=== PATIENT | male | born 1950 | race Caucasian/White ===

== ENCOUNTER → 2020-08-05 14:12 | Outpatient (BNVA) | payer MEDICARE, MEDICAID, SELFPAY | PROVIDERS: PCP Internal Medicine; Referring Provider Internal Medicine; Visit Provider Internal Medicine Cardiovascular Disease | DX: I42.9 Cardiomyopathy, unspecified (principal); I10 Essential (primary) hypertension; I45.3 Trifascicular block; I47.1 Supraventricular tachycardia; Z45.018 Encounter for adjustment and management of other part of cardiac pacemaker | CPT/HCPCS: 99212 ==

== ENCOUNTER → 2020-09-03 09:11 | Outpatient (REF) | payer MEDICARE, MEDICAID, SELFPAY ==
--- NOTE | 2020-09-03 09:14 | CA_ITS ---
Transthoracic Echocardiogram Patient (Last, First, Middle): Ganesh Beebe, Gender: Male Date of : 1950 Age: 70 Procedure Date: 09/03/2020 Procedure Type: Transthoracic Echocardiogram Location: OP Height: 170.18 cm Weight: 90.72 kg BSA: 2.02 m2 Heart Rate: bpm BP: 154 / 80 mmHg [employer] Tender: Referring MD: Juan C Cardenas MD Symptoms: I42.9 - Cardiomyopathy, unspecified Study Quality: Good ECG Rhythm: Sinus Conclusions: - The left ventricular systolic function is low normal. The visually estimated ejection fraction is between 50-55%. - No obvious valvular pathology seen on this study. Findings Left Ventricle Normal left ventricular cavity size. There is normal left ventricular wall thickness. The left ventricular systolic function is low normal. The visually estimated ejection fraction is between 50-55%. There is no evidence of regional wall motion abnormalities. Evidence suggests grade I (mild) diastolic dysfunction. Right Ventricle There is a pacemaker wire seen in the right ventricle. Atria The left atrium is normal in size. The right atrium is normal in size. Aortic Valve There is a normal trileaflet aortic valve. There is no aortic valve stenosis. There is no aortic valve regurgitation. Mitral Valve The mitral valve appears normal. There is mild mitral annular calcification. There is trace mitral valve regurgitation. There is no mitral valve stenosis. Pulmonic Valve The pulmonic valve was not well visualized. Tricuspid Valve Normal tricuspid valve structure. There is trace tricuspid valve regurgitation. The pulmonary artery systolic pressure is normal. Great Vessels The aortic annulus, sinuses of valsalva, and asc aorta are normal in size. Venous The inferior vena cava is normal in size and collapses greater than 50% with inspiration. Pericardium/Pleural There is no evidence of pericardial effusion. Prior Study Comparison No significant change compared to prior study dated: 10/17/2018. Recommendations, Care & Conclusions No obvious valvular pathology seen on this study. Measurements 2D Linear Measurements RVIDd: 2.17 RVIDd Index: 1.07 IVSd: 0.80 0.6-0.9/0.6-1.0 cm LVIDd: 5.91 3.9-5.3/4.2-5.9 cm LVIDd Index: 2.93 2.4-3.2/2.2-3.1 cm/m2 LVIDs: 4.04 2.0-3.6 cm LVPWd: 1.14 0.7-1.1 cm Ao Root: 3.30 2.1-3.5 cm LA Diam: 3.30 2.7-3.8/3.0-4.0 cm LAIDs Index: 1.63 1.5-2.3 cm/m2 LV Mass: 288.60 67-162/88-224 g LV Mass Index: 142.87 43-95/49-115 g/m2 LVOT Diam: 2.40 3.0+(-)1.3 cm 2D Systolic Function EF 4C: 54.50 >55% EF 2C: 56.10 >55% EF BiP: 54.90 >55% Mitral Valve MV Pk E: 0.72 MV PK A: 1.12 MV Decel Time: 263.00 E/A: 0.60 E'Lateral: 5.55 E'Medial: 6.64 E/E' Med: 10.80 E/E' Lat: 12.90 Aortic Valve AoV Pk Basil: 1.39 AoV Mn Basil: 0.93 AoV VTI: 0.26 AoV Pk Grad: 8.00 Aov Mn Grad: 4.00 BETTE Cont.VTI: 3.24 LVOT LVOT Pk Basil: 0.91 LVOT Mn Basil: 0.56 LVOT VTI: 0.18 LVOT Pk Grad: 3.00 LVOT Mn Grad: 2.00 LVOT Diam: 2.40 LVOT Area: 4.52 Diastolic Function MV Pk E: 0.72 MV Pk A: 1.12 E/A: 0.60 E'Medial: 6.64 E/E' Med: 10.80 E' Laterial: 5.55 E/E' Lat: 12.90 Tricuspid Valve TR Pk Basil: 2.36 TR Pk Grad: 22.00 RA Press: 3.00 RVSP: 25.00 Great Vessels Aorta Ao Root-2D: 3.30 2.0-3.7 cm Ao Asc: 3.50 2.1-3.4 cm Ao Arch: 2.90 Updated in Other Vendor System with Status of Final Ramírez Ferreira MD electronically signed on 09/03/2020 12:29:17 PM with status of Final
== END ==
LOC: HO.CARD 09:11
PROVIDERS: PCP Internal Medicine; Visit Provider Internal Medicine Cardiovascular Disease
DX: I42.9 Cardiomyopathy, unspecified (principal); I10 Essential (primary) hypertension
CPT/HCPCS: 93306

== ENCOUNTER 2020-10-02 21:52 | Emergency (ER) | payer MEDICARE, MEDICAID, SELFPAY ==
[2020-10-02 23:17] VITALS: BP 181/98; PULSE 72; RESP 16; TEMP 37.1; O2SAT 97; BMI 31.3
--- NOTE | 2020-10-02 23:50 | ED_ITS ---
HPI - Animal Bite General Chief Complaint: Animal Bite Stated Complaint: Dog Bite Time Seen by Provider: 10/02/20 23:18 Source: patient Mode of arrival: ambulatory Limitations: no limitations History of Present Illness HPI narrative: Patient comes complaining of multiple dog bites to his right hand. Patient states it was his own dog, a gabino. According to the patient, he was cleaning after the dog, seems that the patient's dog felt, bit the patient in the hand. Dog is up-to-date with immunizations. Patient does not remember when he had his last tetanus shot MD complaint: animal bite Related Data Home Medications Medication Instructions Recorded Confirmed fluticasone propionate 50 1 spray INTRANASAL DAILY 09/10/20 09/10/20 mcg/actuation nasal spray,suspension Previous Rx's Medication Instructions Recorded lorazepam 0.5 mg tablet 0.5 mg PO BID PRN 30 Days #60 tab 08/02/20 amlodipine 5 mg tablet 5 mg PO DAILY 90 Days #90 tab 08/26/20 aspirin 81 mg tablet,delayed 81 mg PO DAILY 90 Days #90 tab 08/26/20 release carvedilol 25 mg tablet 25 mg PO BID #180 tab 08/26/20 eplerenone 50 mg tablet 50 mg PO DAILY 90 Days #90 tab 08/26/20 lisinopril 20 mg tablet 20 mg PO BID 90 Days #180 tab 08/26/20 metformin 500 mg tablet 500 mg PO BID 90 Days #180 tab 08/26/20 omega-3 fatty acids-fish oil 340 1 cap PO BID #180 cap 08/26/20 mg-1,000 mg capsule omeprazole 40 mg capsule,delayed 40 mg PO DAILY #90 cap 08/26/20 release potassium chloride 20 mEq 40 meq PO DAILY 90 Days #180 tab 08/26/20 tablet,extended release(part/cryst) sennosides 8.6 mg tablet 17.2 mg PO BEDTIME PRN #60 tab 08/26/20 tramadol 50 mg tablet 50 mg PO Q12H PRN 30 Days #60 tab 08/26/20 zolpidem 10 mg tablet 10 mg PO BEDTIME PRN 30 Days #30 08/26/20 tab meclizine 25 mg tablet 25 mg PO DAILY PRN 90 Days #90 tab 09/10/20 amoxicillin-pot clavulanate 1 tab PO BID #13 tab 10/02/20 [Augmentin] Allergies Allergy/AdvReac Type Severity Reaction Status Date / Time spironolactone Allergy Intermediate Gynecomasti Verified 09/10/20 09:25 [Spironolactone] a,Swelling eplerenone [EPLERENONE] Allergy Unknown UNKNOWN Verified 09/10/20 09:25 metoprolol [METOPROLOL] Allergy Unknown UNKNOWN Verified 09/10/20 09:25 seafood Allergy Unknown Unknown Verified 09/10/20 09:25 fentanyl AdvReac Unknown sleepiness Verified 09/10/20 09:25 Review of Systems Review of Systems: Constitutional : No Weight loss, No Fever, No Chills, No Night Sweats, No Fatigue, No Malaise ENT/Mouth : No Hearing loss, No Ear Pain, No Nasal Congestion, No Sinus Pain, No Hoarseness, No sore throat, No Rhinorrhea, No Swallowing Difficulty Eyes: No Eye Pain, No Swelling, No Redness, No Foreign Body, No Discharge, No Vision Changes Cardiovascular : No Chest Pain, No SOB, No Dyspnea on Exertion, No Orthopnea, No Edema, No Palpitations Respiratory : No Cough, No Sputum, No Wheezing, No Smoke Exposure, No Dyspnea Gastrointestinal : No Nausea, No Vomiting, No Diarrhea, No Constipation, No abdominal Pain, No Hematochezia, No Melena Genitourinary : no irregular bleeding, No Dysuria, No Urinary Frequency, No Hematuria, No Urinary Incontinence, No Urgency, No Flank Pain, No Urinary Flow Changes, No Hesitancy Musculoskeletal : No joint pain, No Myalgias, No Joint Swelling Skin : Multiple dog bites to the right hand Neuro : No Weakness, No Numbness, No Paresthesias, No Loss of Consciousness, No Dizziness, No Headache Psych : No Anxiety/Panic, No Depression, No SI/HI/AH/VH, No Social Issues, Heme/Lymph: No Bruising, No Bleeding,No Lymphadenopathy Endocrine : No Polyuria, No Polydipsia, No Temperature Intolerance [facility] Past Medical History Medical History Cardiac pacemaker in situ Cardiomyopathy Diabetes mellitus HTN (hypertension) SVT (supraventricular tachycardia) Trifascicular block Vertigo Surgical History History of inguinal hernia repair History of pacemaker S/P cardiac catheterization Status post excision of lipoma Family History Family History (Updated 08/29/20 @ 09:29 by MAGALIS Palencia) Mother Cancer Diabetes Hypertension Father Stroke Sister Cancer Maternal Uncle Myocardial infarction Paternal Aunt No problems noted. Paternal Uncle Hypertension CVD (cardiovascular disease) Social History Social History Alcohol intake: former Smoking Status: Never smoker Advance Directives: No Physical Exam Vital Signs: Vital Signs: Last Vital Signs Temp 98.7 F 10/02/20 23:17 Pulse 72 10/02/20 23:17 Resp 16 10/02/20 23:17 BP 181/98 H 10/02/20 23:17 Pulse Ox 97 10/02/20 23:17 Body Mass Index 31.3 Appearance: Alert. Oriented X3. No acute distress. Eyes: Pupils equal, round and reactive to light. ENT: Pharynx normal. Neck: Normal inspection. Neck supple. No lymph nodes noted. No crepitus CVS: Normal heart rate and rhythm. Pulses normal. Normal S1 and S2 Respiratory: No respiratory distress. Breath sounds normal. No Wheezing. No rales Abdomen: Soft and nontender. No rigidity. No distention. good BS x4 Skin: Skin warm and dry. Patient has multiple bite wounds to the dorsum of the right hand around the wrist and multiple puncture wounds to the palmar side under the thumb. Patient is able to flex and extend all fingers. Extremities: No lower extremity edema. No lower extremity edema. No Lacerations. No Rash Neuro: Oriented X 3. No motor deficit. No sensory deficit. Moving all extermities. No slurred speech. Course Course Course Narrative: Patient's HEENT was thoroughly rinsed. I discussed with the patient as stitches are not recommended. He was given 1 dose of Tdap and 1st dose of Augmentin. I discussed with the patient's signs and symptoms of infection and when to return to emergency room. Discharge Plan Discharge Clinical Impression: Dog bite Qualifiers: Encounter type: initial encounter Qualified Code(s): W54.0XXA - Bitten by dog, initial encounter Patient Disposition: Home, Self-Care Instructions: Animal Bite (ED) Additional Instructions: If you have any signs or symptoms of infection such as redness, pus drainage, increased pain, fever, any new concerns, please return to the emergency room. Please follow-up with your primary care physician tomorrow. If you have any worsening or new symptoms, please return to the emergency room or call 911 Prescriptions: New amoxicillin-pot clavulanate [Augmentin] 875-125 mg tablet 1 tab PO BID Qty: 13 RF: 0 No Action lorazepam 0.5 mg tablet 0.5 mg PO BID PRN (Reason: anxiety) 30 Days Qty: 60 RF: 0 amlodipine 5 mg tablet 5 mg PO DAILY 90 Days Qty: 90 RF: 3 aspirin 81 mg tablet,delayed release (DR/EC) 81 mg PO DAILY 90 Days Qty: 90 RF: 3 carvedilol 25 mg tablet 25 mg PO BID Qty: 180 RF: 2 eplerenone 50 mg tablet 50 mg PO DAILY 90 Days Qty: 90 RF: 3 lisinopril 20 mg tablet 20 mg PO BID 90 Days Qty: 180 RF: 3 zolpidem 10 mg tablet 10 mg PO BEDTIME PRN (Reason: insomnia) 30 Days Qty: 30 RF: 0 tramadol 50 mg tablet 50 mg PO Q12H PRN (Reason: pain) 30 Days Qty: 60 RF: 0 sennosides [senna] 8.6 mg tablet 17.2 mg PO BEDTIME PRN (Reason: constipation) Qty: 60 RF: 11 potassium chloride 20 mEq tablet,ER particles/crystals 40 meq PO DAILY 90 Days Qty: 180 RF: 1 omeprazole 40 mg capsule,delayed release(DR/EC) 40 mg PO DAILY Qty: 90 RF: 1 Fish Oil 340-1,000 mg capsule 1 cap PO BID Qty: 180 RF: 2 metformin 500 mg tablet 500 mg PO BID 90 Days Qty: 180 RF: 3 fluticasone propionate 50 mcg/actuation spray,suspension 1 spray intranasal DAILY RF: 0 meclizine 25 mg tablet 25 mg PO DAILY PRN (Reason: dizziness) 90 Days Qty: 90 RF: 1
[2020-10-03] MEDS: Amoxicillin/Potassium Clav 875 MG TABLET PO (00:31)
--- NOTE | 2020-10-03 01:07 | PC.NURSE ---
PT DOG BITE TO RIGHT HAND CLEANED AND WITH BETADINE AND NS AND BACTRIAN AND DSD APPLIED.
== END 2020-10-03 01:09 | disposition home or self-care (01) ==
PROVIDERS: Emergency Provider Emergency Medicine; PCP Internal Medicine
DX: S60.571A Other superficial bite of hand of right hand, initial encounter (principal); S60.511A Abrasion of right hand, initial encounter; M79.641 Pain in right hand; W54.0XXA Bitten by dog, initial encounter; Y93.9 Activity, unspecified; Y92.009 Unspecified place in unspecified non-institutional (private) residence as the place of occurrence of the external cause; Y99.9 Unspecified external cause status; Z23 Encounter for immunization
CPT/HCPCS: 90471; 90715; 99284

== ENCOUNTER → 2021-02-04 12:44 | Outpatient (BNVA) | payer MEDICARE, MEDICAID, SELFPAY | PROVIDERS: PCP Internal Medicine; Referring Provider Internal Medicine; Visit Provider Internal Medicine Cardiovascular Disease | DX: Z45.018 Encounter for adjustment and management of other part of cardiac pacemaker (principal); I42.9 Cardiomyopathy, unspecified; I10 Essential (primary) hypertension | CPT/HCPCS: 99212 ==

== ENCOUNTER 2021-02-26 08:40 | Outpatient (REF) | payer MEDICARE, MEDICAID, SELFPAY ==
[2021-02-26 09:06] LABS: MANUAL DIFF FLAG NO
[2021-02-26 09:18] LABS: Basophils Percent Auto 0.6 % (0-2); Eosinophils Absolute Auto 0.2 X10*3/uL (0.0-0.4); Eosinophils Percent Auto 3.7 % (0-4); Hemoglobin 13.2 g/dl (14.0-18.0); Imm Gran Abs Auto 0.04 X10*3/uL (0.00-0.03); Imm Gran Pct Auto 0.6 % (0.0-0.4); Lymphocytes Absolute Auto 1.1 X10*3/uL (1.2-4.9); Lymphocytes Percent Auto 17.5 % (20-40); Mean Corpuscular HGB Conc 33.8 g/dl (31.0-36.0); Mean Corpuscular Hemoglobin 31.1 pg (27.0-33.0); Mean Corpuscular Volume 91.8 fL (80-98); Mean Platelet Volume 9.3 fL (9.4-12.4); Monocytes Absolute Auto 0.6 X10*3/uL (0.1-1.2); Monocytes Percent Auto 9.4 % (2-11); Neutrophils Absolute Auto 4.3 X10*3/uL (2.0-8.3); Neutrophils Percent Auto 68.2 % (45-73); Platelet Count 213 X10*3/uL (160-400); Red Blood Count 4.25 X10*6/uL (4.60-5.80); Red Cell Distribution Width 12.6 % (11.0-16.0); White Blood Count 6.3 X10*3/uL (4.8-10.8)
[2021-02-26 10:44] LABS: Alanine Aminotransferase 14 U/L (0-40); Albumin Level 4.4 g/dL (3.5-5.0); Alkaline Phosphatase 82 U/L (39-117); Anion Gap 14 (12-20); Aspartate Amino Transferase 20 U/L (5-37); Bilirubin Total 0.9 mg/dL (0.0-1.0); Blood Urea Nitrogen 13 mg/dL (9-16); Calcium 9.3 mg/dL (8.4-10.2); Carbon Dioxide 22 mmol/L (22-29); Chloride 105 mmol/L (96-108); Cholesterol 190 mg/dL; Estimated Glomerular Filt Rate > 60; Glucose Fasting 118 mg/dL (60-99); HDL Cholesterol 37 mg/dL; LDL Cholesterol Calculated 129 mg/dl; Potassium 4.3 mmol/L (3.3-5.1); Sodium 137 mmol/L (135-145); Total Protein 7.4 g/dL (6.5-8.0); Triglycerides 122 mg/dL
[2021-02-26 11:27] LABS: Creatinine Urine 70.95 mg/dL; Microalbum/Creatinine Ratio Ur 73.2 ug/mg cr
[2021-03-02 13:26] LABS: Vitamin D 25-OH, D2 <4 ng/mL; Vitamin D 25-OH, D3 32 ng/mL; Vitamin D 25-OH, Total 32 ng/mL (30-100)
== END 2021-02-26 08:41 | disposition home or self-care (01) ==
LOC: HO.LAB 08:40
PROVIDERS: PCP Internal Medicine; Visit Provider Internal Medicine
DX: E11.9 Type 2 diabetes mellitus without complications (principal); E78.5 Hyperlipidemia, unspecified; R42 Dizziness and giddiness; E55.9 Vitamin D deficiency, unspecified
CPT/HCPCS: 36415; 80053; 80061; 82043; 82306; 85025

== ENCOUNTER → 2021-08-07 12:17 | Outpatient (BNVA) | payer MEDICARE, MEDICAID, SELFPAY | PROVIDERS: PCP Internal Medicine; Referring Provider Internal Medicine; Visit Provider Internal Medicine Cardiovascular Disease | DX: Z45.018 Encounter for adjustment and management of other part of cardiac pacemaker (principal); I47.1 Supraventricular tachycardia; I42.9 Cardiomyopathy, unspecified | CPT/HCPCS: 99212 ==

== ENCOUNTER 2021-10-14 12:16 | Outpatient (REF) | payer MEDICARE, MEDICAID, SELFPAY ==
--- NOTE | ~2021-10-14 | XR_ITS ---
EXAMINATION: XR HIP, RIGHT CLINICAL INFORMATION: Pain right hip COMPARISON: None TECHNIQUE: Two views of the right hip. FINDINGS: Bones and soft tissues are normal. No fracture. Alignment is anatomic. Hip joint space is maintained. XR/XR hip RT min 2V IMPRESSION: Unremarkable right hip exam.
== END 2021-10-14 12:17 | disposition home or self-care (01) ==
LOC: HO.XRAY 12:16
PROVIDERS: PCP Internal Medicine; Visit Provider Internal Medicine
DX: M25.551 Pain in right hip (principal)
CPT/HCPCS: 73502

== ENCOUNTER 2021-11-08 09:20 | Emergency (ER) | payer MEDICARE, MEDICAID, SELFPAY ==
--- NOTE | ~2021-11-08 | CT_ITS ---
EXAMINATION: CT PELVIS WITHOUT CONTRAST CLINICAL INFORMATION: Right-sided pain 1 month after falling. COMPARISON: CT abdomen/pelvis dated 07/27/2016. TECHNIQUE: Helical scanning was performed with submillimeter collimation through the pelvis. Sagittal and coronal multiplanar 2-D reconstructions were obtained. This CT examination was performed using dose optimization techniques as appropriate, variously including the following: *Automated exposure control *Adjustment of mA and/or kV according to patient size (this includes techniques or standardized protocols for targeted exams where dose is matched to indication/reason for exam; i.e. extremities or head) *Use of iterative reconstruction technique DLP: 646 mGy-cm FINDINGS: PELVIS: Sigmoid diverticulosis without evidence of acute diverticulitis. No bowel wall thickening or associated inflammatory change. Mild prostatomegaly with small calcifications. Small, fat-containing left inguinal hernia. Otherwise, the visualized intrapelvic structures are unremarkable. No abnormal soft tissue mass or fluid collection. OSSEOUS STRUCTURES: No acute fracture or dislocation. Moderate bilateral hip osteoarthritis with subchondral cystic change in the acetabula. No concerning lytic or blastic osseous lesion. Redemonstration of congenital deformity with hypoplasty redemonstrated at the right side of the L5 vertebral body, unchanged. Multilevel degenerative disc disease and facet arthropathy throughout the lumbar spine. CT/CT pelvis wo con IMPRESSION: No acute fracture or dislocation. Bilateral hip osteoarthritis as well as degenerative disc disease throughout the lumbar spine is redemonstrated. Congenital deformity of L5 appears unchanged. Diverticulosis without evidence of acute diverticulitis. Small, fat-containing left inguinal hernia, new when compared to the prior examination from 2015. No associated inflammatory change.
[2021-11-08 09:25] VITALS: BP 145/77; PULSE 81; RESP 17; TEMP 36.8; O2SAT 96; BMI 31.6
[2021-11-08] MEDS: Cyclobenzaprine HCl 5 MG TABLET PO (10:11)
--- NOTE | 2021-11-08 10:42 | ED.GENADULT ---
HPI - General Adult General Chief complaint: General Medical <ANANDA Franklin - Last Filed: 11/08/21 12:13> Stated complaint: r leg problem <ANANDA Franklin Last Filed: 11/08/21 12:13> Time Seen by Provider: 11/08/21 09:46 <ANANDA Franklin Last Filed: 11/08/21 12:13> Source: patient <ANANDA Franklin Last Filed: 11/08/21 12:13> Mode of arrival: ambulatory <ANANDA Franklin Last Filed: 11/08/21 12:13> History of Present Illness HPI narrative: 71-year-old male with a past medical history of diabetes, HTN, SVT, cardiomyopathy, vertigo, presenting to the ED complaining of continued right hip/pelvic/groin pain s/p mechanical fall over a month ago while shoveling. Reports was seen by PCP after incident had hip x-rays that were WNL however with continued pain. Denies recurrent or more recent fall. Reports pain radiates down RLE with associated numbness. Denies weakness. Reports mild back pain. Denies urinary incontinence/retention, fever, chills <ANANDA Franklin Last Filed: 11/08/21 12:13> Onset (ago): month(s) <ANANDA Franklin Last Filed: 11/08/21 12:13> Location: lower extremity <ANANDA Franklin Last Filed: 11/08/21 12:13> Related Data Home medications: Home Medications Medication Instructions Recorded Confirmed amoxicillin 500 mg-potassium 1 tab PO BID 10/14/21 10/14/21 clavulanate 125 mg tablet Previous Rx's Medication Instructions Recorded aspirin 81 mg tablet,delayed 81 mg PO DAILY 90 Days #90 tab 08/26/20 release meclizine 25 mg tablet 25 mg PO DAILY PRN 90 Days #90 tab 09/10/20 fluticasone propionate 50 1 spray INTRANASAL DAILY #16 ml 01/04/21 mcg/actuation nasal spray,suspension lisinopril 20 mg tablet 20 mg PO BID 90 Days #180 tab 01/08/21 nebulizers #1 ea 02/27/21 omega-3 fatty acids-fish oil 340 1 cap PO BID #180 cap 02/27/21 mg-1,000 mg capsule (Fish Oil) potassium chloride 20 mEq 40 meq PO DAILY 90 Days #180 tab 04/15/21 tablet,extended release(part/cryst) omeprazole 40 mg capsule,delayed 40 mg PO DAILY #90 cap 05/14/21 release potassium chloride 20 mEq 20 meq PO BID 90 Days #180 tab 06/04/21 tablet,extended release(part/cryst) (Klor-Con M) amlodipine 5 mg tablet 5 mg PO DAILY 90 Days #90 tab 08/08/21 albuterol sulfate 90 mcg/actuation 1 puff PO Q4H PRN 30 Days #54 ea 08/18/21 aerosol inhaler sennosides 8.6 mg tablet (senna) 17.2 mg PO BEDTIME PRN #60 tab 09/03/21 metformin 500 mg tablet 500 mg PO BID 90 Days #180 tab 10/04/21 lorazepam 0.5 mg tablet 0.5 mg PO BID PRN 7 Days #14 tab 10/20/21 tramadol 50 mg tablet 50 mg PO Q12H PRN 30 Days #60 tab 10/20/21 zolpidem 10 mg tablet 10 mg PO BEDTIME PRN 30 Days #30 10/20/21 tab eplerenone 50 mg tablet 50 mg PO DAILY 90 Days #90 tab 10/30/21 carvedilol 25 mg tablet 25 mg PO BID #180 tab 11/05/21 acetaminophen 500 mg tablet 500 mg PO Q6H PRN #20 tab 11/08/21 (Tylenol Extra Strength) cyclobenzaprine 5 mg tablet 5 mg PO Q8H PRN 5 Days #14 tab 11/08/21 <ANANDA Franklin - Last Filed: 11/08/21 12:13> Allergies/adverse reactions: Allergies Allergy/AdvReac Type Severity Reaction Status Date / Time metoprolol [METOPROLOL] Allergy Intermediate Rash Verified 10/14/21 08:17 seafood Allergy Intermediate Swelling Verified 10/14/21 08:17 spironolactone Allergy Intermediate Gynecomasti Verified 10/14/21 08:17 [Spironolactone] a,Swelling fentanyl AdvReac Intermediate sleepiness Verified 10/14/21 08:17 <ANANDA Franklin - Last Filed: 11/08/21 12:13> Review of Systems Review of Systems: Constitutional: No Fever, No Chills, No Fatigue, No Malaise ENT/Mouth: No Ear Pain, No Nasal Congestion, No sore throat, No Rhinorrhea, No Swallowing Difficulty Eyes: No Eye Pain, No Swelling, No Redness Cardiovascular: No Chest Pain, No SOB, No Palpitations Respiratory: No Cough, No Sputum, No Dyspnea Gastrointestinal: No Nausea, No Vomiting, No Diarrhea, No Constipation, No Abdominal pain Genitourinary: No Dysuria, No Urinary Frequency, No Hematuria, No Urinary Incontinence/retention, No Flank Pain, No Urinary Flow Changes Musculoskeletal: + joint pain, No Myalgias, No Joint Swelling Skin: No Skin Lesions, No rash Neuro: No Weakness, + Numbness, + Paresthesias, No Loss of Consciousness, No Dizziness, No Headache <ANANDA Franklin - Last Filed: 11/08/21 12:13> Yes all other systems are reviewed and are negative <ANANDA Franklin - Last Filed: 11/08/21 12:13> Neurologic: Denies Sensory deficit (Neuro) <ANANDA Franklin - Last Filed: 11/08/21 12:13> [facility] Past Medical History Attestation statement: The following information was validated with the patient. <ANANDA Franklin - Last Filed: 11/08/21 12:13> Medical History: Medical History Cardiac pacemaker in situ Cardiomyopathy Constipation by delayed colonic transit Diabetes mellitus Eye exam, routine HTN (hypertension) Insomnia Lumbar degenerative disc disease Right hip pain Screening for colon cancer Screening for prostate cancer SVT (supraventricular tachycardia) Trifascicular block Vertigo <ANANDA Franklin - Last Filed: 11/08/21 12:13> Surgical History: Surgical History History of colonoscopy History of inguinal hernia repair History of pacemaker S/P cardiac catheterization Status post excision of lipoma <ANANDA Franklin Last Filed: 11/08/21 12:13> Family History Family History: Family History Mother Cancer Diabetes Hypertension Father Stroke Sister Cancer Maternal Uncle Myocardial infarction Paternal Aunt No problems noted. Paternal Uncle Hypertension CVD (cardiovascular disease) Brother Mental health disorder <ANANDA Franklin - Last Filed: 11/08/21 12:13> Social History Social History: Social History Housing: House Alcohol intake: never Patient Tobacco Use Status: Never used Tobacco e-Cigarette/Vaping Use: Never Used Second Hand Smoke Exposure: No Advance Directives: No Advance Directives Information Provided: No service: No Current occupational status: disabled <ANANDA Franklin - Last Filed: 11/08/21 12:13> Physical Exam ED Vital Signs: Vital Signs - 24 hr 11/08/21 09:25 Temperature 98.2 F Pulse Rate 81 Respiratory Rate 17 Blood Pressure 145/77 H Pulse Oximetry 96 BMI result Body Mass Index 31.6 <ANANDA Franklin - Last Filed: 11/08/21 12:13> Const General: cooperative, healthy appearing and no acute distress <ANANDA Franklin - Last Filed: 11/08/21 12:13> Orientation/consciousness: patient oriented x3 <ANANDA Franklin - Last Filed: 11/08/21 12:13> Limitations: no limitations <ANANDA Franklin - Last Filed: 11/08/21 12:13> HENMT Head: Yes normal to inspection <ANANDA Franklin - Last Filed: 11/08/21 12:13> Ears: hearing grossly normal bilaterally <ANANDA Franklin - Last Filed: 11/08/21 12:13> General nose exam: Normal external nose present <ANANDA Franklin - Last Filed: 11/08/21 12:13> Face and sinus: Yes normal facial exam <ANANDA Franklin - Last Filed: 11/08/21 12:13> Eyes General: appearance normal, both eyes and all related structures <ANANDA Franklin - Last Filed: 11/08/21 12:13> EOM: EOMs intact bilaterally <ANANDA Franklin - Last Filed: 11/08/21 12:13> Neck Neck: Yes normal visual inspection and Yes no meningeal signs <Yamile Sommer PA - Last Filed: 11/08/21 12:13> Resp Effort & Inspection: normal respiratory effort and no respiratory distress <Yamile Sommer PA - Last Filed: 11/08/21 12:13> Cardio Rate: regular rate <Yamile Sommer PA - Last Filed: 11/08/21 12:13> Heart sounds: S1 normal heart sound present and S2 normal heart sound present <Yamile Sommer PA - Last Filed: 11/08/21 12:13> Peripheral pulses: dorsalis pedis present <Yamile Sommer PA - Last Filed: 11/08/21 12:13> GI Inspection: Yes normal to inspection <Yamile Sommer PA - Last Filed: 11/08/21 12:13> Palpation (GI): Soft to palpation, nontender, no guarding and not rigid <Yamile Sommer PA - Last Filed: 11/08/21 12:13> General: Yes no CVA tenderness <Yamile Sommer PA - Last Filed: 11/08/21 12:13> Back/Spine/Pelvis Other: No midline thoracic/lumbar spinous tenderness/step-off or deformity. No reproducible back pain, + mild tenderness to palpation to right groin and medial thigh. No appreciable deformity/erythema or ecchymosis. Pain reproduced with internal and external rotation of right hip <Yamile Sommer PA - Last Filed: 11/08/21 12:13> Back: no CVA tenderness <Yamile Sommer PA - Last Filed: 11/08/21 12:13> Thoracic/Lumbar Spine: thoracic and lumbar spine normal to inspection <Yamile Sommer PA - Last Filed: 11/08/21 12:13> Pelvis: no pain with anterior-posterior compression and no buttock tenderness <Yamile Sommer PA - Last Filed: 11/08/21 12:13> Skin Rashes: no rashes <Yamile Sommer PA - Last Filed: 11/08/21 12:13> Wounds: no wounds <Yamile Sommer PA - Last Filed: 11/08/21 12:13> Neuro General: patient oriented x3, gait normal, tone normal, moves all extremities, no meningeal signs and no focal motor deficits <ANANDA Franklin Last Filed: 11/08/21 12:13> Gait exam (Neuro): Normal gait present <ANANDA Franklin Last Filed: 11/08/21 12:13> Motor exam (neuro): 5/5 motor strength present throughout <ANANDA Franklin Last Filed: 11/08/21 12:13> Sensory Exam: No Sensory deficit (Neuro) <ANANDA Franklin Last Filed: 11/08/21 12:13> Extrem General: Yes normal to inspection <ANANDA Franklin Last Filed: 11/08/21 12:13> Course Course Course Narrative: 1147--CT pelvis wo con IMPRESSION: No acute fracture or dislocation. ? Bilateral hip osteoarthritis as well as degenerative disc disease throughout the lumbar spine is redemonstrated. Congenital deformity of L5 appears unchanged. ? Diverticulosis without evidence of acute diverticulitis. Small, fat-containing left inguinal hernia, new when compared to the prior examination from 2016. No associated inflammatory change.? >> On re-evaluation patient reports sx improvement/resolution after p.o. Flexeril. Discussed results including worrisome signs and symptoms and strict return precautions and need to close follow-up with PCP. He verbalized understanding and feel safe for discharge home at this time <ANANDA Franklin - Last Filed: 11/08/21 12:13> Medical Decision Making [facility] Narrative Medical decision making narrative: 71-year-old male with a past medical history of diabetes, HTN, SVT, cardiomyopathy, vertigo, presenting to the ED complaining of continued right hip/pelvic/groin pain s/p mechanical fall over a month ago while shoveling. On exam vital signs stable, NAD, physical exam as above. Concern for subacute pelvic fracture vs MSK pain/groin strain vs neuropathy. Low concern for cauda equina, cord compression, thoracic/lumbar fracture Plan: Pelvic CT <ANANDA Franklin Last Filed: 11/08/21 12:13> Medical Records Medical records reviewed: Yes I reviewed the patient's medical records. <ANANDA Franklin Last Filed: 11/08/21 12:13> Lab Data Lab results reviewed: Yes I reviewed the patient's lab results. <ANANDA Franklin - Last Filed: 11/08/21 12:13> Discharge Plan Discharge Clinical Impression: Groin strain <ANANDA Franklin - Last Filed: 11/08/21 12:13> Patient Disposition: Home, Self-Care <ANANDA Franklin Last Filed: 11/08/21 12:13> Instructions: Groin Strain (ED) <ANANDA Franklin - Last Filed: 11/08/21 12:13> Additional Instructions: your shows osteoarthritis, no fracture or dislocation. You also have a small fat containing left inguinal hernia. Flexeril as a muscle relaxer, take at night as it makes you drowsy, do not drive, drink alcohol, or operate machinery while taking it. In addition take Tylenol. Apply heat area. Please follow-up with her doctor. If symptoms persist or worsen, pain becomes unbearable, you are unable to ambulate or developed weakness please return to the ED <ANANDA Franklin - Last Filed: 11/08/21 12:13> Prescriptions: New acetaminophen [Tylenol Extra Strength] 500 mg tablet 500 mg PO Q6H PRN (Reason: pain or fever) Qty: 20 0RF cyclobenzaprine 5 mg tablet 5 mg PO Q8H PRN (Reason: pain (scale score 7-10)) 5 Days Qty: 14 0RF No Action aspirin 81 mg tablet,delayed release (DR/EC) 81 mg PO DAILY 90 Days Qty: 90 3RF fluticasone propionate 50 mcg/actuation spray,suspension 1 spray intranasal DAILY Qty: 16 6RF potassium chloride 20 mEq tablet,ER particles/crystals 40 meq PO DAILY 90 Days Qty: 180 1RF omeprazole 40 mg capsule,delayed release(DR/EC) 40 mg PO DAILY Qty: 90 1RF amlodipine 5 mg tablet 5 mg PO DAILY 90 Days Qty: 90 3RF albuterol sulfate 90 mcg/actuation HFA aerosol inhaler 1 puff PO Q4H PRN (Reason: bronchospasm) 30 Days Qty: 54 4RF sennosides [senna] 8.6 mg tablet 17.2 mg PO BEDTIME PRN (Reason: constipation) Qty: 60 11RF metformin 500 mg tablet 500 mg PO BID 90 Days Qty: 180 3RF tramadol 50 mg tablet 50 mg PO Q12H PRN (Reason: pain) 30 Days Qty: 60 0RF zolpidem 10 mg tablet 10 mg PO BEDTIME PRN (Reason: insomnia) 30 Days Qty: 30 0RF lorazepam 0.5 mg tablet 0.5 mg PO BID PRN (Reason: anxiety) 7 Days Qty: 14 0RF eplerenone 50 mg tablet 50 mg PO DAILY 90 Days Qty: 90 3RF carvedilol 25 mg tablet 25 mg PO BID Qty: 180 2RF meclizine 25 mg tablet 25 mg PO DAILY PRN (Reason: dizziness) 90 Days Qty: 90 1RF lisinopril 20 mg tablet 20 mg PO BID 90 Days Qty: 180 3RF Fish Oil 340-1,000 mg capsule 1 cap PO BID Qty: 180 2RF (DME) nebulizers Misc See Rx Instructions .ROUTE .MEDSUPPLY Qty: 1 0RF Rx Instructions: Nebulizer Machine with Tubing and Accessories potassium chloride [Klor-Con M20] 20 mEq tablet,ER particles/crystals 20 meq PO BID 90 Days Qty: 180 1RF amoxicillin-pot clavulanate 500-125 mg tablet 1 tab PO BID 0RF <ANANDA Franklin - Last Filed: 11/08/21 12:13> Referrals: Ana Morris MD [Primary Care Provider] - 1 week <ANANDA Franklin - Last Filed: 11/08/21 12:13> Interventions: ED Discharge Assessment Last Done: 11/08/21 12:11 <ANANDA Franklin - Last Filed: 11/08/21 12:13> Discharge Date/Time: 11/08/21 13:51 <ANANDA Franklin - Last Filed: 11/08/21 12:13>
== END 2021-11-08 13:51 | disposition home or self-care (01) ==
PROVIDERS: Emergency Provider Emergency Medicine; PCP Internal Medicine
DX: S39.011A Strain of muscle, fascia and tendon of abdomen, initial encounter (principal); X50.0XXA Overexertion from strenuous movement or load, initial encounter; E11.9 Type 2 diabetes mellitus without complications; I10 Essential (primary) hypertension; Y93.H1 Activity, digging, shoveling and raking; Y92.017 Garden or yard in single-family (private) house as the place of occurrence of the external cause; Y99.9 Unspecified external cause status
CPT/HCPCS: 72192; 99284

== ENCOUNTER → 2022-02-12 13:31 | Outpatient (REF) | payer MEDICARE, MEDICAID, SELFPAY ==
--- NOTE | 2022-02-12 13:34 | CA_ITS ---
Transthoracic Echocardiogram Patient (Last, First, Middle): Ganesh Perales, Gender: Male Date of : 1950 Age: 71 Procedure Date: 02/12/2022 Procedure Type: Transthoracic Echocardiogram Location: OP Height: 167.64 cm Weight: 90.72 kg BSA: 2.00 m2 Heart Rate: bpm BP: 136 / 78 mmHg [employer] Teacher: DENNY Referring MD: Juan C Cardenas MD Symptoms: I42.9 - Cardiomyopathy, unspecified Study Quality: Adequate ECG Rhythm: Sinus Conclusions: - The left ventricular systolic function is mildly decreased. The calculated ejection fraction is 45% by biplane method. - LV peak GLS -14.1%. - Mild biatrial enlargement. - No obvious valvular pathology seen on this study. Findings Left Ventricle Mildly increased left ventricular cavity size. There is normal left ventricular wall thickness. The left ventricular systolic function is mildly decreased. The calculated ejection fraction is 45% by biplane method. There is mild global hypokinesis. E/E prime ratio is between 8 and 15 consistent with indeterminate filling pressures. Evidence suggests grade I (mild) diastolic dysfunction. LV peak GLS -14.1%. Right Ventricle Normal right ventricular cavity size and systolic function. Atria Mild biatrial enlargement. Aortic Valve The aortic valve structure and function is likely normal. There is no aortic valve stenosis. There is no aortic valve regurgitation. Mitral Valve There is mild anterior mitral leaflet thickening. There is mild mitral annular calcification. There is trace mitral valve regurgitation. There is no mitral valve stenosis. Pulmonic Valve The pulmonic valve is likely normal. Tricuspid Valve Normal tricuspid valve structure. There is mild tricuspid valve regurgitation. The pulmonary artery systolic pressure is normal. Great Vessels The aortic annulus, sinuses of valsalva, asc aorta, and aortic arch are normal in size. Venous The inferior vena cava is normal in size and collapses greater than 50% with inspiration. Pericardium/Pleural There is no evidence of pericardial effusion. Prior Study Comparison Changes noted compared to prior study dated: 09/03/2020. Slight decrease in LVEF. Recommendations, Care & Conclusions No obvious valvular pathology seen on this study. Measurements 2D Linear Measurements IVSd: 0.94 0.6-0.9/0.6-1.0 cm LVIDd: 5.82 3.9-5.3/4.2-5.9 cm LVIDd Index: 2.91 2.4-3.2/2.2-3.1 cm/m2 LVIDs: 4.26 2.0-3.6 cm LVPWd: 1.10 0.7-1.1 cm LA Diam: 3.50 2.7-3.8/3.0-4.0 cm LAIDs Index: 1.75 1.5-2.3 cm/m2 LV Mass: 299.41 67-162/88-224 g LV Mass Index: 149.71 43-95/49-115 g/m2 LVOT Diam: 2.40 3.0+(-)1.3 cm 2D Systolic Function EF 4C: 41.20 >55% EF 2C: 48.10 >55% EF BiP: 44.60 >55% Mitral Valve MV Pk E: 0.84 MV PK A: 1.10 MV Decel Time: 220.00 E/A: 0.80 E'Lateral: 7.29 E'Medial: 5.55 E/E' Med: 15.10 E/E' Lat: 11.50 PHT: 65.00 MVA PHT: 3.38 Decel [place]: 3.80 Aortic Valve AoV Pk Basil: 1.51 AoV Mn Absil: 1.13 AoV VTI: 0.32 AoV Pk Grad: 9.00 Aov Mn Grad: 6.00 BETTE Cont.VTI: 2.76 LVOT LVOT Pk Basil: 0.94 LVOT Mn Basil: 0.69 LVOT VTI: 0.20 LVOT Pk Grad: 4.00 LVOT Mn Grad: 2.00 LVOT Diam: 2.40 LVOT Area: 4.52 Diastolic Function MV Pk E: 0.84 MV Pk A: 1.10 E/A: 0.80 E'Medial: 5.55 E/E' Med: 15.10 E' Laterial: 7.29 E/E' Lat: 11.50 Right Ventricle TAPSE (mm): 24.30 TVS' Basil: 11.40 Tricuspid Valve TR Pk Basil: 2.47 TR Pk Grad: 24.00 RA Press: 8.00 RVSP: 32.00 Great Vessels Aorta Sinus of Valsalva: 3.50 2.0-3.[address] Ridge: 2.68 1.7-3.4 cm Ao Asc: 3.50 2.1-3.4 cm Ao Arch: 2.80 Updated in Other Vendor System with Status of Final Ramírez Ferreira MD electronically signed on 02/15/2022 12:14:40 PM with status of Final
== END ==
LOC: HO.CARD 13:31
PROVIDERS: PCP Internal Medicine; Visit Provider Internal Medicine Cardiovascular Disease
DX: I42.9 Cardiomyopathy, unspecified (principal)
CPT/HCPCS: 93306; 93356

== ENCOUNTER → 2022-02-26 12:23 | Outpatient (BNVA) | payer MEDICARE, MEDICAID, SELFPAY | PROVIDERS: PCP Internal Medicine; Referring Provider Internal Medicine; Visit Provider Internal Medicine Cardiovascular Disease | DX: Z45.018 Encounter for adjustment and management of other part of cardiac pacemaker (principal); I42.9 Cardiomyopathy, unspecified; I47.1 Supraventricular tachycardia | CPT/HCPCS: 93005; 93280; 99212 ==

== ENCOUNTER 2022-04-14 08:03 | Day surgery (SDC) | payer MEDICARE, MEDICAID, SELFPAY ==
[2022-03-03 16:00] VITALS: BMI 29.6
--- NOTE | 2022-04-13 09:01 | P.CONAN_ITS ---
Documented by User: Minoo Sarmiento NP 04/13/22 09:03 HPI - Anesthesia Eval Consult details Narrative: 71yo M for Colonoscopy Stable at 02/2022 cardiology visit: Cardiac pacemaker in-situ for advanced infranodal block PMFSH Active Problems Active Problems: All Active Problems (Updated 03/02/22 @ 12:35 by ONOFRE Galaviz) Encounter for annual wellness exam in Medicare patient (Acute) Anxiety (Acute) Cellulitis of left lower leg (Acute) Right hip pain (Acute) Eye exam, routine (Acute) Asthma (Acute) Screening for colon cancer (Acute) Screening for prostate cancer (Acute) Lumbar degenerative disc disease (Acute) Insomnia (Acute) Constipation by delayed colonic transit (Acute) Vertigo (Acute) SVT (supraventricular tachycardia) (Acute) Trifascicular block (Acute) Cardiomyopathy (Acute) Cardiac pacemaker in situ (Acute) HTN (hypertension) (Acute) Diabetes mellitus (Acute) Past Medical History Medical History Cardiac pacemaker in situ Cardiac pacemaker in situ Cardiomyopathy Cardiomyopathy Constipation by delayed colonic transit Diabetes mellitus Eye exam, routine HTN (hypertension) Insomnia Lumbar degenerative disc disease Right hip pain Screening for colon cancer Screening for prostate cancer SVT (supraventricular tachycardia) SVT (supraventricular tachycardia) Trifascicular block Trifascicular block Vertigo Family History Family History Mother Cancer Diabetes Hypertension Father Stroke Sister Cancer Maternal Uncle Myocardial infarction Paternal Aunt No problems noted. Paternal Uncle Hypertension CVD (cardiovascular disease) Brother Mental health disorder Surgical History Surgical History History of colonoscopy History of inguinal hernia repair History of pacemaker S/P cardiac catheterization Status post excision of lipoma Social History Social History Housing: House Alcohol intake: never Patient Tobacco Use Status: Never used Tobacco e-Cigarette/Vaping Use: Never Used Second Hand Smoke Exposure: No Use of substances other than those prescribed or required for medical reasons: No Are you DNR?: No Advance Directives: No Advance Directives Information Provided: Yes Recently lost weight without trying: No Nutrition Risks: No Nutritional Risk service: No Current occupational status: disabled Cognitive needs: No Hearing needs: No Vision needs: Yes (glasses) Meds Allergies Allergy/AdvReac Type Severity Reaction Status Date / Time metoprolol [METOPROLOL] Allergy Intermediate Rash Verified 03/02/22 11:27 seafood Allergy Intermediate Swelling Verified 03/02/22 11:27 spironolactone Allergy Intermediate Gynecomasti Verified 03/02/22 11:27 [Spironolactone] a,Swelling fentanyl AdvReac Intermediate sleepiness Verified 03/02/22 11:27 Exam Exam Date and Time: April 13, 2022900 Height,Weight and Vital Signs: Height 5 ft 7 in Weight 85.729 kg Narrative Narrative: Cardiac Device Check 02/2022 Details: Dual-chamber [employer] pacemaker in place.? Programmed in DDDR at 60 beats per minute.? Atrial pacing 7.7% of time.? Ventricular pacing 24% time.? Few episodes of fast ventricular rate consistent with SVT noted EKG 02/2022 normal sinus rhythm with right bundle branch and left anterior fascicular block, bifascicular block, unchanged from before ECHO 02/2022 Conclusions: - The left ventricular systolic function is mildly decreased.? ? The calculated ejection fraction is 45% by biplane method. ? ? ? - LV peak GLS -14.1%.? - Mild biatrial enlargement. ? - No obvious valvular pathology seen on this study.? ? Assessment and Plan Assessment Anesthesia Assessment: Chart Reviewed Documented by User: Jennifer Hodge MD 04/14/22 09:30 [facility] Active Problems Active Problems: All Active Problems (Updated 03/02/22 @ 12:35 by Stas Vyas, [employer] DANCE INSTRUCTOR-C) Encounter for annual wellness exam in Medicare patient (Acute) Anxiety (Acute) Cellulitis of left lower leg (Acute) Right hip pain (Acute) Eye exam, routine (Acute) Asthma (Acute) Screening for colon cancer (Acute) Screening for prostate cancer (Acute) Lumbar degenerative disc disease (Acute) Insomnia (Acute) Constipation by delayed colonic transit (Acute) Vertigo (Acute) SVT (supraventricular tachycardia) (Acute) Trifascicular block (Acute) Cardiomyopathy (Acute) Cardiac pacemaker in situ (Acute). DDDR. Last checked 02/26/22. Denies CP, faintness, SOB HTN (hypertension) (Acute) Diabetes mellitus (Acute) Past Medical History Medical History Cardiac pacemaker in situ Cardiac pacemaker in situ Cardiomyopathy Cardiomyopathy Constipation by delayed colonic transit Diabetes mellitus Eye exam, routine HTN (hypertension) Insomnia Lumbar degenerative disc disease Right hip pain Screening for colon cancer Screening for prostate cancer SVT (supraventricular tachycardia) SVT (supraventricular tachycardia) Trifascicular block Trifascicular block Vertigo Family History Family History Mother Cancer Diabetes Hypertension Father Stroke Sister Cancer Maternal Uncle Myocardial infarction Paternal Aunt No problems noted. Paternal Uncle Hypertension CVD (cardiovascular disease) Brother Mental health disorder Family history of problems with anesthesia: No Surgical History Surgical History History of colonoscopy History of inguinal hernia repair History of pacemaker S/P cardiac catheterization Status post excision of lipoma History of Problems with Anesthesia: No Social History Social History Housing: House Alcohol intake: never Patient Tobacco Use Status: Never used Tobacco e-Cigarette/Vaping Use: Never Used Second Hand Smoke Exposure: No Use of substances other than those prescribed or required for medical reasons: No Are you DNR?: No Advance Directives: No Advance Directives Information Provided: Yes Recently lost weight without trying: No Nutrition Risks: No Nutritional Risk service: No Current occupational status: disabled Cognitive needs: No Hearing needs: No Vision needs: Yes (glasses) Meds Allergies Allergy/AdvReac Type Severity Reaction Status Date / Time metoprolol [METOPROLOL] Allergy Intermediate Rash Verified 03/02/22 11:27 seafood Allergy Intermediate Swelling Verified 03/02/22 11:27 spironolactone Allergy Intermediate Gynecomasti Verified 03/02/22 11:27 [Spironolactone] a,Swelling fentanyl AdvReac Intermediate sleepiness Verified 03/02/22 11:27 Exam Height,Weight and Vital Signs: Height 5 ft 7 in Weight 85.729 kg Vital Signs Temp Pulse Resp BP Pulse Ox O2 Del Method 04/14/22 09:23 97.4 F 78 16 159/81 H 98 Room Air Airway Mallampati Class: II TM Dist: >3cm Neck ROM: Full Loose/Missing/Broken Teeth: No (All own teeth. No broken or loose) Heart: RRR Lungs: CTAB Assessment and Plan Assessment Anesthesia Assessment: Anesthesia Plan Discussed Final Anesthetic Review Family History of Problems with Anesthesia: No History of Problems with Anesthesia: No NPO: Yes ASA Class: III Final Preanesthetic Review: No Changes in Pt Med Stat, Meds/Allgs Chart Reviewed, Consent Obtained/Reviewed and Anes Risks/Benef Reviewed Patient Risk: Intermediate Procedure Risk: Low Assessment/Block/Sedation in SS: Assess/Block/Sedation-SS Anesthetic Plan Anesthetic Plan: MAC: Disposition: Standard PACU
[2022-04-14 09:03] VITALS: BMI 31.3
[2022-04-14 09:23] VITALS: BP 159/81; PULSE 78; RESP 16; TEMP 36.3; O2SAT 98
--- NOTE | 2022-04-14 09:23 | MHC.SHP ---
Pre-Procedural Eval Section A Date of Service: 04/14/22 Section B Chief Complaint: screening Details of Present Illness: see H&P no changes Relevant Family History (Specify if Yes): No Relevant Social History: None Present Medications: see Short Stay Collaborative assessment Medical History: No relevant PMH History of Previous Operations: No relevant previous surgery Allergies: Allergies Allergy/AdvReac Type Severity Reaction Status Date / Time metoprolol [METOPROLOL] Allergy Intermediate Rash Verified 03/02/22 11:27 seafood Allergy Intermediate Swelling Verified 03/02/22 11:27 spironolactone Allergy Intermediate Gynecomasti Verified 03/02/22 11:27 [Spironolactone] a,Swelling fentanyl AdvReac Intermediate sleepiness Verified 03/02/22 11:27 Review of Systems Sugical H&P ROS: Negative: Constitution, Cardiovascular, Respiratory, Neurological, Psychiatric, Hem-Onc, Allergic/Immunologic, Gastrointestinal, Genitourinary, Musculoskeletal, Integumentary, Endocrine and Eyes/Ears/Nose/Throat Exam Surgical H&P Exam: Normal: HEENT, Normal: Heart, Normal: Lungs, Normal: Extremities, Normal: Abdomen, Normal: Skin and Normal: Neurological Plan Diagnosis/Plan: Unchanged I have reviewed the history and physical and performed a pertinent physical examination on my patient. No changes have occurred unless specified.
[2022-04-14 09:31] LABS: Glucose, Whole Blood 101 mg/dL (60-115)
[2022-04-14] MEDS: Sodium Phosphate,Mono-Dibasic 133 ML ENEMA PR ×2 (09:36→09:48)
--- NOTE | 2022-04-14 09:38 | PC.NURSE ---
left lateral fleet admin. julia well. license examiner used for teaching.
--- NOTE | 2022-04-14 09:49 | PC.NURSE ---
after first fleet enema patient had yellow unable to see through toilet output. second fleet ordered by md nash
--- NOTE | 2022-04-14 09:51 | PC.NURSE ---
second fleet given julia well
[2022-04-14] MEDS: Lactated Ringers 1,000 ML 50 ML IVCONT (10:16)
--- NOTE | 2022-04-14 10:17 | PC.NURSE ---
second fleet enema given and yellow [id number] unable to see through toilet but less cloudy than first ebnema.
--- NOTE | 2022-04-14 11:12 | P.BOP_ITS ---
Brief Operative Note Date of Service: 04/14/22 Pre-op diagnosis: screening Post-op diagnosis: same Procedure: colonoscopy Surgeon: Prudencio Carias Anesthesia: MAC Was an Filler Machine Operator used for this Procedure?: No Estimated blood loss (mL): 0 Pathology: none sent Condition: stable Disposition: PACU
[2022-04-14 11:13] VITALS: BP 143/86; PULSE 69; RESP 16; TEMP 36.6; O2SAT 97
[2022-04-14 11:30] VITALS: BP 130/82; PULSE 73; RESP 16; TEMP 36.6; O2SAT 95
--- NOTE | 2022-04-14 21:23 | OP_ITS ---
SURGEON: Prudencio Carias MD INDICATIONS: Colon cancer screening. PREOPERATIVE DIAGNOSIS: POSTOPERATIVE DIAGNOSIS: PROCEDURE PERFORMED: ESTIMATED BLOOD LOSS: COMPLICATIONS: ANESTHESIA: ASSISTANTS: SPECIMENS: PROCEDURE: Colonoscopy to the cecum. MEDICATIONS: Monitored anesthesia care. DESCRIPTION OF PROCEDURE: History and physical performed. The risks and benefits of the procedure were explained to the patient. Informed consent was obtained. The patient was placed in the left lateral decubitus position. A digital rectal exam was performed and showed a slightly stenotic rectum. The Olympus pediatric video colonoscope was introduced into the rectum and advanced to the cecum without difficulty. The cecum was identified by transillumination, palpation, and identification of ileocecal valve. Examination was performed. The scope was removed. He tolerated the procedure well, returned to recovery area in stable condition. FINDINGS: The terminal ileum was not examined. The examination was extremely limited by a large amount of retained liquid and solid stool as the patient had not followed a clear liquid diet the day before the procedure. This particularly limited examination of the transverse, descending, and sigmoid colon as well as the cecum. Diverticulosis of the sigmoid was noted. Retroflexed examination showed moderate-sized internal hemorrhoids. 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 No polyps were identified. IMPRESSION: 1. Colonoscopy negative for polyps. 2. Limited examination as above. RECOMMENDATIONS: Follow up office visit with consideration toward repeat lower gastrointestinal tract endoscopy with two-day prep in 6 to 12 months. MD MYNOR Coyne/[place] / [id number] MTDD
== END 2022-04-14 12:07 | disposition home or self-care (01) ==
PROVIDERS: PCP Internal Medicine; Visit Provider Internal Medicine Gastroenterology
PROC: 0DJD8ZZ Inspection of Lower Intestinal Tract, Via Natural or Artificial Opening Endoscopic (ICD-10-PCS; CPT 45378; principal; 2022-04-14 09:30)
DX: Z12.11 Encounter for screening for malignant neoplasm of colon (principal); Z91.19 Patient's noncompliance with other medical treatment and regimen; K57.30 Diverticulosis of large intestine without perforation or abscess without bleeding; K64.8 Other hemorrhoids; K63.89 Other specified diseases of intestine; I10 Essential (primary) hypertension; I47.1 Supraventricular tachycardia; I42.9 Cardiomyopathy, unspecified; I45.3 Trifascicular block; Z95.0 Presence of cardiac pacemaker; J45.909 Unspecified asthma, uncomplicated; E11.9 Type 2 diabetes mellitus without complications; Z79.84 Long term (current) use of oral hypoglycemic drugs; Z79.82 Long term (current) use of aspirin; Z79.899 Other long term (current) drug therapy; Z88.8 Allergy status to other drugs, medicaments and biological substances
CPT/HCPCS: G0121; 82947

== ENCOUNTER 2022-07-14 07:56 | Outpatient (REF) | payer MEDICARE, MEDICAID, SELFPAY ==
[2022-07-14 10:45] LABS: Alanine Aminotransferase 14 U/L (0-40); Albumin Level 4.4 g/dL (3.5-5.0); Alkaline Phosphatase 76 U/L (39-117); Anion Gap 14 (12-20); Aspartate Amino Transferase 19 U/L (5-37); Bilirubin Total 0.7 mg/dL (0.0-1.0); Blood Urea Nitrogen 12 mg/dL (9-16); Calcium 9.6 mg/dL (8.4-10.2); Carbon Dioxide 26 mmol/L (22-29); Chloride 99 mmol/L (96-108); Cholesterol 165 mg/dL; Estimated Glomerular Filt Rate > 60; Glucose Fasting 99 mg/dL (60-99); HDL Cholesterol 38 mg/dL; LDL Cholesterol Calculated 103 mg/dl; Potassium 3.9 mmol/L (3.3-5.1); Prostate Specific Antigen Scr 4.54 ng/mL (<0.05-4.0); Sodium 135 mmol/L (135-145); Total Protein 7.4 g/dL (6.5-8.0); Triglycerides 124 mg/dL
[2022-07-14 10:57] LABS: Microalbum/Creatinine Ratio Ur 1162.1 ug/mg cr
== END 2022-07-14 07:57 | disposition home or self-care (01) ==
LOC: HO.LAB 07:56
PROVIDERS: Nurse Practitioner Family; PCP Internal Medicine; Visit Provider Internal Medicine
DX: E11.9 Type 2 diabetes mellitus without complications (principal); E78.5 Hyperlipidemia, unspecified; Z12.5 Encounter for screening for malignant neoplasm of prostate
CPT/HCPCS: 36415; 80053; 80061; 82043; 84153

== ENCOUNTER → 2022-08-27 12:20 | Outpatient (BNVA) | payer MEDICARE, MEDICAID, SELFPAY | PROVIDERS: PCP Internal Medicine; Referring Provider Internal Medicine; Visit Provider Internal Medicine Cardiovascular Disease | DX: Z45.018 Encounter for adjustment and management of other part of cardiac pacemaker (principal); I42.9 Cardiomyopathy, unspecified; I47.1 Supraventricular tachycardia | CPT/HCPCS: 93280; 99212 ==

== ENCOUNTER → 2022-09-15 12:43 | Outpatient (BNVA) | payer MEDICARE, MEDICAID, SELFPAY | PROVIDERS: PCP Internal Medicine; Visit Provider Nurse Practitioner Family | DX: R97.20 Elevated prostate specific antigen [PSA] (principal); R35.1 Nocturia | CPT/HCPCS: 99202 ==

== ENCOUNTER 2022-09-22 07:44 | Day surgery (SDC) | payer MEDICARE, MEDICAID, SELFPAY ==
--- NOTE | 2022-09-21 12:18 | HO.ANESPROP2 ---
Documented by User: Minoo Sarmiento NP 09/21/22 12:20 HPI - Anesthesia Eval Consult details Narrative: 71yo M for Colonoscopy s/p Colonoscopy 04/2022 with MAC Stable at 08/2022 cardiology visit: Cardiac pacemaker in-situ for advanced infranodal block PMFSH Active Problems Active Problems: All Active Problems (Updated 09/15/22 @ 13:29 by ALEXIS Stanton) Nocturia (Acute) Microalbuminuria (Acute) PSA elevation (Acute) Encounter for annual wellness exam in Medicare patient (Acute) Anxiety (Acute) Cellulitis of left lower leg (Acute) Right hip pain (Acute) Eye exam, routine (Acute) Asthma (Acute) Screening for colon cancer (Acute) Screening for prostate cancer (Acute) Lumbar degenerative disc disease (Acute) Insomnia (Acute) Constipation by delayed colonic transit (Acute) Vertigo (Acute) SVT (supraventricular tachycardia) (Acute) Trifascicular block (Acute) Cardiomyopathy (Acute) Cardiac pacemaker in situ (Acute) HTN (hypertension) (Acute) Diabetes mellitus (Acute) Past Medical History Medical History Cardiac pacemaker in situ Cardiac pacemaker in situ Cardiomyopathy Cardiomyopathy Constipation by delayed colonic transit Diabetes mellitus Eye exam, routine HTN (hypertension) Insomnia Lumbar degenerative disc disease Right hip pain Screening for colon cancer Screening for prostate cancer SVT (supraventricular tachycardia) SVT (supraventricular tachycardia) Trifascicular block Trifascicular block Vertigo Family History Family History Mother Cancer Diabetes Hypertension Father Stroke Sister Cancer Maternal Uncle Myocardial infarction Paternal Aunt No problems noted. Paternal Uncle Hypertension CVD (cardiovascular disease) Brother Mental health disorder Family history of problems with anesthesia: No Surgical History Surgical History History of colonoscopy History of inguinal hernia repair History of pacemaker S/P cardiac catheterization Status post excision of lipoma History of Problems with Anesthesia: No Social History Social History Housing: House Alcohol intake: never Patient Tobacco Use Status: Never used Tobacco e-Cigarette/Vaping Use: Never Used Second Hand Smoke Exposure: No Are you DNR?: No Advance Directives: No Advance Directives Information Provided: Yes Recently lost weight without trying: No Nutrition Risks: No Nutritional Risk service: No Current occupational status: disabled Cognitive needs: No Hearing needs: No Vision needs: Yes (glasses) Meds Allergies Allergy/AdvReac Type Severity Reaction Status Date / Time metoprolol [METOPROLOL] Allergy Intermediate Rash Verified 09/15/22 13:15 seafood Allergy Intermediate Swelling Verified 09/15/22 13:15 spironolactone Allergy Intermediate Gynecomasti Verified 09/15/22 13:15 [Spironolactone] a,Swelling fentanyl AdvReac Intermediate sleepiness Verified 09/15/22 13:15 Exam Exam Date and Time: September 21, 2022 1218 Pertinent Lab Results Pertinent Lab Results: Laboratory Tests 07/14/22 08:12 Sodium 135 Potassium 3.9 Chloride 99 Carbon Dioxide 26 BUN 12 Creatinine 0.84 Narrative Narrative: Cardiac Device Check 08/2022 Details: Dual-chamber [employer] pacemaker in place.? Programmed in DDDR at 60 beats per minute.? Ventricular pacing 31% of time.? Atrial ventricular sensing is adequate.? Atrial ventricular pacing thresholds adequate.? Pacing lead impedance is stable.? Few episodes of high ventricular rate episode noted last in May was consistent with SVT EKG 02/2022 normal sinus rhythm with right bundle branch and left anterior fascicular block, bifascicular block, unchanged from before ECHO 02/2022 Conclusions: - The left ventricular systolic function is mildly decreased.? ? The calculated ejection fraction is 45% by biplane method. ? ? ? - LV peak GLS -14.1%.? - Mild biatrial enlargement. ? - No obvious valvular pathology seen on this study.? ? Assessment and Plan Assessment Anesthesia Assessment: Chart Reviewed Final Anesthetic Review Family History of Problems with Anesthesia: No History of Problems with Anesthesia: No Documented by User: Adriana Magaña MD 09/22/22 09:04 [facility] Past Medical History Medical History Cardiac pacemaker in situ Cardiac pacemaker in situ Cardiomyopathy Cardiomyopathy Constipation by delayed colonic transit Diabetes mellitus Eye exam, routine HTN (hypertension) Insomnia Lumbar degenerative disc disease Right hip pain Screening for colon cancer Screening for prostate cancer SVT (supraventricular tachycardia) SVT (supraventricular tachycardia) Trifascicular block Trifascicular block Vertigo Family History Family History Mother Cancer Diabetes Hypertension Father Stroke Sister Cancer Maternal Uncle Myocardial infarction Paternal Aunt No problems noted. Paternal Uncle Hypertension CVD (cardiovascular disease) Brother Mental health disorder Surgical History Surgical History History of colonoscopy History of inguinal hernia repair History of pacemaker S/P cardiac catheterization Status post excision of lipoma Social History Social History Housing: House Alcohol intake: never Patient Tobacco Use Status: Never used Tobacco e-Cigarette/Vaping Use: Never Used Second Hand Smoke Exposure: No Are you DNR?: No Advance Directives: No Advance Directives Information Provided: Yes Recently lost weight without trying: No Nutrition Risks: No Nutritional Risk service: No Current occupational status: disabled Cognitive needs: No Hearing needs: No Vision needs: Yes (glasses) Meds Allergies Allergy/AdvReac Type Severity Reaction Status Date / Time metoprolol [METOPROLOL] Allergy Intermediate Rash Verified 09/15/22 13:15 seafood Allergy Intermediate Swelling Verified 09/15/22 13:15 spironolactone Allergy Intermediate Gynecomasti Verified 09/15/22 13:15 [Spironolactone] a,Swelling fentanyl AdvReac Intermediate sleepiness Verified 09/15/22 13:15 Exam Airway Mallampati Class: II TM Dist: >3cm Neck ROM: Full Heart: rrr Lungs: cta Assessment and Plan Assessment Anesthesia Assessment: Anesthesia Plan Discussed Final Anesthetic Review NPO: Yes ASA Class: III Final Preanesthetic Review: No Changes in Pt Med Stat, Meds/Allgs Chart Reviewed, Consent Obtained/Reviewed and Anes Risks/Benef Reviewed Patient Risk: Intermediate Procedure Risk: Low Anesthetic Plan Anesthetic Plan: MAC: and Agree w/ Assess. and Plan Disposition: Standard PACU
[2022-09-22 06:15] VITALS: BMI 28.4
[2022-09-22 07:51] VITALS: BP 174/99; PULSE 86; RESP 20; TEMP 36.8; O2SAT 96
[2022-09-22 08:04] LABS: Glucose, Whole Blood 104 mg/dL (60-115)
[2022-09-22] MEDS: Lactated Ringers 1,000 ML 100 ML IVCONT (08:29)
--- NOTE | 2022-09-22 08:49 | MHC.SHP ---
Pre-Procedural Eval Section A Date of Service: 09/22/22 The patient is an INPATIENT: No Changes since office visit: No Cold of Flu in the past 2 weeks, No New Medical Problems, No Changes in Medication and No Patient answered all questions The History & Physical has been completed within 30 days and I have reviewed it.: Yes Section B Chief Complaint: screening Allergies: Allergies Allergy/AdvReac Type Severity Reaction Status Date / Time metoprolol [METOPROLOL] Allergy Intermediate Rash Verified 09/15/22 13:15 seafood Allergy Intermediate Swelling Verified 09/15/22 13:15 spironolactone Allergy Intermediate Gynecomasti Verified 09/15/22 13:15 [Spironolactone] a,Swelling fentanyl AdvReac Intermediate sleepiness Verified 09/15/22 13:15 Plan I have reviewed the history and physical and performed a pertinent physical examination on my patient. No changes have occurred unless specified. Time Spent With Patient Time: Total time managing care of this patient today ____ minutes.
--- NOTE | 2022-09-22 09:16 | PM.OP ---
Brief Operative Note Date of Service: 09/22/22 Pre-op diagnosis: screening Post-op diagnosis: same Procedure: colonoscopy Surgeon: Prudencio Carias Anesthesia: MAC Was an It Desktop Support Specialist used for this Procedure?: No Estimated blood loss (mL): 2 Pathology: other Condition: stable Disposition: PACU
[2022-09-22 09:22] VITALS: BP 156/93; PULSE 68; RESP 17; TEMP 36.4; O2SAT 100
[2022-09-22 09:27] VITALS: BP 144/87; PULSE 78; RESP 18; O2SAT 95
[2022-09-22 09:32] VITALS: BP 148/82; PULSE 74; RESP 18; O2SAT 95
[2022-09-22 09:37] VITALS: BP 147/79; PULSE 68; RESP 18; TEMP 36.7; O2SAT 97
--- NOTE | 2022-09-22 09:47 | OP_ITS ---
SURGEON: Prudencio Carias MD INDICATIONS: Colon cancer screening. Previous colonoscopy in 04/27 had a poor prep, repeat with 2 day prep required. PREOPERATIVE DIAGNOSIS: POSTOPERATIVE DIAGNOSIS: PROCEDURE PERFORMED: Colonoscopy to the terminal ileum. ESTIMATED BLOOD LOSS: COMPLICATIONS: ANESTHESIA: Monitored anesthesia care. ASSISTANTS: SPECIMENS: DESCRIPTION OF PROCEDURE: The procedure was performed on 09/22/2022. A history and physical was performed. The risks and benefits of the procedure were explained to the patient. Informed consent was obtained. The patient was placed in the left lateral decubitus position. A digital rectal exam was performed and was found to be normal. The Olympus pediatric video colonoscope was introduced into the rectum and advanced to the cecum without difficulty. The cecum was identified by transillumination, palpation, and identification of ileocecal valve. Examination was performed. The scope was removed. He tolerated the procedure well and was returned to recovery area in stable condition. FINDINGS: The terminal ileum was briefly examined and appeared normal. The visualized colonic mucosa was within normal limits without evidence of masses, ulcers, or other lesions. There was melanosis coli present throughout the colon. A single polyp measuring less than 5 mm was identified in the rectum and removed with biopsy forceps. No other polyps were identified. Retroflexed examination showed some small internal hemorrhoids. IMPRESSION: Colon polyp. RECOMMENDATION: Follow up the biopsy results. MD MYNOR Coyne/[place] / [id number] MTDD
== END 2022-09-22 10:00 | disposition home or self-care (01) ==
PROVIDERS: PCP Internal Medicine; Visit Provider Internal Medicine Gastroenterology
PROC: 0DJD8ZZ Inspection of Lower Intestinal Tract, Via Natural or Artificial Opening Endoscopic (ICD-10-PCS; CPT 45378; principal; 2022-09-22 08:50)
DX: Z12.11 Encounter for screening for malignant neoplasm of colon (principal); K63.89 Other specified diseases of intestine; K62.1 Rectal polyp; K64.8 Other hemorrhoids; K59.00 Constipation, unspecified; I42.9 Cardiomyopathy, unspecified; I45.3 Trifascicular block; I47.1 Supraventricular tachycardia; I10 Essential (primary) hypertension; Z95.0 Presence of cardiac pacemaker; J45.909 Unspecified asthma, uncomplicated; E11.9 Type 2 diabetes mellitus without complications; Z79.84 Long term (current) use of oral hypoglycemic drugs; Z79.51 Long term (current) use of inhaled steroids; Z79.82 Long term (current) use of aspirin; Z79.899 Other long term (current) drug therapy; Z88.8 Allergy status to other drugs, medicaments and biological substances
CPT/HCPCS: 45380; 82947; 88305

== ENCOUNTER 2022-10-01 08:10 | Outpatient (REF) | payer MEDICARE, MEDICAID, SELFPAY ==
[2022-10-01 08:22] LABS: MANUAL DIFF FLAG NO
[2022-10-01 08:57] LABS: Basophils Percent Auto 0.6 % (0-2); Eosinophils Absolute Auto 0.2 X10*3/uL (0.0-0.4); Eosinophils Percent Auto 3.8 % (0-4); Hematocrit 38.4 % (42.0-52.0); Hemoglobin 13.2 g/dl (14.0-18.0); Imm Gran Abs Auto 0.01 X10*3/uL (0.00-0.03); Imm Gran Pct Auto 0.2 % (0.0-0.4); Lymphocytes Percent Auto 16.3 % (20-40); Mean Corpuscular HGB Conc 34.4 g/dl (31.0-36.0); Mean Corpuscular Hemoglobin 30.9 pg (27.0-33.0); Mean Corpuscular Volume 89.9 fL (80.0-98.0); Mean Platelet Volume 9.4 fL (9.4-12.4); Monocytes Absolute Auto 0.6 X10*3/uL (0.1-1.2); Monocytes Percent Auto 9.1 % (2-11); Neutrophils Absolute Auto 4.4 x10*3/uL (2.0-8.3); Platelet Count 240 X10*3/uL (160-400); Red Blood Count 4.27 X10*6/uL (4.60-5.80); Red Cell Distribution Width 12.6 % (11.0-16.0); White Blood Count 6.3 X10*3/uL (4.8-10.8)
[2022-10-01 09:40] LABS: Alanine Aminotransferase 16 U/L (0-40); Albumin Level 4.3 g/dL (3.5-5.0); Alkaline Phosphatase 87 U/L (39-117); Anion Gap 13 (12-20); Aspartate Amino Transferase 18 U/L (5-37); Bilirubin Total 0.6 mg/dL (0.0-1.0); Blood Urea Nitrogen 11 mg/dL (9-16); Calcium 9.2 mg/dL (8.4-10.2); Carbon Dioxide 28 mmol/L (22-29); Chloride 102 mmol/L (96-108); Cholesterol 185 mg/dL; Estimated Glomerular Filt Rate > 60; Glucose Fasting 112 mg/dL (60-99); HDL Cholesterol 39 mg/dL; Iron 43 mcg/dL (45-160); LDL Cholesterol Calculated 119 mg/dl; Percent Iron Saturation 11 % (15-50); Sodium 139 mmol/L (135-145); Total Iron Binding Capacity 391 mcg/dL (228-428); Total Protein 7.3 g/dL (6.5-8.0); Triglycerides 139 mg/dL; Unsaturated Iron Binding 348 ug/dL
[2022-10-01 09:55] LABS: Vitamin D 25-OH Total 27.5 ng/mL (>30)
[2022-10-01 10:24] LABS: PSA,Total (Free>4and<10) 4.36 ng/mL (0.00-4.00)
[2022-10-01 11:13] LABS: Creatinine Urine 51.67 mg/dL; Microalbum/Creatinine Ratio Ur 330.9 ug/mg cr
[2022-10-02 09:53] LABS: Percent Free Prostate Spec Ag 26 % (calc) (>25); Prostate Specific Ag Total 3.9 ng/mL (< OR = 4.0)
== END 2022-10-01 08:11 | disposition home or self-care (01) ==
LOC: HO.LAB 08:10
PROVIDERS: Absent Provider Internal Medicine; PCP Internal Medicine; Visit Provider Nurse Practitioner Family
DX: Z12.5 Encounter for screening for malignant neoplasm of prostate (principal); R35.1 Nocturia; R97.20 Elevated prostate specific antigen [PSA]; E11.9 Type 2 diabetes mellitus without complications; I42.9 Cardiomyopathy, unspecified; E55.9 Vitamin D deficiency, unspecified; E78.5 Hyperlipidemia, unspecified; D64.9 Anemia, unspecified
CPT/HCPCS: 36415; 80053; 80061; 82043; 82306; 83540; 84153; 84154; 85025

== ENCOUNTER → 2022-11-13 10:07 | Outpatient (BNVA) | payer MEDICARE, MEDICAID, SELFPAY | PROVIDERS: PCP Internal Medicine; Visit Provider Nurse Practitioner Family | DX: N40.1 Benign prostatic hyperplasia with lower urinary tract symptoms (principal); R35.1 Nocturia; R97.20 Elevated prostate specific antigen [PSA] | CPT/HCPCS: 99212 ==

== ENCOUNTER 2022-12-03 10:51 | Outpatient (REF) | payer MEDICARE, MEDICAID, SELFPAY ==
--- NOTE | ~2022-12-03 | US_ITS ---
EXAMINATION: US PELVIS LIMITED (BLADDER) CLINICAL INFORMATION: Nocturia. COMPARISON: CT abdomen without contrast 07/20/2017. X-ray abdomen KUB 08/28/2013. TECHNIQUE: Real-time imaging of the bladder. FINDINGS: BLADDER: Partially distended. Bilateral ureteral jets are demonstrated. Prevoid bladder volume is 116 mL. Postvoid bladder volume is 20.0 mL. ADDITIONAL FINDINGS: Prostate gland measures 6.9 x 4.4 x 6.1 cm, 96.8 mL. US/US bladder IMPRESSION: Enlarged prostate with increased post void residual volume.
== END 2022-12-03 10:52 | disposition home or self-care (01) ==
LOC: HO.US 10:51
PROVIDERS: PCP Internal Medicine; Visit Provider Nurse Practitioner Family
DX: R35.1 Nocturia (principal)
CPT/HCPCS: 76857

== ENCOUNTER → 2022-12-10 11:03 | Outpatient (BNVA) | payer MEDICARE, MEDICAID, SELFPAY | PROVIDERS: PCP Internal Medicine; Visit Provider Nurse Practitioner Family | DX: N40.0 Benign prostatic hyperplasia without lower urinary tract symptoms (principal); N28.1 Cyst of kidney, acquired; R35.1 Nocturia; R97.20 Elevated prostate specific antigen [PSA] | CPT/HCPCS: 51798; 99212 ==

== ENCOUNTER → 2023-01-14 09:20 | Outpatient (REF) | payer MEDICARE, MEDICAID, SELFPAY ==
--- NOTE | 2023-01-14 09:23 | CA_ITS ---
Transthoracic Echocardiogram Patient (Last, First, Middle): Ganesh Perales, Gender: Male Date of : 1950 Age: 72 Procedure Date: 01/14/2023 Procedure Type: Transthoracic Echocardiogram Location: OP Height: 170.18 cm Weight: 90.72 kg BSA: 2.02 m2 Heart Rate: 66 bpm BP: 142 / 74 mmHg Manager Scientific: CAREY Referring MD: Juan C Cardenas MD Symptoms: I42.9 - Cardiomyopathy, unspecified Study Quality: Adequate ECG Rhythm: Sinus Conclusions: - The left ventricular systolic function is mildly decreased. The calculated ejection fraction is 46% by biplane method. - LV peak GLS -14.7%. - No obvious valvular pathology seen on this study. Findings Left Ventricle Normal left ventricular cavity size. The left ventricular systolic function is mildly decreased. The calculated ejection fraction is 46% by biplane method. There is mild global hypokinesis. E/E prime ratio is between 8 and 15 consistent with indeterminate filling pressures. Evidence suggests grade I (mild) diastolic dysfunction. There is mild septal asymmetric hypertrophy. LV peak GLS -14.7%. Right Ventricle Normal right ventricular cavity size and systolic function. There is a pacemaker wire seen in the right ventricle. Atria The left atrium is normal in size. A pacemaker wire is identified in the right atrium. Aortic Valve There is a normal trileaflet aortic valve. There is no aortic valve stenosis. There is no aortic valve regurgitation. Mitral Valve There is mild anterior mitral leaflet thickening. There is no mitral valve regurgitation. There is no mitral valve stenosis. Pulmonic Valve The pulmonic valve is likely normal. Tricuspid Valve There is mild tricuspid valve regurgitation. There is no evidence of pulmonary hypertension. Great Vessels The asc aorta is normal in size. Venous The inferior vena cava is normal in size and collapses less than 50% with inspiration. Pericardium/Pleural There is no evidence of pericardial effusion. Prior Study Comparison No significant change compared to prior study dated: 02/12/2022. Recommendations, Care & Conclusions No obvious valvular pathology seen on this study. Measurements 2D Linear Measurements IVSd: 1.20 0.6-0.9/0.6-1.0 cm LVIDd: 5.33 3.9-5.3/4.2-5.9 cm LVIDd Index: 2.64 2.4-3.2/2.2-3.1 cm/m2 LVIDs: 4.10 2.0-3.6 cm LVPWd: 0.93 0.7-1.1 cm LA Diam: 3.20 2.7-3.8/3.0-4.0 cm LAIDs Index: 1.58 1.5-2.3 cm/m2 LV Mass: 274.46 67-162/88-224 g LV Mass Index: 135.87 43-95/49-115 g/m2 LVOT Diam: 2.50 3.0+(-)1.3 cm 2D Systolic Function EF 4C: 46.80 >55% EF 2C: 45.60 >55% EF BiP: 45.90 >55% Mitral Valve MV Pk E: 0.84 MV PK A: 1.17 MV Decel Time: 214.00 E/A: 0.70 E'Lateral: 6.09 E'Medial: 5.66 E/E' Med: 14.80 E/E' Lat: 13.70 PHT: 63.00 MVA PHT: 3.49 Decel [place]: 3.91 Aortic Valve AoV Pk Basil: 1.34 AoV Mn Basil: 0.93 AoV VTI: 0.30 AoV Pk Grad: 7.00 Aov Mn Grad: 4.00 BETTE Cont.VTI: 3.03 LVOT LVOT Pk Basil: 0.82 LVOT Mn Basil: 0.59 LVOT VTI: 0.18 LVOT Pk Grad: 3.00 LVOT Mn Grad: 2.00 LVOT Diam: 2.50 LVOT Area: 4.91 Diastolic Function MV Pk E: 0.84 MV Pk A: 1.17 E/A: 0.70 E'Medial: 5.66 E/E' Med: 14.80 E' Laterial: 6.09 E/E' Lat: 13.70 Right Ventricle TAPSE (mm): 24.30 TVS' Basil: 12.20 Tricuspid Valve TR Pk Basil: 2.21 TR Pk Grad: 20.00 RA Press: 8.00 RVSP: 28.00 Great Vessels Aorta Sinus of Valsalva: 3.50 2.0-3.5 cm Ao Asc: 3.70 2.1-3.4 cm Pulmonary Veins Pulm Vein S/D 1.50 Pulmonary Valve PV Pk Basil: 1.01 Peak PV Grad: 4.00 Updated in Other Vendor System with Status of Final Ramírez Ferreira MD electronically signed on 01/16/2023 11:56:03 AM with status of Final
== END ==
LOC: HO.CARD 09:20
PROVIDERS: PCP Internal Medicine; Visit Provider Internal Medicine Cardiovascular Disease
DX: I42.9 Cardiomyopathy, unspecified (principal)
CPT/HCPCS: 93306; 93356

== ENCOUNTER 2023-02-15 09:04 | Emergency (ER) | payer MEDICARE, MEDICAID, SELFPAY ==
--- NOTE | ~2023-02-15 | XR_ITS ---
EXAMINATION: XR CHEST CLINICAL INFORMATION: Chest pain COMPARISON: Chest 10/17/2017 TECHNIQUE: 2 views of the chest were obtained. FINDINGS: Dual lead pacemaker demonstrated. Heart size is normal. No pleural effusion. Mild peribronchial thickening, as before. No focal consolidation or interstitial pulmonary edema. No pneumothorax. No XR/XR chest 2V IMPRESSION: Peribronchial thickening. The lungs are clear. No acute findings.
--- NOTE | 2023-02-15 09:08 | ECG_ITS ---
Test Reason : chest pain Blood Pressure : / mmHG Vent. Rate : 120 BPM Atrial Rate : 000 BPM P-R Int : 000 ms QRS Dur : 142 ms QT Int : 360 ms P-R-T Axes : 000 -86 067 degrees QTc Int : 508 ms Atrial fibrillation with rapid ventricular response Right bundle branch block Left anterior fascicular block Bifascicular block Abnormal ECG When compared to the previous EKG of Atrial fibrillation with rapid ventricular response has replaced Atrial-paced rhythm Referred By: Generic ED Physician Electronically Signed By:JEREMIE ABBOTT MD
[2023-02-15 09:12] VITALS: BP 153/92; PULSE 118; RESP 19; TEMP 36.6; O2SAT 99; BMI 31.3
--- NOTE | 2023-02-15 09:15 | ED.GENADULT ---
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 Patient states that since yesterday he has had chest tightness and a headache. Patient states that he is taking his medications as prescribed and took his morning meds today. Patient denies any dizziness, lightheadedness, abdominal pain, nausea, vomiting, fever, chills, blurry vision, double vision, loss of vision, difficulty breathing, shortness of breath, back pain, night sweats, pain with urination, increased urinary frequency, increased urinary urgency, blood in his urine or stool, syncope or a near syncopal episode, recent trauma or falls, bowel incontinence, bladder incontinence, bowel retention, bladder retention, or any other complaints at this time. Onset (ago): day(s) (2) Location: head and chest Severity: mild Severity scale (1-10): 3 Quality: aching Pain Consistency: constant Relieving factors: none Exacerbating factors: none Associated symptoms: chest pain and headaches Treatments prior to arrival: none Related Data Previous Rx's Medication Instructions Recorded fluticasone propionate 50 1 spray intranasal DAILY #16 mL 01/04/21 mcg/actuation nasal spray,suspension nebulizers #1 ea 02/27/21 omega-3 fatty acids-fish oil 340 1 cap PO BID #180 caps 02/27/21 mg-1,000 mg capsule (Fish Oil) acetaminophen 500 mg tablet 500 mg PO Q6H PRN pain or fever 11/08/21 (Tylenol Extra Strength) #20 tabs lisinopril 20 mg tablet 20 mg PO BID 90 days #180 tabs 03/11/22 sennosides 8.6 mg tablet (senna) 17.2 mg PO BEDTIME PRN 07/21/22 constipation #60 tabs carvedilol 25 mg tablet 25 mg PO BID #180 tabs 07/22/22 metformin 500 mg tablet 500 mg PO BID 90 days #180 tabs 09/15/22 eplerenone 50 mg tablet 50 mg PO DAILY 90 days #90 tabs 09/23/22 aspirin 81 mg tablet,delayed 81 mg PO DAILY 90 days #90 tabs 11/08/22 release albuterol sulfate 90 mcg/actuation 1 inh PO Q4H PRN for muscle spasm 11/09/22 aerosol inhaler #54 ea meclizine 25 mg tablet 25 mg PO DAILY PRN dizziness 90 11/20/22 days #90 tabs omeprazole 40 mg capsule,delayed 40 mg PO DAILY #90 caps 11/20/22 release amlodipine 10 mg tablet 10 mg PO DAILY 90 days #90 tabs 11/26/22 hydrocortisone 1 % topical cream 1 appl topical BID PRN skin 11/26/22 (Anti-Itch (hydrocortisone)) irritation 30 days #28.4 grams finasteride 5 mg tablet 5 mg PO DAILY 90 days #90 tabs 12/10/22 terazosin 5 mg capsule 5 mg PO BEDTIME 90 days #90 caps 12/10/22 potassium chloride 20 mEq 40 meq PO DAILY 90 days #180 tabs 12/28/22 tablet,extended release(part/cryst) lorazepam 0.5 mg tablet 0.5 mg PO BID PRN anxiety 30 days 02/08/23 #60 tabs tramadol 50 mg tablet 50 mg PO BID PRN pain 30 days #60 02/08/23 tabs zolpidem 10 mg tablet 10 mg PO BEDTIME PRN insomnia 30 02/08/23 days #30 tabs dronedarone 400 mg tablet (Multaq) 400 mg PO BID #30 tabs 02/15/23 rivaroxaban 20 mg tablet (Xarelto) 20 mg PO DAILY #30 tabs 02/15/23 Allergies Allergy/AdvReac Type Severity Reaction Status Date / Time metoprolol [METOPROLOL] Allergy Intermediate Rash Verified 02/15/23 09:11 seafood Allergy Intermediate Swelling Verified 02/15/23 09:11 spironolactone Allergy Intermediate Gynecomasti Verified 02/15/23 09:11 [Spironolactone] a,Swelling fentanyl AdvReac Intermediate sleepiness Verified 02/15/23 09:11 Review of Systems Constitutional: Constitutional: Reports no additional constitutional complaints, Denies chills, Denies fever(s), Reports headache(s) and Denies night sweats Eyes: Eyes: Reports no additional eye complaints, Denies blurry vision, Denies change in vision, Denies diplopia, Denies eye discharge, Denies loss of vision and Denies eye pain ENT: Denies dizziness and Reports headache(s) Cardiovascular: Cardiovascular: Reports no additional cardiovascular complaints, Reports chest pain, Denies lightheadedness, Denies Loss of Consciousness and Denies dyspnea Respiratory: Respiratory: Reports no additional respiratory complaints and Denies dyspnea Gastrointestinal: Gastrointestinal: Reports no additional gastrointestinal complaints, Denies abdominal pain, Denies melena, Denies hematochezia, Denies change in bowel habits and Denies change in stool character Genitourinary: Genitourinary: Reports no additional male genitourinary complaints, Denies hematuria, Denies oliguria, Denies difficulty urinating, Denies dysuria, Denies urinary frequency, Denies urinary hesitancy, Denies urinary incontinence and Denies urinary urgency Musculoskeletal: Musculoskeletal: Reports no additional musculoskeletal complaints, Denies numbness and Denies tingling Neurologic: Denies dizziness, Reports headache(s), Denies loss of vision, Denies numbness and Denies tingling Psychiatric: Psychiatric: Reports no additional psychiatric complaints Endocrine: Endocrine: Reports no additional endocrine complaints Hematologic/Lymphatic: Hematologic/Lymphatic: Reports no additional hematologic/lymphatic complaints Allergic/Immunologic: Allergic/Immunologic: Reports no additional allergic/immunologic complaints ON LICENSE OF [facility] Past Medical History Attestation statement: The following information was validated with the patient. Source: old records reviewed and nursing notes reviewed Medical History Cardiac pacemaker in situ Cardiac pacemaker in situ Cardiomyopathy Cardiomyopathy Constipation by delayed colonic transit Diabetes mellitus Eye exam, routine HTN (hypertension) Insomnia Lumbar degenerative disc disease Right hip pain Screening for colon cancer Screening for prostate cancer SVT (supraventricular tachycardia) SVT (supraventricular tachycardia) Trifascicular block Trifascicular block Vertigo Surgical History History of colonoscopy History of inguinal hernia repair History of pacemaker S/P cardiac catheterization Status post excision of lipoma Family History Family History Mother Cancer Diabetes Hypertension Father Stroke Sister Cancer Maternal Uncle Myocardial infarction Paternal Aunt No problems noted. Paternal Uncle Hypertension CVD (cardiovascular disease) Brother Mental health disorder Social History Social History Housing: House Alcohol intake: former Patient Tobacco Use Status: Never used Tobacco Smoked in Last 30 Days: No e-Cigarette/Vaping Use: Never Used Second Hand Smoke Exposure: No Use of substances other than those prescribed or required for medical reasons: No Advance Directives: No Advance Directives Information Provided: Yes service: No Current occupational status: disabled Cognitive needs: No Hearing needs: No Vision needs: Yes (glasses) Physical Exam ED Vital Signs: Vital Signs - 24 hr 02/15/23 09:12 02/15/23 09:44 02/15/23 09:44 Temperature 98 F Pulse Rate 118 H 94 Respiratory Rate 19 Blood Pressure 153/92 H Pulse Oximetry 99 88 L 92 Oxygen Delivery Method Room Air Room Air Nasal Cannula Oxygen Flow Rate 2 02/15/23 10:00 02/15/23 11:16 Temperature 98.1 F Pulse Rate 94 83 Respiratory Rate 22 H 18 Blood Pressure 131/77 Pulse Oximetry 92 Oxygen Delivery Method Nasal Cannula Oxygen Flow Rate 2 BMI result Body Mass Index 31.3 Const General: cooperative, no acute distress, alert and awake Nutritional Appearance: well nourished Orientation/consciousness: patient oriented x3 Limitations: no limitations HENMT Head: Yes normal to inspection and Yes atraumatic Ears: hearing grossly normal bilaterally and external ears normal General nose exam: Normal external nose present, no nasal discharge noted and no epistaxis Face and sinus: Yes normal facial exam, No abrasion and No laceration Mouth: Normal oral and palatal mucosa present, no drooling and no muffled voice Eyes General: appearance normal, both eyes and all related structures Periorbital: periorbital findings normal Eyelids: Yes eyelids normal Conjunctivae: conjunctivae normal Pupils: Equal, round and reactive pupils present EOM: EOMs intact bilaterally Neck Neck: Yes normal visual inspection, Yes full ROM and Yes no lymphadenopathy Chest Chest palpation & inspection: normal inspection of the chest Resp Effort & Inspection: normal respiratory effort and able to speak in complete sentences Auscultation: clear to auscultation bilaterally Cardio Rate: tachycardic Rhythm: abnormal rhythm irregularly irregular GI Inspection: Yes normal to inspection Neuro General: patient oriented x3 and moves all extremities Cranial nerves: Yes Equal, round and reactive pupils present Cognition (Neuro): normal cognition Motor exam (neuro): 5/5 motor strength present throughout Sensory Exam: Normal double simultaneous stimulation for sensation Coordination: [id number] test normal Extrem General: Yes normal to inspection, Yes full ROM and Yes capillary refill normal Psych Appearance: grossly normal Mental Status: mental status grossly normal Affect: normal affect Attitude: cooperative Thought process: Normal thought process present Thought content: Normal thought content present Insight: Good insight present (Psych) Medications Administered Discontinued Medications Generic Name Dose Route Start Last Admin Trade Name Mari PRN Reason Stop Dose Admin Diltiazem HCl 10 mg 02/15/23 09:26 02/15/23 09:37 Diltiazem Hcl 50 Mg/10 Ml Vial IVPUSH 02/15/23 09:27 10 mg STAT STA Administration Levalbuterol HCl 1.25 mg 02/15/23 10:55 02/15/23 11:15 Levalbuterol Hcl 1.25 Mg/3 Ml Vial.Neb INHALE 02/15/23 10:56 1.25 mg ONCE ONE Administration Medical Decision Making Medical Decision Making [facility] Narrative: Patient is a 72 year old assigned male at with a history of BPH, SVT, Cardiomopathy, cardiac pacemaker, DM, HTN, anxiety, asthma, and cardiomyopathy presenting to the emergency department today with chest tightness and a headache. Patient's physical exam showed atrial fibrillation with RVR. Patient's blood work was unremarkable. Patient's initial EKG showed a-fib with RVR. Patient was given 10mg of IV cardizem. Patient's repeat EKG showed normal sinus rhythm at a rate of 93. Patient's SPO2 was at 88% on room air. Patient was given Xopenex which brought his SPO2 up to 94% on RA. Patient's chest x-ray showed bronchial thickening but no other concerns. I consulted with cardiology who recommended the patient follow up outpatient and be started on Multaq 400mg BID and Xarelto 20mg. I explained my physical exam findings as well as all test results to the patient. I answered all questions asked by the patient. 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 I stressed the importance of the patient returning to the emergency department immediately if his symptoms were to worsen or if he were to develop any dizziness, shortness of breath, difficulty breathing, chest pain, blurry vision, loss of vision, nausea, vomiting, abdominal pain, fever, chills, back pain, or any other complaints. Patient verbalized agreement and understanding with this treatment plan and discharge. Differential Diagnosis Differential Diagnoses: The differential diagnosis associated with the presentation includes atrial fib with RVR, asthma exacerbation Admission/Observation Consideration of admission/observation: Escalation of care including admission/observation considered Patient would have been admitted to the hospital had his SPO2 not increased after the xopenex or had the patient persisted in a-fib with RVR. Consult Healthcare Provider Management of the patient was discussed with: Quality Assurance Assistant (spoke with cardiology as noted in the MDM portion of this chart. ) Lab Data [facility] Lab Attestation statement: I reviewed the patient's lab results. My interpretation of these studies and their corresponding values is that they are grossly normal. 02/15/23 09:32 02/15/23 09:32 Labs: Lab Results 02/15/23 02/15/23 02/15/23 Range/Units 09:32 09:32 09:32 WBC 10.6 (4.8-10.8) X10*3/uL RBC 4.12 L (4.60-5.80) X10*6/uL Hgb 12.5 L (14.0-18.0) g/dl Hct 37.2 L (42.0-52.0) % MCV 90.3 (80.0-98.0) fL MCH 30.3 (27.0-33.0) pg MCHC 33.6 (31.0-36.0) g/dl RDW 12.8 (11.0-16.0) % Plt Count 210 (160-400) X10*3/uL MPV 9.3 L (9.4-12.4) fL Immature Gran % (Auto) 0.4 (0.0-0.4) % Neut % (Auto) 83.5 H (45-73) % Lymph % (Auto) 5.0 L (20-40) % [place] % (Auto) 8.0 (2-11) % Eos % (Auto) 2.4 (0-4) % Baso % (Auto) 0.7 (0-2) % Lymph # (Auto) 0.5 L (1.2-4.9) X10*3/uL [place] # (Auto) 0.9 (0.1-1.2) X10*3/uL Eos # (Auto) 0.3 (0.0-0.4) X10*3/uL Baso # (Auto) 0.1 (0.0-0.2) X10*3/uL Abs Immat Gran (auto) 0.04 H (0.00-0.03) X10*3/uL Absolute Neuts (auto) 8.8 H (2.0-8.3) x10*3/uL Absolute Nucleated RBC 0.000 (0.0-0.012) X10*3/uL Nucleated RBC % (auto) 0.0 (0.0-0.2) /100WBC PT 12.4 (10.0-13.1) SEC INR 1.1 (0.9-1.1) APTT 30.0 (26.0-36.4) SEC D-Dimer High Sensitivty < 150 NG/ML Sodium 139 (135-145) mmol/L Potassium 3.3 (3.3-5.1) mmol/L Chloride 104 (96-108) mmol/L Carbon Dioxide 23 (22-29) mmol/L Anion Gap 15 (12-20) BUN 13 (9-16) mg/dL Creatinine 1.01 (0.5-1.4) mg/dL Estim Creat Clear Calc 68.9 Estimated GFR > 60 Random Glucose 161 H (60-115) mg/dL Calcium 8.9 (8.4-10.2) mg/dL Magnesium 1.6 (1.6-2.6) mg/dL Total Bilirubin 1.5 H (0.0-1.0) mg/dL AST 16 (5-37) U/L ALT 11 (0-40) U/L Alkaline Phosphatase 78 (39-117) U/L Troponin I High Sens (<3.5-35.0) ng/L B-Natriuretic Peptide (<100) pg/mL Total Protein 7.3 (6.5-8.0) g/dL Albumin 4.3 (3.5-5.0) g/dL COVID-19 (CHRISTEN) (Negative) COVID-19 Clin Com 02/15/23 02/15/23 02/15/23 Range/Units 09:32 09:32 09:34 WBC (4.8-10.8) X10*3/uL RBC (4.60-5.80) X10*6/uL Hgb (14.0-18.0) g/dl Hct (42.0-52.0) % MCV (80.0-98.0) fL MCH (27.0-33.0) pg MCHC (31.0-36.0) g/dl RDW (11.0-16.0) % Plt Count (160-400) X10*3/uL MPV (9.4-12.4) fL Immature Gran % (Auto) (0.0-0.4) % Neut % (Auto) (45-73) % Lymph % (Auto) (20-40) % [place] % (Auto) (2-11) % Eos % (Auto) (0-4) % Baso % (Auto) (0-2) % Lymph # (Auto) (1.2-4.9) X10*3/uL [place] # (Auto) (0.1-1.2) X10*3/uL Eos # (Auto) (0.0-0.4) X10*3/uL Baso # (Auto) (0.0-0.2) X10*3/uL Abs Immat Gran (auto) (0.00-0.03) X10*3/uL Absolute Neuts (auto) (2.0-8.3) x10*3/uL Absolute Nucleated RBC (0.0-0.012) X10*3/uL Nucleated RBC % (auto) (0.0-0.2) /100WBC PT (10.0-13.1) SEC INR (0.9-1.1) APTT (26.0-36.4) SEC D-Dimer High Sensitivty NG/ML Sodium (135-145) mmol/L Potassium (3.3-5.1) mmol/L Chloride (96-108) mmol/L Carbon Dioxide (22-29) mmol/L Anion Gap (12-20) BUN (9-16) mg/dL Creatinine (0.5-1.4) mg/dL Estim Creat Clear Calc Estimated GFR Random Glucose (60-115) mg/dL Calcium (8.4-10.2) mg/dL Magnesium (1.6-2.6) mg/dL Total Bilirubin (0.0-1.0) mg/dL AST (5-37) U/L ALT (0-40) U/L Alkaline Phosphatase (39-117) U/L Troponin I High Sens < 2.7 (<3.5-35.0) ng/L B-Natriuretic Peptide 48 (<100) pg/mL Total Protein (6.5-8.0) g/dL Albumin (3.5-5.0) g/dL COVID-19 (CHRISTEN) Negative (Negative) COVID-19 Clin Com See Note Independent Interpretation I performed an independent interpretation of an: EKG and Plain X-Ray Interpretation: Vent. Rate: 120 BPM ? ? Atrial Rate: 000 BPM P-R Int: 000 ms? QRS Dur: 142 ms QT Int: 360 ms ? ? ? P-R-T Axes: 000 -86 067 degrees QTc Int: 508 ms ? Atrial fibrillation with rapid ventricular response Right bundle branch block Left anterior fascicular block Bifascicular block Abnormal ECG When compared to the previous EKG of Atrial fibrillation with rapid ventricular response has replaced Atrial-paced rhythm ? Electronically Signed By:JUAN C ABBOTT MD Dictated By: Juan C Abbott MD Signed By: Electronically signed by Juan C Abbott MD 02/15/23 1138 Vent. Rate: 093 BPM ? ? Atrial Rate: 093 BPM P-R Int: 244 ms? QRS Dur: 152 ms QT Int: 394 ms ? ? ? P-R-T Axes: 009 -81 029 degrees QTc Int: 489 ms ? Sinus rhythm with 1st degree A-V block Right bundle branch block Left anterior fascicular block Bifascicular block Abnormal ECG When compared with ECG of 15-FEB-2023 09:06, Sinus rhythm has replaced Atrial fibrillation Nonspecific T wave abnormality now evident in Inferior leads ? Electronically Signed By:JUAN C ABBOTT MD Dictated By: Jaun C Abbott MD Signed By: Electronically signed by Juan C Abbott MD 02/15/23 1138 EXAMINATION: XR CHEST CLINICAL INFORMATION: Chest pain COMPARISON: Chest 10/17/2017 TECHNIQUE: 2 views of the chest were obtained. FINDINGS: Dual lead pacemaker demonstrated. Heart size is normal. No pleural effusion. Mild peribronchial thickening, as before. No focal consolidation or interstitial pulmonary edema. No pneumothorax. No XR/XR chest 2V IMPRESSION: Peribronchial thickening. The lungs are clear. No acute findings. Dictated By: Dariana Porter MD Signed By: Electronically signed by Dariana Porter MD 02/15/23 1017 Chronic Conditions Patient?s care impacted by: Diabetes, Hypertension and Other (cardiomyopathy) Critical Care Time Critical Care Time Critical Care Time: Yes Total Critical Care Time: 30 Attestation: I spent 30 minutes of Critical Care Time with this patient. This does not include time spent on separately reported billable procedures. 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 Return to the emergency department immediately if your symptoms worsen or if you develop any dizziness, shortness of breath, difficulty breathing, chest pain, blurry vision, loss of vision, nausea, vomiting, abdominal pain, fever, chills, back pain, or any other complaints. Kranthi un seguimiento con gastelum proveedor de atenci?n primaria y gastelum cardi?logo. Regrese al departamento de emergencias de inmediato si june s?ntomas empeoran o si presenta mareos, falta de aire, dificultad para respirar, dolor de pecho, visi?n borrosa, p?rdida de la visi?n, n?useas, v?mitos, dolor abdominal, fiebre, escalofr?os, dolor de espalda o cualquier otras quejas. Prescriptions: New Multaq 400 mg tablet 400 mg PO BID Qty: 30 0RF Rx Instructions: must administer with a meal/food Xarelto 20 mg tablet 20 mg PO DAILY Qty: 30 0RF Rx Instructions: must administer with evening meal No Action fluticasone propionate 50 mcg/actuation spray,suspension 1 spray intranasal DAILY Qty: 16 6RF lisinopril 20 mg tablet 20 mg PO BID 90 Days Qty: 180 3RF sennosides [senna] 8.6 mg tablet 17.2 mg PO BEDTIME PRN (Reason: constipation) Qty: 60 11RF carvedilol 25 mg tablet 25 mg PO BID Qty: 180 2RF metformin 500 mg tablet 500 mg PO BID 90 Days Qty: 180 3RF eplerenone 50 mg tablet 50 mg PO DAILY 90 Days Qty: 90 3RF aspirin 81 mg tablet,delayed release (DR/EC) 81 mg PO DAILY 90 Days Qty: 90 3RF albuterol sulfate 90 mcg/actuation HFA aerosol inhaler 1 inh PO Q4H PRN (Reason: for muscle spasm) Qty: 54 4RF meclizine 25 mg tablet 25 mg PO DAILY PRN (Reason: dizziness) 90 Days Qty: 90 1RF omeprazole 40 mg capsule,delayed release(DR/EC) 40 mg PO DAILY Qty: 90 1RF potassium chloride 20 mEq tablet,ER particles/crystals 40 meq PO DAILY 90 Days Qty: 180 1RF tramadol 50 mg tablet 50 mg PO BID PRN (Reason: pain) 30 Days Qty: 60 0RF zolpidem 10 mg tablet 10 mg PO BEDTIME PRN (Reason: insomnia) 30 Days Qty: 30 0RF lorazepam 0.5 mg tablet 0.5 mg PO BID PRN (Reason: anxiety) 30 Days Qty: 60 0RF acetaminophen [Tylenol Extra Strength] 500 mg tablet 500 mg PO Q6H PRN (Reason: pain or fever) Qty: 20 0RF Fish Oil 340-1,000 mg capsule 1 cap PO BID Qty: 180 2RF [facility]DME[facility] See Rx Instructions .ROUTE .MEDSUPPLY Qty: 1 0RF Rx Instructions: Nebulizer Machine with Tubing and Accessories hydrocortisone [Anti-Itch (HC)] 1 % cream 1 appl topical BID PRN (Reason: skin irritation) 30 Days Qty: 28.4 0RF amlodipine 10 mg tablet 10 mg PO DAILY 90 Days Qty: 90 1RF finasteride 5 mg tablet 5 mg PO DAILY 90 Days Qty: 90 1RF terazosin 5 mg capsule 5 mg PO BEDTIME 90 Days Qty: 90 1RF Referrals: [facility] [Provider Group] Ana Morris MD [Primary Care Provider] - Print Language: Togolese
--- NOTE | 2023-02-15 09:18 | MHC.EDTECH ---
EKG completed and signed by
[2023-02-15] MEDS: dilTIAZem HCL 50 MG/10 ML VIAL 10 MG IVPUSH (09:37)
[2023-02-15 09:41] LABS: MANUAL DIFF FLAG NO
[2023-02-15 09:42] LABS: Basophils Absolute Auto 0.1 X10*3/uL (0.0-0.2); Basophils Percent Auto 0.7 % (0-2); Eosinophils Absolute Auto 0.3 X10*3/uL (0.0-0.4); Eosinophils Percent Auto 2.4 % (0-4); Hematocrit 37.2 % (42.0-52.0); Hemoglobin 12.5 g/dl (14.0-18.0); Imm Gran Abs Auto 0.04 X10*3/uL (0.00-0.03); Imm Gran Pct Auto 0.4 % (0.0-0.4); Lymphocytes Absolute Auto 0.5 X10*3/uL (1.2-4.9); Mean Corpuscular HGB Conc 33.6 g/dl (31.0-36.0); Mean Corpuscular Hemoglobin 30.3 pg (27.0-33.0); Mean Corpuscular Volume 90.3 fL (80.0-98.0); Mean Platelet Volume 9.3 fL (9.4-12.4); Monocytes Absolute Auto 0.9 X10*3/uL (0.1-1.2); Neutrophils Absolute Auto 8.8 x10*3/uL (2.0-8.3); Neutrophils Percent Auto 83.5 % (45-73); Platelet Count 210 X10*3/uL (160-400); Red Blood Count 4.12 X10*6/uL (4.60-5.80); Red Cell Distribution Width 12.8 % (11.0-16.0); White Blood Count 10.6 X10*3/uL (4.8-10.8)
[2023-02-15 09:44] VITALS: PULSE 94; O2SAT 88; O2SAT 92
--- NOTE | 2023-02-15 09:45 | PC.NURSE ---
patient a&ox3, pt currently denying chest pain- feels palpitations and feels sob at times-currently speaking in full sentences, ekg performed, monitoring analyst applied-afib on monitor/ pt also has a pacemaker- iv inserted, labs drawn, nasal swab performed, patient was noted to be 88% on room air- 2L NC applied patient increased to 92%, 10 cardizem given, pts hr went from 100s down to 94, radiology to do cxr, call carrillo within reach, will continue to monitor.
[2023-02-15 09:50] LABS: INTERNATIONAL NORM RATIO 1.1 (0.9-1.1); Prothrombin Time 12.4 SEC (10.0-13.1)
[2023-02-15 09:55] LABS: COVID-19 Test Negative (Negative); IDNOW Serial# 9DB6401D
[2023-02-15 09:58] LABS: Alanine Aminotransferase 11 U/L (0-40); Albumin Level 4.3 g/dL (3.5-5.0); Alkaline Phosphatase 78 U/L (39-117); Anion Gap 15 (12-20); Aspartate Amino Transferase 16 U/L (5-37); Bilirubin Total 1.5 mg/dL (0.0-1.0); Blood Urea Nitrogen 13 mg/dL (9-16); Calcium 8.9 mg/dL (8.4-10.2); Carbon Dioxide 23 mmol/L (22-29); Chloride 104 mmol/L (96-108); Creatinine Clr Calc Pharmacy 68.9; Estimated Glomerular Filt Rate > 60; Glucose Random 161 mg/dL (60-115); Magnesium 1.6 mg/dL (1.6-2.6); Potassium 3.3 mmol/L (3.3-5.1); Sodium 139 mmol/L (135-145); Total Protein 7.3 g/dL (6.5-8.0)
[2023-02-15 10:00] VITALS: BP 131/77; PULSE 94; RESP 22; TEMP 36.7; O2SAT 92
[2023-02-15 10:03] LABS: B Type Natriuretic Peptide 48 pg/mL (<100)
[2023-02-15 10:03] LABS: Troponin-I High Sensitivity < 2.7 ng/L (<3.5-35.0)
[2023-02-15 10:09] LABS: D Dimer High Sensitivity < 150 NG/ML
--- NOTE | 2023-02-15 10:18 | ECG_ITS ---
Test Reason : cp Blood Pressure : / mmHG Vent. Rate : 093 BPM Atrial Rate : 093 BPM P-R Int : 244 ms QRS Dur : 152 ms QT Int : 394 ms P-R-T Axes : 009 -81 029 degrees QTc Int : 489 ms Sinus rhythm with 1st degree A-V block Right bundle branch block Left anterior fascicular block Bifascicular block Abnormal ECG When compared with ECG of 15-FEB-2023 09:06, Sinus rhythm has replaced Atrial fibrillation Nonspecific T wave abnormality now evident in Inferior leads Referred By: Nikki Cardoza Electronically Signed By:JEREMIE ABBOTT MD
--- NOTE | 2023-02-15 10:21 | PC.NURSE ---
patient a&ox3, vss, pt hr looks to be nsr- palpation noted to be regular, notified provider will obtain an ekg
[2023-02-15] MEDS: levalbuterol HCL 1.25 MG/3 ML VIAL.NEB INHALE (11:15)
[2023-02-15 11:16] VITALS: PULSE 83; RESP 18; O2SAT 93
[2023-02-15 12:13] VITALS: BP 135/79; PULSE 74; RESP 20; TEMP 36.7; O2SAT 90
== END 2023-02-15 12:14 | disposition home or self-care (01) ==
PROVIDERS: Physician Assistant Medical; Emergency Provider Emergency Medicine; PCP Internal Medicine
DX: I48.91 Unspecified atrial fibrillation (principal); R07.9 Chest pain, unspecified; I11.9 Hypertensive heart disease without heart failure; I43 Cardiomyopathy in diseases classified elsewhere; Z95.0 Presence of cardiac pacemaker; E11.9 Type 2 diabetes mellitus without complications; Z20.822 Contact with and (suspected) exposure to COVID-19
CPT/HCPCS: 36415; 71046; 80053; 83735; 83880; 84484; 85025; 85379; 85610; 85730; 87635; 93005; 94640; 96374; 99284; 99285

== ENCOUNTER → 2023-02-25 10:38 | Outpatient (BNVA) | payer MEDICARE, MEDICAID, SELFPAY | PROVIDERS: PCP Internal Medicine; Referring Provider Internal Medicine; Visit Provider Internal Medicine Cardiovascular Disease | DX: I48.0 Paroxysmal atrial fibrillation (principal); I42.9 Cardiomyopathy, unspecified; Z79.01 Long term (current) use of anticoagulants; Z79.899 Other long term (current) drug therapy; Z45.018 Encounter for adjustment and management of other part of cardiac pacemaker | CPT/HCPCS: 93005; 93280; 99212 ==

== ENCOUNTER 2023-03-01 09:09 | Outpatient (REF) | payer MEDICARE, MEDICAID, SELFPAY ==
[2023-03-01 10:14] LABS: Estimated Average Glucose 108 mg/dL; Hemoglobin A1c % 5.4 %
[2023-03-01 10:24] LABS: Microalbum/Creatinine Ratio Ur 331.1 ug/mg cr
[2023-03-01 11:55] LABS: Alanine Aminotransferase 10 U/L (0-40); Albumin Level 4.1 g/dL (3.5-5.0); Alkaline Phosphatase 74 U/L (39-117); Anion Gap 14 (12-20); Aspartate Amino Transferase 16 U/L (5-37); Bilirubin Total 1.1 mg/dL (0.0-1.0); Blood Urea Nitrogen 12 mg/dL (9-16); Calcium 9.4 mg/dL (8.4-10.2); Carbon Dioxide 25 mmol/L (22-29); Chloride 104 mmol/L (96-108); Cholesterol 132 mg/dL; Estimated Glomerular Filt Rate > 60; Glucose Random 97 mg/dL (60-115); HDL Cholesterol 33 mg/dL; LDL Cholesterol Calculated 86 mg/dl; Potassium 3.6 mmol/L (3.3-5.1); Sodium 139 mmol/L (135-145); Total Protein 7.5 g/dL (6.5-8.0); Triglycerides 69 mg/dL
[2023-03-01 12:17] LABS: Vitamin D 25-OH Total 36.6 ng/mL (>30)
[2023-03-05 17:19] LABS: NT-proBNP <36 pg/mL (<125)
== END 2023-03-01 09:10 | disposition home or self-care (01) ==
LOC: HO.LAB 09:09
PROVIDERS: PCP Internal Medicine; Visit Provider Internal Medicine
DX: E78.5 Hyperlipidemia, unspecified (principal); E55.9 Vitamin D deficiency, unspecified; E11.40 Type 2 diabetes mellitus with diabetic neuropathy, unspecified; I42.9 Cardiomyopathy, unspecified
CPT/HCPCS: 36415; 80053; 80061; 82043; 82306; 83036; 83880

== ENCOUNTER → 2023-03-15 07:37 | Outpatient (REF) | payer MEDICARE, MEDICAID, SELFPAY ==
--- NOTE | ~2023-03-15 | NM_ITS ---
Lexiscan Myocardial perfusion study Indication: Chest discomfort, assess for coronary disease ischemia Technique: The patient was brought in for a Lexiscan perfusion study on 03/15/2023 and was injected 0.4 mg of Lexiscan intravenously. Within a minute of this injection 30 mCi of sestamibi was given intravenously. Images were obtained using the SPECT gamma camera interlaced with the gating device. Images were obtained in supine position. Resting perfusion study was performed on 03/17/2023. Patient was administered 30 mCi of sestamibi intravenously at rest. Images were then obtained in supine position. Images were processed with the software and compared side to side in short axis, horizontal long axis and vertical long axis views. Total DLP 87mGy-cm. Findings: Raw acquisition reviewed. The stress perfusion study showed diminished tracer uptake along the basal to mid inferior wall. With CT attenuation correction, there is improvement suggestive of diaphragmatic attenuation artifact. There is subdiaphragmatic tracer uptake noted in uncorrected as well as CT attenuation corrected acquisitions. The gated study shows mildly diminished LV systolic function with calculated LVEF of 50%. LV cavity is normal in size. The gated study shows normal wall thickening and contraction of segments. Resting study shows diminished tracer uptake along the basal part of inferior wall. There is improvement with CT attenuation correction. There is also subdiaphragmatic tracer uptake. Gating at rest reveals normal wall motion with ejection fraction at 52%. The findings are consistent with fixed basal to mid inferior defect. No clear reversible defects. NM/NM cardiolite stress test Impression: 1. Myocardial perfusion imaging study shows fixed basal to mid inferior defect, suspected to be artifactual. No clear reversible defects. 2. Gated LVEF is 50% during stress and 52% during rest. 3. Transient ischemic dilatation not present. EKG component of the test reported separately.
--- NOTE | 2023-03-15 07:40 | CA_ITS ---
Acquisition Time: 2023-03-15 07:58:30 Total Exercise Time: 00:01:54 Test Indications: CP Medications: SEE H Protocol: VALENTIN Max HR: 115 BPM 78% of Pred: 146 BPM Max BP: 164/090 mmHG Max Work Load: 4.4 METS Exercise stress test exercise 1 min 54 sec of Valentin protocol and changed to pharmacological stress test with lexiscan for rhythm change from a right bundle branch block to a temporary left bundle branch block and SOB Test changed to pharmacological stress test with Lexiscan injection while sitting and kicking his legs, without anginal symptoms, with isolated PVC in recovery, with normotensive response to injection, with non-diagnositic EKGs. Aminophylline 75mg IVP given to reverse Lexiscan injection. Nuclear images pending. reviewed with Dr. Ferreira. Referred By: Juan C Cardenas Overread By: Cathleen Granados
== END ==
LOC: HO.CARD 07:37
PROVIDERS: Visit Provider Internal Medicine Cardiovascular Disease
DX: R07.9 Chest pain, unspecified (principal); I48.0 Paroxysmal atrial fibrillation
CPT/HCPCS: 78452; 93017; A9500; J0280; J2785

== ENCOUNTER → 2023-03-15 08:08 | Outpatient (BNV) | payer MEDICARE, MEDICAID, SELFPAY | PROVIDERS: Visit Provider Internal Medicine | DX: R07.9 Chest pain, unspecified (principal) | CPT/HCPCS: 78452 ==

== ENCOUNTER 2023-04-06 10:24 | Outpatient (AMB) | payer MEDICARE, MEDICAID, SELFPAY ==
--- NOTE | 2023-04-06 10:30 | A.OFFPC_ITS ---
Vital Signs 04/06/23 10:31 04/06/23 11:11 Height 5 ft 10 in Weight 192 lb BMI 27.5 BP 172/100 H 170/90 H Blood Pressure Location Lt brachial Lt brachial Position Sitting Sitting Intake Visit Reasons: dm Intake Note: Patient here for a follow up DM Shipping Supervisor Required: No Accompanied by: Self / Same As Patient Allergies metoprolol [METOPROLOL] Allergy (Intermediate, Verified 04/06/23 10:54) Rash seafood Allergy (Intermediate, Verified 04/06/23 10:54) Swelling spironolactone [Spironolactone] Allergy (Intermediate, Verified 04/06/23 10:54) Gynecomastia,Swelling fentanyl Adverse Reaction (Intermediate, Verified 04/06/23 10:54) sleepiness Medication List - Last Reconciled 04/06/23 by Ana Vargas MD acetaminophen (Tylenol Extra Strength) 500 mg PO Q6H PRN albuterol sulfate 90 mcg/actuation 1 inh PO Q4H PRN amlodipine 10 mg PO DAILY 90 days carvedilol 25 mg PO BID dronedarone (Multaq) 400 mg PO BID eplerenone 50 mg PO DAILY 90 days finasteride 5 mg PO DAILY 90 days fluticasone propionate 50 mcg/actuation 1 spray intranasal DAILY hydrocortisone 1% (Anti-Itch (hydrocortisone)) 1 appl topical BID PRN 30 days lisinopril 20 mg PO BID 90 days lorazepam 0.5 mg PO BID PRN 30 days meclizine 25 mg PO DAILY PRN 90 days metformin 500 mg PO BID 90 days nebulizers Nebulizer Machine with Tubing and Accessories omega-3 fatty acids-fish oil 340-1,000 mg (Fish Oil) 1 cap PO BID omeprazole 40 mg PO DAILY potassium chloride ER 40 mEq (2 x 20 mEq) PO DAILY 90 days rivaroxaban (Xarelto) 20 mg PO DAILY sennosides (senna) 17.2 mg (2 x 8.6 mg) PO BEDTIME PRN terazosin 5 mg PO BEDTIME 90 days tramadol 50 mg PO BID PRN 30 days zolpidem 10 mg PO BEDTIME PRN 30 days Tobacco use date assessed: 11/26/22 Fall risk assessment: No Falls in past year Last assessed Fall Risk: 04/06/23 Dental Screening Dental Screen Date: 04/06/23 Did you have a dental visit in the last 12 months?: Yes Did you have a dental problem in the last 6 months where you did not have access to dental care?: No Was dental information given to patient?: Patient has dentist HPI HPI Comments History of Present Illness Details This is a 72-year-old male with diabetes mellitus type 2, hypertension, Hyperlipidemia and paroxysmal atrial fibrillation that comes today for follow- up on his conditions. A1c within goal. Blood pressure elevated and will be recheck by nurse navigator in 3 weeks. LDL not on goal and I will start him on low-dose statin. On chronic anticoagulation for atrial fibrillation and this is follow by cardiology. Anemia has worsened and had a colonoscopy September 2022 showing hyperplastic polyp. I will refer him to Hematology-Oncology for this matter. [facility] Medical History Cardiac pacemaker in situ Cardiac pacemaker in situ Cardiomyopathy Cardiomyopathy Constipation by delayed colonic transit Diabetes mellitus Eye exam, routine HTN (hypertension) Insomnia Lumbar degenerative disc disease Paroxysmal atrial fibrillation Right hip pain Screening for colon cancer Screening for prostate cancer SVT (supraventricular tachycardia) SVT (supraventricular tachycardia) Trifascicular block Trifascicular block Vertigo Surgical History History of colonoscopy History of inguinal hernia repair History of pacemaker S/P cardiac catheterization Status post excision of lipoma Family History Mother Cancer Diabetes Hypertension Father Stroke Sister Cancer Maternal Uncle Myocardial infarction Paternal Aunt No problems noted. Paternal Uncle Hypertension CVD (cardiovascular disease) Brother Mental health disorder Social History Housing: House Alcohol intake: former Patient Tobacco Use Status: Never used Tobacco e-Cigarette/Vaping Use: Never Used Second Hand Smoke Exposure: No service: No Current occupational status: disabled Cognitive needs: No Hearing needs: No Vision needs: Yes (glasses) Questionnaire Thrive Questionnaire Date Thrive assessed: 03/03/23 BASSEM-7 AMB Questionnaire BASSEM-7 Date BASSEM - 7 assessed: 11/26/22 Source: Developed by Drs. Hebert Wright, Alejandra Otero, Randell Cuellar and colleagues, with an educational una from [employer]. Review of Systems Const All systems reviewed & are unremarkable except as noted in HPI and below Eyes Reports no additional complaints, Denies change in vision and Denies other visual disturbances Card Denies chest pain at rest, Denies chest pain with activity, Denies edema, Denies irregular heart rhythm, Denies claudication, Denies dyspnea, Denies dyspnea on exertion, Denies orthopnea, Denies paroxysmal nocturnal dyspnea and Denies slow heart rate Resp Denies cough, Denies dyspnea and Denies dyspnea on exertion GI Denies abdominal pain, Denies change in bowel habits, Denies excessive flatus, Denies nausea and Denies vomiting Denies urinary hesitancy, Denies urinary incontinence and Denies urinary urgency Musc Denies abnormal gait, Denies atrophy, Denies deformity and Denies limited range of motion Skin/Breast Denies bleeding lesions, Denies changing lesions and Denies rash Neuro Denies abnormal gait and Denies lack of coordination Physical exam (Primary Care) Vital Signs: Last Vital Signs BP 172/100 H 04/06/23 10:31 BMI result Body Mass Index 27.5 Tobacco/Smoking Status: Tobacco use Status Tobacco use date assessed 11/26/22 04/06/23 10:37 Patient Tobacco Use Status Never used Tobacco 04/06/23 10:37 e-Cigarette/Vaping Use Never Used 04/06/23 10:37 Thrive Assessment: Date of Thrive Assessment Date Thrive assessed 03/03/23 04/06/23 10:37 Eyes General: appearance normal, both eyes and all related structures Eyelids: Yes eyelids normal Conjunctivae: conjunctivae normal Neck Neck: Yes normal visual inspection and Yes supple Resp Effort & Inspection: normal respiratory effort Auscultation: clear to auscultation bilaterally Cardio Jugular venous distension: no JVD Rate: regular rate Rhythm: regular rhythm Heart sounds: S1 normal heart sound present and S2 normal heart sound present Extrem General: Yes full ROM Assessment and Plan Assessment & Plan (1) Paroxysmal atrial fibrillation: Code(s): I48.0 - Paroxysmal atrial fibrillation Plan: Continue Doacs. Follow-up with Cardiology. (2) Diabetes mellitus: Code(s): E11.9 - Type 2 diabetes mellitus without complications Qualifiers: Diabetes mellitus type: type 2 Diabetes mellitus terminal operations supervisor insulin use: without care home use Diabetes mellitus complication status: without complication Qualified Code(s): E11.9 - Type 2 diabetes mellitus without c omplications Plan: Continue metformin. A1c goal is equal or less than 7%. (3) HTN (hypertension): Code(s): I10 - Essential (primary) hypertension Qualifiers: Hypertension type: primary hypertension Qualified Code(s): I10 - Essential (primary) hypertension Plan: Continue amlodipine, eplerenone and lisinopril. Blood pressure goal is equal or less than 130/80. Recheck blood pressure with nurse navigator in 3 weeks. (4) Anemia: Code(s): D64.9 - Anemia, unspecified Plan: No signs of active bleeding. Referred to Hematology-Oncology. (5) Hyperlipidemia LDL goal <70: Code(s): E78.5 - Hyperlipidemia, unspecified Plan: Start statins. LDL goal is less than 70. Orders: Orders Lipid Panel 4 Months E78.5 - Hyperlipidemia, unspecified Microalbumin, Random (w Creat) 4 Months E11.9 - Type 2 diabetes mellitus without complications Vitamin D 25-OH Total 4 Months E55.9 - Vitamin D deficiency, unspecified Complete Blood Count Auto Diff 4 Months D64.9 - Anemia, unspecified IRON PROFILE 4 Months D64.9 - Anemia, unspecified Vitamin B12 and Folate 4 Months E53.8 - Deficiency of other specified B group vitamins Comprehensive [place]. Panel Fast 4 Months I47.1 - Supraventricular tachycardia Referrals Hematology & Oncology Referral D64.9 - Anemia, unspecified Medications: New cromolyn 4% 1 drp ophthalmic (eye) QID 5 days 10 mL 0RF rosuvastatin 5 mg PO DAILY 90 days 90 tabs 1RF E78.5 - Hyperlipidemia, unspecified Coding Level of Care Code Est Pt Level 4 (37633) Diagnoses Paroxysmal atrial fibrillation I48.0 Diabetes mellitus E11.9 Diabetes mellitus type: type 2 Diabetes mellitus care home insulin use: without terminal operations supervisor use Diabetes mellitus complication status: without complication HTN (hypertension) I10 Hypertension type: primary hypertension Anemia D64.9 Hyperlipidemia LDL goal <70 E78.5 Time Spent (min) 23
[2023-04-06 10:31] VITALS: BP 172/100; BMI 27.5
[2023-04-06 11:11] VITALS: BP 170/90
== END 2023-04-06 11:13 | disposition home or self-care (01) ==
PROVIDERS: Visit Provider Internal Medicine
DX: I48.0 Paroxysmal atrial fibrillation (principal); E11.9 Type 2 diabetes mellitus without complications; I10 Essential (primary) hypertension; D64.9 Anemia, unspecified; E78.5 Hyperlipidemia, unspecified
CPT/HCPCS: 99214

== ENCOUNTER → 2023-04-15 09:42 | Outpatient (BNV) | payer MEDICARE, MEDICAID, SELFPAY | PROVIDERS: PCP Internal Medicine; Visit Provider Internal Medicine Medical Oncology | DX: D64.9 Anemia, unspecified (principal) | CPT/HCPCS: 99204 ==

== ENCOUNTER 2023-05-04 08:32 | Outpatient (REF) | payer MEDICARE, MEDICAID, SELFPAY | END 2023-05-04 08:33 | disposition home or self-care (01) | LOC: HO.LAB 08:32 | PROVIDERS: PCP Internal Medicine; Visit Provider Internal Medicine | DX: Z13.89 Encounter for screening for other disorder (principal) ==

== ENCOUNTER 2023-05-17 09:00 | Outpatient (AMB) | payer MEDICARE, MEDICAID, SELFPAY ==
--- NOTE | 2023-05-17 09:33 | AM.OFFVISNUR ---
Intake Intake Visit Reasons: 3 month EKG Accompanied by: Self / Same As Patient Allergies metoprolol [METOPROLOL] Allergy (Intermediate, Verified 05/17/23 09:33) Rash seafood Allergy (Intermediate, Verified 05/17/23 09:33) Swelling spironolactone [Spironolactone] Allergy (Intermediate, Verified 05/17/23 09:33) Gynecomastia,Swelling fentanyl Adverse Reaction (Intermediate, Verified 05/17/23 09:33) sleepiness Nursing Note 3 month EKG patient on Multaq [address] Cardenas reviewed EKG no changes for now patient to follow up in August w/ Dr. Cardenas. Office Procedures EKG [id number], Complete Coding CPT Codes EKG - CPT: 65839-[id number], Complete ([id number])
== END 2023-05-17 09:57 | disposition home or self-care (01) ==
PROVIDERS: PCP Internal Medicine; Referring Provider Internal Medicine; Visit Provider Internal Medicine Cardiovascular Disease
DX: I45.2 Bifascicular block (principal); R94.31 Abnormal electrocardiogram [ECG] [EKG]
CPT/HCPCS: 93010

== ENCOUNTER → 2023-05-17 09:00 | Outpatient (BNVA) | payer MEDICARE, MEDICAID, SELFPAY | PROVIDERS: PCP Internal Medicine; Referring Provider Internal Medicine; Visit Provider Internal Medicine Cardiovascular Disease | DX: M79.18 Myalgia, other site (principal) | CPT/HCPCS: 93005 ==

== ENCOUNTER 2023-06-02 08:44 | Outpatient (REF) | payer MEDICARE, MEDICAID, SELFPAY ==
--- NOTE | ~2023-06-02 | US_ITS ---
EXAMINATION: US RETROPERITONEAL LIMITED (RENAL ONLY) CLINICAL INFORMATION: Cyst of kidney, acquired. COMPARISON: CT abdomen 07/20/2017. TECHNIQUE: Real-time imaging of the kidneys. FINDINGS: RIGHT KIDNEY: 10.6 x 5.2 x 6.1 cm (SAG x AP x TRV). The kidney is normal in size, contour, and echogenicity. Renal cortical thickness is normal. No renal calculi or hydronephrosis. Benign-appearing renal cyst measuring 1.1 cm. No follow up imaging is recommended. LEFT KIDNEY: 11.0 x 5.6 x 5.7 cm (SAG x AP x TRV). The kidney is normal in size, contour, and echogenicity. Renal cortical thickness is normal. No renal calculi or hydronephrosis. Benign-appearing renal cysts measuring up to 1.4 cm. No follow-up imaging is recommended. US/US renal BI IMPRESSION: Benign-appearing bilateral renal cysts measuring up to 1.4 cm. No follow up imaging is recommended.
== END 2023-06-02 08:45 | disposition home or self-care (01) ==
LOC: HO.US 08:44
PROVIDERS: PCP Internal Medicine; Visit Provider Nurse Practitioner Family
DX: N28.1 Cyst of kidney, acquired (principal)
CPT/HCPCS: 76775

== ENCOUNTER 2023-06-22 09:05 | Outpatient (REF) | payer MEDICARE, MEDICAID, SELFPAY ==
[2023-06-22 10:52] LABS: PSA,Total (Free>4and<10) 4.84 ng/mL (0.00-4.00)
[2023-06-24 08:29] LABS: Free Prostate Spec Ag 0.7 ng/mL; Percent Free Prostate Spec Ag 16 % (calc) (>25); Prostate Specific Ag Total 4.4 ng/mL (< OR = 4.0)
== END 2023-06-22 09:06 | disposition home or self-care (01) ==
LOC: HO.LAB 09:05
PROVIDERS: PCP Internal Medicine; Visit Provider Nurse Practitioner Family
DX: N40.0 Benign prostatic hyperplasia without lower urinary tract symptoms (principal); Z12.5 Encounter for screening for malignant neoplasm of prostate
CPT/HCPCS: 36415; 84153; 84154

== ENCOUNTER 2023-07-02 10:29 | Outpatient (AMB) | payer MEDICARE, MEDICAID, SELFPAY ==
--- NOTE | 2023-07-02 10:48 | A.OFFVIS_ITS ---
Intake Intake Visit Reasons: 6m/labs/US(set) Intake Note: Patient is present for 6 month follow up/labs/US (imaging done 06/02/23) Urology Medications: terazosin and Finasteride Blood Thinner: none PVR: 11ml Environmental Health Technician Required: Yes Environmental Health Technician Name: Dorene ([id number]) [place] Allergies metoprolol [METOPROLOL] Allergy (Intermediate, Verified 07/02/23 11:56) Rash seafood Allergy (Intermediate, Verified 07/02/23 11:56) Swelling spironolactone [Spironolactone] Allergy (Intermediate, Verified 07/02/23 11:56) Gynecomastia,Swelling fentanyl Adverse Reaction (Intermediate, Verified 07/02/23 11:56) sleepiness Medication List - Last Reconciled 07/02/23 by СЕРГЕЙ Stanton-BC acetaminophen (Tylenol Extra Strength) 500 mg PO Q6H PRN albuterol sulfate 90 mcg/actuation 1 inh PO Q4H PRN amlodipine 10 mg PO DAILY 90 days carvedilol 25 mg PO BID cromolyn 4% 1 drp ophthalmic (eye) QID 5 days dronedarone (Multaq) 400 mg PO BID eplerenone 50 mg PO DAILY 90 days finasteride 5 mg PO DAILY 90 days fluticasone propionate 50 mcg/actuation 1 spray intranasal DAILY hydrocortisone 1% (Anti-Itch (hydrocortisone)) 1 appl topical BID PRN 30 days lisinopril 20 mg PO BID 90 days lorazepam 0.5 mg PO BID PRN 30 days meclizine 25 mg PO DAILY PRN 90 days metformin 500 mg PO BID 90 days nebulizers Nebulizer Machine with Tubing and Accessories omega-3 fatty acids-fish oil 340-1,000 mg (Fish Oil) 1 cap PO BID omeprazole 40 mg PO DAILY potassium chloride ER 40 mEq (2 x 20 mEq) PO DAILY 90 days rivaroxaban (Xarelto) 20 mg PO DAILY rosuvastatin 5 mg PO DAILY 90 days sennosides (senna) 17.2 mg (2 x 8.6 mg) PO BEDTIME PRN terazosin 5 mg PO BEDTIME 90 days tramadol 50 mg PO BID PRN 30 days zolpidem 10 mg PO BEDTIME PRN 30 days HPI HPI Comments History of Present Illness Details Ganesh is a pleasant soon to be 73 year old pleasant Mongolian speaking patient of Dr. Jha. He has a past medical history of paroxysmal AFib, SVT, cardiac pacemaker, cardiomyopathy, lumbar degenerative disc disease, insomnia, constipation, vertigo, diabetes, and hypertension. He presents to the office today for follow-up of his elevated PSA and lower urinary tract symptoms. In discussion with the patient today he reports to be doing and feeling well. Recent renal imaging results reviewed with the patient today. Right kidney with no calculi or hydronephrosis. Benign-appearing renal cyst measuring 1.1 cm. No follow up imaging is recommended per radiology report. Left kidney with no calculi, and or hydronephrosis. Benign-appearing renal cysts measuring up to 1.4 cm. No follow-up imaging is recommended per radiology report. Recent PSA results reviewed with the patient today as noted below. Patient reports typically being compliant with 5 mg of terazosin daily and 5 mg of finasteride daily however ran out of refills and has not been on medication. He reports feeling happy with his current voiding parameters when taking 5 mg of terazosin daily. Discussed mild elevation PSA however patient reports not being on finasteride. Refills provided and will reassess PSA in 4 months. Discussed at length potential causes for elevated PSA as well as further workup with surveillance monitoring verses prostate biopsy. When asked patient denies any issues with flank pain, incontinence, hematuria, dysuria, foul-smelling urine, changes to urinary stream, fever, and or chills. In office urinalysis within normal limits. PVR 11ml. PSA 07/28--4.5 09/28--4.0 06/28--4.4 percent free psa--16 % PFSH Medical History Paroxysmal atrial fibrillation SVT (supraventricular tachycardia) Trifascicular block Cardiac pacemaker in situ Cardiomyopathy Right hip pain Eye exam, routine Screening for colon cancer Screening for prostate cancer Lumbar degenerative disc disease Insomnia Constipation by delayed colonic transit Vertigo SVT (supraventricular tachycardia) Trifascicular block Diabetes mellitus HTN (hypertension) Cardiomyopathy Cardiac pacemaker in situ Surgical History History of colonoscopy S/P cardiac catheterization History of pacemaker Status post excision of lipoma History of inguinal hernia repair Family History Mother Cancer Diabetes Hypertension Father Stroke Sister Cancer Maternal Uncle Myocardial infarction Paternal Aunt No problems noted. Paternal Uncle Hypertension CVD (cardiovascular disease) Brother Mental health disorder Social History Housing: House Alcohol intake: former Patient Tobacco Use Status: Never used Tobacco e-Cigarette/Vaping Use: Never Used Second Hand Smoke Exposure: No service: No Current occupational status: disabled Cognitive needs: No Hearing needs: No Vision needs: Yes (glasses) Review of Systems Const Reports as per HPI Eyes Reports no additional complaints ENT Reports no additional complaints Card Reports as per HPI Resp Reports no additional complaints GI Reports as per HPI Reports as per HPI Musc Reports as per HPI Neuro Reports no additional complaints Psych Reports no additional complaints Endo Reports as per HPI Allen/Lymph Reports no additional complaints Aller/Immun Reports no additional complaints Physical Exam Const General: cooperative, healthy appearing, comfortable, no acute distress, well developed, alert and awake Orientation/consciousness: patient oriented x3 Limitations: no limitations HEENT Head: Yes normal to inspection, Yes normocephalic and Yes atraumatic Eyes General: appearance normal, both eyes and all related structures Neck Neck: Yes normal visual inspection and Yes trachea midline Chest Chest palpation & inspection: normal inspection of the chest Cardio Rate: regular rate General: Yes no CVA tenderness Back/Spine/Pelvis Back: no CVA tenderness Cervical Spine: normal cervical lordosis Skin General skin exam: no rashes or lesions noted Neuro General: patient oriented x3 Extrem General: Yes normal to inspection Psych Appearance: grossly normal and well kempt Mental Status: mental status grossly normal Speech and movement: Normal speech and movement present and Clear speech present Affect: normal affect Attitude: cooperative Thought process: Normal thought process present Thought content: Normal thought content present Insight: Fair insight present (Psych) Judgement: Fair judgement present (Psych) Office Procedures Post Void Residual Post Residual Void Post Void Residual (PVR): 11 [id number] Void Residual by ultrasound Results AMB Urinalysis, Automated UA Leukoctes 0 Jett/uL Last Edit by Mayra Hawley MA on 07/02/23 11:05 UA Nitrite Negative Last Edit by Mayra Hawley MA on 07/02/23 11:05 UA Urobilinogen 0.2 mg/dL Last Edit by Mayra Hawley MA on 07/02/23 11:05 UA Protein 30 mg/dL Last Edit by Mayra Hawley MA on 07/02/23 11:05 UA pH 6.5 Last Edit by Mayra Hawley MA on 07/02/23 11:05 UA Blood 0 [place]/uL Last Edit by Mayra Hawley MA on 07/02/23 11:05 UA Specific [place] 1.015 Last Edit by Mayra Hawley MA on 07/02/23 11:05 UA Ketone Negative Last Edit by Mayra Hawley MA on 07/02/23 11:05 UA Bilirubin 0 mg/dL Last Edit by Mayra Hawley MA on 07/02/23 11:05 UA Glucose 0 mg/dL Last Edit by Mayra Hawley MA on 07/02/23 11:05 Results Reviewed Results Reviewed: Laboratory Last Values Urine pH (Auto) 6.5 07/02/23 10:57 Specific [place] (Auto) 1.015 07/02/23 10:57 Urine Protein (Auto) 30 mg/dL 07/02/23 10:57 Glucose (UA)(Auto) 0 mg/dL 07/02/23 10:57 Urine Ketones (Auto) Negative 07/02/23 10:57 Urine Blood (Auto) 0 [place]/uL 07/02/23 10:57 Urine Nitrite (Auto) Negative 07/02/23 10:57 Urine Bilirubin (Auto) 0 mg/dL 07/02/23 10:57 Urine Urobilinogen (Auto) 0.2 mg/dL 07/02/23 10:57 Leukocyte Esterase (Auto) 0 Jett/uL 07/02/23 10:57 Date of Service: 06/02/23 Procedure(s): US renal BI FINDINGS: RIGHT KIDNEY: 10.6 x 5.2 x 6.1 cm (SAG x AP x TRV). The kidney is normal in size, contour, and echogenicity. Renal cortical thickness is normal. No renal calculi or hydronephrosis. Benign-appearing renal cyst measuring 1.1 cm. No follow up imaging is recommended. LEFT KIDNEY: 11.0 x 5.6 x 5.7 cm (SAG x AP x TRV). The kidney is normal in size, contour, and echogenicity. Renal cortical thickness is normal. No renal calculi or hydronephrosis. Benign-appearing renal cysts measuring up to 1.4 cm. No follow-up imaging is recommended. IMPRESSION: Benign-appearing bilateral renal cysts measuring up to 1.4 cm. No follow up imaging is recommended. Assessment & Plan Assessment & Plan (1) Renal cyst: Code(s): N28.1 - Cyst of kidney, acquired (2) Enlarged prostate: Code(s): N40.0 - Benign prostatic hyperplasia without lower urinary tract symptoms (3) BPH (benign prostatic hyperplasia): Code(s): N40.0 - Benign prostatic hyperplasia without lower urinary tract symptoms (4) Nocturia: Code(s): R35.1 - Nocturia Plan In office urinalysis results reviewed with the patient today; as noted above. PVR 11 mL. Discussed most recent renal ultrasound results with the patient today; as noted above. Refills provided on finasteride and terazosin Patient reports to be happy with current voiding parameters on terazosin 5 mg daily will continue. Discussed at length potential causes for elevated PSA Will continue with surveillance monitoring this was discussed at length. PSA in 4 months. Follow-up in 4 months with lab to be completed prior; or sooner with any issues, concerns, and or questions. Orders: Orders AMB Urinalysis Automated Today Z13.9 - Encounter for screening, unspecified AMB Post Void Residual by ultrasound Today R35.1 - Nocturia Medications: Refilled terazosin 5 mg PO BEDTIME 90 days 90 caps 4RF N40.1 - Benign prostatic hyperplasia with lower urinary tract symptoms, R35.0 - Frequency of micturition finasteride 5 mg PO DAILY 90 days 90 tabs 3RF N32.0 - Bladder-neck obstruction Patient Instructions: The patient had an opportunity to ask questions regarding the treatment plan. All questions were answered. Physical exam, labs, and imaging were discussed and reviewed in detail. As well as risks, benefits, and discussion of treatment choices. No major barriers to understanding were identified. The patient expressed understanding and agreement with the above treatment plan. The patient was made aware they should contact our office by phone for worsening of their current condition, the appearance of new symptoms, or with any questions or concerns. Compliance is encouraged with any medications and follow up testing that is ordered. It is a privilege to be allowed the opportunity to participate in? your urological care.? Again, if you have any questions or concerns If you have any questions or concerns please do not hesitate to contact me. The office is [phone]. This note is constructed using voice recognition software. While every effort has been made to ensure accuracy mash filter press operator errors may have been included. Yours sincerely, ALEXIS Stanton Coding Level of Care Code Est Pt Level 3 (60331) Diagnoses Renal cyst N28.1 Enlarged prostate N40.0 BPH (benign prostatic hyperplasia) N40.0 Nocturia R35.1 CPT Codes Post Residual Void - PVR CPT Code: 66530-Ioza Void Residual by ultrasound ([id number])
== END 2023-07-02 11:24 | disposition home or self-care (01) ==
PROVIDERS: Visit Provider Nurse Practitioner Family
DX: N28.1 Cyst of kidney, acquired (principal); N40.0 Benign prostatic hyperplasia without lower urinary tract symptoms; R35.1 Nocturia; Z13.9 Encounter for screening, unspecified
CPT/HCPCS: 99213

== ENCOUNTER → 2023-07-02 10:29 | Outpatient (BNVA) | payer MEDICARE, MEDICAID, SELFPAY | PROVIDERS: Visit Provider Nurse Practitioner Family | DX: N40.0 Benign prostatic hyperplasia without lower urinary tract symptoms (principal); N28.1 Cyst of kidney, acquired; R35.1 Nocturia | CPT/HCPCS: 51798; 81003; 99212 ==

== ENCOUNTER 2023-07-09 07:18 | Outpatient (AMB) | payer MEDICARE, SELFPAY ==
[2023-07-09 07:37] VITALS: BP 132/82; PULSE 68; O2SAT 97; BMI 31.0
--- NOTE | 2023-07-09 07:37 | MHC.PC.OV ---
Vital Signs 07/09/23 07:37 Height 5 ft 7 in Weight 198 lb BMI 31.0 BP 132/82 Blood Pressure Location Lt brachial Position Sitting Pulse 68 Pulse Source Pulse Oximeter Pulse Oximetry (%) 97 Oxygen Delivery Method Room Air Intake Visit Reasons: PE Configuration Release Manager Name: [id number] Ortega Information Interpreted: non-clinical & clinical Allergies metoprolol [METOPROLOL] Allergy (Intermediate, Verified 07/09/23 07:50) Rash seafood Allergy (Intermediate, Verified 07/09/23 07:50) Swelling spironolactone [Spironolactone] Allergy (Intermediate, Verified 07/09/23 07:50) Gynecomastia,Swelling fentanyl Adverse Reaction (Intermediate, Verified 07/09/23 07:50) sleepiness Medication List - Last Reconciled 07/09/23 by СЕРГЕЙ Mendoza acetaminophen (Tylenol Extra Strength) 500 mg PO Q6H PRN albuterol sulfate 90 mcg/actuation 1 inh PO Q4H PRN amlodipine 10 mg PO DAILY 90 days carvedilol 25 mg PO BID cromolyn 4% 1 drp ophthalmic (eye) QID 5 days dronedarone (Multaq) 400 mg PO BID eplerenone 50 mg PO DAILY 90 days finasteride 5 mg PO DAILY 90 days fluticasone propionate 50 mcg/actuation 1 spray intranasal DAILY hydrocortisone 1% (Anti-Itch (hydrocortisone)) 1 appl topical BID PRN 30 days lisinopril 20 mg PO BID 90 days lorazepam 0.5 mg PO BID PRN 30 days meclizine 25 mg PO DAILY PRN 90 days metformin 500 mg PO BID 90 days nebulizers Nebulizer Machine with Tubing and Accessories omega-3 fatty acids-fish oil 340-1,000 mg (Fish Oil) 1 cap PO BID omeprazole 40 mg PO DAILY potassium chloride ER 40 mEq (2 x 20 mEq) PO DAILY 90 days rivaroxaban (Xarelto) 20 mg PO DAILY rosuvastatin 5 mg PO DAILY 90 days sennosides (senna) 17.2 mg (2 x 8.6 mg) PO BEDTIME PRN terazosin 5 mg PO BEDTIME 90 days tramadol 50 mg PO BID PRN 30 days zolpidem 10 mg PO BEDTIME PRN 30 days Tobacco use date assessed: 11/26/22 Fall risk assessment: No Falls in past year Last assessed Fall Risk: 07/09/23 Dental Screening Dental Screen Date: 07/09/23 Did you have a dental visit in the last 12 months?: Yes Did you have a dental problem in the last 6 months where you did not have access to dental care?: No Was dental information given to patient?: Patient has dentist HPI HPI Comments History of Present Illness Details 73-year-old male past medical history significant for diabetes mellitus, hypertension, cardiomyopathy, paroxysmal AFib on anticoagulation, pacemaker, anemia, BPH and hyperlipidemia. Patient Dr. Jha presents today for physical exam. Patient denies any acute concerns. Denies chest pain, palpitations, shortness of breath and syncope. Patient continues to follow with Cardiology as well as Hematology. Colonoscopy: September 2022; showed hyperplastic polyp. Patient reports seeing dermatology and has upcoming appointment to have skin lesion of face removed. Eye exam: Patient reports last eye exam about a year ago patient recommended annual diabetic eye exam. Reminded to get blood work that is ordered in August. [facility] Medical History Paroxysmal atrial fibrillation SVT (supraventricular tachycardia) Trifascicular block Cardiac pacemaker in situ Cardiomyopathy Right hip pain Eye exam, routine Screening for colon cancer Screening for prostate cancer Lumbar degenerative disc disease Insomnia Constipation by delayed colonic transit Vertigo SVT (supraventricular tachycardia) Trifascicular block Diabetes mellitus HTN (hypertension) Cardiomyopathy Cardiac pacemaker in situ Surgical History History of colonoscopy S/P cardiac catheterization History of pacemaker Status post excision of lipoma History of inguinal hernia repair Family History Mother Cancer Diabetes Hypertension Father Stroke Sister Cancer Maternal Uncle Myocardial infarction Paternal Aunt No problems noted. Paternal Uncle Hypertension CVD (cardiovascular disease) Brother Mental health disorder Social History Housing: House Alcohol intake: former Patient Tobacco Use Status: Never used Tobacco e-Cigarette/Vaping Use: Never Used Second Hand Smoke Exposure: No service: No Current occupational status: disabled Cognitive needs: No Hearing needs: No Vision needs: Yes (glasses) Questionnaire PHQ-9 Over the last 2 weeks, how often have you been bothered by any of the following problems? 1. Little interest or pleasure in doing things: several days 2. Feeling down, depressed, or hopeless: not at all 3. Trouble falling or staying asleep, or sleeping too much: not at all 4. Feeling tired or having little energy: not at all 5. Poor appetite or overeating: not at all 6. Feeling bad about yourself - or that you are a failure or have let yourself or your family down: not at all 7. Trouble concentrating on things, such as reading the newspaper or watching television: not at all 8. Moving or speaking so slowly that other people could have noticed. Or the opposite - being so fidgety or restless that you have been moving around a lot more than usual: not at all 9. Thoughts that you would be better off or of hurting yourself in some way: not at all Total score: 1 Depression Screening Interpretation: Negative Depression Screening Done: Yes 07554 - PHQ-9 Billing: Yes Source: Developed by Drs. Hebert Wright, Randell Miguel and colleagues, with an educational una from [employer]. Thrive Questionnaire Date Thrive assessed: 03/03/23 AUDIT C Alcohol Use Questionnaire (AUDIT-C) 1. How often do you have a drink containing alcohol?: Never Total Score: 0 Score Reviewed/Action Taken: No BASSEM-7 AMB Questionnaire BASSEM-7 Date BASSEM - 7 assessed: 11/26/22 Source: Developed by Drs. Hebert Wright, Randell Miguel and colleagues, with an educational una from [employer]. Review of Systems Const Denies chills, Denies fatigue, Denies fever(s) and Denies poor appetite Eyes Denies no additional complaints ENT Reports Normal hearing present Card Denies chest pain, Denies syncope, Denies rapid heart rate and Denies dyspnea Resp Denies cough and Denies dyspnea GI Denies change in stool character, Denies constipation, Denies diarrhea, Denies nausea and Denies vomiting Denies dysuria, Denies urinary frequency and Denies urinary urgency Neuro Reports Normal hearing present, Denies confusion and Denies syncope Psych Denies confusion Endo Denies fatigue Physical exam (Primary Care) Vital Signs: Last Vital Signs Pulse 68 07/09/23 07:37 BP 132/82 07/09/23 07:37 Pulse Ox 97 07/09/23 07:37 Oxygen Delivery Method Room Air 07/09/23 07:37 BMI result Body Mass Index 31.0 Tobacco/Smoking Status: Tobacco use Status Tobacco use date assessed 11/26/22 07/09/23 07:39 Patient Tobacco Use Status Never used Tobacco 07/09/23 07:39 e-Cigarette/Vaping Use Never Used 07/09/23 07:39 PHQ-9: PHQ-9 Score PHQ-9: Total score 1 07/09/23 07:50 Depression Screening Interpretation: Negative Thrive Assessment: Date of Thrive Assessment Date Thrive assessed 03/03/23 07/09/23 07:39 Const General: No confusion Orientation/consciousness: No confusion HENMT Head: Yes normocephalic and Yes atraumatic Ears: external ears normal and TM's normal bilaterally General nose exam: Normal external nose present and Normal nasal mucous membranes and turbinates present Face and sinus: Yes normal facial exam and Yes sinuses nontender Mouth: moist mucous membranes Throat: Yes tonsils normal Eyes Conjunctivae: conjunctivae normal Sclerae: sclerae normal Pupils: Equal, round and reactive pupils present and Pupils normal by confrontation EOM: EOMs intact bilaterally Direct Ophthalmoscopy: normal light reflex Neck Neck: Yes no lymphadenopathy and Yes supple Thyroid: Thyroid normal Chest Chest palpation & inspection: normal inspection of the chest Resp Effort & Inspection: normal respiratory effort Auscultation: clear to auscultation bilaterally, no crackles, no rhonchi and no wheezes Cardio Rate: regular rate Rhythm: regular rhythm Peripheral pulses: radial pulses present and dorsalis pedis present GI Inspection: Yes normal to inspection Palpation (GI): Soft to palpation, nontender and No hepatosplenomegaly present Auscultation: normoactive bowel sounds Skin General skin exam: no rashes or lesions noted Neuro General: No confusion Cranial nerves: Yes Equal, round and reactive pupils present and Yes Normal hearing present Cognition (Neuro): normal cognition Gait exam (Neuro): Normal gait present Motor exam (neuro): 5/5 motor strength present throughout Deep tendon reflexes (DTR's): Right brachioradialis reflex intensity grade: 2+, Left brachioradialis reflex intensity grade: 2+, Right patellar reflex intensity grade: 2+ and Left patellar reflex intensity grade: 2+ Extrem General: No edema Results AMB Hemoglobin A1c AMB Hemoglobin A1c 5.6 % Last Edit by MAGALIS Newton on 07/09/23 08:40 Assessment and Plan Assessment & Plan (1) Paroxysmal atrial fibrillation: Code(s): I48.0 - Paroxysmal atrial fibrillation Plan: Continue on Xarelto 20 mg daily for anticoagulation and continue on Multaq Continue to follow with Cardiology. (2) Hyperlipidemia LDL goal <70: Code(s): E78.5 - Hyperlipidemia, unspecified Plan: Continue on rosuvastatin 5 mg daily. Follow low-cholesterol diet. Patient reminded to get previously ordered fasting blood work that is due in August. Previous LDL 86, LDL goal less than 70. (3) Normochromic normocytic anemia: Code(s): D64.9 - Anemia, unspecified Plan: Continue to follow with Hematology. (4) BPH (benign prostatic hyperplasia): Code(s): N40.0 - Benign prostatic hyperplasia without lower urinary tract symptoms Plan: Continue to follow urology. Continue on finasteride (5) Cardiomyopathy: Comment: echo October 2018 showing LVEF of 45-50% Code(s): I42.9 - Cardiomyopathy, unspecified (6) HTN (hypertension): Code(s): I10 - Essential (primary) hypertension Qualifiers: Hypertension type: primary hypertension Qualified Code(s): I10 - Essential (primary) hypertension Plan: Continue on amlodipine, carvedilol and lisinopril Follow low-salt diet exercise. Blood pressure goal less than 140/90. (7) Diabetes mellitus: Code(s): E11.9 - Type 2 diabetes mellitus without complications Qualifiers: Diabetes mellitus complication status: without complication Diabetes mellitus manager long term care insulin use: without nursing home use Diabetes mellitus type: type 2 Qualified Code(s): E11.9 - Type 2 diabetes mellitus without complications Plan: Hemoglobin A1c: 5.6 Follow low-carbohydrate diet. Continue on metformin 500 mg b.i.d. (8) Physical exam, annual: Code(s): Z00.00 - Encounter for general adult medical examination without abnormal findings Plan: Follow-up in 1 year. Plan Follow-up in 3 months. Orders: Orders AMB Hemoglobin A1c Today Z13.9 - Encounter for screening, unspecified Coding Level of Care Code Est Pt Prev Care >65y(35814) Diagnoses Paroxysmal atrial fibrillation I48.0 Hyperlipidemia LDL goal <70 E78.5 Normochromic normocytic anemia D64.9 BPH (benign prostatic hyperplasia) N40.0 Cardiomyopathy I42.9 Primary hypertension I10 Hypertension type: primary hypertension Type 2 diabetes mellitus without complication, without long-term current use of insulin E11.9 Diabetes mellitus complication status: without complication Diabetes mellitus manager long term care insulin use: without nursing home use Diabetes mellitus type: type 2 Physical exam, annual Z00.00
== END 2023-07-09 08:05 | disposition home or self-care (01) ==
PROVIDERS: PCP Internal Medicine; Visit Provider Nurse Practitioner Family
DX: Z00.00 Encounter for general adult medical examination without abnormal findings (principal); E11.9 Type 2 diabetes mellitus without complications; I42.9 Cardiomyopathy, unspecified; I48.0 Paroxysmal atrial fibrillation; N40.0 Benign prostatic hyperplasia without lower urinary tract symptoms; E78.5 Hyperlipidemia, unspecified; D64.9 Anemia, unspecified; I10 Essential (primary) hypertension
CPT/HCPCS: 83036; 99397

== ENCOUNTER 2023-09-29 09:29 | Outpatient (REF) | payer MEDICARE, MEDICAID, SELFPAY ==
[2023-09-29 12:21] LABS: Anion Gap 14 (12-20); Blood Urea Nitrogen 11 mg/dL (9-16); Calcium 9.4 mg/dL (8.4-10.2); Carbon Dioxide 28 mmol/L (22-29); Chloride 100 mmol/L (96-108); Estimated Glomerular Filt Rate > 60; Glucose Random 97 mg/dL (60-115); Potassium 3.8 mmol/L (3.3-5.1); Sodium 138 mmol/L (135-145)
== END 2023-09-29 09:30 | disposition home or self-care (01) ==
LOC: HO.LAB 09:29
PROVIDERS: PCP Internal Medicine; Visit Provider Internal Medicine Cardiovascular Disease
DX: I48.0 Paroxysmal atrial fibrillation (principal); I42.9 Cardiomyopathy, unspecified; Z95.0 Presence of cardiac pacemaker; Z79.899 Other long term (current) drug therapy
CPT/HCPCS: 36415; 80048; 93005; 93280; 99212

== ENCOUNTER 2023-09-29 09:29 | Outpatient (AMB) | payer MEDICARE, MEDICAID, SELFPAY ==
[2023-09-29 09:37] VITALS: BP 148/84; PULSE 72; BMI 31.4
--- NOTE | 2023-09-29 09:37 | A.OFFVIS_ITS ---
Intake Vital Signs 09/29/23 09:37 Height 5 ft 7 in Weight 200 lb 9.93 oz BMI 31.4 BP 148/84 H Blood Pressure Location Lt brachial Pulse 72 Intake Visit Reasons: 6 months followup Intake Note: 6 month follow-up with [facility] feeling good has rash Strategic Debriefing Specialist Required: Yes Strategic Debriefing Specialist Name: Sulma from [facility] [place] Allergies metoprolol [METOPROLOL] Allergy (Intermediate, Verified 07/09/23 07:50) Rash seafood Allergy (Intermediate, Verified 07/09/23 07:50) Swelling spironolactone [Spironolactone] Allergy (Intermediate, Verified 07/09/23 07:50) Gynecomastia,Swelling fentanyl Adverse Reaction (Intermediate, Verified 07/09/23 07:50) sleepiness Medication List - Last Reconciled 09/29/23 by Juan C Cardenas MD acetaminophen (Tylenol Extra Strength) 500 mg PO Q6H PRN albuterol sulfate 90 mcg/actuation 1 inh PO Q4H PRN amlodipine 10 mg PO DAILY 90 days aspirin 81 mg PO DAILY carvedilol 25 mg PO BID cromolyn 4% 1 drp ophthalmic (eye) QID 5 days dronedarone (Multaq) 400 mg PO BID eplerenone 50 mg PO DAILY 90 days ferrous sulfate 325 mg PO finasteride 5 mg PO DAILY 90 days fluticasone propionate 50 mcg/actuation 1 spray intranasal DAILY hydrocortisone 1% (Anti-Itch (hydrocortisone)) 1 appl topical BID PRN 30 days lisinopril 20 mg PO BID 90 days lorazepam 0.5 mg PO BID PRN 30 days meclizine 25 mg PO DAILY PRN 90 days metformin 500 mg PO BID 90 days nebulizers Nebulizer Machine with Tubing and Accessories omeprazole 40 mg PO DAILY potassium chloride ER 40 mEq (2 x 20 mEq) PO DAILY 90 days rivaroxaban (Xarelto) 20 mg PO DAILY rosuvastatin 5 mg PO DAILY 90 days sennosides (senna) 17.2 mg (2 x 8.6 mg) PO BEDTIME PRN terazosin 5 mg PO BEDTIME 90 days tramadol 50 mg PO BID PRN 30 days zolpidem 10 mg PO BEDTIME PRN 30 days HPI HPI Comments History of Present Illness Details Ganesh comes for follow-up. Overall from cardiac perspective he has been doing well. He has had no prolonged palpitation irregular heartbeat. Denies any exertional chest pain or shortness of breath. No orthopnea, PND, leg edema. No lightheadedness, syncope. He is noticed some rash around his pacemaker. He is notice that in the past which had dissipated and now has come back again. It is itchy rash. No fever or chills. Patient was started on aspirin therapy recently for unclear reasons. Patient denies any bleeding issues. [facility] Medical History Paroxysmal atrial fibrillation SVT (supraventricular tachycardia) Trifascicular block Cardiac pacemaker in situ Cardiomyopathy Right hip pain Eye exam, routine Screening for colon cancer Screening for prostate cancer Lumbar degenerative disc disease Insomnia Constipation by delayed colonic transit Vertigo SVT (supraventricular tachycardia) Trifascicular block Diabetes mellitus HTN (hypertension) Cardiomyopathy Cardiac pacemaker in situ Surgical History History of colonoscopy S/P cardiac catheterization History of pacemaker Status post excision of lipoma History of inguinal hernia repair Family History Mother Cancer Diabetes Hypertension Father Stroke Sister Cancer Maternal Uncle Myocardial infarction Paternal Aunt No problems noted. Paternal Uncle Hypertension CVD (cardiovascular disease) Brother Mental health disorder Social History Housing: House Alcohol intake: former Patient Tobacco Use Status: Never used Tobacco e-Cigarette/Vaping Use: Never Used Second Hand Smoke Exposure: No service: No Current occupational status: disabled Cognitive needs: No Hearing needs: No Vision needs: Yes (glasses) Review of Systems Const Denies chills, Denies fatigue, Denies fever(s), Denies frequent falls, Denies weakness, Denies weight gain and Denies weight loss ENT Denies dizziness Card Denies chest pain, Denies leg edema, Denies lightheadedness, Denies palpitations, Denies dyspnea, Denies dyspnea on exertion, Denies orthopnea and Denies other (loss of consciousness) Resp Denies cough, Denies dyspnea and Denies dyspnea on exertion GI Denies hematochezia and Denies change in stool character Musc Denies abnormal gait, Denies muscle weakness, Denies numbness, Denies radiating pain into limb and Denies tingling Neuro Denies abnormal gait, Denies dizziness, Denies frequent falls, Denies numbness, Denies tingling and Denies weakness Endo Denies fatigue and Denies palpitations Physical Exam Vital Signs: Last Vital Signs Pulse 72 09/29/23 09:37 BP 148/84 H 09/29/23 09:37 BMI result Body Mass Index 31.4 Const General: cooperative, comfortable, no acute distress, alert and awake Nutritional Appearance: overweight Orientation/consciousness: patient oriented x3 Limitations: no limitations Neck Neck: Yes trachea midline, Yes supple and Yes no JVD Resp Effort & Inspection: normal respiratory effort Auscultation: clear to auscultation bilaterally Cardio Jugular venous distension: no JVD Palpation: normal PMI Rate: regular rate Rhythm: regular rhythm Heart sounds: S1 normal heart sound present and S2 normal heart sound present GI Auscultation: normal bowel sounds Skin General skin exam: no rashes or lesions noted Neuro General: patient oriented x3 and no focal motor deficits Extrem General: Yes no clubbing, cyanosis or edema Psych Appearance: grossly normal Office Procedures Cardiac Device Check Cardiac Device Check Details: Dual-chamber [employer] pacemaker in place. Programmed in DDDR at 60 beats per minute. Atrial pacing 7.8% of time. Ventricular pacing 19% of time. Two episodes of nonsustained ventricular tachycardia noted. Few episodes of SVT noted. Atrial pacing thresholds are adequate and in our capture mode. Ventricular pacing thresholds adequate. Atrial ventricular sensing is adequate. Pacing lead impedance is stable. Battery life is excellent at 9-11 years [address]60-YP Cardiac Device Check, pacemaker dual lead Procedure code (CPT) selection complete EKG Details: EKG shows normal sinus rhythm with first-degree AV block with right bundle- branch block and left anterior fascicular block, unchanged from before [id number], Complete Assessment & Plan Assessment & Plan (1) Paroxysmal atrial fibrillation: Code(s): I48.0 - Paroxysmal atrial fibrillation Plan: Paroxysmal atrial fibrillation in this elderly gentleman without any clinical recurrence on Multaq therapy. Has done well with rhythm control approach will continue pursue rhythm control approach. Continue Multaq therapy. Avoidance of stimulants was discussed. Will monitor with pacer telemetry. Will require EKGs every 3 months. Continue full oral anticoagulation, currently on Xarelto 20 mg daily. Semi annual renal function test should be pursued. Does not need an additional aspirin therapy which will only increase his bleeding risk. Have advised him to stop his aspirin therapy. Continue risk factor modification with aggressive blood pressure control. (2) Cardiac pacemaker in situ: Comment: [employer] dual-chamber pacemaker implanted for syncope and trifascicular block with EP study consistent with infra Hisian block Code(s): Z95.0 - Presence of cardiac pacemaker Plan: Cardiac pacemaker in-situ for syncope with trifascicular block with infra-Hisian block. Patient is not pacer dependent ventricle but still has intermittent high percentage of ventricular pacing. Doing well from this perspective. Will follow remotely in 3 months and follow up in the clinic in 6 months time. (3) Cardiomyopathy: Comment: echo October 2018 showing LVEF of 45-50% Code(s): I42.9 - Cardiomyopathy, unspecified Plan: Mild cardiomyopathy without overt signs of congestive heart failure. LV systolic function has remained stable. Will follow-up echocardiogram in 6 months time. Continue neurohormonal modulation with lisinopril. Signs and symptoms of heart failure were discussed. Continue aggressive blood pressure control. Avoidance of salt loading was discussed. Follow up in the clinic in 3 months for EKG in 6 months with me with EKG. Thank you for allowing me to partake in his care Orders: Orders Basic Metabolic Panel Today I48.0 - Paroxysmal atrial fibrillation Coding Level of Care Code Est Pt Level 4 (94840) Diagnoses Paroxysmal atrial fibrillation I48.0 Cardiac pacemaker in situ Z95.0 Cardiomyopathy I42.9 CPT Codes Cardiac Device Check - Cardiac Device 2: [id number]-[id number] Cardiac Device Check, pacemaker dual lead ([id number]) EKG - CPT: 59139-[id number], Complete ([id number])
== END 2023-09-29 10:24 | disposition home or self-care (01) ==
PROVIDERS: PCP Internal Medicine; Visit Provider Internal Medicine Cardiovascular Disease
DX: I48.0 Paroxysmal atrial fibrillation (principal); Z95.0 Presence of cardiac pacemaker; I42.9 Cardiomyopathy, unspecified
CPT/HCPCS: 93280; 99214

== ENCOUNTER 2023-10-12 16:49 | Outpatient (AMB) | payer MEDICARE, MEDICAID, SELFPAY ==
--- NOTE | 2023-10-12 16:56 | MHC.PC.OV ---
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 Required: No Accompanied by: Self / Same As Patient Allergies metoprolol [METOPROLOL] Allergy (Intermediate, Verified 10/12/23 17:34) Rash seafood Allergy (Intermediate, Verified 10/12/23 17:34) Swelling spironolactone [Spironolactone] Allergy (Intermediate, Verified 10/12/23 17:34) Gynecomastia,Swelling fentanyl Adverse Reaction (Intermediate, Verified 10/12/23 17:34) sleepiness Medication List - Last Reconciled 10/12/23 by Ana Vargas MD acetaminophen (Tylenol Extra Strength) 500 mg PO Q6H PRN albuterol sulfate 90 mcg/actuation 1 inh PO Q4H PRN amlodipine 10 mg PO DAILY 90 days carvedilol 25 mg PO BID cromolyn 4% 1 drp ophthalmic (eye) QID 5 days dronedarone (Multaq) 400 mg PO BID eplerenone 50 mg PO DAILY 90 days ferrous sulfate 325 mg PO finasteride 5 mg PO DAILY 90 days fluticasone propionate 50 mcg/actuation 1 spray intranasal DAILY hydrocortisone 1% (Anti-Itch (hydrocortisone)) 1 appl topical BID PRN 30 days lisinopril 20 mg PO BID 90 days lorazepam 0.5 mg PO BID PRN 30 days meclizine 25 mg PO DAILY PRN 90 days metformin 500 mg PO BID 90 days nebulizers Nebulizer Machine with Tubing and Accessories omeprazole 40 mg PO DAILY potassium chloride ER 40 mEq (2 x 20 mEq) PO DAILY 90 days rivaroxaban (Xarelto) 20 mg PO DAILY rosuvastatin 5 mg PO DAILY 90 days sennosides (senna) 17.2 mg (2 x 8.6 mg) PO BEDTIME PRN terazosin 5 mg PO BEDTIME 90 days tramadol 50 mg PO BID PRN 30 days zolpidem 10 mg PO BEDTIME PRN 30 days Tobacco use date assessed: 10/12/23 Fall risk assessment: No Falls in past year Last assessed Fall Risk: 10/12/23 Dental Screening Dental Screen Date: 10/12/23 Did you have a dental visit in the last 12 months?: Yes Did you have a dental problem in the last 6 months where you did not have access to dental care?: No Was dental information given to patient?: Patient has dentist HPI HPI Comments History of Present Illness Details This is a 73-year-old male with hypertension, diabetes mellitus type 2, hyperlipidemia, atrial fibrillation and cardiomyopathy that comes today for follow-up on his conditions. Blood pressure elevated and I will add hydralazine 10 mg 3 times a day. Blood pressure will be recheck in 3 weeks by nurse navigator. A1c within goal. Lipid panel will be order and his LDL goal should be less than 70. Has atrial fibrillation follow by cardiology that has been stable. On carvedilol for his cardiomyopathy and last echocardiogram was 2022 showing ejection fraction of 46%. Has not gain 5 lb in a week. Doing well. No chest pain or shortness of breath. Compliant with medications. [facility] Medical History (Updated 10/12/23 @ 17:39 by Ana Vargas MD) Paroxysmal atrial fibrillation SVT (supraventricular tachycardia) Trifascicular block Cardiac pacemaker in situ Cardiomyopathy Right hip pain Eye exam, routine Screening for colon cancer Screening for prostate cancer Lumbar degenerative disc disease Insomnia Constipation by delayed colonic transit Vertigo SVT (supraventricular tachycardia) Trifascicular block Diabetes mellitus HTN (hypertension) Cardiomyopathy Cardiac pacemaker in situ Surgical History History of colonoscopy S/P cardiac catheterization History of pacemaker Status post excision of lipoma History of inguinal hernia repair Family History Mother Cancer Diabetes Hypertension Father Stroke Sister Cancer Maternal Uncle Myocardial infarction Paternal Aunt No problems noted. Paternal Uncle Hypertension CVD (cardiovascular disease) Brother Mental health disorder Social History Housing: House Alcohol intake: former Patient Tobacco Use Status: Never used Tobacco e-Cigarette/Vaping Use: Never Used Second Hand Smoke Exposure: No service: No Current occupational status: disabled Cognitive needs: No Hearing needs: No Vision needs: Yes (glasses) Questionnaire Thrive Questionnaire Date Thrive assessed: 03/03/23 BASSEM-7 AMB Questionnaire BASSEM-7 Date BASSEM - 7 assessed: 11/26/22 Source: Developed by Drs. Hebert Wright, Alejandra Otero, Randell Cuellar and colleagues, with an educational una from [employer]. Review of Systems Const All systems reviewed & are unremarkable except as noted in HPI and below Eyes Reports no additional complaints, Denies change in vision and Denies other visual disturbances Card Denies chest pain at rest, Denies chest pain with activity, Denies edema, Denies irregular heart rhythm, Denies claudication, Denies dyspnea, Denies dyspnea on exertion, Denies orthopnea, Denies paroxysmal nocturnal dyspnea and Denies slow heart rate Resp Denies cough, Denies dyspnea and Denies dyspnea on exertion GI Denies abdominal pain, Denies change in bowel habits, Denies excessive flatus, Denies nausea and Denies vomiting Denies urinary hesitancy, Denies urinary incontinence and Denies urinary urgency Musc Denies abnormal gait, Denies atrophy, Denies deformity and Denies limited range of motion Skin/Breast Denies bleeding lesions, Denies changing lesions and Denies rash Neuro Denies abnormal gait, Denies behavioral changes and Denies lack of coordination Psych Denies behavioral changes Physical exam (Primary Care) Vital Signs: Last Vital Signs BP 158/90 H 10/12/23 16:59 BMI result Body Mass Index 30.9 Tobacco/Smoking Status: Tobacco use Status Tobacco use date assessed 10/12/23 10/12/23 17:09 Patient Tobacco Use Status Never used Tobacco 10/12/23 16:56 e-Cigarette/Vaping Use Never Used 10/12/23 16:56 Thrive Assessment: Date of Thrive Assessment Date Thrive assessed 03/03/23 10/12/23 16:56 Eyes General: appearance normal, both eyes and all related structures Eyelids: Yes eyelids normal Conjunctivae: conjunctivae normal Neck Neck: Yes normal visual inspection and Yes supple Resp Effort & Inspection: normal respiratory effort Auscultation: clear to auscultation bilaterally Cardio Jugular venous distension: no JVD Rate: regular rate Rhythm: regular rhythm Heart sounds: S1 normal heart sound present and S2 normal heart sound present Extrem General: Yes full ROM Results AMB Hemoglobin A1c AMB Hemoglobin A1c 5.5 % Last Edit by MAGALIS Urena on 10/12/23 17:11 Results Reviewed Results Reviewed: Laboratory Last Values Hgb A1c (Clinic) 5.5 % (4.0-6.0) 10/12/23 16:55 Assessment and Plan Assessment & Plan (1) Paroxysmal atrial fibrillation: Code(s): I48.0 - Paroxysmal atrial fibrillation (2) Essential hypertension: Code(s): I10 - Essential (primary) hypertension Plan: Continue amlodipine, lisinopril and eplerenone. Start hydralazine 10 mg 3 times a day. Recheck blood pressure with nurse navigator in 3 weeks. Blood pressure goal is equal or less than 130/80. (3) Hyperlipidemia LDL goal <70: Code(s): E78.5 - Hyperlipidemia, unspecified Plan: Continue statins. Repeat lipid panel. LDL goal is less than 70. (4) Diabetes mellitus: Code(s): E11.9 - Type 2 diabetes mellitus without complications Qualifiers: Diabetes mellitus type: type 2 Diabetes mellitus termination clerk insulin use: without assisted use Diabetes mellitus complication status: without complication Qualified Code(s): E11.9 - Type 2 diabetes mellitus without complications Plan: Continue metformin. A1c goal is equal or less than 7%. (5) Cardiomyopathy: Comment: echo October 2018 showing LVEF of 45-50% Code(s): I42.9 - Cardiomyopathy, unspecified Plan: Continue carvedilol. The goal is to not gain 5 lb in a week. Orders: Orders AMB Hemoglobin A1c Today E11.9 - Type 2 diabetes mellitus without complications Microalbumin, Random (w Creat) Today E11.9 - Type 2 diabetes mellitus without complications IRON PROFILE Today D64.9 - Anemia, unspecified Vitamin D 25-OH Total Today E55.9 - Vitamin D deficiency, unspecified Comprehensive [employer]. Panel Fast Today I48.0 - Paroxysmal atrial fibrillation Lipid Panel Today E78.5 - Hyperlipidemia, unspecified Complete Blood Count Auto Diff Today D64.9 - Anemia, unspecified Vitamin B12 and Folate Today E53.8 - Deficiency of other specified B group vitamins Medications: New hydralazine 10 mg PO TID 30 days 90 tabs 0RF I10 - Essential (primary) hypertension Refilled zolpidem 10 mg PO BEDTIME 30 days PRN 30 tabs 0RF insomnia I48.0 - Paroxysmal atrial fibrillation lorazepam 0.5 mg PO BID 30 days PRN 60 tabs 0RF anxiety tramadol 50 mg PO BID 30 days PRN 60 tabs 0RF pain I48.0 - Paroxysmal atrial fibrillation Coding Level of Care Code Est Pt Level 4 (89718) Diagnoses Paroxysmal atrial fibrillation I48.0 Essential hypertension I10 Hyperlipidemia LDL goal <70 E78.5 Type 2 diabetes mellitus without complication, without long-term current use of insulin E11.9 Diabetes mellitus type: type 2 Diabetes mellitus termination clerk insulin use: without assisted use Diabetes mellitus complication status: without complication Cardiomyopathy I42.9 Time Spent (min) 25
[2023-10-12 16:59] VITALS: BP 158/90; BMI 30.9
[2023-10-12 18:19] VITALS: BP 160/90
== END 2023-10-12 17:41 | disposition home or self-care (01) ==
PROVIDERS: PCP Internal Medicine; Visit Provider Internal Medicine
DX: I48.0 Paroxysmal atrial fibrillation (principal); E11.69 Type 2 diabetes mellitus with other specified complication; I42.9 Cardiomyopathy, unspecified; I10 Essential (primary) hypertension; E78.5 Hyperlipidemia, unspecified
CPT/HCPCS: 83036; 99214

== ENCOUNTER 2023-11-03 08:48 | Outpatient (REF) | payer MEDICARE, MEDICAID, SELFPAY ==
[2023-11-03 10:07] LABS: PSA,Total (Free>4and<10) 2.68 ng/mL (0.00-4.00)
== END 2023-11-03 08:49 | disposition home or self-care (01) ==
LOC: HO.LAB 08:48
PROVIDERS: Absent Provider Internal Medicine Medical Oncology; PCP Internal Medicine; Referring Provider Internal Medicine; Visit Provider Nurse Practitioner Family
DX: N40.0 Benign prostatic hyperplasia without lower urinary tract symptoms (principal); R97.20 Elevated prostate specific antigen [PSA]; Z12.5 Encounter for screening for malignant neoplasm of prostate
CPT/HCPCS: 36415; 84153

== ENCOUNTER 2023-12-16 13:49 | Outpatient (REF) | payer MEDICARE, MEDICAID, SELFPAY ==
[2023-12-16 14:15] LABS: MANUAL DIFF FLAG NO
[2023-12-16 14:52] LABS: Basophils Absolute Auto 0.1 X10*3/uL (0.0-0.2); Eosinophils Absolute Auto 0.2 X10*3/uL (0.0-0.4); Eosinophils Percent Auto 4.1 % (0-4); Hemoglobin 13.3 g/dl (14.0-18.0); Imm Gran Abs Auto 0.01 X10*3/uL (0.00-0.03); Imm Gran Pct Auto 0.2 % (0.0-0.4); Lymphocytes Absolute Auto 1.3 X10*3/uL (1.2-4.9); Lymphocytes Percent Auto 21.7 % (20-40); Mean Corpuscular Hemoglobin 32.4 pg (27.0-33.0); Mean Corpuscular Volume 92.5 fL (80.0-98.0); Mean Platelet Volume 9.3 fL (9.4-12.4); Monocytes Absolute Auto 0.6 X10*3/uL (0.1-1.2); Monocytes Percent Auto 10.2 % (2-11); Neutrophils Absolute Auto 3.7 x10*3/uL (2.0-8.3); Neutrophils Percent Auto 62.8 % (45-73); Platelet Count 218 X10*3/uL (160-400); Red Blood Count 4.11 X10*6/uL (4.60-5.80); White Blood Count 5.9 X10*3/uL (4.8-10.8)
[2023-12-16 14:55] LABS: Appearance Urine Clear; Color Urine Yellow; Glucose Urine UA Negative (Negative); Leukocyte Esterase Urine Negative (Negative); Nitrite Urine Negative (Negative); PH 7.5 (5.0-9.0); Specific Gravity - Urine 1.015 (1.005-1.025); UMIC TRIGGER UA YES; Urine Blood Negative (Negative); Urine Ketones Negative (Negative); Urine Protein 30 (1+) mg/dL (Neg-Trace)
[2023-12-16 15:12] LABS: Estimated Average Glucose 120 mg/dL; Hemoglobin A1c % 5.8 % (<6.0)
[2023-12-16 15:40] LABS: Creatinine Urine 66.72 mg/dL; Microalbum/Creatinine Ratio Ur 230.8 ug/mg cr (<30)
[2023-12-16 15:41] LABS: Parathyroid Hormone Intact 61.8 pg/mL (8.7-77.1)
[2023-12-16 15:44] LABS: Anion Gap 12 (12-20); Blood Urea Nitrogen 12 mg/dL (9-16); Calcium 10.4 mg/dL (8.4-10.2); Carbon Dioxide 25 mmol/L (22-29); Chloride 105 mmol/L (96-108); Estimated Glomerular Filt Rate > 60; Iron 63 mcg/dL (45-160); Percent Iron Saturation 18 % (15-50); Potassium 4.1 mmol/L (3.3-5.1); Sodium 138 mmol/L (135-145); Total Iron Binding Capacity 346 mcg/dL (228-428); Unsaturated Iron Binding 283 ug/dL; Uric Acid 5.2 mg/dL (3.4-7.0)
[2023-12-16 16:00] LABS: Bacteria Urine None Seen (None Seen); Hyaline Casts Urine 0-2 /LPF (0-2); RBC Urine 0-2 /HPF (0-2); Squamous Epithelial Cell Urine 0-2 /HPF (0-2); Vitamin D 25-OH Total 27.3 ng/mL (>30); WBC Urine 0-5 /HPF (0-5)
[2023-12-22 05:39] LABS: Protein C Activity 104 % normal (70-180)
[2023-12-28 05:28] LABS: Renin 0.66 ng/mL/h (0.25-5.82)
== END 2023-12-16 13:50 | disposition home or self-care (01) ==
LOC: HO.LAB 13:49
PROVIDERS: Visit Provider Internal Medicine
DX: E11.22 Type 2 diabetes mellitus with diabetic chronic kidney disease (principal); N18.9 Chronic kidney disease, unspecified; D50.9 Iron deficiency anemia, unspecified
CPT/HCPCS: 36415; 80051; 81001; 82043; 82088; 82306; 82310; 82565; 82570; 83036; 83540; 83970; 84244; 84520; 84550; 85025; 85302; 85303

== ENCOUNTER 2023-12-27 09:32 | Outpatient (AMB) | payer MEDICARE, MEDICAID, SELFPAY ==
--- NOTE | 2023-12-27 09:50 | MHC.OFFVIS ---
Intake Visit Reasons: 4m/PSA Intake Note: Patient presents today for follow up on Enlarged Prostate and Nocturia PSA: 2.68 Urology Medications: Finasteride Blood Thinner: Xarelto PVR:0ml's Knife Setter Grinder Machine Required: Yes Knife Setter Grinder Machine Name: VAMSI LEWISLIYAH Accompanied by: Self / Same As Patient Allergies metoprolol [METOPROLOL] Allergy (Intermediate, Verified 12/27/23 10:16) Rash seafood Allergy (Intermediate, Verified 12/27/23 10:16) Swelling spironolactone [Spironolactone] Allergy (Intermediate, Verified 12/27/23 10:16) Gynecomastia,Swelling fentanyl Adverse Reaction (Intermediate, Verified 12/27/23 10:16) sleepiness Medication List - Last Reconciled 12/27/23 by ALEXIS Stanton acetaminophen (Tylenol Extra Strength) 500 mg PO Q6H PRN albuterol sulfate 90 mcg/actuation 1 inh PO Q4H PRN amlodipine 10 mg PO DAILY 90 days carvedilol 25 mg PO BID cromolyn 4% 1 drp ophthalmic (eye) QID 5 days dronedarone (Multaq) 400 mg PO BID eplerenone 50 mg PO DAILY 90 days ferrous sulfate 325 mg PO finasteride 5 mg PO DAILY 90 days fluticasone propionate 50 mcg/actuation 1 spray intranasal DAILY hydralazine 10 mg PO TID 30 days hydrocortisone 1% (Anti-Itch (hydrocortisone)) 1 appl topical BID PRN 30 days lisinopril 20 mg PO BID 90 days lorazepam 0.5 mg PO BID PRN 30 days meclizine 25 mg PO DAILY PRN 90 days metformin 500 mg PO BID 90 days nebulizers Nebulizer Machine with Tubing and Accessories omeprazole 40 mg PO DAILY potassium chloride ER 40 mEq (2 x 20 mEq) PO DAILY 90 days rivaroxaban (Xarelto) 20 mg PO DAILY rosuvastatin 5 mg PO DAILY 90 days sennosides (senna) 17.2 mg (2 x 8.6 mg) PO BEDTIME PRN terazosin 5 mg PO BEDTIME 90 days tramadol 50 mg PO BID PRN 30 days zolpidem 10 mg PO BEDTIME PRN 30 days HPI Comments Details: Ganesh is a pleasant soon to be 73 year old pleasant Lao speaking patient of Dr. Jha. He has a past medical history of paroxysmal AFib, SVT, cardiac pacemaker, cardiomyopathy, lumbar degenerative disc disease, insomnia, constipation, vertigo, diabetes, and hypertension. He presents to the office today for follow-up of his elevated PSA and lower urinary tract symptoms. In discussion with the patient today he reports to be doing and feeling well. Recent PSA results reviewed with the patient today as noted and trended below: PSA: 07/28 4.5, 09/28--4.0, 06/28 4.4 percent free psa 16 %, 10/30 2.7 When asked he reports compliance with 5 mg of finasteride and terazosin daily as prescribed. He currently denies any bothersome urinary issues or concerns. Previous workup has included a retroperitoneal ultrasound noting right kidney with no calculi or hydronephrosis. Benign-appearing renal cyst measuring 1.1 cm. No follow up imaging is recommended per radiology report. Left kidney with no calculi, and or hydronephrosis. Benign-appearing renal cysts measuring up to 1.4 cm. No follow-up imaging is recommended per radiology report. He reports feeling happy with his current voiding parameters when taking 5 mg of terazosin daily. When asked patient denies urinary urgency, urinary frequency, incontinence, nocturia, hematuria, dysuria, foul smelling urine, changes to urinary stream, flank pain, fever, and or chills. any issues with flank pain, incontinence, hematuria, dysuria, foul-smelling urine, changes to urinary stream, fever, and or chills. In office urinalysis within normal limits. PVR 0ml's [facility] Medical History Paroxysmal atrial fibrillation SVT (supraventricular tachycardia) Trifascicular block Cardiac pacemaker in situ Cardiomyopathy Right hip pain Eye exam, routine Screening for colon cancer Screening for prostate cancer Lumbar degenerative disc disease Insomnia Constipation by delayed colonic transit Vertigo SVT (supraventricular tachycardia) Trifascicular block Diabetes mellitus HTN (hypertension) Cardiomyopathy Cardiac pacemaker in situ Surgical History History of colonoscopy S/P cardiac catheterization History of pacemaker Status post excision of lipoma History of inguinal hernia repair Family History Mother Cancer Diabetes Hypertension Father Stroke Sister Cancer Maternal Uncle Myocardial infarction Paternal Aunt No problems noted. Paternal Uncle Hypertension CVD (cardiovascular disease) Brother Mental health disorder Social History Housing: House Alcohol intake: former Patient Tobacco Use Status: Never used Tobacco e-Cigarette/Vaping Use: Never Used Second Hand Smoke Exposure: No service: No Current occupational status: disabled Cognitive needs: No Hearing needs: No Vision needs: Yes (glasses) Review of Systems Const Reports as per HPI Eyes Reports no additional complaints ENT Reports no additional complaints Card Reports as per HPI Resp Reports no additional complaints GI Reports as per HPI Reports as per HPI Musc Reports as per HPI Neuro Reports no additional complaints Psych Reports no additional complaints Endo Reports as per HPI Allen/Lymph Reports no additional complaints Aller/Immun Reports no additional complaints Physical Exam Const General: cooperative, healthy appearing, comfortable, no acute distress, well developed, alert and awake Orientation/consciousness: patient oriented x3 Limitations: no limitations and language barrier HEENT Head: Yes normal to inspection, Yes normocephalic and Yes atraumatic Eyes General: appearance normal, both eyes and all related structures Neck Neck: Yes normal visual inspection and Yes trachea midline Chest Chest palpation & inspection: normal inspection of the chest Cardio Rate: regular rate General: Yes no CVA tenderness Back/Spine/Pelvis Back: no CVA tenderness Cervical Spine: normal cervical lordosis Skin General skin exam: no rashes or lesions noted Neuro General: patient oriented x3 Extrem General: Yes normal to inspection Psych Appearance: grossly normal and well kempt Mental Status: mental status grossly normal Speech and movement: Normal speech and movement present and Clear speech present Affect: normal affect Attitude: cooperative Thought process: Normal thought process present Thought content: Normal thought content present Insight: Fair insight present (Psych) Judgement: Fair judgement present (Psych) Office Procedures Post Void Residual Post Residual Void Post Void Residual (PVR): 0 [id number] Void Residual by ultrasound Results AMB Urinalysis, Automated UA Leukoctes 0 Jett/uL Last Edit by Heidi Best on 12/27/23 10:04 UA Nitrite Negative Last Edit by Heidi Best on 12/27/23 10:04 UA Urobilinogen 0.2 mg/dL Last Edit by Heidi Best on 12/27/23 10:04 UA Protein 15 mg/dL Last Edit by Heidi Best on 12/27/23 10:04 UA pH 6.0 Last Edit by Heidi Best on 12/27/23 10:04 UA Blood 0 [place]on/uL Last Edit by Heidi Best on 12/27/23 10:04 UA Specific [place] 1.010 Last Edit by Heidi Best on 12/27/23 10:04 UA Ketone Negative Last Edit by Heidi Best on 12/27/23 10:04 UA Bilirubin 0 mg/dL Last Edit by Heidi Best on 12/27/23 10:04 UA Glucose 0 mg/dL Last Edit by Heidi Best on 12/27/23 10:04 Results Reviewed Results Reviewed: Laboratory Last Values Urine pH (Auto) 6.0 12/27/23 09:55 Specific [place] (Auto) 1.010 12/27/23 09:55 Urine Protein (Auto) 15 mg/dL 12/27/23 09:55 Glucose (UA)(Auto) 0 mg/dL 12/27/23 09:55 Urine Ketones (Auto) Negative 12/27/23 09:55 Urine Blood (Auto) 0 [place]/uL 12/27/23 09:55 Urine Nitrite (Auto) Negative 12/27/23 09:55 Urine Bilirubin (Auto) 0 mg/dL 12/27/23 09:55 Urine Urobilinogen (Auto) 0.2 mg/dL 12/27/23 09:55 Leukocyte Esterase (Auto) 0 Jett/uL 12/27/23 09:55 Assessment & Plan Assessment & Plan (1) Enlarged prostate: Code(s): N40.0 - Benign prostatic hyperplasia without lower urinary tract symptoms Category: Medical Plan In office urinalysis results reviewed with the patient today; as noted above. PVR 0 mL. Recent PSA results reviewed with the patient today; as noted and trended above. Patient currently denies any bothersome urinary issues or concerns. Patient reports be happy with current voiding parameters. Continue finasteride and terazosin 5 mg as prescribed; refills provided. Will obtain PSA in 6 months. Follow-up in 6 months with lab to be completed prior; or sooner with any issues, concerns, and or questions. Orders: Orders AMB Urinalysis Automated Today Z13.9 - Encounter for screening, unspecified AMB Post Void Residual by ultrasound Today N40.0 - Benign prostatic hyperplasia without lower urinary tract symptoms Prostate Specific Antigen 6 Months N40.0 - Benign prostatic hyperplasia without lower urinary tract symptoms Medications: Refilled terazosin 5 mg PO BEDTIME 90 days 90 caps 4RF N40.1 - Benign prostatic hyperplasia with lower urinary tract symptoms, R35.0 - Frequency of micturition finasteride 5 mg PO DAILY 90 days 90 tabs 3RF N32.0 - Bladder-neck obstruction Patient Instructions: The patient had an opportunity to ask questions regarding the treatment plan. All questions were answered. Physical exam, labs, and imaging were discussed and reviewed in detail. As well as risks, benefits, and discussion of treatment choices. No major barriers to understanding were identified. The patient expressed understanding and agreement with the above treatment plan. The patient was made aware they should contact our office by phone for worsening of their current condition, the appearance of new symptoms, or with any questions or concerns. Compliance is encouraged with any medications and follow up testing that is ordered. It is a privilege to be allowed the opportunity to participate in? your urological care.? Again, if you have any questions or concerns If you have any questions or concerns please do not hesitate to contact me. The office is [phone]. This note is constructed using voice recognition software. While every effort has been made to ensure accuracy automobile accessories salesperson errors may have been included. Yours sincerely, ALEXIS Stanton
== END 2023-12-27 10:14 | disposition home or self-care (01) ==
PROVIDERS: PCP Internal Medicine; Visit Provider Nurse Practitioner Family
DX: N40.0 Benign prostatic hyperplasia without lower urinary tract symptoms (principal); Z13.9 Encounter for screening, unspecified
CPT/HCPCS: 99213

== ENCOUNTER → 2023-12-27 09:32 | Outpatient (BNVA) | payer MEDICARE, MEDICAID, SELFPAY | PROVIDERS: PCP Internal Medicine; Visit Provider Nurse Practitioner Family | DX: N40.1 Benign prostatic hyperplasia with lower urinary tract symptoms (principal); R35.1 Nocturia; N32.0 Bladder-neck obstruction | CPT/HCPCS: 51798; 81003; 99212 ==

== ENCOUNTER 2023-12-30 08:29 | Outpatient (AMB) | payer MEDICARE, MEDICAID, SELFPAY ==
--- NOTE | 2023-12-30 08:34 | AM.OFFVISNUR ---
Intake Intake Visit Reasons: 3 mth ekg Allergies metoprolol [METOPROLOL] Allergy (Intermediate, Verified 12/27/23 10:16) Rash seafood Allergy (Intermediate, Verified 12/27/23 10:16) Swelling spironolactone [Spironolactone] Allergy (Intermediate, Verified 12/27/23 10:16) Gynecomastia,Swelling fentanyl Adverse Reaction (Intermediate, Verified 12/27/23 10:16) sleepiness Nursing Note PT has Nurse with EKG PT is taking Dronedarone (Multaq) 400 mg PO BID EKG was left on Dr Cardenas desflor for review Office Procedures EKG [id number], Complete Coding CPT Codes EKG - CPT: 60965-[id number], Complete ([id number])
== END 2023-12-30 09:00 | disposition home or self-care (01) ==
PROVIDERS: PCP Internal Medicine; Visit Provider Internal Medicine Cardiovascular Disease
DX: I44.0 Atrioventricular block, first degree (principal)
CPT/HCPCS: 93010

== ENCOUNTER → 2023-12-30 08:29 | Outpatient (BNVA) | payer MEDICARE, MEDICAID, SELFPAY | PROVIDERS: PCP Internal Medicine; Visit Provider Internal Medicine Cardiovascular Disease | DX: I44.0 Atrioventricular block, first degree (principal); I45.10 Unspecified right bundle-branch block; R94.31 Abnormal electrocardiogram [ECG] [EKG]; I45.2 Bifascicular block | CPT/HCPCS: 93005 ==

== ENCOUNTER 2024-03-10 08:32 | Outpatient (REF) | payer MEDICARE, MEDICAID, SELFPAY ==
[2024-03-10 08:52] LABS: MANUAL DIFF FLAG NO
[2024-03-10 09:30] LABS: Basophils Absolute Auto 0.1 X10*3/uL (0.0-0.2); Basophils Percent Auto 1.2 % (0-2); Eosinophils Absolute Auto 0.3 X10*3/uL (0.0-0.4); Eosinophils Percent Auto 4.8 % (0-4); Hematocrit 36.1 % (42.0-52.0); Hemoglobin 12.4 g/dl (14.0-18.0); Imm Gran Abs Auto 0.02 X10*3/uL (0.00-0.03); Imm Gran Pct Auto 0.3 % (0.0-0.4); Lymphocytes Absolute Auto 0.9 X10*3/uL (1.2-4.9); Lymphocytes Percent Auto 16.2 % (20-40); Mean Corpuscular HGB Conc 34.3 g/dl (31.0-36.0); Mean Corpuscular Hemoglobin 33.3 pg (27.0-33.0); Mean Platelet Volume 9.3 fL (9.4-12.4); Monocytes Absolute Auto 0.5 X10*3/uL (0.1-1.2); Monocytes Percent Auto 9.3 % (2-11); Neutrophils Percent Auto 68.2 % (45-73); Platelet Count 202 X10*3/uL (160-400); Red Blood Count 3.72 X10*6/uL (4.60-5.80); Red Cell Distribution Width 12.3 % (11.0-16.0); White Blood Count 5.8 X10*3/uL (4.8-10.8)
[2024-03-10 09:38] LABS: Creatinine Urine 101.54 mg/dL; Microalbum/Creatinine Ratio Ur 37.4 ug/mg cr (<30)
[2024-03-10 09:44] LABS: Alanine Aminotransferase 15 U/L (0-40); Albumin Level 4.2 g/dL (3.5-5.0); Alkaline Phosphatase 64 U/L (39-117); Anion Gap 12 (12-20); Aspartate Amino Transferase 22 U/L (5-37); Bilirubin Total 0.7 mg/dL (0.0-1.0); Blood Urea Nitrogen 18 mg/dL (9-16); Calcium 9.2 mg/dL (8.4-10.2); Carbon Dioxide 27 mmol/L (22-29); Chloride 106 mmol/L (96-108); Cholesterol 160 mg/dL (<200); Estimated Glomerular Filt Rate > 60; Glucose Fasting 104 mg/dL (60-99); HDL Cholesterol 37 mg/dL (>40); Iron 80 mcg/dL (45-160); LDL Cholesterol Calculated 108 mg/dL (<100); Percent Iron Saturation 26 % (15-50); Potassium 4.1 mmol/L (3.3-5.1); Sodium 141 mmol/L (135-145); Total Iron Binding Capacity 310 mcg/dL (228-428); Total Protein 7.3 g/dL (6.5-8.0); Triglycerides 79 mg/dL (<150); Unsaturated Iron Binding 230 ug/dL
[2024-03-10 10:00] LABS: Vitamin D 25-OH Total 32.7 ng/mL (>30)
[2024-03-10 10:57] LABS: Folate 13.1 ng/mL (> or = 4.0); Vitamin B12 373 pg/mL (200-900)
== END 2024-03-10 08:33 | disposition home or self-care (01) ==
LOC: HO.LAB 08:32
PROVIDERS: PCP Internal Medicine; Visit Provider Internal Medicine
DX: D64.9 Anemia, unspecified (principal); E78.5 Hyperlipidemia, unspecified; E53.8 Deficiency of other specified B group vitamins; E55.9 Vitamin D deficiency, unspecified; E11.9 Type 2 diabetes mellitus without complications; I48.0 Paroxysmal atrial fibrillation; I47.10 Supraventricular tachycardia, unspecified
CPT/HCPCS: 36415; 80053; 80061; 82043; 82306; 82570; 82607; 82746; 83540; 85025

== ENCOUNTER 2024-03-13 09:28 | Outpatient (AMB) | payer MEDICARE, MEDICAID, SELFPAY ==
[2024-03-13 09:33] VITALS: BP 124/62; PULSE 67; O2SAT 98; BMI 30.1
--- NOTE | 2024-03-13 09:33 | A.OFFVIS_ITS ---
Intake Vital Signs 03/13/24 09:33 Height 5 ft 7 in Weight 192 lb BMI 30.1 BP 124/62 Blood Pressure Location Lt brachial Position Sitting Pulse 67 Pulse Source Pulse Oximeter Pulse Oximetry (%) 98 Oxygen Delivery Method Room Air Intake Visit Reasons: LOY G0439 Intake Note: Patient is here for an Annual Wellness Visit. Summer Law Associate Required: No Accompanied by: Self / Same As Patient Allergies metoprolol [METOPROLOL] Allergy (Intermediate, Verified 03/13/24 10:19) Rash seafood Allergy (Intermediate, Verified 03/13/24 10:19) Swelling spironolactone [Spironolactone] Allergy (Intermediate, Verified 03/13/24 10:19) Gynecomastia,Swelling fentanyl Adverse Reaction (Intermediate, Verified 03/13/24 10:19) sleepiness Medication List - Last Reconciled 03/13/24 by Ana Vargas MD acetaminophen (Tylenol Extra Strength) 500 mg PO Q6H PRN albuterol sulfate 90 mcg/actuation 1 inh PO Q4H PRN amlodipine 10 mg PO DAILY 90 days carvedilol 25 mg PO BID cromolyn 4% 1 drp ophthalmic (eye) QID 5 days dronedarone (Multaq) 400 mg PO BID eplerenone 50 mg PO DAILY 90 days ferrous sulfate 325 mg PO finasteride 5 mg PO DAILY 90 days fluticasone propionate 50 mcg/actuation 1 spray intranasal DAILY hydralazine 10 mg PO TID 30 days hydrocortisone 1% (Anti-Itch (hydrocortisone)) 1 appl topical BID PRN 30 days lisinopril 20 mg PO BID 90 days lorazepam 0.5 mg PO BID PRN 30 days meclizine 25 mg PO DAILY PRN 90 days metformin 500 mg PO BID 90 days nebulizers Nebulizer Machine with Tubing and Accessories omeprazole 40 mg PO DAILY potassium chloride ER 40 mEq (2 x 20 mEq) PO DAILY 90 days rivaroxaban (Xarelto) 20 mg PO DAILY rosuvastatin 5 mg PO DAILY 90 days sennosides (senna) 17.2 mg (2 x 8.6 mg) PO BEDTIME PRN terazosin 5 mg PO BEDTIME 90 days tramadol 50 mg PO BID PRN 30 days zolpidem 10 mg PO BEDTIME PRN 30 days HPI HPI Comments History of Present Illness Details This is 73-year-old male with diabetes mellitus type 2, cardiomyopathy and atrial fibrillation that comes for his Medicare wellness exam. Ppp handed to patient. Colonoscopy done 2022 showing hyperplastic polyp. No chest pain or shortness on breath. Compliant with medications. A1c within goal. [facility]LY [facility] Medical History Paroxysmal atrial fibrillation SVT (supraventricular tachycardia) Trifascicular block Cardiac pacemaker in situ Cardiomyopathy Right hip pain Eye exam, routine Screening for colon cancer Screening for prostate cancer Lumbar degenerative disc disease Insomnia Constipation by delayed colonic transit Vertigo SVT (supraventricular tachycardia) Trifascicular block Diabetes mellitus HTN (hypertension) Cardiomyopathy Cardiac pacemaker in situ Surgical History History of colonoscopy S/P cardiac catheterization History of pacemaker Status post excision of lipoma History of inguinal hernia repair Family History Mother Cancer Diabetes Hypertension Father Stroke Sister Cancer Maternal Uncle Myocardial infarction Paternal Aunt No problems noted. Paternal Uncle Hypertension CVD (cardiovascular disease) Brother Mental health disorder Social History Housing: House Alcohol intake: former Patient Tobacco Use Status: Never used Tobacco e-Cigarette/Vaping Use: Never Used Second Hand Smoke Exposure: No service: No Current occupational status: disabled Cognitive needs: No Hearing needs: No Vision needs: Yes (glasses) Questionnaire Medicare Wellness Checkup [age] What gender do you identify with?: male During the past 4 weeks, how much have you been bothered by emotional problems such as feeling anxious, depressed, irritable, sad or downhearted, and blue?: not at all During the past 4 weeks, has your physical & emotional health limited your social activities with family, friends, neighbors, or groups?: not at all During the past 4 weeks, how much bodily pain have you generally had?: moderate pain (leg pain ) During the past 4 weeks, was someone available to help you if you needed & wanted help?: yes, as much as I wanted (son ) During the past 4 weeks, what was the hardest physical activity you could do for at least 2 minutes?: light Can you get to places out of walking distance without help? (For eg., can you travel alone on buses, taxis or drive your car?): Yes Can you go shopping for groceries or clothes without someone's help?: No Can you prepare your own meals?: No Can you do your housework without help?: No Because of any health problems, do you need the help of another person with your personal care needs such as eating, bathing, dressing or getting around the house?: No Can you handle your own money without help?: Yes During the past 4 weeks, how would you rate your health in general?: good During the past 4 weeks how have things been going for you?: pretty well Are you having difficulties driving your car?: no Do you always fasten your seat belt when you are in a car?: yes, usually During past 4 weeks, have you been bothered by the following: never: Falling or dizzy when standing up, Sexual problems?, Trouble eating well?, Teeth or denture problems?, Problems using the telephone? and Tiredness or fatigue? Have you fallen 2 or more times in the past year?: No Are you afraid of falling?: No Are you a smoker?: no During the past 4 weeks, how many drinks of wine, beer, or other alcoholic beverages did you have?: no alcohol at all Do you exercise for about 20 minutes 3 or more times a week?: yes, some of the time Have you been given information to help with the following?: yes: Hazards in your house that might hurt you? and yes: Keeping track of your medications? How often do you have trouble taking medicines the way you have been told to take them?: I always take medicine as prescribed How confident are you that you can control & manage most of your health problems?: very confident What is your race?: or origin or descent Mini Mental State Exam (MMSE) Orientation What is the (year) (season) (date) (day) (month)?: year, season, date, day and month Where are we (state) (county) (town or city) (hospital) (floor)?: state, county, town or city and hospital/clinic Registration Name of 3 unrelated objects clearly and slowly, then ask patient to repeat all 3 of them. (1st repeat determines score. Make sure they can repeat all three): object 1, object 2 and object 3 Attention & Calculation (CHOOSE ONE) Spell WORLD backwards (DLROW): 0 letters Recall Ask patient to repeat the 3 items from question #3.: object 1, object 2 and object 3 Language Show patient a wristwatch & ask what it is. Repeat for pencil.: watch and pencil Ask the patient to repeat the phrase 'No ifs, ands, or buts' after you.: correct Ask the patient to 'take a piece of paper with their right hand' 'fold paper in half' 'place paper on floor': take paper in right hand, fold paper in half and place paper on floor Ask patient to copy figure of intersecting pentagons exactly. Score if all 10 angles & 2 intersects are included.: all 10 angles present & 2 are intersected Score Score: 22 Activity of Daily Living Bathing - sponge bath, tub bath or shower: receives help in bathing only one body part (such as back or leg) Dressing - getting clothes from closets & drawers, including inner/outer garments & fasteners.: gets clothes & gets completely dressed without help Toileting - going to the 'toilet room' for urine/bowel elimination & cleaning self/arranging clothes: goes to toilet room, cleans self, arranges clothes without help Transfer: moves in & out of bed and chair without help (may use support object) Continence: controls urination/bowel movements completely by self Feeding: feeds self without help Total Score: 0 Information obtained from: patient Using telephone: independent Traveling: needs assistance Shopping: dependent Preparing meals: dependent Housework: dependent Taking medicine: independent Managing money: independent PHQ-9 Over the last 2 weeks, how often have you been bothered by any of the following problems? 1. Little interest or pleasure in doing things: not at all 2. Feeling down, depressed, or hopeless: not at all 3. Trouble falling or staying asleep, or sleeping too much: not at all 4. Feeling tired or having little energy: not at all 5. Poor appetite or overeating: not at all 6. Feeling bad about yourself - or that you are a failure or have let yourself or your family down: not at all 7. Trouble concentrating on things, such as reading the newspaper or watching television: not at all 8. Moving or speaking so slowly that other people could have noticed. Or the opposite - being so fidgety or restless that you have been moving around a lot more than usual: not at all 9. Thoughts that you would be better off or of hurting yourself in some way: not at all Total score: 0 Depression Screening Interpretation: Negative Depression Screening Done: Yes 91022 - PHQ-9 Billing: Yes Source: Developed by Drs. Hebert Wright, Alejandra Otero, Randell Cuellar and colleagues, with an educational una from [employer]. Review of Systems Const All systems reviewed & are unremarkable except as noted in HPI and below Card Denies chest pain at rest, Denies chest pain with activity, Denies edema, Denies irregular heart rhythm, Denies claudication, Denies dyspnea, Denies dyspnea on exertion, Denies orthopnea, Denies paroxysmal nocturnal dyspnea and Denies slow heart rate Resp Denies cough, Denies dyspnea and Denies dyspnea on exertion Neuro Denies lack of coordination Physical Exam Vital Signs: Last Vital Signs Pulse 67 03/13/24 09:33 BP 124/62 03/13/24 09:33 Pulse Ox 98 03/13/24 09:33 Oxygen Delivery Method Room Air 03/13/24 09:33 BMI result Body Mass Index 30.1 Resp Effort & Inspection: normal respiratory effort Auscultation: clear to auscultation bilaterally Cardio Jugular venous distension: no JVD Rate: regular rate Rhythm: regular rhythm Heart sounds: S1 normal heart sound present and S2 normal heart sound present Neuro General: no focal motor deficits Gait exam (Neuro): Normal gait present Romberg Test: Negative Extrem General: Yes full ROM Psych Appearance: grossly normal Results AMB Hemoglobin A1c AMB Hemoglobin A1c 5.5 % Last Edit by MAGALIS Newton on 03/13/24 10:17 Results Reviewed Results Reviewed: Laboratory Last Values Hgb A1c (Clinic) 5.5 % (4.0-6.0) 03/13/24 09:35 Assessment & Plan Assessment & Plan (1) Encounter for annual wellness exam in Medicare patient: Code(s): Z00.00 - Encounter for general adult medical examination without abnormal findings Plan: Repeat in a year. (2) Paroxysmal atrial fibrillation: Code(s): I48.0 - Paroxysmal atrial fibrillation Plan: Continue Xarelto. The goal is heart rate control. (3) Cardiomyopathy: Comment: echo October 2018 showing LVEF of 45-50% Code(s): I42.9 - Cardiomyopathy, unspecified Plan: Continue carvedilol. Follow-up with Cardiology. (4) Diabetes mellitus: Code(s): E11.9 - Type 2 diabetes mellitus without complications Qualifiers: Diabetes mellitus type: type 2 Diabetes mellitus terminal manager insulin use: without jail use Diabetes mellitus complication status: without complication Qualified Code(s): E11.9 - Type 2 diabetes mellitus without complications Plan: Continue metformin. A1c goal is equal or less than 7%. Orders: Orders AMB Hemoglobin A1c Today E11.9 - Type 2 diabetes mellitus without complications IRON PROFILE 4 Months D64.9 - Anemia, unspecified Comprehensive [place]. Panel Fast 4 Months I42.9 - Cardiomyopathy, unspecified Lipid Panel 4 Months E78.5 - Hyperlipidemia, unspecified Microalbumin, Random (w Creat) 4 Months E11.9 - Type 2 diabetes mellitus without complications Complete Blood Count Auto Diff 4 Months D64.9 - Anemia, unspecified Vitamin B12 and Folate 4 Months E53.8 - Deficiency of other specified B group vitamins Vitamin D 25-OH Total 4 Months E55.9 - Vitamin D deficiency, unspecified NT-proBNP 4 Months I42.9 - Cardiomyopathy, unspecified Medications: Refilled tramadol 50 mg PO BID 30 days PRN 60 tabs 0RF pain I48.0 - Paroxysmal atrial fibrillation zolpidem 10 mg PO BEDTIME 30 days PRN 30 tabs 0RF insomnia I48.0 - Paroxysmal atrial fibrillation Quality Reporting (2019) Depression/Bipolar (159/160/161/177) PHQ-9: Total score: 0 Coding Level of Care Code Medicare Subsequent (G0439) Diagnoses Encounter for annual wellness exam in Medicare patient Z00.00 Paroxysmal atrial fibrillation I48.0 Cardiomyopathy I42.9 Type 2 diabetes mellitus without complication, without long-term current use of insulin E11.9 Diabetes mellitus type: type 2 Diabetes mellitus jail insulin use: without jail use Diabetes mellitus complication status: without complication CPT Codes Advance Care Planning - Time spent: 1-15 minutes, on File ([id number]) Time Spent (min) 32 Advance Care Planning Advance Care Planning discussion: Exists, not on file Date of discussion: 03/13/24 Who was present: patient and me Forms completed: Health Care Proxy Time spent: 1-15 minutes, on File Actual minutes spent: 2
== END 2024-03-13 10:53 | disposition home or self-care (01) ==
PROVIDERS: PCP Internal Medicine; Visit Provider Internal Medicine
DX: Z00.00 Encounter for general adult medical examination without abnormal findings (principal); I48.0 Paroxysmal atrial fibrillation; I42.9 Cardiomyopathy, unspecified; E11.9 Type 2 diabetes mellitus without complications
CPT/HCPCS: 1123F; 83036; G0439

== ENCOUNTER 2024-03-13 17:06 | Outpatient (REF) | payer MEDICARE, MEDICAID, SELFPAY ==
[2024-03-13 17:37] LABS: Amphetamine Screen Urine Not Detected (Not Detect); Barbiturates, Urine Not Detected (Not Detect); Benzodiazepines Screen Urine Not Detected (Not Detect); Buprenorphine Scr Not Detected (Not Detect); Cannabinoid Screen Urine Not Detected (Not Detect); Cocaine Screen Urine Not Detected (Not Detect); Fentanyl, urine Not Detected (Not Detect); Methadone Screen, Urine Not Detected (Not Detect); Opiate Screen Urine Not Detected (Not Detect); Oxycodone Screen Urine Not Detected (Not Detect); Phencyclidine Screen Urine Not Detected (Not Detect)
== END 2024-03-13 17:07 | disposition home or self-care (01) ==
LOC: HO.LNP 17:06
PROVIDERS: Visit Provider Internal Medicine
DX: M51.36 Other intervertebral disc degeneration, lumbar region (principal)
CPT/HCPCS: 80307

== ENCOUNTER → 2024-03-15 12:14 | Outpatient (REF) | payer MEDICARE, MEDICAID, SELFPAY ==
--- NOTE | 2024-03-15 12:18 | CA_ITS ---
Transthoracic Echocardiogram Patient (Last, First, Middle): Ganesh Perales, Gender: Male Date of : 1950 Age: 73 Procedure Date: 03/15/2024 Procedure Type: Transthoracic Echocardiogram Location: OP Height: 170.18 cm Weight: 87.09 kg BSA: 1.99 m2 Heart Rate: 68 bpm BP: 126 / 64 mmHg Claims Manager: CAREY Referring MD: Juan C Cardenas MD Veterans Service Officer: Juan C Cardenas MD Symptoms: I42.9 - Cardiomyopathy, unspecified Study Quality: Adequate ECG Rhythm: Sinus Conclusions: - 1. Mildly reduced LV ejection fraction of 45-50% 2. Normal cardiac valvular Doppler 3. No gross pericardial effusion Findings Left Ventricle Normal left ventricular cavity size. There is normal left ventricular wall thickness. The left ventricular systolic function is mildly decreased. There is paradoxical septal motion consistent with a right ventricular pacemaker. Spectral Doppler is indicative of an impaired relaxation filling pattern. E/E prime ratio is between 8 and 15 consistent with indeterminate filling pressures. Right Ventricle Normal right ventricular cavity size and systolic function. There is a pacemaker wire seen in the right ventricle. Atria The left atrium is normal in size. There is no evidence of interatrial shunt. The right atrium is normal in size. A pacemaker wire is identified in the right atrium. Aortic Valve The aortic valve structure and function is likely normal. There is no aortic valve stenosis. There is no aortic valve regurgitation. Mitral Valve There is mild anterior and posterior mitral leaflet thickening. There is trace mitral valve regurgitation. There is no mitral valve stenosis. Pulmonic Valve The pulmonic valve is likely normal. There is trace pulmonic valve regurgitation. Tricuspid Valve Likely normal tricuspid valve structure and function. Tricuspid regurgitation envelope is inadequate for calculation of right ventricular systolic pressure. Normal right atrial pressure. Great Vessels All visible segments of the aorta are normal in size. The pulmonary artery was not well visualized. There is no dilatation of the ascending aorta measuring 3.30 cm. Venous The inferior vena cava is normal in size and collapses greater than 50% with inspiration. Pericardium/Pleural There is no evidence of pericardial effusion. Prior Study Comparison No significant change compared to prior study dated: 01/14/2023. Measurements 2D Linear Measurements IVSd: 1.09 0.6-0.9/0.6-1.0 cm LVIDd: 5.24 3.9-5.3/4.2-5.9 cm LVIDd Index: 2.63 2.4-3.2/2.2-3.1 cm/m2 LVIDs: 3.56 2.0-3.6 cm LVPWd: 0.96 0.7-1.1 cm LA Diam: 3.90 2.7-3.8/3.0-4.0 cm LAIDs Index: 1.96 1.5-2.3 cm/m2 LV Mass: 252.62 67-162/88-224 g LV Mass Index: 126.95 43-95/49-115 g/m2 LVOT Diam: 2.30 3.0+(-)1.3 cm 2D Systolic Function EF 4C: 50.30 >55% EF 2C: 47.60 >55% EF BiP: 49.40 >55% Mitral Valve MV Pk E: 0.84 MV PK A: 1.19 MV Decel Time: 152.00 E/A: 0.70 E'Lateral: 8.92 E'Medial: 5.00 E/E' Med: 16.90 E/E' Lat: 9.50 PHT: 45.00 MVA PHT: 4.89 Decel Mcpherson: 5.55 Aortic Valve AoV Pk Basil: 1.38 AoV Pk Grad: 8.00 BETTE: 2.67 LVOT LVOT Pk Basil: 0.94 LVOT Mn Basil: 0.68 LVOT VTI: 0.20 LVOT Pk Grad: 4.00 LVOT Mn Grad: 2.00 LVOT Diam: 2.30 LVOT Area: 4.15 Diastolic Function MV Pk E: 0.84 MV Pk A: 1.19 E/A: 0.70 E'Medial: 5.00 E/E' Med: 16.90 E' Laterial: 8.92 E/E' Lat: 9.50 Right Ventricle TAPSE (mm): 21.90 TVS' Basil: 15.00 Tricuspid Valve RA Press: 3.00 Great Vessels Aorta Sinus of Valsalva: 3.50 2.0-3.5 cm Ao Asc: 3.30 2.1-3.4 cm Pulmonary Veins Pulm Vein S/D 1.10 Pulmonary Valve PV Pk Basil: 1.09 Peak PV Grad: 5.00 Updated in Other Vendor System with Status of Final Juan C Cardenas MD electronically signed on 03/15/2024 3:53:23 PM with status of Final
== END ==
LOC: HO.CARD 12:14
PROVIDERS: PCP Internal Medicine; Visit Provider Internal Medicine Cardiovascular Disease
DX: I42.9 Cardiomyopathy, unspecified (principal)
CPT/HCPCS: 93306

== ENCOUNTER → 2024-03-15 12:18 | Outpatient (BNV) | payer MEDICARE, MEDICAID, SELFPAY | PROVIDERS: PCP Internal Medicine; Visit Provider Internal Medicine Cardiovascular Disease | DX: I42.9 Cardiomyopathy, unspecified (principal); Z95.0 Presence of cardiac pacemaker | CPT/HCPCS: 93306 ==

== ENCOUNTER 2024-03-16 14:01 | Outpatient (REF) | payer MEDICARE, MEDICAID, SELFPAY ==
[2024-03-22 16:49] LABS: Renin 0.81 ng/mL/h (0.25-5.82)
== END 2024-03-16 14:02 | disposition home or self-care (01) ==
LOC: HO.LAB 14:01
PROVIDERS: PCP Internal Medicine; Visit Provider Internal Medicine
DX: I10 Essential (primary) hypertension (principal)
CPT/HCPCS: 36415; 82088; 84244

== ENCOUNTER 2024-03-27 08:34 | Outpatient (AMB) | payer MEDICARE, MEDICAID, SELFPAY ==
--- NOTE | 2024-03-27 08:46 | MHC.OFFVIS ---
Vital Signs 03/27/24 08:47 Height 5 ft 7 in Weight 191 lb 12.835 oz BMI 30.0 BP 114/62 Blood Pressure Location Lt brachial Position Sitting Pulse 65 Intake Visit Reasons: 6 mth fu w/ device check Intake Note: 6 month follow-up with [facility] check Network Operations Technician Required: Yes Network Operations Technician Services: Network Operations Technician Present Network Operations Technician Name: Manuel munoz Allergies metoprolol [METOPROLOL] Allergy (Intermediate, Verified 03/13/24 10:19) Rash seafood Allergy (Intermediate, Verified 03/13/24 10:19) Swelling spironolactone [Spironolactone] Allergy (Intermediate, Verified 03/13/24 10:19) Gynecomastia,Swelling fentanyl Adverse Reaction (Intermediate, Verified 03/13/24 10:19) sleepiness Medication List - Last Reconciled 03/27/24 by Juan C Cardenas MD acetaminophen (Tylenol Extra Strength) 500 mg PO Q6H PRN albuterol sulfate 90 mcg/actuation 1 inh PO Q4H PRN amlodipine 10 mg PO DAILY 90 days carvedilol 25 mg PO BID cromolyn 4% 1 drp ophthalmic (eye) QID 5 days dronedarone (Multaq) 400 mg PO BID eplerenone 50 mg PO DAILY 90 days ferrous sulfate 325 mg PO finasteride 5 mg PO DAILY 90 days fluticasone propionate 50 mcg/actuation 1 spray intranasal DAILY hydralazine 10 mg PO TID 30 days hydrocortisone 1% (Anti-Itch (hydrocortisone)) 1 appl topical BID PRN 30 days lisinopril 20 mg PO BID 90 days lorazepam 0.5 mg PO BID PRN 30 days meclizine 25 mg PO DAILY PRN 90 days metformin 500 mg PO BID 90 days nebulizers Nebulizer Machine with Tubing and Accessories omeprazole 40 mg PO DAILY potassium chloride ER 40 mEq (2 x 20 mEq) PO DAILY 90 days rivaroxaban (Xarelto) 20 mg PO DAILY rosuvastatin 5 mg PO DAILY 90 days sennosides (senna) 17.2 mg (2 x 8.6 mg) PO BEDTIME PRN terazosin 5 mg PO BEDTIME 90 days tramadol 50 mg PO BID PRN 30 days zolpidem 10 mg PO BEDTIME PRN 30 days HPI Comments Details: Ganesh comes for follow-up. Been doing well from cardiac perspective. History was obtained with help of site technician. Despite the site technician patient was able to understand motion of the Italian. Denies any exertional chest pain. No shortness of breath, orthopnea, PND. No prolonged palpitation irregular heartbeat. No lightheadedness, syncope. No major bleeding issues or neurologic events. Takes all his medications regularly. Recent echocardiogram shows mildly reduced LV ejection fraction of 45-50%. [facility] Medical History Paroxysmal atrial fibrillation SVT (supraventricular tachycardia) Trifascicular block Cardiac pacemaker in situ Cardiomyopathy Right hip pain Eye exam, routine Screening for colon cancer Screening for prostate cancer Lumbar degenerative disc disease Insomnia Constipation by delayed colonic transit Vertigo SVT (supraventricular tachycardia) Trifascicular block Diabetes mellitus HTN (hypertension) Cardiomyopathy Cardiac pacemaker in situ Surgical History History of colonoscopy S/P cardiac catheterization History of pacemaker Status post excision of lipoma History of inguinal hernia repair Family History Mother Cancer Diabetes Hypertension Father Stroke Sister Cancer Maternal Uncle Myocardial infarction Paternal Aunt No problems noted. Paternal Uncle Hypertension CVD (cardiovascular disease) Brother Mental health disorder Social History Housing: House Alcohol intake: former Patient Tobacco Use Status: Never used Tobacco e-Cigarette/Vaping Use: Never Used Second Hand Smoke Exposure: No service: No Current occupational status: disabled Cognitive needs: No Hearing needs: No Vision needs: Yes (glasses) Review of Systems Const Denies chills, Denies fatigue, Denies fever(s), Denies frequent falls, Denies weakness, Denies weight gain and Denies weight loss ENT Denies dizziness Card Denies chest pain, Denies leg edema, Denies lightheadedness, Denies palpitations, Denies dyspnea, Denies dyspnea on exertion, Denies orthopnea and Denies other (loss of consciousness) Resp Denies cough, Denies dyspnea and Denies dyspnea on exertion GI Denies hematochezia and Denies change in stool character Musc Denies abnormal gait, Denies muscle weakness, Denies numbness, Denies radiating pain into limb and Denies tingling Neuro Denies abnormal gait, Denies dizziness, Denies frequent falls, Denies numbness, Denies tingling and Denies weakness Endo Denies fatigue and Denies palpitations Physical Exam Vital Signs: Last Vital Signs Pulse 65 03/27/24 08:47 BP 114/62 03/27/24 08:47 BMI result Body Mass Index 30.0 Const General: cooperative, comfortable, no acute distress, alert and awake Nutritional Appearance: overweight Orientation/consciousness: patient oriented x3 Limitations: no limitations Neck Neck: Yes trachea midline, Yes supple and Yes no JVD Resp Effort & Inspection: normal respiratory effort Auscultation: clear to auscultation bilaterally Cardio Jugular venous distension: no JVD Palpation: normal PMI Rate: regular rate Rhythm: regular rhythm Heart sounds: S1 normal heart sound present and S2 normal heart sound present GI Auscultation: normal bowel sounds Skin General skin exam: no rashes or lesions noted Neuro General: patient oriented x3 and no focal motor deficits Extrem General: Yes no clubbing, cyanosis or edema Psych Appearance: grossly normal Office Procedures Cardiac Device Check Cardiac Device Check Details: Dual-chamber [place] [employer] pacemaker in place. Programmed in DDDR at 60 beats per minute. Atrial pacing 80% time and ventricular pacing 16% time. Few episodes of SVT noted. No episodes of atrial fibrillation noted. Atrial pacing thresholds adequate. Ventricular pacing thresholds excellent. Atrial ventricular sensing is adequate. Pacing lead impedance is stable. Battery life is at about 3 years [id number] Cardiac Device Check, pacemaker dual lead Procedure code (CPT) selection complete EKG Details: EKG shows normal sinus rhythm with first-degree AV block with right bundle and left anterior fascicular block at 65 beats per minute [id number], Complete Assessment & Plan Assessment & Plan (1) Cardiac pacemaker in situ: Comment: [employer] Neeraj dual-chamber pacemaker implanted for syncope and trifascicular block with EP study consistent with infra Hisian block Code(s): Z95.0 - Presence of cardiac pacemaker Category: Medical Plan: Cardiac pacemaker in-situ for intermittent complete heart block and syncope. Patient is doing well with pacing therapy pacing about 60% time in the ventricle. Continue to monitor remotely every 3 months and follow up in the clinic in 6 months time. (2) Cardiomyopathy: Comment: echo October 2018 showing LVEF of 45-50% Code(s): I42.9 - Cardiomyopathy, unspecified Category: Medical Plan: Mild cardiomyopathy without any overt heart failure symptoms. Continue neurohormonal modulation. Signs and symptoms of heart failure were discussed. Aggressive blood pressure control was discussed. Continue carvedilol, lisinopril, eplerenone therapy. Blood pressure is currently well optimized. Target goal blood pressure less than 130/84. Low-salt diet was discussed. Advised to maintain activity level as tolerated. (3) Paroxysmal atrial fibrillation: Code(s): I48.0 - Paroxysmal atrial fibrillation Category: Medical Plan: Paroxysmal atrial fibrillation which has remained suppressed on amiodarone therapy. Has done well with rhythm control approach will continue pursue rhythm control approach. Continue to monitor pacer telemetry every 3 months for atrial fibrillation. Continue full oral anticoagulation, currently on Xarelto 20 mg daily. Semi annual renal function test and annual CBC should be pursued. Will follow up in the clinic in 6 months time, sooner p.r.n.. Thank you for allowing me to partake in his care Coding Level of Care Code Est Pt Level 4 (46769) Diagnoses Cardiac pacemaker in situ Z95.0 Cardiomyopathy I42.9 Paroxysmal atrial fibrillation I48.0 CPT Codes Cardiac Device Check - Cardiac Device 2: [id number] Cardiac Device Check, pacemaker dual lead ([id number]) EKG - CPT: 82965-[id number], Complete ([id number])
[2024-03-27 08:47] VITALS: BP 114/62; PULSE 65
== END 2024-03-27 09:27 | disposition home or self-care (01) ==
PROVIDERS: PCP Internal Medicine; Visit Provider Internal Medicine Cardiovascular Disease
DX: I42.9 Cardiomyopathy, unspecified (principal); I48.0 Paroxysmal atrial fibrillation; Z95.0 Presence of cardiac pacemaker; I45.2 Bifascicular block
CPT/HCPCS: 93010; 93280; 99214

== ENCOUNTER → 2024-03-27 08:34 | Outpatient (BNVA) | payer MEDICARE, MEDICAID, SELFPAY | PROVIDERS: PCP Internal Medicine; Visit Provider Internal Medicine Cardiovascular Disease | DX: Z45.018 Encounter for adjustment and management of other part of cardiac pacemaker (principal); I42.9 Cardiomyopathy, unspecified; I48.0 Paroxysmal atrial fibrillation; I45.2 Bifascicular block; I44.0 Atrioventricular block, first degree | CPT/HCPCS: 93005; 93280; 99212 ==

== ENCOUNTER 2024-06-22 08:21 | Outpatient (REF) | payer MEDICARE, MEDICAID, SELFPAY ==
[2024-06-22 09:57] LABS: Prostate Specific Antigen 3.21 ng/mL (<0.05-4.0)
== END 2024-06-22 08:22 | disposition home or self-care (01) ==
LOC: HO.LAB 08:21
PROVIDERS: PCP Internal Medicine; Visit Provider Nurse Practitioner Family
DX: N40.0 Benign prostatic hyperplasia without lower urinary tract symptoms (principal); Z12.5 Encounter for screening for malignant neoplasm of prostate
CPT/HCPCS: 36415; 84153

== ENCOUNTER 2024-06-28 09:00 | Outpatient (AMB) | payer MEDICARE, MEDICAID, SELFPAY ==
--- NOTE | 2024-06-28 09:13 | A.OFFVIS_ITS ---
Intake Visit Reasons: 6m/PSA/PVR(set) Intake Note: Patient presents today for follow up on Enlarged Prostate and Nocturia PSA: 3.21 Urology Medications: Finasteride Blood Thinner: Xarelto PVR:0ml's Engineer Conductor Required: Yes Engineer Conductor Services: Engineer Conductor Present Engineer Conductor Name: [id number] Accompanied by: Self / Same As Patient Allergies metoprolol [METOPROLOL] Allergy (Intermediate, Verified 06/28/24 09:52) Rash seafood Allergy (Intermediate, Verified 06/28/24 09:52) Swelling spironolactone [Spironolactone] Allergy (Intermediate, Verified 06/28/24 09:52) Gynecomastia,Swelling fentanyl Adverse Reaction (Intermediate, Verified 06/28/24 09:52) sleepiness Medication List - Last Reconciled 06/28/24 by СЕРГЕЙ Stanton-MYNOR acetaminophen (Tylenol Extra Strength) 500 mg PO Q6H PRN albuterol sulfate 90 mcg/actuation 1 inh PO Q4H PRN amlodipine 10 mg PO DAILY 90 days carvedilol 25 mg PO BID cromolyn 4% 1 drp ophthalmic (eye) QID 5 days dronedarone (Multaq) 400 mg PO BID eplerenone 50 mg PO DAILY 90 days ferrous sulfate 325 mg PO finasteride 5 mg PO DAILY 90 days fluticasone propionate 50 mcg/actuation 1 spray intranasal DAILY hydralazine 10 mg PO TID 30 days hydrocortisone 1% (Anti-Itch (hydrocortisone)) 1 appl topical BID PRN 30 days lisinopril 20 mg PO BID 90 days lorazepam 0.5 mg PO BID PRN 30 days meclizine 25 mg PO DAILY PRN 90 days metformin 500 mg PO BID 90 days nebulizers Nebulizer Machine with Tubing and Accessories omeprazole 40 mg PO DAILY potassium chloride ER 40 mEq (2 x 20 mEq) PO DAILY 90 days rivaroxaban (Xarelto) 20 mg PO DAILY rosuvastatin 5 mg PO DAILY 90 days sennosides (senna) 17.2 mg (2 x 8.6 mg) PO BEDTIME PRN terazosin 5 mg PO BEDTIME 90 days tramadol 50 mg PO BID PRN 30 days zolpidem 10 mg PO BEDTIME PRN 30 days HPI Comments Details: Ganesh is a pleasant soon to be 73 year old pleasant Mongolian speaking patient of Dr. Jha. He has a past medical history of paroxysmal AFib, SVT, cardiac pacemaker, cardiomyopathy, lumbar degenerative disc disease, insomnia, constipation, vertigo, diabetes, and hypertension. He presents to the office today for follow-up of his elevated PSA and lower urinary tract symptoms. In discussion with the patient today he reports to be doing and feeling well. He denies having had any bothersome urinary issues or concerns since his last office visit here 6 months ago. Recent PSA results reviewed with the patient today as noted and trended below: PSA: 07/28 4.5, 09/28--4.0, 06/28 4.4 percent free psa 16 %, 10/30 2.7, 06/29 3.2 When asked he reports compliance with 5 mg of finasteride and terazosin daily as prescribed. We discussed slight increase in PSA. Previous workup has included a retroperitoneal ultrasound noting right kidney with no calculi or hydronephrosis. Benign-appearing renal cyst measuring 1.1 cm. No follow up imaging is recommended per radiology report. Left kidney with no calculi, and or hydronephrosis. Benign-appearing renal cysts measuring up to 1.4 cm. No follow- up imaging is recommended per radiology report. He reports feeling happy with his current voiding parameters. When asked patient denies urinary urgency, urinary frequency, incontinence, nocturia, hematuria, dysuria, foul smelling urine, changes to urinary stream, flank pain, fever, and or chills. any issues with flank pain, incontinence, hematuria, dysuria, foul-smelling urine, changes to urinary stream, fever, and or chills. In office urinalysis within normal limits. PVR 0ml's. [facility] Medical History Paroxysmal atrial fibrillation SVT (supraventricular tachycardia) Trifascicular block Cardiac pacemaker in situ Cardiomyopathy Right hip pain Eye exam, routine Screening for colon cancer Screening for prostate cancer Lumbar degenerative disc disease Insomnia Constipation by delayed colonic transit Vertigo SVT (supraventricular tachycardia) Trifascicular block Diabetes mellitus HTN (hypertension) Cardiomyopathy Cardiac pacemaker in situ Surgical History History of colonoscopy S/P cardiac catheterization History of pacemaker Status post excision of lipoma History of inguinal hernia repair Family History Mother Cancer Diabetes Hypertension Father Stroke Sister Cancer Maternal Uncle Myocardial infarction Paternal Aunt No problems noted. Paternal Uncle Hypertension CVD (cardiovascular disease) Brother Mental health disorder Social History Housing: House Alcohol intake: former Patient Tobacco Use Status: Never used Tobacco e-Cigarette/Vaping Use: Never Used Second Hand Smoke Exposure: No service: No Current occupational status: disabled Cognitive needs: No Hearing needs: No Vision needs: Yes (glasses) Review of Systems Const Reports as per HPI Eyes Reports no additional complaints ENT Reports no additional complaints Card Reports as per HPI Resp Reports no additional complaints GI Reports as per HPI Reports as per HPI Musc Reports as per HPI Neuro Reports no additional complaints Psych Reports no additional complaints Endo Reports as per HPI Allen/Lymph Reports no additional complaints Aller/Immun Reports no additional complaints Physical Exam Const General: cooperative, healthy appearing, comfortable, no acute distress, well developed, alert and awake Orientation/consciousness: patient oriented x3 Limitations: no limitations and language barrier HEENT Head: Yes normal to inspection, Yes normocephalic and Yes atraumatic Eyes General: appearance normal, both eyes and all related structures Neck Neck: Yes normal visual inspection and Yes trachea midline Chest Chest palpation & inspection: normal inspection of the chest Cardio Rate: regular rate General: Yes no CVA tenderness Back/Spine/Pelvis Back: no CVA tenderness Cervical Spine: normal cervical lordosis Skin General skin exam: no rashes or lesions noted Neuro General: patient oriented x3 Extrem General: Yes normal to inspection Psych Appearance: grossly normal and well kempt Mental Status: mental status grossly normal Speech and movement: Normal speech and movement present and Clear speech present Affect: normal affect Attitude: cooperative Thought process: Normal thought process present Thought content: Normal thought content present Insight: Fair insight present (Psych) Judgement: Fair judgement present (Psych) Office Procedures Post Void Residual Post Residual Void Post Void Residual (PVR): 0 [id number] Void Residual by ultrasound Results AMB Urinalysis, Automated UA Leukoctes 0 Jett/uL Last Edit by Heidi Best on 06/28/24 09:35 UA Nitrite Last Edit by Heidi Best on 06/28/24 09:35 UA Urobilinogen 0.2 mg/dL Last Edit by Heidi Best on 06/28/24 09:35 UA Protein 30 mg/dL Last Edit by Mamina Shkolaashlyn [employer] on 06/28/24 09:35 UA pH 6.0 Last Edit by [employer] on 06/28/24 09:35 UA Blood 0 [place]/uL Last Edit by [employer] on 06/28/24 09:35 UA Specific [place] 1.015 Last Edit by [employer] on 06/28/24 09:35 UA Ketone Last Edit by [employer] on 06/28/24 09:35 UA Bilirubin 0 mg/dL Last Edit by [employer] on 06/28/24 09:35 UA Glucose 0 mg/dL Last Edit by [employer] on 06/28/24 09:35 Results Reviewed Results Reviewed: Laboratory Last Values Urine pH (Auto) 6.0 06/28/24 09:34 Specific [place] (Auto) 1.015 06/28/24 09:34 Urine Protein (Auto) 30 mg/dL 06/28/24 09:34 Glucose (UA)(Auto) 0 mg/dL 06/28/24 09:34 Urine Blood (Auto) 0 [place]/uL 06/28/24 09:34 Urine Bilirubin (Auto) 0 mg/dL 06/28/24 09:34 Urine Urobilinogen (Auto) 0.2 mg/dL 06/28/24 09:34 Leukocyte Esterase (Auto) 0 Jett/uL 06/28/24 09:34 Assessment & Plan Assessment & Plan (1) Enlarged prostate: Code(s): N40.0 - Benign prostatic hyperplasia without lower urinary tract symptoms Category: Medical (2) BPH (benign prostatic hyperplasia): Code(s): N40.0 - Benign prostatic hyperplasia without lower urinary tract symptoms Category: Medical (3) Renal cyst: Code(s): N28.1 - Cyst of kidney, acquired Category: Medical (4) Nocturia: Code(s): R35.1 - Nocturia Category: Medical (5) PSA elevation: Code(s): R97.20 - Elevated prostate specific antigen [PSA] Category: Medical Plan In office urinalysis results reviewed with the patient today; as noted above. PVR 0 mL We discussed slight increase in PSA Discussed obtaining redraw of PSA in 4 months with no sex the night before, no caffeine morning of, no heavy lifting 1-2 days prior. Currently denies any bothersome urinary issues or concerns. Reports be happy with current voiding parameters. Continue finasteride and terazosin as discussed and prescribed. Follow-up in 4 months with PSA and PVR; or sooner with any issues, concerns, and or questions Orders: Orders Prostate Specific Antigen 4 Months N28.1 - Cyst of kidney, acquired, N40.0 - Benign prostatic hyperplasia without lower urinary tract symptoms, R35.1 - Nocturia, R97.20 - Elevated prostate specific antigen [PSA] AMB Urinalysis Automated Today Z13.9 - Encounter for screening, unspecified AMB Post Void Residual by ultrasound Today N40.0 - Benign prostatic hyperplasia without lower urinary tract symptoms Medications: Refilled terazosin 5 mg PO BEDTIME 90 caps 4RF 90 days N40.1 - Benign prostatic hyperplasia with lower urinary tract symptoms, R35.0 - Frequency of micturition finasteride 5 mg PO DAILY 90 tabs 3RF 90 days N32.0 - Bladder-neck obstruction Patient Instructions: The patient had an opportunity to ask questions regarding the treatment plan. All questions were answered. Physical exam, labs, and imaging were discussed and reviewed in detail. As well as risks, benefits, and discussion of treatment choices. No major barriers to understanding were identified. The patient expressed understanding and agreement with the above treatment plan. The patient was made aware they should contact our office by phone for worsening of their current condition, the appearance of new symptoms, or with any questions or concerns. Compliance is encouraged with any medications and follow up testing that is ordered. It is a privilege to be allowed the opportunity to participate in? your urological care.? Again, if you have any questions or concerns If you have any questions or concerns please do not hesitate to contact me. The office is [phone]. This note is constructed using voice recognition software. While every effort has been made to ensure accuracy ui application developer errors may have been included. Yours sincerely, СЕРГЕЙ Stanton-BC Coding Level of Care Code Est Pt Level 3 (07621) Complex EM visit Add On G2211 Diagnoses Enlarged prostate N40.0 BPH (benign prostatic hyperplasia) N40.0 Renal cyst N28.1 Nocturia R35.1 PSA elevation R97.20 CPT Codes Post Residual Void - PVR CPT Code: 29875-Ybcm Void Residual by ultrasound ([id number])
== END 2024-06-28 09:42 | disposition home or self-care (01) ==
PROVIDERS: PCP Internal Medicine; Visit Provider Nurse Practitioner Family
DX: N40.0 Benign prostatic hyperplasia without lower urinary tract symptoms (principal); N28.1 Cyst of kidney, acquired; R35.1 Nocturia; R97.20 Elevated prostate specific antigen [PSA]; Z13.9 Encounter for screening, unspecified
CPT/HCPCS: 99213; G2211

== ENCOUNTER → 2024-06-28 09:00 | Outpatient (BNVA) | payer MEDICARE, MEDICAID, SELFPAY | PROVIDERS: PCP Internal Medicine; Visit Provider Nurse Practitioner Family | DX: N40.0 Benign prostatic hyperplasia without lower urinary tract symptoms (principal); N28.1 Cyst of kidney, acquired; R35.1 Nocturia; R97.20 Elevated prostate specific antigen [PSA] | CPT/HCPCS: 51798; 81003; 99212 ==

== ENCOUNTER 2024-07-04 08:55 | Outpatient (REF) | payer MEDICARE, MEDICAID, SELFPAY ==
[2024-07-04 09:31] LABS: MANUAL DIFF FLAG NO
[2024-07-04 09:35] LABS: Basophils Absolute Auto 0.1 X10*3/uL (0.0-0.2); Basophils Percent Auto 0.9 % (0-2); Eosinophils Absolute Auto 0.3 X10*3/uL (0.0-0.4); Hematocrit 38.2 % (42.0-52.0); Hemoglobin 13.7 g/dl (14.0-18.0); Imm Gran Abs Auto 0.02 X10*3/uL (0.00-0.03); Imm Gran Pct Auto 0.3 % (0.0-0.4); Lymphocytes Percent Auto 15.1 % (20-40); Mean Corpuscular HGB Conc 35.9 g/dl (31.0-36.0); Mean Corpuscular Hemoglobin 34.6 pg (27.0-33.0); Mean Corpuscular Volume 96.5 fL (80.0-98.0); Mean Platelet Volume 9.1 fL (9.4-12.4); Monocytes Absolute Auto 0.5 X10*3/uL (0.1-1.2); Monocytes Percent Auto 8.2 % (2-11); Neutrophils Absolute Auto 4.7 x10*3/uL (2.0-8.3); Neutrophils Percent Auto 71.5 % (45-73); Platelet Count 214 X10*3/uL (160-400); Red Blood Count 3.96 X10*6/uL (4.60-5.80); Red Cell Distribution Width 11.9 % (11.0-16.0); White Blood Count 6.6 X10*3/uL (4.8-10.8)
[2024-07-04 10:51] LABS: Alanine Aminotransferase 16 U/L (0-40); Albumin Level 4.3 g/dL (3.5-5.0); Alkaline Phosphatase 65 U/L (39-117); Anion Gap 14 (12-20); Aspartate Amino Transferase 26 U/L (5-37); Bilirubin Total 0.8 mg/dL (0.0-1.0); Blood Urea Nitrogen 12 mg/dL (9-16); Calcium 9.3 mg/dL (8.4-10.2); Carbon Dioxide 23 mmol/L (22-29); Chloride 107 mmol/L (96-108); Cholesterol 171 mg/dL (<200); Estimated Glomerular Filt Rate > 60; Glucose Fasting 100 mg/dL (60-99); HDL Cholesterol 39 mg/dL (>40); Iron 78 mcg/dL (45-160); LDL Cholesterol Calculated 111 mg/dL (<100); Percent Iron Saturation 22 % (15-50); Potassium 3.8 mmol/L (3.3-5.1); Sodium 140 mmol/L (135-145); Total Iron Binding Capacity 349 mcg/dL (228-428); Total Protein 7.4 g/dL (6.5-8.0); Triglycerides 106 mg/dL (<150); Unsaturated Iron Binding 271 ug/dL
[2024-07-04 11:15] LABS: Vitamin D 25-OH Total 30.2 ng/mL (>30)
[2024-07-04 11:32] LABS: Folate 13.9 ng/mL (> or = 4.0); Vitamin B12 314 pg/mL (200-900)
[2024-07-04 11:45] LABS: Creatinine Urine 58.35 mg/dL; Microalbum/Creatinine Ratio Ur 544.9 ug/mg cr (<30)
[2024-07-09 20:38] LABS: NT-proBNP 175 pg/mL (<450)
== END 2024-07-04 08:56 | disposition home or self-care (01) ==
LOC: HO.LAB 08:55
PROVIDERS: PCP Internal Medicine; Visit Provider Internal Medicine
DX: D64.9 Anemia, unspecified (principal); E11.9 Type 2 diabetes mellitus without complications; E55.9 Vitamin D deficiency, unspecified; I42.9 Cardiomyopathy, unspecified; E78.5 Hyperlipidemia, unspecified; E53.8 Deficiency of other specified B group vitamins
CPT/HCPCS: 36415; 80053; 80061; 82043; 82306; 82570; 82607; 82746; 83540; 83880; 85025

== ENCOUNTER 2024-07-17 13:13 | Outpatient (REF) | payer MEDICARE, MEDICAID, SELFPAY ==
[2024-07-17 13:28] LABS: MANUAL DIFF FLAG NO
[2024-07-17 13:38] LABS: Basophils Absolute Auto 0.1 X10*3/uL (0.0-0.2); Eosinophils Absolute Auto 0.2 X10*3/uL (0.0-0.4); Eosinophils Percent Auto 3.6 % (0-4); Hematocrit 35.7 % (42.0-52.0); Hemoglobin 12.7 g/dl (14.0-18.0); Imm Gran Abs Auto 0.03 X10*3/uL (0.00-0.03); Imm Gran Pct Auto 0.5 % (0.0-0.4); Lymphocytes Absolute Auto 1.1 X10*3/uL (1.2-4.9); Lymphocytes Percent Auto 17.9 % (20-40); Mean Corpuscular HGB Conc 35.6 g/dl (31.0-36.0); Mean Corpuscular Hemoglobin 34.4 pg (27.0-33.0); Mean Corpuscular Volume 96.7 fL (80.0-98.0); Mean Platelet Volume 8.8 fL (9.4-12.4); Monocytes Absolute Auto 0.5 X10*3/uL (0.1-1.2); Monocytes Percent Auto 8.5 % (2-11); Neutrophils Absolute Auto 4.2 x10*3/uL (2.0-8.3); Neutrophils Percent Auto 68.5 % (45-73); Platelet Count 196 X10*3/uL (160-400); Red Blood Count 3.69 X10*6/uL (4.60-5.80); White Blood Count 6.1 X10*3/uL (4.8-10.8)
[2024-07-17 13:45] LABS: Appearance Urine Clear; Color Urine Yellow; Glucose Urine UA Negative (Negative); Leukocyte Esterase Urine Negative (Negative); Nitrite Urine Negative (Negative); UMIC TRIGGER UA YES; Urine Blood Negative (Negative); Urine Ketones Negative (Negative); Urine Protein 30 (1+) mg/dL (Neg-Trace)
[2024-07-17 13:51] LABS: Bacteria Urine None Seen (None Seen); Hyaline Casts Urine 0-2 /LPF (0-2); RBC Urine 0-2 /HPF (0-2); Squamous Epithelial Cell Urine 0-2 /HPF (0-2); WBC Urine 0-5 /HPF (0-5)
[2024-07-17 13:53] LABS: Estimated Average Glucose 108 mg/dL; Hemoglobin A1C 120.4587 umol/L; Hemoglobin A1c % 5.4 % (<6.0); Total Hemoglobin (HGBA1C) 3402.9011 umol/L
[2024-07-17 14:15] LABS: Anion Gap 14 (12-20); Blood Urea Nitrogen 12 mg/dL (9-16); Calcium 9.3 mg/dL (8.4-10.2); Carbon Dioxide 23 mmol/L (22-29); Chloride 104 mmol/L (96-108); Estimated Glomerular Filt Rate > 60; Iron 70 mcg/dL (45-160); Magnesium 1.7 mg/dL (1.6-2.6); Percent Iron Saturation 21 % (15-50); Phosphorus 2.9 mg/dL (2.7-4.5); Potassium 4.4 mmol/L (3.3-5.1); Sodium 137 mmol/L (135-145); Total Iron Binding Capacity 329 mcg/dL (228-428); Unsaturated Iron Binding 259 ug/dL
[2024-07-17 14:20] LABS: Parathyroid Hormone Intact 76.9 pg/mL (8.7-77.1)
[2024-07-17 14:32] LABS: Ferritin 20 ng/mL (20-250); Vitamin D 25-OH Total 26.4 ng/mL (>30)
[2024-07-17 14:37] LABS: Creatinine Urine 125.68 mg/dL; Microalbum/Creatinine Ratio Ur 132.8 ug/mg cr (<30); Protein/Creatinine Ratio, Ur 0.25 (<0.2); Total Protein Urine Random 32 mg/dL (<12)
== END 2024-07-17 13:14 | disposition home or self-care (01) ==
LOC: HO.LAB 13:13
PROVIDERS: PCP Internal Medicine; Visit Provider Internal Medicine
DX: E11.22 Type 2 diabetes mellitus with diabetic chronic kidney disease (principal); I10 Essential (primary) hypertension; R80.9 Proteinuria, unspecified
CPT/HCPCS: 36415; 80051; 81001; 82043; 82306; 82310; 82565; 82570; 82728; 83036; 83540; 83735; 83970; 84100; 84156; 84520; 84550; 85025

== ENCOUNTER 2024-07-24 13:45 | Outpatient (AMB) | payer MEDICARE, MEDICAID, SELFPAY ==
--- NOTE | 2024-07-24 14:00 | MHC.PC.OV ---
Vital Signs 07/24/24 14:02 Height 5 ft 7 in Weight 191 lb BMI 29.9 BP 128/80 Blood Pressure Location Lt brachial Position Sitting Pulse 70 Pulse Source Pulse Oximeter Pulse Oximetry (%) 96 Oxygen Delivery Method Room Air Intake Visit Reasons: 4 month follow up Intake Note: Patient here for a 4 month follow up Silk Trimmer Required: No Accompanied by: Self / Same As Patient Allergies metoprolol [METOPROLOL] Allergy (Intermediate, Verified 07/24/24 14:32) Rash seafood Allergy (Intermediate, Verified 07/24/24 14:32) Swelling spironolactone [Spironolactone] Allergy (Intermediate, Verified 07/24/24 14:32) Gynecomastia,Swelling fentanyl Adverse Reaction (Intermediate, Verified 07/24/24 14:32) sleepiness Medication List - Last Reconciled 07/24/24 by Ana Vargas MD acetaminophen (Tylenol Extra Strength) 500 mg PO Q6H PRN albuterol sulfate 90 mcg/actuation 1 inh PO Q4H PRN amlodipine 10 mg PO DAILY 90 days carvedilol 25 mg PO BID cromolyn 4% 1 drp ophthalmic (eye) QID 5 days dronedarone (Multaq) 400 mg PO BID eplerenone 50 mg PO DAILY 90 days ferrous sulfate 325 mg PO finasteride 5 mg PO DAILY 90 days fluticasone propionate 50 mcg/actuation 1 spray intranasal DAILY hydralazine 10 mg PO TID 30 days hydrocortisone 1% (Anti-Itch (hydrocortisone)) 1 appl topical BID PRN 30 days lisinopril 20 mg PO BID 90 days lorazepam 0.5 mg PO BID PRN 30 days meclizine 25 mg PO DAILY PRN 90 days metformin 500 mg PO BID 90 days nebulizers Nebulizer Machine with Tubing and Accessories omeprazole 40 mg PO DAILY potassium chloride ER 40 mEq (2 x 20 mEq) PO DAILY 90 days rivaroxaban (Xarelto) 20 mg PO DAILY rosuvastatin 5 mg PO DAILY 90 days sennosides (senna) 17.2 mg (2 x 8.6 mg) PO BEDTIME PRN terazosin 5 mg PO BEDTIME 90 days tramadol 50 mg PO BID PRN 30 days zolpidem 10 mg PO BEDTIME PRN 30 days Tobacco use date assessed: 10/12/23 Fall risk assessment: No Falls in past year Last assessed Fall Risk: 07/24/24 Dental Screening Dental Screen Date: 10/12/23 HPI HPI Comments History of Present Illness Details The patient is a 74 year old male presenting with hyperlipidemia and diabetes mellitus type 2. He has an LDL cholesterol level of 111 mg/dL, which is above the recommended target of 70 mg/dL. Previously, the patient has been on Rosuvastatin 5 mg for cholesterol management. The A1c level is well controlled at 5.4%. Renal function is within normal limits. The patient follows a regimen of various medications for his conditions. He has a known history of allergies to Metoprolol, Spironolactone, and seafood, with Fentanyl causing sedation. The patient's hemoglobin was last recorded at 12.7 g/dL, and laboratory evaluations are scheduled for repetition in four months. The patient had routine colonoscopy last year. Sedation and risks like addiction, memory loss from medications such as Tramadol, Zolpidem, and benzodiazepines were acknowledged by the patient. Has paroxysmal atrial fibrillation on chronic anticoagulation and the goal is heart rate control. Anxiety stable with benzodiazepines. Insomnia stable with zolpidem. [facility] Medical History Paroxysmal atrial fibrillation SVT (supraventricular tachycardia) Trifascicular block Cardiac pacemaker in situ Cardiomyopathy Right hip pain Eye exam, routine Screening for colon cancer Screening for prostate cancer Lumbar degenerative disc disease Insomnia Constipation by delayed colonic transit Vertigo SVT (supraventricular tachycardia) Trifascicular block Diabetes mellitus HTN (hypertension) Cardiomyopathy Cardiac pacemaker in situ Surgical History History of colonoscopy S/P cardiac catheterization History of pacemaker Status post excision of lipoma History of inguinal hernia repair Family History Mother Cancer Diabetes Hypertension Father Stroke Sister Cancer Maternal Uncle Myocardial infarction Paternal Aunt No problems noted. Paternal Uncle Hypertension CVD (cardiovascular disease) Brother Mental health disorder Social History Housing: House Alcohol intake: former Patient Tobacco Use Status: Never used Tobacco e-Cigarette/Vaping Use: Never Used Second Hand Smoke Exposure: No service: No Current occupational status: disabled Cognitive needs: No Hearing needs: No Vision needs: Yes (glasses) Questionnaire PHQ-9 Over the last 2 weeks, how often have you been bothered by any of the following problems? 1. Little interest or pleasure in doing things: not at all 2. Feeling down, depressed, or hopeless: not at all 3. Trouble falling or staying asleep, or sleeping too much: not at all 4. Feeling tired or having little energy: not at all 5. Poor appetite or overeating: not at all 6. Feeling bad about yourself - or that you are a failure or have let yourself or your family down: not at all 7. Trouble concentrating on things, such as reading the newspaper or watching television: not at all 8. Moving or speaking so slowly that other people could have noticed. Or the opposite - being so fidgety or restless that you have been moving around a lot more than usual: not at all 9. Thoughts that you would be better off or of hurting yourself in some way: not at all Total score: 0 Depression Screening Interpretation: Negative Depression Screening Done: Yes 64092 - PHQ-9 Billing: Yes Source: Developed by Drs. Hebert Wright, Alejandra Otero, Randell Cuellar and colleagues, with an educational una from [employer]. Thrive Questionnaire Date Thrive assessed: 07/24/24 I am a: Patient What is your living situation today?: I have a steady place to live Within the past 12 months, did the food you bought not last and you didn't have the money to get more?: Never true Within the past 12 months, did you worry whether your food would run out before you got money to buy more?: Never true Do you have trouble paying for medicines?: No Do you have trouble getting transportation to medical appointments?: No Do you have trouble paying your heating and electricity bill?: No Do you have trouble taking care of your child, family member or friend?: No Do you have trouble with day-to-day activities such as bathing, preparing meals, shopping, managing finances, etc.?: No Are you currently unemployed and looking for a job?: No Are you interested in more education?: No Please select the resources that you would like help with: None Currently or been in a relationship where the following occur: No concerns reported THRIVE Score: 0 AUDIT C Alcohol Use Questionnaire (AUDIT-C) 1. How often do you have a drink containing alcohol?: Never Total Score: 0 Score Reviewed/Action Taken: No BASSEM-7 AMB Questionnaire BASSEM-7 Date BASSEM - 7 assessed: 07/24/24 Feeling nervous, anxious, or on edge: 0 = Not at all Not being able to stop or control worryin = Not at all Worrying too much about different things: 0 = Not at all Trouble relaxin = Not at all Being so restless that it is hard to sit still: 0 = Not at all Becoming easily annoyed or irritable: 0 = Not at all Feeling afraid as if something awful might happen: 0 = Not at all Total BASSEM-7 score (0-4 normal; 5-9 mild; 10-14 moderate; 15-21 severe): 0 Source: Developed by Drs. Hebert Wright, Alejandra Otero, Randell Cuellar and colleagues, with an educational una from [employer]. BASSEM-7 Assessment Billing BASSEM-7 Assessment Tool: BASSEM-7 Assessment 35148 Review of Systems Const All systems reviewed & are unremarkable except as noted in HPI and below Card Denies chest pain at rest, Denies chest pain with activity, Denies edema, Denies irregular heart rhythm, Denies claudication, Denies dyspnea, Denies dyspnea on exertion, Denies orthopnea, Denies paroxysmal nocturnal dyspnea and Denies slow heart rate Resp Denies cough, Denies dyspnea and Denies dyspnea on exertion Neuro Denies lack of coordination Physical exam (Primary Care) Vital Signs: Last Vital Signs Pulse 70 07/24/24 14:02 BP 128/80 07/24/24 14:02 Pulse Ox 96 07/24/24 14:02 Oxygen Delivery Method Room Air 07/24/24 14:02 BMI result Body Mass Index 29.9 Tobacco/Smoking Status: Tobacco use Status Tobacco use date assessed 10/12/23 07/24/24 14:06 Patient Tobacco Use Status Never used Tobacco 07/24/24 14:06 e-Cigarette/Vaping Use Never Used 07/24/24 14:06 PHQ-9: PHQ-9 Score PHQ-9: Total score 0 07/24/24 16:25 Depression Screening Interpretation: Negative Thrive Assessment: Date of Thrive Assessment Date Thrive assessed 07/24/24 07/24/24 14:06 Currently or been in a relationship where the following occur: No concerns reported Resp Effort & Inspection: normal respiratory effort Auscultation: clear to auscultation bilaterally Cardio Jugular venous distension: no JVD Rate: regular rate Rhythm: regular rhythm Heart sounds: S1 normal heart sound present and S2 normal heart sound present Neuro General: no focal motor deficits Extrem General: Yes full ROM Office Procedures Flu Questionnaire Does the patient have a severe egg allergy?: No Immunizations Fluarix Triv 5202-7510 (PF) 45 mcg (15 mcg x 3)/0.5 mL IM syringe Performing Provider: Ana Vargas MD [facility] Documented (not given) by: MAGALIS Urena on 07/24/24 14:07 Reason Not Given: Received Previously Coding Level of Care Code Est Pt Level 4 (59979) Complex EM visit Add On G2211 Diagnoses Paroxysmal atrial fibrillation I48.0 Hyperlipidemia LDL goal <70 E78.5 Type 2 diabetes mellitus without complication, without long-term current use of insulin E11.9 Diabetes mellitus type: type 2 Diabetes mellitus superintendent container terminal insulin use: without mcc use Diabetes mellitus complication status: without complication Primary insomnia F51.01 Insomnia type: primary Anxiety F41.9 Additional Codes BASSEM-7 Assessment Billing - BASSEM-7 Assessment Tool: BASSEM-7 Assessment 48686 ([id number]) PHQ-9 - 24029 - PHQ-9 Billing: Yes ([id number]) Time Spent (min) 23 Assessment & Plan Assessment & Plan (1) Paroxysmal atrial fibrillation: Code(s): I48.0 - Paroxysmal atrial fibrillation Category: Medical (2) Hyperlipidemia LDL goal <70: Code(s): E78.5 - Hyperlipidemia, unspecified Category: Medical (3) Diabetes mellitus: Code(s): E11.9 - Type 2 diabetes mellitus without complications Category: Medical Qualifiers: Diabetes mellitus type: type 2 Diabetes mellitus superintendent container terminal insulin use: without superintendent container terminal use Diabetes mellitus complication status: without complication Qualified Code(s): E11.9 - Type 2 diabetes mellitus without complications (4) Insomnia: Code(s): G47.00 - Insomnia, unspecified Category: Medical Qualifiers: Insomnia type: primary Qualified Code(s): F51.01 - Primary insomnia (5) Anxiety: Code(s): F41.9 - Anxiety disorder, unspecified Category: Medical Plan - Hyperlipidemia: Increase Rosuvastatin dosage from 5 mg to 10 mg to better manage LDL levels. - Diabetes Mellitus Type 2: Continue current management due to well-controlled A1c. - Arthritis: Continue current pain management plan. - Allergies: Continue avoidance and monitoring for allergic reactions. - Routine laboratory evaluations are scheduled for four months from now. Patient was informed and verbally consented to the use of an ambient scribe for clinic note documentation during this visit. I discussed with the patient the importance of increasing the Rosuvastatin dose to 10 mg to better manage his LDL level, aiming for a target of 70 mg/dL. The patient was informed about the well-controlled status of his diabetes with the current A1c level. We reviewed medication safety, highlighting the risks of addiction, sedation, and memory issues associated with Tramadol, Solpidem, and benzodiazepines. The patient agreed to monitor these risks carefully. We planned repeated laboratory assessments in four months to ensure stability and continuity of care. Orders: Orders Complete Blood Count Auto Diff 4 Months D64.9 - Anemia, unspecified Lipid Panel 4 Months E78.5 - Hyperlipidemia, unspecified Vitamin D 25-OH Total 4 Months E55.9 - Vitamin D deficiency, unspecified Vitamin B12 and Folate 4 Months E53.8 - Deficiency of other specified B group vitamins Influenza [id number] Immunization Today Z23 - Encounter for immunization IRON PROFILE 4 Months D64.9 - Anemia, unspecified Microalbumin, Random (w Creat) 4 Months R80.9 - Proteinuria, unspecified Comprehensive [place]. Panel Fast 4 Months I48.0 - Paroxysmal atrial fibrillation Medications: New rosuvastatin 10 mg PO DAILY 90 tabs 1RF 90 days Discontinued rosuvastatin Discontinued Reason: Patient Completed Course 5 mg PO DAILY 90 days 90 tabs 1RF E78.5 - Hyperlipidemia, unspecified Patient Instructions: - Start taking Rosuvastatin 10 mg as prescribed. - Monitor for any unusual reactions from medications and avoid known allergens. - Continue with other prescribed medications. - Return in four months for follow-up laboratory tests. - Report any new or worsening symptoms promptly.
[2024-07-24 14:02] VITALS: BP 128/80; PULSE 70; O2SAT 96; BMI 29.9
== END 2024-07-24 14:43 | disposition home or self-care (01) ==
PROVIDERS: PCP Internal Medicine; Visit Provider Internal Medicine
DX: I48.0 Paroxysmal atrial fibrillation (principal); E78.5 Hyperlipidemia, unspecified; E11.9 Type 2 diabetes mellitus without complications; F51.01 Primary insomnia; F41.9 Anxiety disorder, unspecified; Z23 Encounter for immunization

== ENCOUNTER → 2024-07-24 13:45 | Outpatient (BNVA) | payer MEDICARE, MEDICAID, SELFPAY | PROVIDERS: PCP Internal Medicine; Visit Provider Internal Medicine | DX: I48.0 Paroxysmal atrial fibrillation (principal); E78.5 Hyperlipidemia, unspecified; E11.9 Type 2 diabetes mellitus without complications; F51.01 Primary insomnia; F41.9 Anxiety disorder, unspecified | CPT/HCPCS: 90471; 96127; 99212 ==

== ENCOUNTER → 2024-08-18 10:42 | Outpatient (BNVA) | payer MEDICARE, MEDICAID, SELFPAY | PROVIDERS: PCP Internal Medicine ==

== ENCOUNTER → 2024-08-25 11:36 | Outpatient (BNVA) | payer MEDICARE, MEDICAID, SELFPAY | PROVIDERS: PCP Internal Medicine ==

== ENCOUNTER → 2024-09-01 15:23 | Outpatient (BNVA) | payer MEDICARE, MEDICAID, SELFPAY | PROVIDERS: PCP Internal Medicine ==

== ENCOUNTER → 2024-09-08 11:09 | Outpatient (BNVA) | payer MEDICARE, MEDICAID, SELFPAY | PROVIDERS: PCP Internal Medicine ==

== ENCOUNTER 2024-10-03 08:43 | Outpatient (REF) | payer MEDICARE, MEDICAID, SELFPAY ==
--- OUTSIDE RECORDS SUMMARY | 2024-10-03 10:23 | XMS_ITS | Clinical Summary ---
Author Organization [employer] Address [address] [facility] 7t [place] [address] Care Team Providers Care Service Trainer Name Role Phone Unavailable Primary Care Provider [...] Description 08/11/2024 9:00 AM EST Office Visit [facility] ADULT DENT[facility] [address] [place] [address] Aury Castillo 07/21/2024 2:00 PM EST Office Visit [facility] [address] [place] [address] Aury Castlilo 07/13/2024 10:00 AM EST Office Visit [facility]ULT [facility] [address] [place] [address] Steffany Rendon Dental calculus (Primary Dx) from [...] Most Recently Relevant to Health Maintenance [facility]
--- OUTSIDE RECORDS SUMMARY | 2024-10-03 10:23 | XMS_ITS | Clinical Summary ---
Author Organization [facility] Address [address] [facility] [address] [place] [address] Phone Care Team Providers Care Vice President Of News Name Role Phone Ana Morris MD Primary Care Provider [phone] Allergies Active Allergy Reactions Criticality Noted Date [...] 07/25/2024 Refill [facility] [address] [address] Brittnee Villafuerte [place] 07/25/2024 Telephone [facility] [address] [address] Brittnee Villafuerte [place] Med Refill 07/21/2024 Refill [facility] [address] [phone] Ginny Adams from Last 3 Months Family [...] Visit [facility] [address] [facility] [place] [address] Tato Rocha MD [address] [facility] [address] [place] [address] Health Maintenance Due Date Last [...] topic Insurance MEDICARE [place]ID [place]ARE [place]ICAID [place] Care Teams Vice President Of News Relationship Specialty Start Date End Date Ana Morris MD [address] [place] [address] PCP - General 09/16/20
[2024-10-03 11:55] LABS: Anion Gap 7 (12-20); Blood Urea Nitrogen 8 mg/dL (9-16); Calcium 8.9 mg/dL (8.4-10.2); Carbon Dioxide 26 mmol/L (22-29); Chloride 107 mmol/L (96-108); Estimated Glomerular Filt Rate > 60; Glucose Random 69 mg/dL (60-115); Potassium 4.3 mmol/L (3.3-5.1); Sodium 136 mmol/L (135-145)
== END 2024-10-03 08:44 | disposition home or self-care (01) ==
LOC: HO.LAB 08:43
PROVIDERS: PCP Internal Medicine; Visit Provider Internal Medicine Cardiovascular Disease
DX: I48.0 Paroxysmal atrial fibrillation (principal); I42.9 Cardiomyopathy, unspecified; Z95.0 Presence of cardiac pacemaker
CPT/HCPCS: 36415; 80048; 93005; 93280; 99212

== ENCOUNTER 2024-10-03 08:43 | Outpatient (AMB) | payer MEDICARE, MEDICAID, SELFPAY ==
--- OUTSIDE RECORDS SUMMARY | 2024-10-03 09:03 | XMS_ITS | Patient Health Record ---
Author Organization [facility] Address [address] [place] [address] Care Team Providers Care Inward Toll Operator Name Role Phone Ana Morris Primary Care Provider Unavailab Prudencio Amaro Jr Unavailable [phone] ALLERGIES Allergen (clinical drug ingredient) Drug/Non Drug Allergy documented on EMR Reaction Allergy Type Onset Date Status metoprolol Metoprolol Unknown Drug Allergy Activ e fentanyl Fentanyl Unknown Drug Allergy Active spironolactone Spironolactone Unknown Drug Allergy Active Seafood seafood (uncoded) Unknown Allergy Ac tive REASON FOR REFERRAL No Information MEDICATIONS Medication SIG (Take, Route, Frequency, Duration) Notes Start Date End Date Status Zolpidem Tartrate 10 MG 1 tablet at bedt gloria Orally Once a day Active Fluticasone Furoate 50 MCG/ACT 1 puff Inhalation Once a day Active LORazepam 0.5 MG 1 tablet at bedtime as needed Orally Once a day Active Doxycycline Hyclate 100 MG 1 capsule Ora lly Once a day for 10 day(s) Active Aspirin 81 81 MG 1 tablet Orally Once a day for 30 day(s) Active MiraLax (colon prep) 17 GM/SCOOP mixed with Gatorade or Crystal Light Orally begin at 5:00 p.m. the day before the procedure for 1 day 02/04/2022 Active Carvedilol 25 MG 1 tablet with food Orally Twice a day for 30 day(s) Active Omeprazole 40 MG 1 capsule 30 minutes before morning meal Orally Once a day for 30 day(s) Active traMADol HCl 50 MG 1 tablet as needed Orally Once a day Active Potassium Chloride 20 MEQ 1 packet with food Orally Once a day for 30 day(s) Active Acetaminophen 500 MG 1 capsule as needed Orally every 6 hrs Active amLODIPine Besy-Benazepril HCl 2.5-10 MG as directed Orally Active Meclizine HCl 25 MG 1 tablet as needed Orally Once a day for 30 day(s) Active MiraLax (colon prep) 17 GM/SCOOP mixed with Gatorade or Crystal Light Orally begin at 5:00 p.m. the day before the procedure for 1 day 08/26/2022 Active Eplerenone 50 MG 1 tablet Orally Once a day for 30 day(s) Active Cyclobenzaprine HCl 5 MG 1 tablet at bed time as needed Orally Once a day for 30 day(s) Active metFORMIN HCl ER 500 MG 1 tablet with ev ening meal Orally Once a day for 30 day(s) Active Fish Oil 1000 MG 1 capsule Orally Onc e a day for 30 day(s) Active Sennosides 8.6 MG 2 tablets at bedtime as needed Orally Once a day for 30 day(s) Active Lisinopril 20 MG 1 tablet Orally Once a day for 30 day(s) Active Albuterol Sulfate HFA 108 (9 0 Base) MCG/ACT 1 puff as needed Inhalation every 4 hrs Active IMMUNIZATIONS Vaccine Route Administration Date Status Comme nts Influenza Unknown 07/22/2021 Administered Influenza Unknown 08/06/2022 Administered SOCIAL HISTORY Tobacco Use: Social History Observation Description Date Details (start date - stop date) Never Smoker NA - NA Sex Assigned At : Social History Observation Description Sex Assigned At Unknown Tobacco Use/Smoking Question Answer Notes Patient is a nonsmoker Alcohol Screen Question Answer Notes Did you have a drink containing alcohol in the p ast year? No Points 0 Interpretation Negative PROBLEMS Problem Type ICD Code Onset Dates Problem Status W/U Status Risk SNOMED Code Notes Problem Colon cancer screening (Z12.11) Active confirmed 011612326 Problem Long-term use of aspirin therapy (Z79.82) Active confirmed 619915868 Problem joint terminal attack controller (current) use of oral hypoglycemic drugs (Z79.84) Active confirmed [id number] PLAN OF TREATMENT Future Test Test Name Order Date COLONOSCOPY 02/04/2022 COLONOSCOPY 08/26/2022 Insurance Providers Payer Name Payer Address Payer Phone Subscriber Number Group Number Insured Name Patient Relationship to Insured Coverage Start Date Coverage End Date MEDICARE OF [place] [address] [place] [address] [id number] BRANDIE ROMAN Self - patient is the insured MEDICAID OF [place] [address] [place] [id number] BRANDIE ROMAN Self - patient is the insured MEDICAL (GENERAL) HISTORY Medical History History ICD Code cellulitis left lower leg insomnia diabetes SVT vertigo trifascicular block cardiac pacemaker in situ right hip pain hypertension cardiomyopathy constipation asthma Surgical History Surgery Date(Month/Year) pacemaker 2016
--- OUTSIDE RECORDS SUMMARY | 2024-10-03 09:03 | XMS_ITS | Clinical Summary ---
Author Organization [facility] Address [address] [facility] [address] [place] [address] Phone Care Team Providers Care Phlebotomist Prn Name Role Phone Ana Morris MD Primary Care Provider [phone] Allergies Active Allergy Reactions Criticality Noted Date Comments Fentanyl Other (see comments) 08/26/2022 Metoprolol Other (see comments) 08/26/2022 Other Other (see comments) 08/26/2022 Spironolactone Other (see comments) 08/26/2022 Medications aspirin (ST CASIMIRO) 81 MG EC tablet TOME SONAL TABLETA TODOS LOS D 2 Active carvedilol (COREG) 25 MG tablet TOME SONAL TABLETA DOS VECES AL D A 2 Active cyclobenzaprine (FLEXERIL) 5 MG tablet TAKE 1 TABLET BY MOUTH EVERY 8 HOURS 5 DAYS NEEDED FOR PAIN (SCALE SCORE 7-10) 2 Active doxycycline (VIBRAMYCIN) 100 MG capsule TOME SONAL C PSULA DOS VECES AL D A 2 Active LORazepam (ATIVAN) 0.5 MG tablet TOME SONAL TABLETA DOS VECES AL D A CUANDO SEA NECESARIO PARA LA ANSIEDAD 2 Active meclizine (ANTIVERT) 25 MG tablet 2 Active omeprazole (PriLOSEC) [address] capsule TOME SONAL C PSULA TODOS LOS D 2 Active potassium chloride (KLOR-CON M20) 20 MEQ CR tablet TOME DOS TABLETAS POR V A ORAL TODOS LOS D FOR 90 DAYS 2 Active traMADol (ULTRAM) 50 MG tablet TOME SONAL TABLETA CADA 12 HORAS CUANDO SEA NECESARIO PARA EL DOLOR 2 Active zolpidem (AMBIEN) 10 MG tablet TOME SONAL TABLETA TODOS LOS D AL ACOSTARSE CUANDO SEA NECESARIO FOR INSOMNIA 2 Active amLODIPine (NORVASC) 10 MG tablet Take 1 tablet (10 mg total) by mouth 1 (one) time each day 90 tablet 3 3 Active Empagliflozin 25 MG tablet Take 25 mg by mouth 1 (one) time each day 30 tablet 11 4 12/28/19 25 Active doxazosin (Cardura) 4 MG tablet Take 1 tablet (4 mg total) by mouth every night 30 tablet 11 4 12/29/19 25 Active lisinopril 20 MG tablet Take 2 tablets (40 mg total) by mouth 1 (one) time each day 60 tablet 2 4 07/25/20 25 Active Active Problems Problem Noted Date Diagnosed Date Gynecomastia 08/26/2023 Hyperaldosteronism 08/26/2023 Hypokalemia 06/04/2014 08/26/2023 Stage 3 chronic kidney disease 05/31/2014 1 10/27/2022 Essential hypertension 05/31/2014 3 Encounters Date Type Department Care Team Description 07/25/2024 Refill [facility] [address] [address] Brittnee Villafuerte [place] 07/25/2024 Telephone [facility] [address] [phone] Brittnee Villafuerte MA Med Refill 07/21/2024 Refill [facility] [address] [phone] Ginny Adams from Last 3 Months Family History Medical History Relation Comments Stroke Father Cancer Mother Diabetes Mother Hypertension Mother Kidney disease Mother Kidney disease Sibling 1 Cancer Sibling 2 sister Relation Status Comments Father Unknown Mother Unknown Sibling 1 Sibling 2 Social History Tobacco Use Types Packs/Day Years Used Date Smoking Tobacco: Never Alcohol Use Standard Drinks/Week Comments No 0 (1 standard drink = 0.6 oz pur e alcohol) Sex and Gender Information Value Date Recorded Sex Assigned at Not on file Legal Sex Male 5:12 PM EST Gender Identity Not on file Sexual Orientation Not on file Last Filed Vital Signs Vital Sign Reading Time Taken Comments Blood Pressure 126/70 03/16/2024 1:00 PM EDT Pulse 66 03/16/2024 1:00 PM EDT Temperature - - Respiratory Rate - - Oxygen Saturation 94% 03/16/2024 1:00 PM EDT Inhaled Oxygen Concentration - - Weight 87.2 kg (192 lb 3.2 oz) 03/16/2024 1:00 P M EDT Height 170.2 cm (5' 7 ) 03/16/2024 1:00 PM EDT Body Mass Index 30.1 03/16/2024 1:00 PM EDT Plan of Treatment Upcoming Encounters Date Type Department Care Team (Late st Contact Info) Description 11/16/2024 2:30 PM EDT Office Visit [facility] [address] [facility] [place] [address] Tato Rocha MD [address] [facility] [address] [place] [address] Health Maintenance Due Date Last Done Comments Pneumococcal Vaccine: 65+ Ye ars (1 of 2 - PCV) 1956 Diabetes: Hemoglobin A1C 02/08/2023 Diabetes: Ophthalmology Exam 02/08/2023 Diabetes: Pedal Pulse Checked 02/08/2023 Diabetes: Sensory Foot Exam 02/08/2023 Diabetes: Visual Foot Exam 02/08/2023 Influenza Vaccine (#1) 2024 Hepatitis B Vaccine Aged Out No longe r eligible based on patient's age to complete this topic Insurance MEDICARE [place]ICAID [place]ARE [place]ICAID [place] Care Teams Phlebotomist Prn Relationship Specialty Start Date End Date Ana Morris MD [address] [place] [address] PCP - General 09/16/20
--- OUTSIDE RECORDS SUMMARY | 2024-10-03 09:03 | XMS_ITS | Clinical Summary ---
Author Organization [employer] Address [address] [facility] [address] [place] [address] Care Team Providers Care Rn Transplant Name Role Phone Unavailable Primary Care Provider Unavailabl e Allergies No known active allergies Medications Acetaminophen Extra Strength 500 MG tablet Take 500 mg by mouth every 6 (six) hours if needed. 2 Active albuterol 108 (90 Base) MCG/ACT inhaler TOME SONAL INHALACI N POR V A ORAL CADA CUATRO HORAS CUANDO SEA NECESARIO BRONCHOSPASM 2 Active amLODIPine (Norvasc) 5 MG tablet TOME SONAL TABLETA POR V A ORAL TODOS LOS D 2 Active Aspirin Low Dose 81 MG EC tablet TOME SONAL TABLETA TODOS LOS D 2 Active carvedilol (Coreg) 25 MG tablet TOME SONAL TABLETA DOS VECES AL D A 2 Active cyclobenzaprine (Flexeril) 5 MG tablet TAKE 1 TABLET BY MOUTH EVERY 8 HOURS 5 DAYS NEEDED FOR PAIN (SCALE SCORE 7-10) 2 Active doxycycline (Vibramycin) 100 MG capsule TOME SONAL C PSULA DOS VECES AL D A 2 Active eplerenone (Inspra) 50 MG tablet TAKE 1 TABLET BY MOUTH DAILY 90 DAYS 2 Active lisinopril 20 MG tablet TOME SONAL TABLETA ORALLY 2 TIMES A DAY FOR 90 DAYS 2 Active LORazepam (Ativan) 0.5 MG tablet TOME SONAL TABLETA DOS VECES AL D A CUANDO SEA NECESARIO PARA LA ANSIEDAD 2 Active meclizine (Antivert) 25 MG tablet 2 Active metFORMIN (Glucophage) 500 MG tablet TOME SONAL TABLETA POR V A ORAL DOS VECES AL D A FOR 90 DAYS 2 Active omeprazole (PriLOSEC) [address] capsule TOME SONAL C PSULA TODOS LOS D 2 Active KLOR-CON 20 MEQ ER tablet TOME DOS TABLETAS POR V A ORAL TODOS LOS D FOR 90 DAYS 2 Active traMADol (Ultram) 50 MG tablet TOME SONAL TABLETA CADA 12 HORAS CUANDO SEA NECESARIO PARA EL DOLOR 2 Active zolpidem (Ambien) 10 MG tablet TOME SONAL TABLETA TODOS LOS D AL ACOSTARSE CUANDO SEA NECESARIO FOR INSOMNIA 2 Active terazosin (Hytrin) 5 MG capsule TOME SONAL C PSULA TODOS LOS D AL ACOSTARSE 4 Active amoxicillin (Amoxil) 500 MG capsule Take 4 caps 1 hour prior dental procedure. 4 capsule 4 Active Active Problems No known active problems Encounters Date Type Department Care Team Description 08/11/2024 9:00 AM EST Office Visit [facility]ULT D[facility]AL [address] [place] [address] Aury Castillo 07/21/2024 2:00 PM EST Office Visit [facility] ADULT [facility] [address] [place] [address] Aury Castillo 07/13/2024 10:00 AM EST Office Visit [facility]ULT [facility] [address] [place] [address] Steffany Rendon Dental calculus (Primary Dx) from Last 3 Months Social History Tobacco Use Types Packs/Day Years Used Date Smoking Tobacco: Never Passive Smoke Exposure: Never Smokeless Tobacco: Never Tobacco Cessation:Counseling Given: Not Answered Alcohol Use Standard Drinks/Week Comments Defer 0 (1 standard drink = 0.6 oz pur e alcohol) Sex and Gender Information Value Date Recorded Sex Assigned at Male 2022 10:15 AM EDT Legal Sex Male 10:15 AM EDT Gender Identity Male 2022 10:15 AM EDT Sexual Orientation Straight 2022 10 :15 AM EDT Last Filed Vital Signs Vital Sign Reading Time Taken Comments Blood Pressure 160/90 08/11/2024 9:33 AM EST Pulse 60 07/13/2024 10:02 AM EST Temperature - - Respiratory Rate - - Oxygen Saturation - - Inhaled Oxygen Concentration - - Weight - - Height - - Body Mass Index - - Plan of Treatment Health Maintenance Due Date Last Done Comments Depression Screening 1948 Lipid Panel 1948 SDOH Screening 1948 Alcohol/Substance Use Screening 1960 Hepatitis C Screening 1966 Pneumococcal Vaccine: 65+ Years (2 of 2 - PCV) 07/19/2019 07/19/2018, 04/19/2012 RSV Patients and Patients Aged 60 years or older (1 - 1-dose 75+ series) 2023 Dental X-Ray: Bitewings 12/29/2024 12/29/19, 12/01/2023, 08/25/2022 Dental Oral Exam 01/11/2025 07/13/2024, , 08/25/2022 Dental Prophylaxis 01/11/2025 07/13/2024, 0 12/01/2023, 08/25/2022 Tobacco Screening 08/11/2025 08/11/2024 Dental X-Ray: Full Mouth 08/26/2025 08/25/2022 DTaP/Tdap/Td Vaccines (2 - Td or Tdap) 10/03/2030 10/03/2020 Zoster Vaccines Completed 04/12/2024, 12/28/2023 COVID-19 Vaccine Completed 05/29/2024, 02/2023, 08/14/2021, Additional history exists Influenza Vaccine Completed 05/29/2024, , 08/06/2022, Additional history exists HIB Vaccines Aged Out No longer eligi ble based on patient's age to complete this topic HPV Vaccines Aged Out No longer eligi ble based on patient's age to complete this topic Hepatitis A Vaccines Aged Out No long er eligible based on patient's age to complete this topic Hepatitis B Vaccines Aged Out No long er eligible based on patient's age to complete this topic IPV Vaccines Aged Out No longer eligi ble based on patient's age to complete this topic Meningococcal Vaccine Aged Out No amelie paresh eligible based on patient's age to complete this topic RSV under 20 months Aged Out No longe r eligible based on patient's age to complete this topic Rotavirus Vaccines Aged Out No longer eligible based on patient's age to complete this topic Procedures Procedure Name Priority Date/Time Associated Diagnosis Comments ADJUNCTIVE GENERAL SERVICES - PROFESSIONAL VISITS - CASE PRESENTATION, SUBSEQUENT TO DETAILED AND EXTENSIVE TREATMENT PLANNING Routine 08/11/2024 9:00 AM EST NO CHARGE VISIT Routine 08/11/2024 9:00 AM EST ADJUNCTIVE GENERAL SERVICES - PROFESSIONAL VISITS - CASE PRESENTATION, SUBSEQUENT TO DETAILED AND EXTENSIVE TREATMENT PLANNING Routine 07/21/2024 2:00 PM EST DIAGNOSTIC - CLINICAL ORAL EVALUATIONS - RE-EVALUATION - LIMITED, PROBLEM FOCUSED (ESTABLISHED PATIENT; NOT POST-OPERATIVE VISIT) Routine 07/21/2024 2:00 PM EST COMPREHENSIVE PERIODONTAL EVALUATION - NEW OR ESTABLISHED PATIENT Routine 07/13/2024 10:00 AM EST PERIODIC ORAL EVALUATION - ESTABLISHED PATIENT Routine 07/13/2024 10:00 AM EST ORAL HYGIENE INSTRUCTIONS Routine 2023 10:00 AM EST ADJUNCTIVE GENERAL SERVICES - PROFESSIONAL VISITS - CASE PRESENTATION, SUBSEQUENT TO DETAILED AND EXTENSIVE TREATMENT PLANNING Routine 07/13/2024 10:00 AM EST PROPHYLAXIS - ADULT Routine 07/13/2024 1 0:00 AM EST BITEWING - SINGLE RADIOGRAPHIC IMAGE Routine 12/29/2023 8:00 AM EDT DIAGNOSTIC - DIAGNOSTIC IMAGING - INTRAORAL - COMPREHENSIVE SERIES OF RADIOGRAPHIC IMAGES Routine 08/25/2022 9:00 AM EST Encounter for dental examination from Last 3 Months or Most Recently Relevant to Health Maintenance [facility] ST[facility]
--- NOTE | 2024-10-03 09:08 | MHC.OFFVIS ---
Vital Signs 10/03/24 09:09 Height 5 ft 7 in Weight 189 lb 9.561 oz BMI 29.7 BP 160/88 H Blood Pressure Location Lt brachial Position Sitting Pulse 70 Intake Visit Reasons: 6 mth w/ ekg and [facility] neeraj ck Intake Note: 6 month follow-up with [facility] Neeraj check feeling good Professor Of Latin American Studies Required: No Professor Of Latin American Studies Name: kirsten Treviño Allergies metoprolol [METOPROLOL] Allergy (Intermediate, Verified 07/24/24 14:32) Rash seafood Allergy (Intermediate, Verified 07/24/24 14:32) Swelling spironolactone [Spironolactone] Allergy (Intermediate, Verified 07/24/24 14:32) Gynecomastia,Swelling fentanyl Adverse Reaction (Intermediate, Verified 07/24/24 14:32) sleepiness Medication List - Last Reconciled 10/03/24 by Juan C Cardenas MD acetaminophen (Tylenol Extra Strength) 500 mg PO Q6H PRN albuterol sulfate 90 mcg/actuation 1 inh PO Q4H PRN amlodipine 10 mg PO DAILY 90 days carvedilol 25 mg PO BID cromolyn 4% 1 drp ophthalmic (eye) QID 5 days dronedarone (Multaq) 400 mg PO BID eplerenone 50 mg PO DAILY 90 days ferrous sulfate 325 mg PO finasteride 5 mg PO DAILY 90 days fluticasone propionate 50 mcg/actuation 1 spray intranasal DAILY hydralazine 25 mg PO TID 30 days hydrocortisone 1% (Anti-Itch (hydrocortisone)) 1 appl topical BID PRN 30 days lisinopril 20 mg PO BID 90 days lorazepam 0.5 mg PO BID PRN 30 days meclizine 25 mg PO DAILY PRN 90 days metformin 500 mg PO BID 90 days nebulizers Nebulizer Machine with Tubing and Accessories omeprazole 40 mg PO DAILY potassium chloride ER 40 mEq (2 x 20 mEq) PO DAILY 90 days rivaroxaban (Xarelto) 20 mg PO DAILY rosuvastatin 10 mg PO DAILY 90 days sennosides (senna) 17.2 mg (2 x 8.6 mg) PO BEDTIME PRN terazosin 5 mg PO BEDTIME 90 days tramadol 50 mg PO BID PRN 30 days zolpidem 10 mg PO BEDTIME PRN 30 days HPI Comments Details: Ganesh comes for follow-up. History was obtained with help of disassembler product over the phone. Patient says he has been doing very well. He has no cardiac symptoms. He remains active with his day-to-day activities. Denies any prolonged palpitation irregular heartbeat. Denies any worsening shortness of breath, orthopnea, PND. No lightheadedness, syncope. No bleeding issues or neurologic events. As far as pacer evaluation as well [facility] Medical History Paroxysmal atrial fibrillation SVT (supraventricular tachycardia) Trifascicular block Cardiac pacemaker in situ Cardiomyopathy Right hip pain Eye exam, routine Screening for colon cancer Screening for prostate cancer Lumbar degenerative disc disease Insomnia Constipation by delayed colonic transit Vertigo SVT (supraventricular tachycardia) Trifascicular block Diabetes mellitus HTN (hypertension) Cardiomyopathy Cardiac pacemaker in situ Surgical History History of colonoscopy S/P cardiac catheterization History of pacemaker Status post excision of lipoma History of inguinal hernia repair Family History Mother Cancer Diabetes Hypertension Father Stroke Sister Cancer Maternal Uncle Myocardial infarction Paternal Aunt No problems noted. Paternal Uncle Hypertension CVD (cardiovascular disease) Brother Mental health disorder Social History Housing: House Alcohol intake: former Patient Tobacco Use Status: Never used Tobacco e-Cigarette/Vaping Use: Never Used Second Hand Smoke Exposure: No service: No Current occupational status: disabled Cognitive needs: No Hearing needs: No Vision needs: Yes (glasses) Review of Systems Const Denies chills, Denies fatigue, Denies fever(s), Denies frequent falls, Denies weakness, Denies weight gain and Denies weight loss ENT Denies dizziness Card Denies chest pain, Denies leg edema, Denies lightheadedness, Denies palpitations, Denies dyspnea, Denies dyspnea on exertion, Denies orthopnea and Denies other (loss of consciousness) Resp Denies cough, Denies dyspnea and Denies dyspnea on exertion GI Denies hematochezia and Denies change in stool character Musc Denies abnormal gait, Denies muscle weakness, Denies numbness, Denies radiating pain into limb and Denies tingling Neuro Denies abnormal gait, Denies dizziness, Denies frequent falls, Denies numbness, Denies tingling and Denies weakness Endo Denies fatigue and Denies palpitations Physical Exam Vital Signs: Last Vital Signs Pulse 70 10/03/24 09:09 BP 160/88 H 10/03/24 09:09 BMI result Body Mass Index 29.7 Const General: cooperative, comfortable, no acute distress, alert and awake Nutritional Appearance: overweight Orientation/consciousness: patient oriented x3 Limitations: no limitations Neck Neck: Yes trachea midline, Yes supple and Yes no JVD Resp Effort & Inspection: normal respiratory effort Auscultation: clear to auscultation bilaterally Cardio Jugular venous distension: no JVD Palpation: normal PMI Rate: regular rate Rhythm: regular rhythm Heart sounds: S1 normal heart sound present and S2 normal heart sound present GI Auscultation: normal bowel sounds Skin General skin exam: no rashes or lesions noted Neuro General: patient oriented x3 and no focal motor deficits Extrem General: Yes no clubbing, cyanosis or edema Psych Appearance: grossly normal Office Procedures Cardiac Device Check Cardiac Device Check Details: Dual-chamber [facility] pacemaker in place. Programmed in DDDR at 60 beats per minute. Intermittent ventricular pacing 14% time. Few episodes of atrial fibrillation noted with total burden of less than 1%. Atrial ventricular capture thresholds excellent. Atrial ventricular sensing is excellent. Pacing lead impedance is stable. Battery life is 2 and half to 3 years 88478-[id number] Cardiac Device Check, pacemaker dual lead Procedure code (CPT) selection complete EKG Details: EKG shows normal sinus rhythm with right bundle and left anterior fascicular block will with first-degree AV block 27827-[id number], Complete Assessment & Plan Assessment & Plan (1) Paroxysmal atrial fibrillation: Code(s): I48.0 - Paroxysmal atrial fibrillation Category: Medical Plan: Paroxysmal atrial fibrillation without any overt symptoms at this point time. Episodes are self-limiting. At this point time continue with current carvedilol therapy. Avoidance of stimulants was discussed. Continue full oral anticoagulation, currently on Xarelto 20 mg daily. Quarterly renal function test should be pursued. Continue aggressive blood pressure control. Continue Multaq therapy. Has done very well with rhythm control approach and will pursue the same (2) Cardiomyopathy: Comment: echo October 2018 showing LVEF of 45-50% Code(s): I42.9 - Cardiomyopathy, unspecified Category: Medical Plan: Mild cardiomyopathy of unclear etiology most likely nonischemic. Clinically without signs or symptoms of heart failure. Continue current neurohormonal modulation with carvedilol, eplerenone as well as lisinopril therapy. Continue aggressive blood pressure control currently on multiple medications and doing well with it. Low-salt diet was discussed. Daily weight monitoring avoidance salt loading was discussed. Advised to call me with any new symptoms. (3) Cardiac pacemaker in situ: Comment: [facility] Neeraj dual-chamber pacemaker implanted for syncope and trifascicular block with EP study consistent with infra Hisian block Code(s): Z95.0 - Presence of cardiac pacemaker Category: Medical Plan: Cardiac pacemaker in-situ for advanced AV block with intermittent ventricular pacing noted. Pacemaker is working well. Reprogrammed for adequate functioning. Will follow up in the clinic in 6 months time, sooner p.r.n. thank you for allowing me to partake in his care Orders: Orders Basic Metabolic Panel Today I48.0 - Paroxysmal atrial fibrillation CA echo transthoracic complete 6 Months I42.9 - Cardiomyopathy, unspecified Coding Level of Care Code Est Pt Level 4 (01621) Complex EM visit Add On G2211 Diagnoses Paroxysmal atrial fibrillation I48.0 Cardiomyopathy I42.9 Cardiac pacemaker in situ Z95.0 CPT Codes Cardiac Device Check - Cardiac Device 2: [id number]-[id number] Cardiac Device Check, pacemaker dual lead ([id number]) EKG - CPT: 58955-[id number], Complete ([id number])
[2024-10-03 09:09] VITALS: BP 160/88; PULSE 70; BMI 29.7
== END 2024-10-03 09:34 | disposition home or self-care (01) ==
PROVIDERS: PCP Internal Medicine; Visit Provider Internal Medicine Cardiovascular Disease
DX: I48.0 Paroxysmal atrial fibrillation (principal); I42.9 Cardiomyopathy, unspecified; Z95.0 Presence of cardiac pacemaker
CPT/HCPCS: 93010; 93280; 99214; G2211

== ENCOUNTER → 2024-11-03 11:13 | Outpatient (BNVA) | payer MEDICARE, MEDICAID, SELFPAY | PROVIDERS: PCP Internal Medicine ==

== ENCOUNTER 2024-11-16 15:06 | Outpatient (REF) | payer MEDICARE, MEDICAID, SELFPAY ==
[2024-11-16 15:25] LABS: MANUAL DIFF FLAG NO
[2024-11-16 15:48] LABS: Basophils Percent Auto 0.8 % (0-2); Eosinophils Absolute Auto 0.2 X10*3/uL (0.0-0.4); Eosinophils Percent Auto 3.2 % (0-4); Hematocrit 34.7 % (42.0-52.0); Hemoglobin 11.8 g/dl (14.0-18.0); Imm Gran Abs Auto 0.01 X10*3/uL (0.00-0.03); Imm Gran Pct Auto 0.2 % (0.0-0.4); Lymphocytes Absolute Auto 0.8 X10*3/uL (1.2-4.9); Mean Corpuscular Hemoglobin 32.9 pg (27.0-33.0); Mean Corpuscular Volume 96.7 fL (80.0-98.0); Monocytes Absolute Auto 0.6 X10*3/uL (0.1-1.2); Monocytes Percent Auto 11.2 % (2-11); Neutrophils Absolute Auto 3.7 x10*3/uL (2.0-8.3); Neutrophils Percent Auto 69.6 % (45-73); Platelet Count 197 X10*3/uL (160-400); Red Blood Count 3.59 X10*6/uL (4.60-5.80); Red Cell Distribution Width 12.1 % (11.0-16.0); White Blood Count 5.3 X10*3/uL (4.8-10.8)
[2024-11-16 15:57] LABS: Appearance Urine Clear; Color Urine Yellow; Glucose Urine UA Negative (Negative); Leukocyte Esterase Urine Negative (Negative); Nitrite Urine Negative (Negative); Urine Blood Negative (Negative); Urine Ketones Negative (Negative); Urine Protein Negative (Neg-Trace)
[2024-11-16 16:00] LABS: Bacteria Urine None Seen (None Seen); Hyaline Casts Urine 0-2 /LPF (0-2); RBC Urine 0-2 /HPF (0-2); Squamous Epithelial Cell Urine 0-2 /HPF (0-2); WBC Urine 0-5 /HPF (0-5)
[2024-11-16 16:15] LABS: Anion Gap 11 (12-20); Blood Urea Nitrogen 10 mg/dL (9-16); Calcium 9.6 mg/dL (8.4-10.2); Carbon Dioxide 24 mmol/L (22-29); Chloride 102 mmol/L (96-108); Estimated Glomerular Filt Rate > 60; Glucose Random 89 mg/dL (60-115); Potassium 4.1 mmol/L (3.3-5.1); Sodium 133 mmol/L (135-145)
[2024-11-16 16:55] LABS: Creatinine Urine 30.64 mg/dL; Microalbum/Creatinine Ratio Ur 104.4 ug/mg cr (<30); Protein/Creatinine Ratio, Ur 0.26 (<0.2); Total Protein Urine Random 8 mg/dL (<12)
--- OUTSIDE RECORDS SUMMARY | 2024-11-16 18:51 | XMS_ITS | Clinical Summary ---
Author Organization [facility] Address [address] [facility] [address] [place] [address] Phone Care Team Providers Care Lost And Found Clerk Name Role Phone Ana Mroris MD Primary Care Provider [phone] Allergies Active Allergy Reactions Criticality Noted Date Comments Fentanyl Other (see comments) 08/26/2022 Metoprolol Other (see comments) 08/26/2022 Other Other (see comments) 08/26/2022 Spironolactone Other (see comments) 08/26/2022 Medications aspirin (ST CASIMIRO) 81 MG EC tablet 2 Active carvedilol (COREG) 25 MG tablet [...] Encounters Date Type Department Care Team Description 11/16/2024 2:30 PM EDT Office Visit [facility] [address] [place], [place] [address] Tato Rocha MD Hypertension (Primary Dx) from Last 3 Months Family History Medical [...] Sign Reading Time Taken Comments Blood Pressure 140/82 11/16/2024 2:14 PM EDT Pulse 61 11/16/2024 2:14 PM EDT Temperature - - Respiratory Rate - - Oxygen Saturation 97% 11/16/2024 2:14 PM EDT Inhaled Oxygen Concentration - - Weight 87.2 kg (192 lb 3.2 oz) 11/16/2024 2:14 P M EDT Height 170.2 cm (5' 7 ) 03/16/2024 1:00 PM EDT Body Mass Index 30.1 03/16/2024 1:00 PM EDT Plan of Treatment Upcoming Encounters Date Type Department Care Team (Late st Contact Info) Description 02/22/2025 1:15 PM EDT Office Visit [facility] [address] [place] [address] Tato Rocha MD [address] [facility] [address] [place] [phone] Health Maintenance Due Date Last Done Comments [...] topic Insurance [place]ID [place] Care Teams Lost And Found Clerk Relationship Specialty Start Date End Date Ana Morris MD [address] [place], [place] PCP - General 09/16/20
--- OUTSIDE RECORDS SUMMARY | 2024-11-16 18:51 | XMS_ITS | Encounter Summary ---
Author Organization [facility] Address [address] [place] [address] Phone Care Team Providers Care Extension Clerk Name Role Phone Ana Morris MD Primary Care Provider [phone] Reason for Visit * Reason Comments Hypertension Encounter Details Date Type Department Care Team ([facility] Contact Info) Description 11/16/2024 2:30 PM EDT Office Visit [facility] [address] [phone] Tato Rocha MD [address] [address] Hypertension (Primary Dx) Social History Tobacco Use Types Packs/Day Years Used Date Smoking Tobacco: Never Alcohol Use Standard Drinks/Week Comments No 0 (1 standard drink = 0.6 oz pur e alcohol) Sex and Gender Information Value Date Recorded Sex Assigned at Not on file Legal Sex Male 5:12 PM EST Gender Identity Not on file Sexual Orientation Not on file documented as of this encounter Last Filed Vital Signs Vital Sign Reading Time Taken Comments Blood Pressure 140/82 11/16/2024 2:14 PM EDT Pulse 61 11/16/2024 2:14 PM EDT Temperature - - Respiratory Rate - - Oxygen Saturation 97% 11/16/2024 2:14 PM EDT Inhaled Oxygen Concentration - - Weight 87.2 kg (192 lb 3.2 oz) 11/16/2024 2:14 P M EDT Height - - Body Mass Index 30.1 03/16/2024 1:00 PM EDT documented in this encounter Plan of Treatment Upcoming Encounters Date Type Department Care Team (Late Contact Info) Description 02/22/2025 1:15 PM EDT Office Visit [facility] [address] [place] [address] Tato Rocha MD [address] [facility] [address] [place] [address] Scheduled Orders Name Type Priority Associated Diagnoses Orde r Schedule Aldosterone Lab Routine Hypertension Expected: 11/16/2024, Expires: 12/17/2025 Renin Activity Lab Routine Hypertension Expected: 11/16/2024 (Approximate), Expires: 12/17/2025 Metanephrines,Frac., Pl. Free Lab Routine Hypertension Expected: 11/16/2024, Expires: 12/17/2025 CBC and Differential Lab Routine Hypertension Expected: 11/16/2024, Expires: 12/17/2025 Basic Metabolic Panel Lab Routine Hypertension Expected: 11/16/2024, Expires: 12/17/2025 Urinalysis with microscopic Lab Routine Hypertension Expected: 11/16/2024, Expires: 12/17/2025 Protein, Total, Random Urine w/Creatinine (Protein/Creat Ratio) Lab Routine Hypertension Expected: 11/16/2024, Expires: 12/17/2025 Urine Albumin / Creatinine Ratio Lab Routine Hypertension Expected: 11/16/2024, Expires: 12/17/2025 documented as of this encounter Visit Diagnoses Diagnosis Hypertension- Primary documented in this encounter Care Teams Extension Clerk Relationship Specialty Start Date End Date Ana Morris MD [address] [place] PCP - General 09/16/20 documented as of this encounter
--- OUTSIDE RECORDS SUMMARY | 2024-11-16 18:51 | XMS_ITS | Patient Health Record ---
Author Organization [facility] Address [address] [place] [address] Care Team Providers Care Business Process Consultant Name Role Phone Ana Morris Primary Care Provider Unavailab Prudencio Amaro Jr Unavailable Allergies Allergen (clinical drug ingredient) Drug/Non Drug Allergy documented on EMR Reaction Allergy Type Onset Date Status metoprolol Metoprolol Unknown Drug Allergy Activ e fentanyl Fentanyl Unknown Drug Allergy Active spironolactone Spironolactone Unknown Drug Allergy Active Seafood seafood (uncoded) Unknown Allergy Ac tive Reason For Referral No Information Medications Medication SIG (Take, Route, Frequency, Duration) Notes [...] as needed Inhalation every 4 hrs Active Immunizations Vaccine Route Administration Date Status Comme nts Influenza Unknown 07/22/2021 Administered Influenza Unknown 08/06/2022 Administered Social History Tobacco Use: Social History Observation Description Date Details (start date - stop date) Never Smoker NA - NA Tobacco Use/Smoking Question Answer Notes Patient is a nonsmoker Alcohol Screen Question Answer Notes Did you have a drink containing alcohol in the p ast year? 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 drugs (Z79.84) Active confirmed Plan Of Treatment Future Test Test Name Order Date COLONOSCOPY 02/04/2022 COLONOSCOPY 08/26/2022 Insurance Providers Payer Name Payer Address Payer Phone Subscriber Number Group Number Insured Name Patient Relationship to Insured Coverage Start Date Coverage End Date MEDICARE OF [place] [address] [place] [id number] BRANDIE ROMAN Self - patient is the insured MEDICAID OF [facility] [employer] [facility] [address] [place] [address] [phone] [id number] BRANDIE ROMAN Self - patient is the insured Medical (General) History Medical History History ICD Code cellulitis left lower leg insomnia diabetes SVT vertigo trifascicular block cardiac pacemaker in situ right hip pain hypertension cardiomyopathy constipation asthma Surgical History Surgery Date(Month/Year) pacemaker 2015
[2024-11-21 12:19] LABS: Metanephrine, Free 42 pg/mL (<=57); Normetanephrines, Free 178 pg/mL (<=148); Total Metanephrine, Free 220 pg/mL (<=205)
[2024-11-25 11:04] LABS: Renin 0.41 ng/mL/h (0.25-5.82)
== END 2024-11-16 15:07 | disposition home or self-care (01) ==
LOC: HO.LAB 15:06
PROVIDERS: PCP Internal Medicine; Visit Provider Internal Medicine
DX: I10 Essential (primary) hypertension (principal)
CPT/HCPCS: 36415; 80048; 81001; 82043; 82088; 82570; 83835; 84156; 84244; 85025

== ENCOUNTER 2024-11-21 15:11 | Outpatient (AMB) | payer MEDICARE, MEDICAID, SELFPAY ==
--- NOTE | 2024-11-21 15:25 | MHC.PC.OV ---
Vital Signs 11/21/24 15:28 Height 5 ft 7 in Weight 189 lb 9.561 oz BMI 29.7 BP 140/78 H Blood Pressure Location Lt brachial Position Sitting Intake Visit Reasons: dm Intake Note: Patient here for a follow up DM Senior Environmental Technician Required: Yes Senior Environmental Technician Language: Sales Enablement Analyst Name: Ana Vargas MD Information Interpreted: non-clinical & clinical Accompanied by: Self / Same As Patient Allergies metoprolol [METOPROLOL] Allergy (Intermediate, Verified 11/21/24 15:41) Rash seafood Allergy (Intermediate, Verified 11/21/24 15:41) Swelling spironolactone [Spironolactone] Allergy (Intermediate, Verified 11/21/24 15:41) Gynecomastia,Swelling fentanyl Adverse Reaction (Intermediate, Verified 11/21/24 15:41) sleepiness Medication List - Last Reconciled 11/21/24 by Ana Vargas MD acetaminophen (Tylenol Extra Strength) 500 mg PO Q6H PRN albuterol sulfate 90 mcg/actuation 1 inh PO Q4H PRN amlodipine 10 mg PO DAILY 90 days carvedilol 25 mg PO BID cromolyn 4% 1 drp ophthalmic (eye) QID 5 days dronedarone (Multaq) 400 mg PO BID eplerenone 50 mg PO DAILY 90 days ferrous sulfate 325 mg PO finasteride 5 mg PO DAILY 90 days fluticasone propionate 50 mcg/actuation 1 spray intranasal DAILY hydralazine 50 mg PO TID 30 days hydrocortisone 1% (Anti-Itch (hydrocortisone)) 1 appl topical BID PRN 30 days lisinopril 20 mg PO BID 90 days lorazepam 0.5 mg PO BID PRN 30 days meclizine 25 mg PO DAILY PRN 90 days metformin 500 mg PO BID 90 days nebulizers Nebulizer Machine with Tubing and Accessories omeprazole 40 mg PO DAILY potassium chloride ER 40 mEq (2 x 20 mEq) PO DAILY 90 days rivaroxaban (Xarelto) 20 mg PO DAILY rosuvastatin 10 mg PO DAILY 90 days sennosides (senna) 17.2 mg (2 x 8.6 mg) PO BEDTIME PRN terazosin 5 mg PO BEDTIME 90 days tramadol 50 mg PO BID PRN 30 days zolpidem 10 mg PO BEDTIME PRN 30 days Tobacco use date assessed: 11/21/24 Fall risk assessment: No Falls in past year Last assessed Fall Risk: 11/21/24 Dental Screening Dental Screen Date: 11/21/24 Did you have a dental visit in the last 12 months?: Yes Did you have a dental problem in the last 6 months where you did not have access to dental care?: No Was dental information given to patient?: Patient has dentist HPI HPI Comments History of Present Illness Details The patient is a 74-year-old male presenting with a need for continued follow-up on his chronic medical conditions, notably essential hypertension, type 2 diabetes, hyperlipidemia, and cardiomyopathy. He reports a history of an allergic reaction to metoprolol, resulting in a skin rash. For his hypertension, he is prescribed amlodipine and carvedilol. His type 2 diabetes is currently well-controlled with a hemoglobin A1c of 5.8%. The patient is also managing chronic kidney disease, complicated by iron deficiency anemia for which he takes daily iron supplementation. His hemoglobin has recently decreased from 12.7 to 11.8, likely secondary to renal pathology. Despite stable renal function, he exhibits proteinuria, consistent with a diagnosis of diabetic kidney disease, but this has shown improvement. [facility] Medical History Paroxysmal atrial fibrillation SVT (supraventricular tachycardia) Trifascicular block Cardiac pacemaker in situ Cardiomyopathy Right hip pain Eye exam, routine Screening for colon cancer Screening for prostate cancer Lumbar degenerative disc disease Insomnia Constipation by delayed colonic transit Vertigo SVT (supraventricular tachycardia) Trifascicular block Diabetes mellitus HTN (hypertension) Cardiomyopathy Cardiac pacemaker in situ Surgical History History of colonoscopy S/P cardiac catheterization History of pacemaker Status post excision of lipoma History of inguinal hernia repair Family History Mother Cancer Diabetes Hypertension Father Stroke Sister Cancer Maternal Uncle Myocardial infarction Paternal Aunt No problems noted. Paternal Uncle Hypertension CVD (cardiovascular disease) Brother Mental health disorder Social History Housing: House Alcohol intake: former Patient Tobacco Use Status: Never used Tobacco e-Cigarette/Vaping Use: Never Used Second Hand Smoke Exposure: No service: No Current occupational status: disabled Cognitive needs: No Hearing needs: No Vision needs: Yes (glasses) Questionnaire PHQ-9 Over the last 2 weeks, how often have you been bothered by any of the following problems? 1. Little interest or pleasure in doing things: not at all 2. Feeling down, depressed, or hopeless: not at all 3. Trouble falling or staying asleep, or sleeping too much: not at all 4. Feeling tired or having little energy: not at all 5. Poor appetite or overeating: not at all 6. Feeling bad about yourself - or that you are a failure or have let yourself or your family down: not at all 7. Trouble concentrating on things, such as reading the newspaper or watching television: not at all 8. Moving or speaking so slowly that other people could have noticed. Or the opposite - being so fidgety or restless that you have been moving around a lot more than usual: not at all 9. Thoughts that you would be better off or of hurting yourself in some way: not at all Total score: 0 Depression Screening Interpretation: Negative Depression Screening Done: Yes 03231 - PHQ-9 Billing: Yes Source: Developed by Drs. Hebert Wright, Alejandra Otero, Randell Cuellar and colleagues, with an educational una from [employer]. Thrive Questionnaire Date Thrive assessed: 11/21/24 I am a: Patient What is your living situation today?: I have a steady place to live Within the past 12 months, did the food you bought not last and you didn't have the money to get more?: Never true Within the past 12 months, did you worry whether your food would run out before you got money to buy more?: Never true Do you have trouble paying for medicines?: No Do you have trouble getting transportation to medical appointments?: No Do you have trouble paying your heating and electricity bill?: No Do you have trouble taking care of your child, family member or friend?: No Do you have trouble with day-to-day activities such as bathing, preparing meals, shopping, managing finances, etc.?: No Are you currently unemployed and looking for a job?: No Are you interested in more education?: No Please select the resources that you would like help with: None Currently or been in a relationship where the following occur: No concerns reported THRIVE Score: 0 AUDIT C Alcohol Use Questionnaire (AUDIT-C) 1. How often do you have a drink containing alcohol?: Never Total Score: 0 Score Reviewed/Action Taken: No BASSEM-7 AMB Questionnaire BASSEM-7 Date BASSEM - 7 assessed: 11/21/24 Feeling nervous, anxious, or on edge: 0 = Not at all Not being able to stop or control worryin = Not at all Worrying too much about different things: 0 = Not at all Trouble relaxin = Not at all Being so restless that it is hard to sit still: 0 = Not at all Becoming easily annoyed or irritable: 0 = Not at all Feeling afraid as if something awful might happen: 0 = Not at all Total BASSEM-7 score (0-4 normal; 5-9 mild; 10-14 moderate; 15-21 severe): 0 Source: Developed by Drs. Hebert Wright, Alejandra Otero, Randell Cuellar and colleagues, with an educational una from [employer]. BASSEM-7 Assessment Billing BASSEM-7 Assessment Tool: BASSEM-7 Assessment Review of Systems Const All systems reviewed & are unremarkable except as noted in HPI and below Card Denies chest pain at rest, Denies chest pain with activity, Denies edema, Denies irregular heart rhythm, Denies claudication, Denies dyspnea, Denies dyspnea on exertion, Denies orthopnea, Denies paroxysmal nocturnal dyspnea and Denies slow heart rate Resp Denies cough, Denies dyspnea and Denies dyspnea on exertion GI Denies abdominal pain, Denies change in bowel habits, Denies excessive flatus, Denies nausea and Denies vomiting Denies urinary hesitancy, Denies urinary incontinence and Denies urinary urgency Physical exam (Primary Care) Vital Signs: Last Vital Signs BP 140/78 H 11/21/24 15:28 BMI result Body Mass Index 29.7 Tobacco/Smoking Status: Tobacco use Status Tobacco use date assessed 11/21/24 11/21/24 15:32 Patient Tobacco Use Status Never used Tobacco 11/21/24 15:27 e-Cigarette/Vaping Use Never Used 11/21/24 15:27 PHQ-9: PHQ-9 Score PHQ-9: Total score 0 11/21/24 15:45 Depression Screening Interpretation: Negative Thrive Assessment: Date of Thrive Assessment Date Thrive assessed 11/21/24 11/21/24 15:32 Currently or been in a relationship where the following occur: No concerns reported Resp Effort & Inspection: normal respiratory effort Auscultation: clear to auscultation bilaterally Cardio Jugular venous distension: no JVD Rate: regular rate Rhythm: regular rhythm Heart sounds: S1 normal heart sound present and S2 normal heart sound present Extrem General: Yes full ROM Results AMB Hemoglobin A1c AMB Hemoglobin A1c 5.8 % Last Edit by MAGALIS Urena on 11/21/24 15:42 Results Reviewed Results Reviewed: Laboratory Last Values Hgb A1c (Clinic) 5.8 % (4.0-6.0) 11/21/24 15:14 Coding Level of Care Code Est Pt Level 4 (35856) Complex EM visit Add On G2211 Diagnoses Essential hypertension I10 Hyperlipidemia LDL goal <70 E78.5 Paroxysmal atrial fibrillation I48.0 SVT (supraventricular tachycardia) I47.1 Cardiomyopathy I42.9 Type 2 diabetes mellitus without complication, without long-term current use of insulin E11.9 Diabetes mellitus type: type 2 Diabetes mellitus snf insulin use: without terminal gauger use Diabetes mellitus complication status: without complication Additional Codes BASSEM-7 Assessment Billing - BASSEM-7 Assessment Tool: BASSEM-7 Assessment 13382 ([id number]) PHQ-9 - 88743 - PHQ-9 Billing: Yes ([id number]) Time Spent (min) 23 Assessment & Plan Assessment & Plan (1) Essential hypertension: Code(s): I10 - Essential (primary) hypertension Category: Medical (2) Hyperlipidemia LDL goal <70: Code(s): E78.5 - Hyperlipidemia, unspecified Category: Medical (3) Paroxysmal atrial fibrillation: Code(s): I48.0 - Paroxysmal atrial fibrillation Category: Medical (4) SVT (supraventricular tachycardia): Code(s): I47.1 - Supraventricular tachycardia Category: Medical (5) Cardiomyopathy: Comment: echo October 2018 showing LVEF of 45-50% Code(s): I42.9 - Cardiomyopathy, unspecified Category: Medical (6) Diabetes mellitus: Code(s): E11.9 - Type 2 diabetes mellitus without complications Category: Medical Qualifiers: Diabetes mellitus type: type 2 Diabetes mellitus snf insulin use: without terminal gauger use Diabetes mellitus complication status: without complication Qualified Code(s): E11.9 - Type 2 diabetes mellitus without complications Plan Management involves continuing the patient's current regimen for essential hypertension, using amlodipine and carvedilol, avoiding metoprolol due to an allergic reaction. Type 2 diabetes is adequately controlled with metformin, and lipid levels will be monitored and managed with rosuvastatin. Cardiac management focuses on controlling atrial fibrillation and cardiomyopathy with current medications. Renal function, while stable, will be monitored for potential changes, especially given the presence of proteinuria associated with diabetic kidney disease. The patient is guided on managing anxiety with lorazepam and receives a refill for zolpidem. Patient was informed and verbally consented to the use of an ambient scribe for clinic note documentation during this visit. I discussed the continuation of the patient's current antihypertensive regimen, highlighting the allergy to metoprolol and the substitution with carvedilol. The effectiveness of his diabetes management was reviewed, with A1c levels remaining optimal. Osteoporosis risk with statin therapy was covered, alongside potential side effects. Maintaining physical activity and dietary modifications was emphasized for cardiovascular health. Regarding renal monitoring, I underlined the importance of follow-up, including scheduled laboratory tests and potential adrenal vein sampling for hyperaldosteronism if necessary. We agreed to continue chronic anemia management with iron supplementation. I obtained his consent for ongoing management, given the negligible risk of current medications when compliant. Orders: Orders AMB Hemoglobin A1c Today E11.9 - Type 2 diabetes mellitus without complications Lipid Panel 4 Months E78.5 - Hyperlipidemia, unspecified Microalbumin, Random (w Creat) 4 Months R80.9 - Proteinuria, unspecified Vitamin D 25-OH Total 4 Months E55.9 - Vitamin D deficiency, unspecified Complete Blood Count Auto Diff 4 Months D64.9 - Anemia, unspecified Comprehensive [place]. Panel Fast 4 Months I48.0 - Paroxysmal atrial fibrillation Vitamin B12 and Folate 4 Months E53.8 - Deficiency of other specified B group vitamins IRON PROFILE 4 Months D64.9 - Anemia, unspecified Medications: Refilled tramadol 50 mg PO BID PRN 60 tabs 0RF pain 30 days I48.0 - Paroxysmal atrial fibrillation zolpidem 10 mg PO BEDTIME PRN 30 tabs 0RF insomnia 30 days I48.0 - Paroxysmal atrial fibrillation lorazepam 0.5 mg PO BID PRN 60 tabs 0RF anxiety 30 days Patient Instructions: - Continue current prescribed antihypertensive and diabetes medications. - Report any adverse reactions or changes in health status. - Attend scheduled laboratory assessments for renal function and lipid panels. - Maintain regular follow-up appointments for sustained evaluation of chronic conditions. - Preserve a balanced diet and engage in moderate physical activity where possible. - Seek further advice promptly if experiencing notable side effects or health changes.
[2024-11-21 15:28] VITALS: BP 140/78; BMI 29.7
--- OUTSIDE RECORDS SUMMARY | 2024-11-21 18:06 | XMS_ITS | Patient Health Record ---
Author Organization [facility] Address [address] [place] [address] Care Team Providers Care Crop And Soil Technician Name Role Phone Ana Morris Primary Care [...] Problem Status W/U Status Risk Notes Problem [id number] Colon cancer screening (Z12.11) Active confirmed Problem [id number] Long-term use of aspirin therapy (Z79.82) Active confirmed Problem [id number] long term care administrator (current) use of oral hypoglycemic drugs (Z79.84) Active confirmed Plan Of Treatment Future Test Test Name Order Date COLONOSCOPY 02/04/2022 COLONOSCOPY 08/26/2022 Insurance Providers Payer Name Payer Address Payer Phone Subscriber Number Group Number Insured Name Patient Relationship to Insured Coverage Start Date Coverage End Date MEDICARE OF [place] [address] [place] [id number] BRANDIE ROMAN Self - patient is the insured [facility] [address] [place] [phone] [id number] BRANDIE ROMAN Self - patient is the insured Medical (General) History Medical History History ICD Code cellulitis left lower leg insomnia diabetes SVT vertigo trifascicular block cardiac pacemaker in situ right hip pain hypertension cardiomyopathy constipation asthma Surgical History Surgery Date(Month/Year) pacemaker 2015
--- OUTSIDE RECORDS SUMMARY | 2024-11-21 18:06 | XMS_ITS | Encounter Summary ---
Author Organization [facility] Address [address] [place] [address] Care Team Providers Care Consulting Psychologist Name Role Phone Unavailable Primary Care Provider Unavailabl e Reason for Visit * Reason Comments Extraction Encounter Details Date Type Department Care Team ([facility] Contact Info) Description 10/31/2024 9:00 AM EST Office Visit [facility] [address] [place] [address] Aury Castillo [address] [place] [address] Social History Tobacco Use Types Packs/Day Years Used Date Smoking Tobacco: Never Passive Smoke Exposure: Never Smokeless Tobacco: Never Alcohol Use Standard Drinks/Week Comments Defer 0 (1 standard drink = 0.6 oz pur e alcohol) Sex and Gender Information Value Date Recorded Sex Assigned at Male 2022 10:15 AM EDT Legal Sex Male 10:15 AM EDT Gender Identity Male 2022 10:15 AM EDT Sexual Orientation Straight 2022 10 :15 AM EDT documented as of this encounter Last Filed Vital Signs Vital Sign Reading Time Taken Comments Blood Pressure 140/80 10/31/2024 9:44 AM EST 2nd reading after 15 minutes Pulse - - Temperature - - Respiratory Rate - - Oxygen Saturation - - Inhaled Oxygen Concentration - - Weight - - Height - - Body Mass Index - - documented in this encounter Progress Notes * Aury Castillo - 10/31/2024 9:00 AM EST Patient ID: Ganesh Perales is a 74 y.o. male. Time Out: Timeout Date: 10/31/24 (21), Timeout Time: 08 Location: [facility] Tooth: #21 Procedure: Extraction Verified the above with patient, financial legal assistant, and provider. Confirmed via patient's chart, intraorally and by radiographs. Media Marketing Manager: Yes. Language: Kazakh. Media Marketing Manager's Name: Jessica (pt partially understands Tuvaluan) Chief Complaint Patient presents with Extraction Medical Hx: Vitals: Blood pressure (!) 140/80. Past Medical History: Diagnosis Date Asthma Diabetes mellitus ([facility]) Hypertension Pacemaker Preventive medication therapy needed Medications: Outpatient Encounter Medications as of 10/31/2024 Medication Sig Dispense Refill Acetaminophen Extra Strength 500 MG tablet Take 500 mg by mouth every 6 (six) hours if needed. albuterol 108 (90 Base) MCG/ACT inhaler TOME SONAL INHALACI N POR V A ORAL CADA CUATRO HORAS CUANDO SEA NECESARIO BRONCHOSPASM amLODIPine (Norvasc) 5 MG tablet TOME SONAL TABLETA POR V A ORAL TODOS LOS D amoxicillin (Amoxil) 500 MG capsule Take 4 caps 1 hour prior dental procedure. 4 capsule 0 amoxicillin (Amoxil) 500 MG capsule Take 1 capsule (500 mg) by mouth every 8 (eight) hours for 7 days. 21 capsule 0 Aspirin Low Dose 81 MG EC tablet TOME SONAL TABLETA TODOS LOS D carvedilol (Coreg) 25 MG tablet TOME SONAL TABLETA DOS VECES AL D A chlorhexidine (Peridex) 0.12 % solution Use 15 mL in the mouth or throat after breakfast and after evening meal for 16 days. 473 mL 0 cyclobenzaprine (Flexeril) 5 MG tablet TAKE 1 TABLET BY MOUTH EVERY 8 HOURS 5 DAYS NEEDED FOR PAIN (SCALE SCORE 7-10) doxycycline (Vibramycin) 100 MG capsule TOME SONAL C PSULA DOS VECES AL D A eplerenone (Inspra) 50 MG tablet TAKE 1 TABLET BY MOUTH DAILY 90 DAYS ibuprofen 400 MG tablet Take 1.5 tablets (600 mg) by mouth every 6 (six) hours if needed for mild pain for up to 7 days. 28 tablet 0 KLOR-CON 20 MEQ ER tablet TOME DOS TABLETAS POR V A ORAL TODOS LOS D FOR 90 DAYS lisinopril 20 MG tablet TOME SONAL TABLETA ORALLY 2 TIMES A DAY FOR 90 DAYS LORazepam (Ativan) 0.5 MG tablet TOME SONAL TABLETA DOS VECES AL D A CUANDO SEA NECESARIO PARA LA ANSIEDAD meclizine (Antivert) 25 MG tablet metFORMIN (Glucophage) 500 MG tablet TOME SONAL TABLETA POR V A ORAL DOS VECES AL D A FOR 90 DAYS omeprazole (PriLOSEC) [address] capsule TOME SONAL C PSULA TODOS LOS D terazosin (Hytrin) 5 MG capsule TOME SONAL C PSULA TODOS LOS D AL ACOSTARSE traMADol (Ultram) 50 MG tablet TOME SONAL TABLETA CADA 12 HORAS CUANDO SEA NECESARIO PARA EL DOLOR zolpidem (Ambien) 10 MG tablet TOME SONAL TABLETA TODOS LOS D AL ACOSTARSE CUANDO SEA NECESARIO FOR INSOMNIA No facility-administered encounter medications on file as of 10/31/2024. Consent Obtained: The risks, benefits, indications, potential complications, and alternatives were explained to the patient and informed consent was obtained with good understanding. Treatment Provided: Dental procedures in this visit D7140 - EXTRACTION, ERUPTED TOOTH OR EXPOSED ROOT (ELEVATION/FORCEPS REMOVAL) 21 (Completed) Service provider: Aury Castillo Billing provider: Aury Castillo D9450 - CASE PRESENTATION, DETAILED AND EXTENSIVE TREATMENT PLANNING (Completed) Service provider: Aury Castillo Billing provider: Aury Castillo Diagnosis: Non-restorable tooth #21 -Pt's B.P. was high and 2 readings were taken with a gap of 15 minutes. First reading- 158/90 mmHg Second reading- 140/80 mmHg Topical: 20% Benzocaine Anesthesia: 4% Septocaine (Articaine) w/ 1:200,000 epinephrine Number of Cartridges: 2- one and a half carpule Injection Type: Buccal infiltration and Palatal infiltration Confirmed profound anesthesia. Pharyngeal curtain and bite block placed. Removed tooth with elevators and forceps. Apices intact. Surgical Extraction: N/A Socket curetted & irrigated with sterile water. Compressed alveolar bone. Sutures: None Needed All adjacent teeth intact. Hemostasis achieved. Complications: n/a Written and verbal post-op instructions given. Patient discharged in stable condition; ambulatory, alert, and oriented. RX: amoxicillin 500 mg every 8 hours for 7 days Ibuprofen 600 mg every 6 hours prn for pain for 7 days Peridex NOTE- pt was comfortable during the appointment and dismissed in stable condition. NV: restorative Washer Repairman: Jessica Nino Dentist: Dr. Aury Castillo, DMD documented in this encounter Plan of Treatment Upcoming Encounters Date Type Department Care Team (Late st Contact Info) Description 12/01/2024 9:00 AM EDT Office Visit [facility] [address] [place] [address] Aury Castillo [address] [place] [address] documented as of this encounter Procedures Procedure Name Priority Date/Time Associated Diagnosis Comments 21 EXTRACTION, ERUPTED TOOTH OR EXPOSED ROOT (ELEVATION/FORCEPS REMOVAL) Routine 10/31/2024 9:00 AM EST CASE PRESENTATION, DETAILED AND EXTENSIVE TREATMENT PLANNING Routine 10/31/2024 9:00 AM EST documented in this encounter Visit Diagnoses Not on filedocumented in this encounter
--- OUTSIDE RECORDS SUMMARY | 2024-11-21 18:06 | XMS_ITS | Encounter Summary ---
Author Organization [facility] Address [address] [place] [phone] Phone Care Team Providers Care Doweler Name Role Phone Ana Morris MD Primary Care Provider [phone] Reason for Visit * Reason Comments Hypertension Encounter Details Date Type Department Care Team ([facility] st Contact Info) Description 11/16/2024 2:30 PM EDT [facility] [address] [phone] Tato Rocha MD [address] [address] Hypertension (Primary Dx) Social History [...] 1:00 PM EDT documented in this encounter Progress Notes * Tato Rocha MD - 11/16/2024 2:30 PM EDT Images from the original note were not included. Patient Name: Ganesh Naik, Male Date of : 1950, 74 y.o. Date: 11/16/2024 History of Present Illness Ganesh Naik is a 74 y.o. male with DM and HTN with proteinuria with normal renal function. He reports that his blood pressures are now well controlled. sugars are well controlled. Today - Reports high blood pressure, monitoring at home every two weeks - Blood pressure readings at home around 153/100, sometimes lower at 141/100 - Taking four blood pressure medications: amlodipine, carvedilol, lisinopril, and doxazosin - Previous blood tests ordered for secondary htn, but not completed The following portions of the patient's chart were reviewed in this encounter and updated as appropriate: Allergies Meds Problems Med Hx Surg Hx Fam Hx EMR: Past Medical History: Diagnosis Date Anxiety disorder Asthma Essential hypertension Hyperlipidemia Presence of cardiac pacemaker Type 2 diabetes mellitus (HCC) Review of Systems Constitutional: Negative for chills and fever. Respiratory: Negative for cough and shortness of breath. Cardiovascular: Negative for chest pain, palpitations and leg swelling. Gastrointestinal: Negative for abdominal pain, nausea and vomiting. Genitourinary: Negative for dysuria, frequency, hematuria and urgency. Medication List Current Outpatient Medications Medication Sig Dispense Refill amLODIPine (NORVASC) 10 MG tablet Take 1 tablet (10 mg total) by mouth 1 (one) time each day 90 tablet 3 aspirin (ST CASIMIRO) 81 MG EC tablet carvedilol (COREG) 25 MG tablet TOME SONAL TABLETA DOS VECES AL D A cyclobenzaprine (FLEXERIL) 5 MG tablet TAKE 1 TABLET BY MOUTH EVERY 8 HOURS 5 DAYS NEEDED FOR PAIN (SCALE SCORE 7-10) doxazosin (Cardura) 4 MG tablet Take 1 tablet (4 mg total) by mouth every night 30 tablet 11 doxycycline (VIBRAMYCIN) 100 MG capsule TOME SONAL C PSULA DOS VECES AL D A Empagliflozin 25 MG tablet Take 25 mg by mouth 1 (one) time each day 30 tablet 11 lisinopril 20 MG tablet Take 2 tablets (40 mg total) by mouth 1 (one) time each day 60 tablet 2 LORazepam (ATIVAN) 0.5 MG tablet TOME SONAL TABLETA DOS VECES AL D A CUANDO SEA NECESARIO PARA LA ANSIEDAD meclizine (ANTIVERT) 25 MG tablet omeprazole (PriLOSEC) [address] capsule TOME SONAL C PSULA TODOS LOS D potassium chloride (KLOR-CON M20) 20 MEQ CR tablet TOME DOS TABLETAS POR V A ORAL TODOS LOS D FOR 90 DAYS traMADol (ULTRAM) 50 MG tablet TOME SONAL TABLETA CADA 12 HORAS CUANDO SEA NECESARIO PARA EL DOLOR zolpidem (AMBIEN) 10 MG tablet TOME SONAL TABLETA TODOS LOS D AL ACOSTARSE CUANDO SEA NECESARIO FOR INSOMNIA No current facility-administered medications for this visit. Allergy List Allergies Allergen Reactions Fentanyl Other (see comments) Metoprolol Other (see comments) Other Other (see comments) Spironolactone Other (see comments) Physical Exam BP 140/82 (BP Location: Right upper arm, Patient Position: Sitting, BP Cuff Size: Adult) Pulse 61 Wt 192 lb 3.2 oz (87.2 kg) SpO2 97% BMI 30.10 kg/m?? Vitals reviewed. Constitutional: He is oriented to person, place, and time. No distress. Cardiovascular: Normal rate, regular rhythm and normal heart sounds. He exhibits no edema. Pulmonary/Chest: Effort normal and breath sounds normal. No respiratory distress. Abdominal: Soft. There is no abdominal tenderness. Musculoskeletal: Normal range of motion. Neurological: He is alert and oriented to person, place, and time. Skin: Skin is warm and dry. Labs Chemistry Lab Units 09/29/23 0000 04/15/23 0000 SODIUM 138 140 POTASSIUM 3.8 4.1 CO2 mmol/L 28 26 BUN mg/dL 11 12 CREATININE mg/dL 0.94 0.92 CHLORIDE 100.0 106.0 ALBUMIN g/dL -- 4.2 Bone Mineral Lab Units 04/15/23 0000 CALCIUM mg/dL 9.5 Renal us- RIGHT KIDNEY: 10.6 x 5.2 x 6.1 cm (SAG x AP x TRV). LEFT KIDNEY: 11.0 x 5.6 x 5.7 cm (SAG x AP x TRV). IMPRESSION: Benign-appearing bilateral renal cysts measuring up to 1.4 cm. No follow up imaging is recommended. Kidneys with normal size, contour and echogenecity. Assessment & Plan 1. Hypertension Renal function has been stable. Serum immunofixation without monoclonal proteins He has microabluminuria Proteinuria most likely due to diabetic kidney disease- improving from 230--> 37.4-->544--> 132 - now on sglt2 in view of mid range EF Echo with EF of 45%- he has a ppm - follows with cardiology Renal US not concerning for ischemic renal disease - no atrophy noted. Renal Duplex- no AP Stopped eplerenone - now on cardura- bp well controlled . No significant hypokalemia BP now not well controlled per patient.- he is on 4 meds- amlo 10mg, coreg 25mg bid, lisinopril 40,doxazosin - Uncontrolled hypertension despite current medication regimen, with home blood pressure readings consistently high at 153/100 mmHg. - Possible Hyperaldo requiring further investigation to determine if it is contributing to the hypertension. Recommendations Goal < 130/80 Stay on low salt diet Discussed with endocrine surgery- . Reg surgical candidacy with good outcomes in terms of improvement of bp PRA ordered as he is on 4 bp meds - ARR 43.9 concerning for hyperaldo - will recheck now on cardura. If still elevated, will plan for Adrenal Vein Sampling. Orders Placed This Encounter Aldosterone Renin Activity Metanephrines,Frac., Pl. Free CBC and Differential Basic Metabolic Panel Urinalysis with microscopic Protein, Total, Random Urine w/Creatinine (Protein/Creat Ratio) Urine Albumin / Creatinine Ratio Return in about 3 months (around 02/16/2025). Tato Rocha MD documented in this encounter Plan of Treatment Upcoming Encounters Date Type Department Care Team (Late st Contact Info) Description 02/22/2025 1:15 PM EDT Office Visit [facility] [address] [place] [phone] Tato Rocha MD [address] [facility] [address] [place] [phone] Scheduled Orders Name Type Priority Associated Diagnoses [...] Primary documented in this encounter Care Teams Doweler Relationship Specialty Start Date End Date Ana Morris MD [address] [facility] [address] [place] [address] PCP - General 09/16/20 documented as of this encounter
--- OUTSIDE RECORDS SUMMARY | 2024-11-21 18:06 | XMS_ITS | Encounter Summary ---
Author Organization [employer] Address [address] [facility] 7[address] [place] [address] Care Team Providers Care Staff Midwife Name Role Phone Unavailable Primary Care Provider Unavailabl e Reason for Visit * Reason Comments Filling #4, #28, #29 Encounter Details Date Type Department Care Team ([facility] st Contact Info) Description 11/21/2024 9:30 AM EDT Office Visit [facility] [address] [place] [address] Aury Castillo [address] [place] [address] Social History Tobacco Use Types Packs/Day Years [...] Sign Reading Time Taken Comments Blood Pressure 118/70 11/21/2024 9:39 AM EDT Pulse - - Temperature - - Respiratory Rate - - Oxygen Saturation - - Inhaled Oxygen Concentration - - Weight - - Height - - Body Mass Index - - documented in this encounter Progress Notes * Kaneglendadaisy Castillo - 11/21/2024 9:30 AM EDT Patient ID: Ganesh Perales is a 74 y.o. male. Time Out: Timeout Date: 11/21/24 (zoroastrianism #4, #28, #29), Timeout Time: 939 Location: [facility] Tooth: #4, #28, and #29 Procedure: Gnosticist Verified the above with patient, events and promotions assistant, and provider. Confirmed via patient's chart, intraorally and by radiographs. Wood Block Artist: Yes. Language: Khmer. Wood Block Artist's Name: Olivia (pt can understand little S[place]an) Chief Complaint Patient presents with Filling #4, #28, #29 Medical Hx: Vitals: Blood pressure 118/70. Medications, Med Hx reviewed with patient and updated in chart. Consent Obtained: The risks, benefits, indications, potential complications, and alternatives were explained to the patient and informed consent was obtained with good understanding. Treatment Provided: Dental procedures in this visit [id number] - RESIN-BASED COMPOSITE - 4+ SURF, POSTERIOR 4 MODB(V) (Completed) Service provider: Aury Castillo Billpaul provider: Aury Castillo [id number] - RESIN-BASED COMPOSITE - 2 SURF, POSTERIOR 29 MBB(V) (Completed) Service provider: Aury Castillo Billing provider: Aury Castillo [id number] - RESIN-BASED COMPOSITE - 1 SURF, POSTERIOR 28 BB(V) (Completed) Service provider: Aury Castillo Billapul provider: Aury Castillo [id number] - CASE PRESENTATION, DETAILED AND EXTENSIVE TREATMENT PLANNING (Completed) Service provider: Aury Castillo Billpaul provider: Aury Castillo Diagnosis: Dental caries with cervical lesion #4 MOD B(V) and Cervical lesions with calcification #28, #29 Topical: 20% Benzocaine Anesthesia: 4% Septocaine (Articaine) w/ 1:200,000 epinephrine Number of Cartridges: 2 Injection Type: Buccal infiltration and Palatal infiltration Confirmed profound anesthesia. Isolation: high speed suction and cotton rolls and bite block Prep: All caries removed and Preparation finalized Matrix: Tofflemire and wedge Etch: 37% Phosphoric Acid Etch Desensitizer: Gluma Liner/Base: None Yan: I-Yan Gnosticist Material: Voco Grandioso Packable Shade: A3 -00 retraction cord used; verified cord removal before dismissing the pt. Polished. Occlusion & contacts verified. Patient satisfied with comfort and esthetics. Patient tolerated procedure well. Post-operative instructions were given. Patient departed alert, oriented, and in stable condition. NOTE- Pt tends to breath through mouth instead of breathing normally through nose. Pt was given multiple breaks throughout the appointment and pt was comfortable; dismissed in good condition. NV: Restorative Boiler Plant Operator: Esperanza Shen Dentist: Dr. Aury Castillo, DMD documented in this encounter Plan of Treatment Upcoming Encounters Date Type Department Care Team (Late st Contact Info) Description 12/01/2024 9:00 AM EDT Office Visit [facility] [address] [place] [address] Aury Castillo [address] [place] [address] Scheduled Orders Name Type Priority Associated Diagnoses Orde r Schedule BITE REGISTRATION Dental Routine 1 Occur rences starting 11/21/2024 documented as of this encounter Procedures Procedure Name Priority Date/Time Associated Diagnosis Comments 4 MODB(V) RESIN-BASED COMPOSITE - 4+ SURF, POSTERIOR Routine 11/21/2024 9:30 AM EDT 29 MBB(V) RESIN-BASED COMPOSITE - 2 SURF, POSTERIOR Routine 11/21/2024 9:30 AM EDT 28 BB(V) RESIN-BASED COMPOSITE - 1 SURF, POSTERIOR Routine 11/21/2024 9:30 AM EDT CASE PRESENTATION, DETAILED AND EXTENSIVE TREATMENT PLANNING Routine 11/21/2024 9:30 AM EDT documented in this encounter Visit Diagnoses Not on filedocumented in this encounter
--- OUTSIDE RECORDS SUMMARY | 2024-11-21 18:06 | XMS_ITS | Clinical Summary ---
Author Organization [facility] Address [address] [facility] [address] [place] [address] Phone Care Team Providers Care Supervisor Frame Sample And Pattern Name Role Phone Ana Morris MD Primary Care Provider [phone] Allergies Active Allergy Reactions Criticality Noted Date [...] Visit [facility] [address] [place], [place] [phone] Tato Rocha MD Hypertension (Primary Dx) from [...] Visit [facility] [address] [place] [phone] Tato Rocha MD [address] [facility] [address] [place] [phone] Health Maintenance Due Date Last Done Comments [...] [place] Care Teams Supervisor Frame Sample And Pattern Relationship Specialty Start Date End Date Ana Morris MD [address] [place], [place] PCP - General 09/16/20
--- OUTSIDE RECORDS SUMMARY | 2024-11-21 18:06 | XMS_ITS | Clinical Summary ---
Author Organization [employer] Address [address] [facility] 7[address] [place] [address] Care Team Providers Care Registered Nursing Professor Name Role Phone Unavailable Primary Care Provider Unavailabl e Allergies Active Allergy Reactions Criticality Noted Date Comments Fentanyl Other,Unknown 08/26/2022 Metoprolol Other,Unknown 08/26/2022 Other Other 08/26/2022 Shellfish Allergy Unknown 11/21/2024 Spironolactone Other,Unknown 08/26/2022 Medications Acetaminophen Extra Strength 500 MG tablet [...] DOS VECES AL D A 2 Active cyclobenzaprin e (Flexeril) 5 MG tablet TAKE 1 TABLET [...] prior dental procedure. 4 capsule 4 Active amoxicillin (Amoxil) 500 MG capsule Take 1 capsule (500 mg) by mouth every 8 (eight) hours for 7 days. 21 capsule 5 11/08/19 25 ibuprofen 400 MG tablet Take 1.5 tablets (600 mg) by mouth every 6 (six) hours if needed for mild pain for up to 7 days. 28 tablet 5 11/08/19 25 chlorhexidine (Peridex) 0.12 % solution Use 15 mL in the mouth or throat after breakfast and after evening meal for 16 days. 473 mL 5 11/17/19 25 Active Problems Problem Noted Date Diagnosed Date Colon cancer screening 11/21/2024 skilled nursing (current) use of oral hypoglycemic ashley gs 11/21/2024 Long-term use of aspirin therapy 11/21/2024 Hyperaldosteronism 08/26/2023 Hypokalemia 06/04/2014 Essential hypertension 05/31/2014 Stage 3 chronic kidney disease 05/31/2014 Gynecomastia 10/21/2010 Encounters Date Type Department Care Team Description 11/21/2024 9:30 AM EDT Office Visit [facility] [address] [place] [address] Aury Castillo 10/31/2024 9:00 AM EST Office Visit [facility] [address] [place] [address] Aury Castillo from Last 3 Months Social History Tobacco [...] Pressure 118/70 11/21/2024 9:39 AM EDT Pulse 60 07/13/2024 10:02 AM EST Temperature - - Respiratory Rate - - Oxygen Saturation - - Inhaled Oxygen Concentration - - Weight - - Height - - Body Mass Index - - Plan of Treatment Upcoming Encounters Date Type Department Care Team (Late st Contact Info) Description 12/01/2024 9:00 AM EDT Office Visit [facility] [address] [place] [address] Aury Castillo [address] [place] [address] Health Maintenance Due Date Last Done Comments Depression Screening 1950 Lipid Panel 1950 SDOH Screening 1950 Alcohol/Substance Use Screening 1960 Hepatitis C Screening 1966 Pneumococcal Vaccine: 50+ Years (2 of 2 - PCV) 07/19/2019 07/19/2018, 04/19/2012 RSV Patients and Patients Aged 60 years or older (1 - 1-dose 75+ series) 2023 Dental X-Ray: Bitewings 12/29/2024 12/29/19 24, 12/01/2023, 08/25/2022 Dental Oral Exam 01/11/2025 07/13/2024, , 08/25/2022 Dental Prophylaxis 01/11/2025 07/13/2024, 0 12/01/2023, 08/25/2022 Dental X-Ray: Full Mouth 08/26/2025 08/25/2022 Tobacco Screening 11/21/2025 11/21/2024 DTaP/Tdap/Td Vaccines (2 - Td or Tdap) [...] Procedure Name Priority Date/Time Associated Diagnosis Comments CASE PRESENTATION, DETAILED AND EXTENSIVE TREATMENT PLANNING Routine 11/21/2024 9:30 AM EDT 29 MBB(V) RESIN-BASED COMPOSITE - 2 SURF, POSTERIOR Routine 11/21/2024 9:30 AM EDT 28 BB(V) RESIN-BASED COMPOSITE - 1 SURF, POSTERIOR Routine 11/21/2024 9:30 AM EDT 4 MODB(V) RESIN-BASED COMPOSITE - 4+ SURF, POSTERIOR Routine 11/21/2024 9:30 AM EDT CASE PRESENTATION, DETAILED AND EXTENSIVE TREATMENT PLANNING Routine 10/31/2024 9:00 AM EST 21 EXTRACTION, ERUPTED TOOTH OR EXPOSED ROOT (ELEVATION/FORCEPS REMOVAL) Routine 10/31/2024 9:00 AM EST PROPHYLAXIS - ADULT Routine 07/13/2024 1 0:00 AM EST PERIODIC ORAL EVALUATION - ESTABLISHED PATIENT Routine 07/13/2024 10:00 AM EST BITEWING - SINGLE RADIOGRAPHIC IMAGE Routine 12/29/2023 8:00 AM EDT INTRAORAL - COMPLETE SERIES OF RADIOGRAPHIC IMAGES Routine 08/25/2022 9:00 AM EST Encounter for dental examination from Last 3 Months or Most Recently Relevant to Health Maintenance Insurance D[facility]AL-[facility] MEDICAID STAND ADULT
== END 2024-11-21 15:51 | disposition home or self-care (01) ==
LOC: HO.HMCH 15:12
PROVIDERS: PCP Internal Medicine; Visit Provider Internal Medicine
DX: I48.0 Paroxysmal atrial fibrillation (principal); I47.10 Supraventricular tachycardia, unspecified; I42.9 Cardiomyopathy, unspecified; E11.69 Type 2 diabetes mellitus with other specified complication; I10 Essential (primary) hypertension; E78.5 Hyperlipidemia, unspecified

== ENCOUNTER → 2024-11-21 15:11 | Outpatient (BNVA) | payer MEDICARE, MEDICAID, SELFPAY | PROVIDERS: PCP Internal Medicine; Visit Provider Internal Medicine | DX: I10 Essential (primary) hypertension (principal); I48.0 Paroxysmal atrial fibrillation; I47.10 Supraventricular tachycardia, unspecified; I42.9 Cardiomyopathy, unspecified; E78.5 Hyperlipidemia, unspecified; E11.9 Type 2 diabetes mellitus without complications | CPT/HCPCS: 83036; 96127; 99212 ==

== ENCOUNTER 2024-11-28 08:22 | Outpatient (REF) | payer MEDICARE, MEDICAID, SELFPAY ==
[2024-11-28 08:49] LABS: MANUAL DIFF FLAG NO
[2024-11-28 09:42] LABS: Basophils Absolute Auto 0.1 X10*3/uL (0.0-0.2); Basophils Percent Auto 0.9 % (0-2); Eosinophils Absolute Auto 0.2 X10*3/uL (0.0-0.4); Eosinophils Percent Auto 3.2 % (0-4); Hematocrit 35.1 % (42.0-52.0); Hemoglobin 11.9 g/dl (14.0-18.0); Imm Gran Abs Auto 0.02 X10*3/uL (0.00-0.03); Imm Gran Pct Auto 0.4 % (0.0-0.4); Lymphocytes Absolute Auto 0.8 X10*3/uL (1.2-4.9); Lymphocytes Percent Auto 13.9 % (20-40); Mean Corpuscular HGB Conc 33.9 g/dl (31.0-36.0); Mean Corpuscular Hemoglobin 32.2 pg (27.0-33.0); Mean Corpuscular Volume 94.9 fL (80.0-98.0); Mean Platelet Volume 8.9 fL (9.4-12.4); Monocytes Absolute Auto 0.5 X10*3/uL (0.1-1.2); Monocytes Percent Auto 9.3 % (2-11); Neutrophils Absolute Auto 3.9 x10*3/uL (2.0-8.3); Neutrophils Percent Auto 72.3 % (45-73); Platelet Count 232 X10*3/uL (160-400); Red Cell Distribution Width 11.9 % (11.0-16.0); White Blood Count 5.4 X10*3/uL (4.8-10.8)
[2024-11-28 10:31] LABS: Alanine Aminotransferase 17 U/L (0-40); Alkaline Phosphatase 65 U/L (39-117); Anion Gap 11 (12-20); Aspartate Amino Transferase 23 U/L (5-37); Bilirubin Total 0.8 mg/dL (0.0-1.0); Blood Urea Nitrogen 11 mg/dL (9-16); Carbon Dioxide 24 mmol/L (22-29); Chloride 104 mmol/L (96-108); Cholesterol 132 mg/dL (<200); Estimated Glomerular Filt Rate > 60; Glucose Fasting 93 mg/dL (60-99); HDL Cholesterol 43 mg/dL (>40); Iron 54 mcg/dL (45-160); LDL Cholesterol Calculated 76 mg/dL (<100); Percent Iron Saturation 16 % (15-50); Potassium 3.8 mmol/L (3.3-5.1); Sodium 135 mmol/L (135-145); Total Iron Binding Capacity 345 mcg/dL (228-428); Total Protein 6.8 g/dL (6.5-8.0); Triglycerides 68 mg/dL (<150); Unsaturated Iron Binding 291 ug/dL
[2024-11-28 10:35] LABS: Prostate Specific Antigen 2.95 ng/mL (<0.05-4.0)
[2024-11-28 10:45] LABS: Folate 12.2 ng/mL (> or = 4.0); Vitamin B12 316 pg/mL (200-900)
[2024-11-28 10:50] LABS: Vitamin D 25-OH Total 23.8 ng/mL (>30)
[2024-11-28 11:43] LABS: Creatinine Urine 66.43 mg/dL; Microalbum/Creatinine Ratio Ur 114.4 ug/mg cr (<30)
== END 2024-11-28 08:23 | disposition home or self-care (01) ==
LOC: HO.LAB 08:22
PROVIDERS: PCP Internal Medicine; Visit Provider Nurse Practitioner Family
DX: E11.9 Type 2 diabetes mellitus without complications (principal); E78.5 Hyperlipidemia, unspecified; E53.8 Deficiency of other specified B group vitamins; E55.9 Vitamin D deficiency, unspecified; N40.0 Benign prostatic hyperplasia without lower urinary tract symptoms; N28.1 Cyst of kidney, acquired; R35.1 Nocturia; R97.20 Elevated prostate specific antigen [PSA]; I48.0 Paroxysmal atrial fibrillation; D64.9 Anemia, unspecified; Z12.5 Encounter for screening for malignant neoplasm of prostate
CPT/HCPCS: 36415; 80053; 80061; 82043; 82306; 82570; 82607; 82746; 83540; 84153; 85025

== ENCOUNTER 2024-11-29 08:39 | Outpatient (AMB) | payer MEDICARE, MEDICAID, SELFPAY ==
--- NOTE | 2024-11-29 08:41 | A.OFFVIS_ITS ---
Intake Visit Reasons: 4m/PSA/PVR Intake Note: Patient presents to office today for 4 month follow up PSA/PVR PSA: 2.95 Urology Medications: Finasteride Blood Thinner: Xarelto Antibiotic Allergy:none PVR:0ml's Rubber Flap Cutter Required: Yes Rubber Flap Cutter Services: Rubber Flap Cutter Present Rubber Flap Cutter Name: [id number] Accompanied by: Self / Same As Patient Allergies metoprolol [METOPROLOL] Allergy (Intermediate, Verified 11/29/24 08:52) Rash seafood Allergy (Intermediate, Verified 11/29/24 08:52) Swelling spironolactone [Spironolactone] Allergy (Intermediate, Verified 11/29/24 08:52) Gynecomastia,Swelling fentanyl Adverse Reaction (Intermediate, Verified 11/29/24 08:52) sleepiness Medication List - Last Reconciled 11/29/24 by СЕРГЕЙ Stanton-MYNOR acetaminophen (Tylenol Extra Strength) 500 mg PO Q6H PRN albuterol sulfate 90 mcg/actuation 1 inh PO Q4H PRN amlodipine 10 mg PO DAILY 90 days carvedilol 25 mg PO BID cromolyn 4% 1 drp ophthalmic (eye) QID 5 days dronedarone (Multaq) 400 mg PO BID eplerenone 50 mg PO DAILY 90 days ferrous sulfate 325 mg PO finasteride 5 mg PO DAILY 90 days fluticasone propionate 50 mcg/actuation 1 spray intranasal DAILY hydralazine 50 mg PO TID 30 days hydrocortisone 1% (Anti-Itch (hydrocortisone)) 1 appl topical BID PRN 30 days lisinopril 20 mg PO BID 90 days lorazepam 0.5 mg PO BID PRN 30 days meclizine 25 mg PO DAILY PRN 90 days metformin 500 mg PO BID 90 days nebulizers Nebulizer Machine with Tubing and Accessories omeprazole 40 mg PO DAILY potassium chloride ER 40 mEq (2 x 20 mEq) PO DAILY 90 days rivaroxaban (Xarelto) 20 mg PO DAILY rosuvastatin 10 mg PO DAILY 90 days sennosides (senna) 17.2 mg (2 x 8.6 mg) PO BEDTIME PRN terazosin 5 mg PO BEDTIME 90 days tramadol 50 mg PO BID PRN 30 days zolpidem 10 mg PO BEDTIME PRN 30 days HPI Comments Details: Ganesh is a pleasant 74 year old pleasant Persian speaking patient of Dr. Jha. He has a past medical history of paroxysmal AFib, SVT, cardiac pacemaker, cardiomyopathy, lumbar degenerative disc disease, insomnia, constipation, vertigo, diabetes, and hypertension. He presents to the office today for follow- up of his elevated PSA and lower urinary tract symptoms. In discussion with the patient today he reports to be doing and feeling well. He denies having had any bothersome urinary issues or concerns since his last office visit. He reports compliance with finasteride and terazosin as prescribed. Recent PSA results reviewed with the patient today as noted and trended below: PSA: 07/28 4.5, 09/28 4.0, 06/28 4.4 percent free psa 16 %, 10/30 2.7, 06/29 3.2, 11/28 3.0 Previous workup has included a retroperitoneal ultrasound 05/29 noting right kidney with no calculi or hydronephrosis. Benign-appearing renal cyst measuring 1.1 cm. No follow up imaging is recommended per radiology report. Left kidney w ith no calculi, and or hydronephrosis. Benign-appearing renal cysts measuring up to 1.4 cm. No follow-up imaging is recommended per radiology report. He reports feeling happy with his current voiding parameters. When asked patient denies urinary urgency, urinary frequency, incontinence, nocturia, hematuria, dysuria, foul smelling urine, changes to urinary stream, flank pain, fever, and or chills. In office urinalysis results reviewed with the patient today 2+ proteinuria however patient reports following up with Nephrology here at [facility]. PVR 0ml's. Patient was informed and verbally consented to the use of an ambient scribe for clinic note documentation during this visit. Discussion Notes I discussed with the patient and their seismic interpreter the effectiveness of current medications finasteride and terazosin in managing his symptoms of Benign Prostatic Hyperplasia (BPH). The benefits of maintaining this regimen were outlined, noting stable recent blood work and improved urinary function. We emphasized the importance of conducting regular blood work, ideally one to two weeks before follow-up consultations, to monitor the patient's condition extensively. I advised the patient to contact our office if there were any changes or worsening of symptoms prior to the next scheduled visit. [facility] Medical History Paroxysmal atrial fibrillation SVT (supraventricular tachycardia) Trifascicular block Cardiac pacemaker in situ Cardiomyopathy Right hip pain Eye exam, routine Screening for colon cancer Screening for prostate cancer Lumbar degenerative disc disease Insomnia Constipation by delayed colonic transit Vertigo SVT (supraventricular tachycardia) Trifascicular block Diabetes mellitus HTN (hypertension) Cardiomyopathy Cardiac pacemaker in situ Surgical History History of colonoscopy S/P cardiac catheterization History of pacemaker Status post excision of lipoma History of inguinal hernia repair Family History Mother Cancer Diabetes Hypertension Father Stroke Sister Cancer Maternal Uncle Myocardial infarction Paternal Aunt No problems noted. Paternal Uncle Hypertension CVD (cardiovascular disease) Brother Mental health disorder Social History Housing: House Alcohol intake: former Patient Tobacco Use Status: Never used Tobacco e-Cigarette/Vaping Use: Never Used Second Hand Smoke Exposure: No service: No Current occupational status: disabled Cognitive needs: No Hearing needs: No Vision needs: Yes (glasses) Review of Systems Const Reports as per HPI Eyes Reports no additional complaints ENT Reports no additional complaints Card Reports as per HPI Resp Reports no additional complaints GI Reports as per HPI Reports as per HPI Musc Reports as per HPI Neuro Reports no additional complaints Psych Reports no additional complaints Endo Reports as per HPI Allen/Lymph Reports no additional complaints Aller/Immun Reports no additional complaints Physical Exam Const General: cooperative, healthy appearing, comfortable, no acute distress, well developed, alert and awake Orientation/consciousness: patient oriented x3 Limitations: language barrier HEENT Head: Yes normal to inspection, Yes normocephalic and Yes atraumatic Eyes General: appearance normal, both eyes and all related structures Neck Neck: Yes normal visual inspection and Yes trachea midline Chest Chest palpation & inspection: normal inspection of the chest Cardio Rate: regular rate General: Yes no CVA tenderness Back/Spine/Pelvis Back: no CVA tenderness Cervical Spine: normal cervical lordosis Skin General skin exam: no rashes or lesions noted Neuro General: patient oriented x3 Extrem General: Yes normal to inspection Psych Appearance: grossly normal and well kempt Mental Status: mental status grossly normal Speech and movement: Normal speech and movement present and Clear speech present Affect: normal affect Attitude: cooperative Thought process: Normal thought process present Thought content: Normal thought content present Insight: Fair insight present (Psych) Judgement: Fair judgement present (Psych) Assessment & Plan Assessment & Plan (1) PSA elevation: Code(s): R97.20 - Elevated prostate specific antigen [PSA] Category: Medical (2) Nocturia: Code(s): R35.1 - Nocturia Category: Medical (3) BPH (benign prostatic hyperplasia): Code(s): N40.0 - Benign prostatic hyperplasia without lower urinary tract symptoms Category: Medical (4) Enlarged prostate: Code(s): N40.0 - Benign prostatic hyperplasia without lower urinary tract symptoms Category: Medical (5) Renal cyst: Code(s): N28.1 - Cyst of kidney, acquired Category: Medical Plan In office urinalysis results reviewed with the patient today; as noted above. PVR 0 mL Recent PSA results reviewed with the patient today; as noted above. He currently denies any bothersome urinary issues or concerns. Reports be happy with current voiding parameters. Continue finasteride and terazosin as discussed and prescribed. Follow-up in 6 months with PSA and PVR; or sooner with any issues, concerns, and or questions Orders: Orders Prostate Specific Antigen 6 Months N40.0 - Benign prostatic hyperplasia without lower urinary tract symptoms, R35.1 - Nocturia, R97.20 - Elevated prostate specific antigen [PSA] Medications: Refilled terazosin 5 mg PO BEDTIME 90 days 90 caps 4RF N40.1 - Benign prostatic hyperplasia with lower urinary tract symptoms, R35.0 - Frequency of micturition finasteride 5 mg PO DAILY 90 days 90 tabs 3RF N32.0 - Bladder-neck obstruction Patient Instructions: The patient had an opportunity to ask questions regarding the treatment plan. All questions were answered. Physical exam, labs, and imaging were discussed and reviewed in detail. As well as risks, benefits, and discussion of treatment choices. No major barriers to understanding were identified. The patient expressed understanding and agreement with the above treatment plan. The patient was made aware they should contact our office by phone for worsening of their current condition, the appearance of new symptoms, or with any questions or concerns. Compliance is encouraged with any medications and follow up testing that is ordered. It is a privilege to be allowed the opportunity to participate in? your urological care.? Again, if you have any questions or concerns If you have any questions or concerns please do not hesitate to contact me. The office is [phone]. This note is constructed using voice recognition software. While every effort has been made to ensure accuracy certified technician specialist errors may have been included. Yours sincerely, ALEXIS Stanton Coding Level of Care Code Est Pt Level 3 (68261) Complex EM visit Add On G2211 Diagnoses PSA elevation R97.20 Nocturia R35.1 BPH (benign prostatic hyperplasia) N40.0 Enlarged prostate N40.0 Renal cyst N28.1
--- OUTSIDE RECORDS SUMMARY | 2024-11-29 09:06 | XMS_ITS | Clinical Summary ---
Author Organization [employer] Address [address] [facility] 7[address] [place] [address] Care Team Providers Care Workday Manager Name Role Phone Unavailable Primary Care Provider [...] Date Diagnosed Date Colon cancer screening 11/21/2024 USP (current) use of oral hypoglycemic ashley gs 11/21/2024 Long-term use of aspirin therapy 11/21/2024 Hyperaldosteronism 08/26/2023 Hypokalemia 06/04/2014 Essential hypertension 05/31/2014 Stage 3 chronic kidney disease 05/31/2014 Gynecomastia 10/21/2010 Encounters Date Type Department Care Team Description 11/21/2024 9:30 AM EDT Office Visit [facility] [address] [place] [address] Aury Castillo 10/31/2024 9:00 AM EST Office Visit [facility] [address] [place] [address] Aury Castillo from Last 3 Months Social [...] Description 12/01/2024 9:00 AM EDT Office Visit [facility] [address] [place] [address] Aury Castillo [address] [place] [address] Health Maintenance Due Date Last Done Comments [...] Most Recently Relevant to Health Maintenance Insurance [facility] MEDICAID STAND ADULT
--- OUTSIDE RECORDS SUMMARY | 2024-11-29 09:06 | XMS_ITS | Clinical Summary ---
Author Organization [facility] Address [address] [facility] [address] [place] [address] Phone Care Team Providers Care Block Trimmer Name Role Phone Ana Morris MD Primary Care Provider [phone] Allergies Active Allergy Reactions Criticality Noted Date [...] Visit [facility] [address] [place], [place] [address] Tato Rocha MD Hypertension (Primary Dx) from [...] Visit [facility] [address] [place] [address] Tato Rocha MD [address] [facility] [address] [place] [phone] Health Maintenance Due Date Last Done Comments [...] [place] Care Teams Block Trimmer Relationship Specialty Start Date End Date Ana Morris MD [address] [place], [place] PCP - General 09/16/20
--- OUTSIDE RECORDS SUMMARY | 2024-11-29 09:06 | XMS_ITS | Encounter Summary ---
Author Organization [employer] Address [address] [facility] 7[address] [place] [address] Care Team Providers Care Clinical Account Liaison Name Role Phone Unavailable Primary Care Provider Unavailabl e Reason for Visit * Reason Comments Extraction Encounter Details Date Type Department Care Team ([facility] Contact Info) Description 10/31/2024 9:00 AM EST Office Visit [facility] ADULT [facility] [address] [place] [address] Aury Castillo [address] [place] [address] Social History Tobacco Use Types Packs/Day Years [...] Date: 10/31/24 (21), Timeout Time: 08 Location: [facility] Tooth: #21 Procedure: Extraction Verified the above with patient, maintenance assistant, and provider. Confirmed via patient's chart, intraorally and by radiographs. Nursing Education Consultant: Yes. Language: Korean. Nursing Education Consultant's Name: Jessica (pt partially understands Tanzanian) Chief Complaint Patient presents with Extraction Medical Hx: Vitals: Blood pressure (!) 140/80. Past Medical History: Diagnosis Date Asthma Diabetes mellitus ([facility]) Hypertension Pacemaker Preventive medication therapy needed Medications: [...] and dismissed in stable condition. NV: restorative Lens Shaper Grinder: Jessica Nino Dentist: Dr. Aury Castillo, DMD documented in this encounter Plan of Treatment Upcoming Encounters Date Type Department Care Team (Late st Contact Info) Description 12/01/2024 9:00 AM EDT Office Visit [facility] [address] [place] [address] Aury Castillo [address] [place] [address] documented as of this encounter Procedures Procedure Name Priority Date/Time Associated Diagnosis Comments 21 EXTRACTION, ERUPTED TOOTH OR EXPOSED ROOT (ELEVATION/FORCEPS REMOVAL) Routine 10/31/2024 9:00 AM EST CASE PRESENTATION, DETAILED AND EXTENSIVE TREATMENT PLANNING Routine 10/31/2024 9:00 AM EST documented in this encounter Visit Diagnoses Not on filedocumented in this encounter
--- OUTSIDE RECORDS SUMMARY | 2024-11-29 09:06 | XMS_ITS | Encounter Summary ---
Author Organization [facility] Address [address] [place] [phone] Phone Care Team Providers Care Travel Accommodation Inspector Name Role Phone Ana Morris MD Primary Care Provider Reason for Visit * Reason Comments Hypertension Encounter Details Date Type Department Care Team ([facility] st Contact Info) Description 11/16/2024 2:30 PM EDT [facility] Visit [facility] [address] [phone] Tato Rocha MD [address] [address] Hypertension (Primary Dx) Social History [...] DOLOR zolpidem (AMBIEN) 10 MG tablet TOME SOANL TABLETA TODOS LOS D AL ACOSTARSE CUANDO [...] Visit [facility] [address] [place] [address] Tato Rocha MD [address] [facility] [address] [place] [address] Scheduled Orders Name Type Priority Associated [...] Primary documented in this encounter Care Teams Travel Accommodation Inspector Relationship Specialty Start Date End Date Ana Morris MD [address] [place] [address] PCP - General 09/16/20 documented as of this encounter
--- OUTSIDE RECORDS SUMMARY | 2024-11-29 09:06 | XMS_ITS | Encounter Summary ---
Author Organization [employer] Address [address] [facility] 7t [place] [address] Care Team Providers Care Body Maker Name Role Phone Unavailable Primary Care Provider Unavailabl e Reason for Visit * Reason Comments Filling #4, #28, #29 Encounter Details Date Type Department Care Team ([facility] st Contact Info) Description 11/21/2024 9:30 AM EDT Office Visit [facility] [address] [place] [address] Aury Castillo [address] [place] [address] Social History Tobacco Use Types Packs/Day Years [...] y.o. male. Time Out: Timeout Date: 11/21/24 (religious #4, #28, #29), Timeout Time: 939 Location: [facility] Tooth: #4, #28, and #29 Procedure: Islam Verified the above with patient, res habilitation assistant, and provider. Confirmed via patient's chart, intraorally and by radiographs. Wax Pattern Coater: Yes. Language: Albanian. Wax Pattern Coater's Name: Olivia (pt can understand little Trinidadian) Chief Complaint Patient presents with Filling #4, [...] 28 BB(V) (Completed) Service provider: Aury Castillo Billpaul provider: Aury Castillo [id number] - CASE PRESENTATION, [...] Etch Desensitizer: Gluma Liner/Base: None Yan: I-Yan Islam Material: Voco [employer] Packable Shade: A3 -00 [...] comfortable; dismissed in good condition. NV: Restorative Coordinate Measuring Machine Programmer: Esperanza Shen Dentist: Dr. Aury Castillo, DMD documented in this encounter Plan of Treatment Upcoming Encounters Date Type Department Care Team (Late st Contact Info) Description 12/01/2024 9:00 AM EDT Office Visit [facility] [address] [place] [address] Aury Castillo [address] [place] [address] Scheduled Orders Name Type Priority Associated Diagnoses [...]
--- OUTSIDE RECORDS SUMMARY | 2024-11-29 09:07 | XMS_ITS | Patient Health Record ---
Author Organization [facility] Address [address] [place] [address] Care Team Providers Care Overnight Houseperson Name Role Phone Ana Morris Primary Care Provider Unavailab Prudencio Amaro Jr Unavailable [phone] Allergies Allergen (clinical drug ingredient) Drug/Non Drug [...] Problem Status W/U Status Risk Notes Problem [id number] Colon cancer screening (Z12.11) Active confirmed Problem 966905437 Long-term use of aspirin therapy (Z79.82) Active confirmed Problem [id number] exterminator (current) use of oral hypoglycemic drugs (Z79.84) Active confirmed Plan Of Treatment Future Test Test Name Order Date COLONOSCOPY 02/04/2022 COLONOSCOPY 08/26/2022 Insurance Providers Payer Name Payer Address Payer Phone Subscriber Number Group Number Insured Name Patient Relationship to Insured Coverage Start Date Coverage End Date MEDICARE OF [place] [address] [place] [id number] [phone] [id number] BRANDIE ROMAN Self - patient is the insured MEDICAID OF [facility] [address] [place] [phone] [id number] BRANDIE ROMAN Self - patient is the insured Medical (General) History Medical History History ICD Code cellulitis left lower leg insomnia diabetes SVT vertigo trifascicular block cardiac pacemaker in situ right hip pain hypertension cardiomyopathy constipation asthma Surgical History Surgery Date(Month/Year) pacemaker 2015
== END 2024-11-29 09:06 | disposition home or self-care (01) ==
LOC: HO.HUSH 08:39
PROVIDERS: PCP Internal Medicine; Visit Provider Nurse Practitioner Family
DX: R97.20 Elevated prostate specific antigen [PSA] (principal); R35.1 Nocturia; N40.0 Benign prostatic hyperplasia without lower urinary tract symptoms; N28.1 Cyst of kidney, acquired; Z13.9 Encounter for screening, unspecified
CPT/HCPCS: 99213; G2211

== ENCOUNTER → 2024-11-29 08:39 | Outpatient (BNVA) | payer MEDICARE, MEDICAID, SELFPAY | PROVIDERS: PCP Internal Medicine; Visit Provider Nurse Practitioner Family | DX: N40.1 Benign prostatic hyperplasia with lower urinary tract symptoms (principal); R35.1 Nocturia; R97.20 Elevated prostate specific antigen [PSA]; N28.1 Cyst of kidney, acquired | CPT/HCPCS: 51798; 81003; 99212 ==

== ENCOUNTER → 2025-03-14 07:49 | Outpatient (REF) | payer MEDICARE, MEDICAID, SELFPAY ==
--- OUTSIDE RECORDS SUMMARY | 2025-03-14 07:52 | XMS_ITS | Patient Health Record ---
Author Organization [facility] Address [address] [place] [address] Care Team Providers Care Child Guidance Counselor Name Role Phone Ana Morris Primary Care Provider Unavailab Prudencio Amaro Jr Unavailable [phone] Allergies Allergen (clinical drug ingredient) Drug/Non Drug [...] Problem Status W/U Status Risk Notes Problem 570557601 Colon cancer screening (Z12.11) Active confirmed Problem 811430713 Long-term use of aspirin therapy (Z79.82) Active confirmed Problem [id number] director long term care (current) use of oral hypoglycemic drugs (Z79.84) Active confirmed Plan Of Treatment Future Test Test Name Order Date COLONOSCOPY 02/04/2022 COLONOSCOPY 08/26/2022 Insurance Providers Payer Name Payer Address Payer Phone Subscriber Number Group Number Insured Name Patient Relationship to Insured Coverage Start Date Coverage End Date MEDICARE OF [place] [address] [place] [id number] [phone] [id number] BRANDIE ROMAN Self - patient is the insured MEDICAID OF [facility] [address] [place] [phone] [id number] BRANDIE ROMAN Self - patient is the insured Medical (General) History Medical History History ICD Code cellulitis left lower leg insomnia diabetes SVT vertigo trifascicular block cardiac pacemaker in situ right hip pain hypertension cardiomyopathy constipation asthma Surgical History Surgery Date(Month/Year) pacemaker 2015
--- OUTSIDE RECORDS SUMMARY | 2025-03-14 07:52 | XMS_ITS | Clinical Summary ---
Author Organization [employer] Address [address] [facility] 7t [place] [address] Care Team Providers Care Telemarketer Name Role Phone Unavailable Primary Care Provider [...] procedure. 4 capsule 4 Active Active Problems Problem Noted Date Diagnosed Date Colon cancer screening 11/21/2024 [facility] (current) use of oral hypoglycemic ashley gs 11/21/2024 Long-term use of aspirin therapy 11/21/2024 Hyperaldosteronism 08/26/2023 Hypokalemia 06/04/2014 Essential hypertension 05/31/2014 Stage 3 chronic kidney disease 05/31/2014 Gynecomastia 10/21/2010 Social History Tobacco Use Types Packs/Day Years [...] of 2 - PCV) 07/19/2019 07/19/2018, 04/19/2012 COVID-19 Vaccine ( season) 2024 05/29/2024, 09/11/2022, 08/14/2021, Additional history exists Dental X-Ray: Bitewings 12/29/2024 12/29/19 24, 12/01/2023, 08/25/2022 Dental Oral Exam 01/11/2025 07/13/2024, , 08/25/2022 Dental Prophylaxis 01/11/2025 07/13/2024, 0 12/01/2023, 08/25/2022 Influenza Vaccine (#1) 2025 , 07/01/2023, 08/06/2022, Additional history exists Dental X-Ray: Full Mouth 08/26/2025 08/25/2022 Tobacco Screening 11/21/2025 11/21/2024 DTaP/Tdap/Td Vaccines (2 - Td or Tdap) 10/03/2030 10/03/2020 Zoster Vaccines Completed 04/12/2024, 12/28/2023 RSV Patients and Patients Aged 60 years or older Completed 10/21/2024 HIB Vaccines Aged Out No longer eligi [...] patient's age to complete this topic Meningococcal B Vaccine Aged Out No l onger eligible based on patient's age to complete [...] Procedure Name Priority Date/Time Associated Diagnosis Comments PROPHYLAXIS - ADULT Routine 07/13/2024 1 0:00 AM EST PERIODIC ORAL EVALUATION - ESTABLISHED PATIENT Routine 07/13/2024 10:00 AM EST BITEWING - SINGLE RADIOGRAPHIC IMAGE Routine 12/29/2023 8:00 AM EDT INTRAORAL - COMPLETE SERIES OF RADIOGRAPHIC IMAGES Routine 08/25/2022 9:00 AM EST Encounter for dental examination from Last 3 Months or Most Recently Relevant to Health Maintenance [facility]
--- OUTSIDE RECORDS SUMMARY | 2025-03-14 07:52 | XMS_ITS | Clinical Summary ---
Author Organization [facility] Address 100 [facility] [address] [place] [address] Phone Care Team Providers Care Radiology Interventional Physician Name Role Phone Ana Morris MD Primary Care Provider [phone] Allergies Active Allergy Reactions Criticality Noted Date [...] HORAS CUANDO SEA NECESARIO PARA EL DOLOR 12/15/202 2 Active zolpidem (AMBIEN) 10 MG tablet TOME SONAL TABLETA TODOS LOS D AL ACOSTARSE CUANDO SEA NECESARIO FOR INSOMNIA 2 Active amLODIPine (NORVASC) 10 MG tablet Take 1 tablet (10 mg total) by mouth 1 (one) time each day 90 tablet 3 3 Active doxazosin (Cardura) 4 MG tablet Take 1 tablet (4 mg total) by mouth every night 30 tablet 11 4 Active lisinopril 20 MG tablet Take 2 tablets (40 mg total) by mouth 1 (one) time each day 60 tablet 2 4 07/25/20 25 Active Active Problems Problem Noted Date Diagnosed Date Gynecomastia 08/26/2023 Hyperaldosteronism 08/26/2023 Hypokalemia 06/04/2014 08/26/2023 Stage 3 chronic kidney disease 05/31/2014 1 10/27/2022 Essential hypertension 05/31/2014 3 Encounters Date Type Department Care Team Description 02/22/2025 1:15 PM EDT [facility] Visit [facility] [address] [place] [address] Tato Rocha MD Hypertension (Primary Dx) 02/22/2025 Office Communication [facility] [address] [place] [phone] Tato Rocha MD from Last 3 Months Family History Medical [...] Sign Reading Time Taken Comments Blood Pressure 132/80 02/22/2025 12:56 PM EDT Pulse 76 02/22/2025 12:56 PM EDT Temperature - - Respiratory Rate - - Oxygen Saturation 97% 02/22/2025 12:56 PM EDT Inhaled Oxygen Concentration - - Weight 88.9 kg (196 lb) 02/22/2025 12:56 PM EDT Height 170.2 cm (5' 7 ) 03/16/2024 1:00 PM EDT Body Mass Index 30.7 03/16/2024 1:00 PM EDT Plan of Treatment Upcoming Encounters Date Type Department Care Team (Late st Contact Info) Description 05/24/2025 1:15 PM EDT [facility] [address] [place] [address] Tato Rocha MD [address] [facility] 204 [place] [phone] Health Maintenance Due Date Last Done Comments Pneumococcal Vaccine: 50+ Ye ars (1 of 2 - PCV) 1969 Influenza Vaccine (#1) 2025 Hepatitis B Vaccine Aged Out No longe r eligible based on patient's age to complete this topic Insurance Medicare Medicaid [place] Medicare Medicaid [place] Care Teams Radiology Interventional Physician Relationship Specialty Start Date End Date Ana Morris MD [address] [place], [place] PCP - General 09/16/20
--- NOTE | 2025-03-14 08:05 | CA_ITS ---
Transthoracic Echocardiogram Patient (Last, First, Middle): Ganesh Perales, Gender: Male Date of : 1950 Age: 74 Procedure Date: 03/14/2025 Procedure Type: Transthoracic Echocardiogram Location: OP Height: 170.18 cm Weight: 86.18 kg BSA: 1.98 m2 Heart Rate: 64 bpm BP: 140 / 78 mmHg Holistic Nutritionist: CAREY Referring MD: Juan C Cardenas MD Carbon Furnace Operator: Juan C Cardenas MD Symptoms: I42.9 - Cardiomyopathy, unspecified Study Quality: Adequate ECG Rhythm: Paced Conclusions: - 1. Mildly reduced LV ejection fraction 45-50% with impaired relaxation filling pattern 2. Normal cardiac valvular Dopplers 3. Normal RV systolic pressure 4. No gross pericardial effusion Findings Left Ventricle Normal left ventricular cavity size. There is normal left ventricular wall thickness. The left ventricular systolic function is mildly decreased. The visually estimated ejection fraction is between 45-50%. Spectral Doppler is indicative of an impaired relaxation filling pattern. E/E prime ratio is between 8 and 15 consistent with indeterminate filling pressures. Right Ventricle Normal right ventricular cavity size and systolic function. There is a pacemaker wire seen in the right ventricle. Atria The left atrium is mildly dilated. There is no evidence of interatrial shunt. The right atrium is normal in size. A pacemaker wire is identified in the right atrium. Aortic Valve There is mild calcification of the aortic valve. There is no aortic valve stenosis. There is no aortic valve regurgitation. Mitral Valve There is mild anterior and posterior mitral leaflet thickening. There is mild mitral annular calcification. There is trace mitral valve regurgitation. There is no mitral valve stenosis. Pulmonic Valve The pulmonic valve was not well visualized. Tricuspid Valve Likely normal tricuspid valve structure and function. There is trace tricuspid valve regurgitation. The right ventricular systolic pressure is 24 mmHg. Normal right atrial pressure. There is no evidence of pulmonary hypertension. Great Vessels The pulmonary artery was not well visualized. There is no dilatation of the ascending aorta measuring 3.50 cm. Small plaque is seen in the sino tubular ridge. Venous The inferior vena cava is normal in size and collapses greater than 50% with inspiration. Pericardium/Pleural There is no evidence of pericardial effusion. Prior Study Comparison No significant change compared to prior study dated: 03/15/2024. Measurements 2D Linear Measurements IVSd: 1.15 0.6-0.9/0.6-1.0 cm LVIDd: 5.30 3.9-5.3/4.2-5.9 cm LVIDd Index: 2.68 2.4-3.2/2.2-3.1 cm/m2 LVIDs: 4.03 2.0-3.6 cm LVPWd: 0.86 0.7-1.1 cm LA Diam: 3.30 2.7-3.8/3.0-4.0 cm LAIDs Index: 1.67 1.5-2.3 cm/m2 LV Mass: 251.08 67-162/88-224 g LV Mass Index: 126.81 43-95/49-115 g/m2 LVOT Diam: 2.40 3.0+(-)1.3 cm Mitral Valve MV Pk E: 0.65 MV PK A: 1.19 MV Decel Time: 335.00 E/A: 0.50 E'Lateral: 4.57 E'Medial: 4.24 E/E' Med: 15.40 E/E' Lat: 14.20 PHT: 98.00 MVA PHT: 2.24 Decel Saline: 1.95 Aortic Valve AoV Pk Basil: 1.22 AoV Pk Grad: 6.00 BETTE: 3.00 LVOT LVOT Pk Basil: 0.83 LVOT Mn Basil: 0.52 LVOT VTI: 0.15 LVOT Pk Grad: 3.00 LVOT Mn Grad: 1.00 LVOT Diam: 2.40 LVOT Area: 4.52 Diastolic Function MV Pk E: 0.65 MV Pk A: 1.19 E/A: 0.50 E'Medial: 4.24 E/E' Med: 15.40 E' Laterial: 4.57 E/E' Lat: 14.20 Right Ventricle TAPSE (mm): 24.40 TVS' Basil: 12.70 Tricuspid Valve TR Pk Basil: 2.31 TR Pk Grad: 21.00 RA Press: 3.00 RVSP: 24.00 Great Vessels Aorta Sinus of Valsalva: 3.50 2.0-3.5 cm Ao Asc: 3.50 2.1-3.4 cm Pulmonary Valve PV Pk Basil: 0.97 Peak PV Grad: 4.00 Updated in Other Vendor System with Status of Final Juan C Cardenas MD electronically signed on 03/14/2025 3:48:51 PM with status of Final
== END ==
LOC: HO.CARD 07:49
PROVIDERS: Visit Provider Internal Medicine Cardiovascular Disease
DX: I42.9 Cardiomyopathy, unspecified (principal)
CPT/HCPCS: 93306

== ENCOUNTER → 2025-03-14 08:05 | Outpatient (BNV) | payer MEDICARE, MEDICAID, SELFPAY | PROVIDERS: Visit Provider Internal Medicine Cardiovascular Disease | DX: I42.9 Cardiomyopathy, unspecified (principal) | CPT/HCPCS: 93306 ==

== ENCOUNTER 2025-03-27 08:41 | Outpatient (AMB) | payer MEDICARE, MEDICAID, SELFPAY ==
--- OUTSIDE RECORDS SUMMARY | 2025-03-27 09:00 | XMS_ITS | Patient Health Record ---
Author Organization [facility] Address [address] [place] [address] Care Team Providers Care Proteomics Scientist Name Role Phone Ana Morris Primary Care [...] Problem Status W/U Status Risk Notes Problem [id number] Colon cancer screening (Z12.11) Active confirmed Problem [id number] Long-term use of aspirin therapy (Z79.82) Active confirmed Problem [id number] [facility] (current) use of oral hypoglycemic drugs (Z79.84) Active confirmed Plan Of Treatment Future Test Test Name Order Date COLONOSCOPY 02/04/2022 COLONOSCOPY 08/26/2022 Insurance Providers Payer Name Payer Address Payer Phone Subscriber Number Group Number Insured Name Patient Relationship to Insured Coverage Start Date Coverage End Date MEDICARE OF [place] [address] [id number] [phone] [id number] BRANDIE ROMAN Self - patient is the insured [facility] [address] [place] [phone] [id number] BRANDIE ROMAN Self - patient is the insured Medical (General) History Medical History History ICD Code cellulitis left lower leg insomnia diabetes SVT vertigo trifascicular block cardiac pacemaker in situ right hip pain hypertension cardiomyopathy constipation asthma Surgical History Surgery Date(Month/Year) pacemaker 2015
--- OUTSIDE RECORDS SUMMARY | 2025-03-27 09:00 | XMS_ITS | Clinical Summary ---
Author Organization [facility] Address [address] [facility] 7[address] [place] [address] Care Team Providers Care Performance Manager Name Role Phone Unavailable Primary Care [...] Date Diagnosed Date Colon cancer screening 11/21/2024 manager terminal (current) use of oral hypoglycemic ashley gs [...] Most Recently Relevant to Health Maintenance [facility]
--- OUTSIDE RECORDS SUMMARY | 2025-03-27 09:00 | XMS_ITS | Clinical Summary ---
Author Organization [facility] Address 100 [facility] [address] [place] [address] Phone Care Team Providers Care Coat Hanger Shaper Machine Operator Name Role Phone Ana Morris MD Primary Care Provider [phone] Allergies Active Allergy Reactions Criticality Noted Date [...] Office Visit [facility] [address] [place] [address] Tato Rocha MD Hypertension (Primary Dx) 02/22/2025 Office Communication [facility] [address] [place] [phone] Tato Rocha MD from Last 3 Months [...] Visit [facility] [address] [place] [address] Tato Rocha MD [address] [facility] 204 [place] [phone] Health Maintenance Due Date Last Done Comments Pneumococcal Vaccine: 50+ Ye ars (1 of 2 - PCV) 1969 Influenza Vaccine (#1) 2025 Hepatitis B Vaccine Aged Out No longe r eligible based on patient's age to complete this topic Insurance Medicare Medicaid [place] Medicare Medicaid [place] Care Teams Coat Hanger Shaper Machine Operator Relationship Specialty Start Date End Date Ana Morris MD [address] [place], [place] PCP - General 09/16/20
--- NOTE | 2025-03-27 09:22 | MHC.OFFVIS ---
Vital Signs 03/27/25 09:23 Height 5 ft 7 in Weight 191 lb 12.835 oz BMI 30.0 BP 140/82 H Blood Pressure Location Lt brachial Position Sitting Pulse 62 Intake Visit Reasons: 6 month f/u Intake Note: 6 month follow-up feeling good Division Service Manager Required: Yes Division Service Manager Services: Division Service Manager Present Division Service Manager Name: voyce Allergies metoprolol (METOPROLOL) Allergy (Intermediate, Verified 11/29/24 08:52) Rash seafood Allergy (Intermediate, Verified 11/29/24 08:52) Swelling spironolactone (Spironolactone) Allergy (Intermediate, Verified 11/29/24 08:52) Gynecomastia,Swelling fentanyl Adverse Reaction (Intermediate, Verified 11/29/24 08:52) sleepiness Medication List - Last Reconciled 03/27/25 by Juan C Cardenas MD acetaminophen (Tylenol Extra Strength) 500 mg PO Q6H PRN albuterol sulfate 90 mcg/actuation 1 inh PO Q4H PRN amlodipine 10 mg PO DAILY 90 days carvedilol 25 mg PO BID cromolyn 4% 1 drp ophthalmic (eye) QID 5 days dronedarone (Multaq) 400 mg PO BID eplerenone 50 mg PO DAILY 90 days ferrous sulfate 325 mg PO finasteride 5 mg PO DAILY 90 days fluticasone propionate 50 mcg/actuation 1 spray intranasal DAILY hydralazine 50 mg PO TID 30 days hydrocortisone 1% (Anti-Itch (hydrocortisone)) 1 appl topical BID PRN 30 days lisinopril 20 mg PO BID 90 days lorazepam 0.5 mg PO BID PRN 30 days meclizine 25 mg PO DAILY PRN 90 days metformin 500 mg PO BID 90 days nebulizers Nebulizer Machine with Tubing and Accessories omeprazole 40 mg PO DAILY potassium chloride ER 40 mEq (2 x 20 mEq) PO DAILY 90 days rivaroxaban (Xarelto) 20 mg PO DAILY rosuvastatin 10 mg PO DAILY 90 days sennosides (senna) 17.2 mg (2 x 8.6 mg) PO BEDTIME PRN terazosin 5 mg PO BEDTIME 90 days tramadol 50 mg PO BID PRN 30 days zolpidem 10 mg PO BEDTIME PRN 30 days HPI Comments Details: Ganesh comes for follow-up. History was obtained with help of community outreach specialist. Patient says he has been feeling well. He has no symptoms from cardiac perspective. No prolonged palpitation irregular heartbeat. No lightheadedness, syncope. Denies any shortness of breath, orthopnea, PND, leg edema. No bleeding issues or neurologic events. Takes all his medications. Exercise on regular basis. [facility] Medical History Paroxysmal atrial fibrillation SVT (supraventricular tachycardia) Trifascicular block Cardiac pacemaker in situ Cardiomyopathy Right hip pain Eye exam, routine Screening for colon cancer Screening for prostate cancer Lumbar degenerative disc disease Insomnia Constipation by delayed colonic transit Vertigo SVT (supraventricular tachycardia) Trifascicular block Diabetes mellitus HTN (hypertension) Cardiomyopathy Cardiac pacemaker in situ Surgical History History of colonoscopy S/P cardiac catheterization History of pacemaker Status post excision of lipoma History of inguinal hernia repair Family History Mother Cancer Diabetes Hypertension Father Stroke Sister Cancer Maternal Uncle Myocardial infarction Paternal Aunt No problems noted. Paternal Uncle Hypertension CVD (cardiovascular disease) Brother Mental health disorder Social History Housing: House Alcohol intake: former Patient Tobacco Use Status: Never used Tobacco e-Cigarette/Vaping Use: Never Used Second Hand Smoke Exposure: No service: No Current occupational status: disabled Cognitive needs: No Hearing needs: No Vision needs: Yes (glasses) Review of Systems Const Denies chills, Denies fatigue, Denies fever(s), Denies frequent falls, Denies weakness, Denies weight gain and Denies weight loss ENT Denies dizziness Card Denies chest pain, Denies leg edema, Denies lightheadedness, Denies palpitations, Denies dyspnea, Denies dyspnea on exertion, Denies orthopnea and Denies other (loss of consciousness) Resp Denies cough, Denies dyspnea and Denies dyspnea on exertion GI Denies hematochezia and Denies change in stool character Musc Denies abnormal gait, Denies muscle weakness, Denies numbness, Denies radiating pain into limb and Denies tingling Neuro Denies abnormal gait, Denies dizziness, Denies frequent falls, Denies numbness, Denies tingling and Denies weakness Endo Denies fatigue and Denies palpitations Physical Exam Vital Signs: Last Vital Signs Pulse 62 03/27/25 09:23 BP 140/82 H 03/27/25 09:23 BMI result Body Mass Index 30.0 Const General: cooperative, comfortable, no acute distress, alert and awake Nutritional Appearance: overweight Orientation/consciousness: patient oriented x3 Limitations: no limitations Neck Neck: Yes trachea midline, Yes supple and Yes no JVD Resp Effort & Inspection: normal respiratory effort Auscultation: clear to auscultation bilaterally Cardio Jugular venous distension: no JVD Palpation: normal PMI Rate: regular rate Rhythm: regular rhythm Heart sounds: S1 normal heart sound present and S2 normal heart sound present GI Auscultation: normal bowel sounds Skin General skin exam: no rashes or lesions noted Neuro General: patient oriented x3 and no focal motor deficits Extrem General: Yes no clubbing, cyanosis or edema Psych Appearance: grossly normal Office Procedures Cardiac Device Check Cardiac Device Check Details: Dual-chamber [place] Neeraj pacemaker in place. Programmed in DDDR at 60 beats per minute. Atrial ventricular sensing is excellent. Atrial pacing thresholds adequate and in auto capture mode. Ventricular pacing thresholds are slightly elevated and reprogrammed to provide adequate safety. Atrial ventricular lead impedance is stable. Battery life is at 2-2 and half years. Few episodes of high ventricular rate consistent with SVT noted 25235-BD Cardiac Device Check, pacemaker dual lead Procedure code (CPT) selection complete EKG Details: EKG shows normal sinus rhythm with first-degree AV block with right bundle and left anterior fascicular block, unchanged from before [id number], Complete Assessment & Plan Assessment & Plan (1) Cardiomyopathy: Comment: echo October 2018 showing LVEF of 45-50% Code(s): I42.9 - Cardiomyopathy, unspecified Category: Medical Plan: Mild cardiomyopathy process, currently without any symptoms or signs of congestive heart failure. Continue rhythm control approach. Continue current neurohormonal modulation with carvedilol, eplerenone as well as lisinopril therapy. Continue aggressive blood pressure control which on current medications well optimized importance of good blood pressure control was discussed. Signs and symptoms of heart failure were discussed. He understands agrees. Advised to monitor blood pressure at home maintain a log. Goal blood pressure less than 130/84. (2) Paroxysmal atrial fibrillation: Code(s): I48.0 - Paroxysmal atrial fibrillation Category: Medical Plan: Paroxysmal atrial fibrillation, currently remained suppressed on Multaq therapy. He is doing well with rhythm control approach will continue pursue rhythm control approach. Continue full oral anticoagulation, currently on Xarelto 20 mg daily. Semi annual renal function test is recommended. Avoidance of stimulants was discussed. Continue monitor by pacer telemetry. (3) Cardiac pacemaker in situ: Comment: Saint Neeraj dual-chamber pacemaker implanted for syncope and trifascicular block with EP study consistent with infra Hisian block Code(s): Z95.0 - Presence of cardiac pacemaker Category: Medical Plan: Cardiac pacemaker in-situ for advanced AV block with infra ice in block as well as syncope. Pacemaker is working well. Some ventricular pacing noted but no significant dependent on the pacemaker at this point time. Continue to monitor in the clinic. (4) SVT (supraventricular tachycardia): Code(s): I47.1 - Supraventricular tachycardia Category: Medical Plan: SVT without symptoms with very short lasting episodes. At this point time will continue monitor. Continue carvedilol therapy. Avoidance of stimulants was discussed. Will follow up in the clinic in 6 months time, sooner p.r.n.. Thank you for allowing me to partake in his care Orders: Orders Basic Metabolic Panel Today I48.0 - Paroxysmal atrial fibrillation Coding Level of Care Code Est Pt Level 4 (51465) Complex EM visit Add On G2211 Diagnoses Cardiomyopathy I42.9 Paroxysmal atrial fibrillation I48.0 Cardiac pacemaker in situ Z95.0 SVT (supraventricular tachycardia) I47.1 CPT Codes Cardiac Device Check - Cardiac Device 2: 47478-[id number] Cardiac Device Check, pacemaker dual lead ([id number]) EKG - CPT: 51956-[id number], Complete ([id number])
[2025-03-27 09:23] VITALS: BP 140/82; PULSE 62
== END 2025-03-27 09:44 | disposition home or self-care (01) ==
LOC: HO.HCS 08:42
PROVIDERS: Visit Provider Internal Medicine Cardiovascular Disease
DX: I42.9 Cardiomyopathy, unspecified (principal); I48.0 Paroxysmal atrial fibrillation; Z95.0 Presence of cardiac pacemaker; I47.10 Supraventricular tachycardia, unspecified
CPT/HCPCS: 93010; 93280; 99214; G2211

== ENCOUNTER 2025-03-27 08:41 | Outpatient (REF) | payer MEDICARE, MEDICAID, SELFPAY ==
[2025-03-27 11:06] LABS: Anion Gap 12 (12-20); Blood Urea Nitrogen 13 mg/dL (9-16); Calcium 8.9 mg/dL (8.4-10.2); Carbon Dioxide 26 mmol/L (22-29); Chloride 108 mmol/L (96-108); Estimated Glomerular Filt Rate > 60; Potassium 4.6 mmol/L (3.3-5.1); Sodium 141 mmol/L (135-145)
== END 2025-03-27 08:42 | disposition home or self-care (01) ==
LOC: HO.LAB 08:41
PROVIDERS: PCP Internal Medicine; Visit Provider Internal Medicine Cardiovascular Disease
DX: I42.9 Cardiomyopathy, unspecified (principal); I48.0 Paroxysmal atrial fibrillation; I47.10 Supraventricular tachycardia, unspecified; Z95.0 Presence of cardiac pacemaker; Z79.01 Long term (current) use of anticoagulants; Z79.899 Other long term (current) drug therapy
CPT/HCPCS: 36415; 80048; 93005; 93280; 99212

== ENCOUNTER 2025-04-23 07:19 | Outpatient (REF) | payer MEDICARE, MEDICAID, SELFPAY ==
--- OUTSIDE RECORDS SUMMARY | 2025-04-23 07:23 | XMS_ITS | Clinical Summary ---
Author Organization [facility] Address [address] [facility] [address] [place] [address] Phone Care Team Providers Care Element Setter Name Role Phone Ana Morris MD Primary Care Provider [phone] Allergies Active Allergy Reactions Criticality Noted Date [...] Office Visit [facility] [address] [place] [address] Tato Rocha MD Hypertension (Primary Dx) 02/22/2025 Office Communication [facility] [address] [place] [phone] Tato Rocha MD from Last 3 Months [...] Visit [facility] [address] [place] [address] Tato Rocha MD [address] [facility] [address] [place] [phone] Health Maintenance Due Date Last Done Comments Pneumococcal Vaccine: 50+ Ye ars (1 of 2 - PCV) 1969 Influenza Vaccine (#1) 2025 Hepatitis B Vaccine Aged Out No longe r eligible based on patient's age to complete this topic Insurance Medicare Medicaid [place] Medicare [place] Care Teams Element Setter Relationship Specialty Start Date End Date Ana Morris MD [address] [place], [place] PCP - General 09/16/20
--- OUTSIDE RECORDS SUMMARY | 2025-04-23 07:23 | XMS_ITS | Patient Health Record ---
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) use of oral hypoglycemic drugs (Z79.84) Active confirmed Plan Of Treatment Future Test Test Name Order Date COLONOSCOPY 02/04/2022 COLONOSCOPY 08/26/2022 Insurance Providers Payer Name Payer Address Payer Phone Subscriber Number Group Number Insured Name Patient Relationship to Insured Coverage Start Date Coverage End Date MEDICARE OF [place] [address] [id number] [phone] [id number] BRANDIE ROMAN Self - patient is the insured [facility] [address] [place] [phone] [id number] BRANDIE ROMAN Self - patient is the insured Medical (General) History Medical History History ICD Code cellulitis left lower leg insomnia diabetes SVT vertigo trifascicular block cardiac pacemaker in situ right hip pain hypertension cardiomyopathy constipation asthma Surgical History Surgery Date(Month/Year) pacemaker 2015
[2025-04-23 07:43] LABS: MANUAL DIFF FLAG NO
[2025-04-23 08:02] LABS: Hematocrit 34.8 % (42.0-52.0); Hemoglobin 12.1 g/dl (14.0-18.0); Imm Gran Abs Auto 0.01 X10*3/uL (0.00-0.03); Imm Gran Pct Auto 0.2 % (0.0-0.4); Lymphocytes Absolute Auto 1.1 X10*3/uL (1.2-4.9); Mean Corpuscular HGB Conc 34.8 g/dl (31.0-36.0); Mean Corpuscular Hemoglobin 33.5 pg (27.0-33.0); Mean Corpuscular Volume 96.4 fL (80.0-98.0); NRBC Abs Auto 0.000 X10*3/uL (0.0-0.012); NRBC Pct Auto 0.0 /100WBC (0.0-0.2); Platelet Count 204 X10*3/uL (160-400); Red Blood Count 3.61 X10*6/uL (4.60-5.80); White Blood Count 5.6 X10*3/uL (4.8-10.8)
[2025-04-23 08:59] LABS: Microalbum/Creatinine Ratio Ur 171.4 ug/mg cr (<30)
[2025-04-23 08:59] LABS: Alanine Aminotransferase 24 U/L (0-40); Albumin Level 4.3 g/dL (3.5-5.0); Alkaline Phosphatase 63 U/L (39-117); Anion Gap 13 (12-20); Aspartate Amino Transferase 34 U/L (5-37); Blood Urea Nitrogen 13 mg/dL (9-16); Calcium 8.9 mg/dL (8.4-10.2); Carbon Dioxide 25 mmol/L (22-29); Chloride 107 mmol/L (96-108); Cholesterol 90 mg/dL (<200); Estimated Glomerular Filt Rate > 60; HDL Cholesterol 36 mg/dL (>40); Iron 60 mcg/dL (45-160); Percent Iron Saturation 19 % (15-50); Potassium 4.2 mmol/L (3.3-5.1); Sodium 141 mmol/L (135-145); Total Iron Binding Capacity 320 mcg/dL (228-428); Total Protein 7.3 g/dL (6.5-8.0); Triglycerides 55 mg/dL (<150); Unsaturated Iron Binding 260 ug/dL
[2025-04-23 09:26] LABS: Folate 15.0 ng/mL (> or = 4.0); Vitamin B12 342 pg/mL (200-900)
== END 2025-04-23 07:20 | disposition home or self-care (01) ==
LOC: HO.LAB 07:19
PROVIDERS: PCP Internal Medicine; Visit Provider Internal Medicine
DX: I48.0 Paroxysmal atrial fibrillation (principal); E78.5 Hyperlipidemia, unspecified; E55.9 Vitamin D deficiency, unspecified; E53.8 Deficiency of other specified B group vitamins; R80.9 Proteinuria, unspecified; D64.9 Anemia, unspecified
CPT/HCPCS: 36415; 80053; 80061; 82043; 82306; 82570; 82607; 82746; 83540; 85025

== ENCOUNTER 2025-04-24 10:28 | Outpatient (AMB) | payer MEDICARE, MEDICAID, SELFPAY ==
[2025-04-24 10:38] VITALS: BP 132/68; PULSE 70; O2SAT 96; BMI 29.8
--- NOTE | 2025-04-24 10:38 | MHC.PC.OV ---
Vital Signs 04/24/25 10:38 Height 5 ft 7 in Weight 190 lb BMI 29.8 BP 132/68 Blood Pressure Location Lt brachial Position Sitting Pulse 70 Pulse Source Pulse Oximeter Pulse Oximetry (%) 96 Oxygen Delivery Method Room Air Intake Visit Reasons: dm Document Review Specialist Required: No Accompanied by: Self / Same As Patient Allergies metoprolol (METOPROLOL) Allergy (Intermediate, Verified 04/24/25 10:48) Rash seafood Allergy (Intermediate, Verified 04/24/25 10:48) Swelling spironolactone (Spironolactone) Allergy (Intermediate, Verified 04/24/25 10:48) Gynecomastia,Swelling fentanyl Adverse Reaction (Intermediate, Verified 04/24/25 10:48) sleepiness Medication List - Last Reconciled 04/24/25 by Ana Vargas MD acetaminophen (Tylenol Extra Strength) 500 mg PO Q6H PRN albuterol sulfate 90 mcg/actuation 1 inh PO Q4H PRN amlodipine 10 mg PO DAILY 90 days carvedilol 25 mg PO BID cromolyn 4% 1 drp ophthalmic (eye) QID 5 days dronedarone (Multaq) 400 mg PO BID eplerenone 50 mg PO DAILY 90 days ferrous sulfate 325 mg PO finasteride 5 mg PO DAILY 90 days fluticasone propionate 50 mcg/actuation 1 spray intranasal DAILY hydralazine 50 mg PO TID 30 days hydrocortisone 1% (Anti-Itch (hydrocortisone)) 1 appl topical BID PRN 30 days lisinopril 20 mg PO BID 90 days lorazepam 0.5 mg PO BID PRN 30 days meclizine 25 mg PO DAILY PRN 90 days metformin 500 mg PO BID 90 days nebulizers Nebulizer Machine with Tubing and Accessories omeprazole 40 mg PO DAILY potassium chloride ER 40 mEq (2 x 20 mEq) PO DAILY 90 days rivaroxaban (Xarelto) 20 mg PO DAILY rosuvastatin 10 mg PO DAILY 90 days sennosides (senna) 17.2 mg (2 x 8.6 mg) PO BEDTIME PRN terazosin 5 mg PO BEDTIME 90 days tramadol 50 mg PO BID PRN 30 days zolpidem 10 mg PO BEDTIME PRN 30 days Tobacco use date assessed: 11/21/24 Fall risk assessment: No Falls in past year Last assessed Fall Risk: 04/24/25 Dental Screening Dental Screen Date: 11/21/24 HPI HPI Comments History of Present Illness Details The patient is a 74-year-old male presenting for follow-up of chronic conditions including diabetes, hypertension, atrial fibrillation, and hyperlipidemia. The patient has a history of diabetes mellitus, managed with metformin, and reports no significant changes in symptoms or management. His hypertension is controlled with multiple antihypertensive medications including amlodipine, carvedilol, hydralazine, and lisinopril. Atrial fibrillation is managed with Xarelto and Lamultac, with no recent episodes of palpitations or chest pain reported. The patient denies any significant weight changes, maintaining stable weight over the past month. The patient has a history of anemia, currently managed with iron supplementation, and recent labs show hemoglobin levels have improved to 12.1 g/dL. Vitamin D levels are slightly below normal at 27.6 ng/mL, with normal being 30 ng/mL. The patient reports lumbar degenerative disc disease, which is well controlled with tramadol and other medications. He experiences no significant side effects from his current medication regimen. [facility] Medical History Paroxysmal atrial fibrillation SVT (supraventricular tachycardia) Trifascicular block Cardiac pacemaker in situ Cardiomyopathy Right hip pain Eye exam, routine Screening for colon cancer Screening for prostate cancer Lumbar degenerative disc disease Insomnia Constipation by delayed colonic transit Vertigo SVT (supraventricular tachycardia) Trifascicular block Diabetes mellitus HTN (hypertension) Cardiomyopathy Cardiac pacemaker in situ Surgical History History of colonoscopy S/P cardiac catheterization History of pacemaker Status post excision of lipoma History of inguinal hernia repair Family History Mother Cancer Diabetes Hypertension Father Stroke Sister Cancer Maternal Uncle Myocardial infarction Paternal Aunt No problems noted. Paternal Uncle Hypertension CVD (cardiovascular disease) Brother Mental health disorder Social History Housing: House Alcohol intake: former Patient Tobacco Use Status: Never used Tobacco Tobacco use type: Cigarette e-Cigarette/Vaping Use: Never Used Second Hand Smoke Exposure: No service: No Current occupational status: disabled Cognitive needs: No Hearing needs: No Vision needs: Yes (glasses) Questionnaire PHQ-9 Over the last 2 weeks, how often have you been bothered by any of the following problems? 1. Little interest or pleasure in doing things: not at all 2. Feeling down, depressed, or hopeless: not at all 3. Trouble falling or staying asleep, or sleeping too much: more than half the days 4. Feeling tired or having little energy: not at all 5. Poor appetite or overeating: more than half the days 6. Feeling bad about yourself - or that you are a failure or have let yourself or your family down: not at all 7. Trouble concentrating on things, such as reading the newspaper or watching television: not at all 8. Moving or speaking so slowly that other people could have noticed. Or the opposite - being so fidgety or restless that you have been moving around a lot more than usual: not at all 9. Thoughts that you would be better off or of hurting yourself in some way: not at all Total score: 4 Depression Screening Interpretation: Positive Depression Screening Follow-up: Existing condition and Follow-up Visit Requested Depression Screening Done: Yes 66828 - PHQ-9 Billing: Yes Source: Developed by Drs. Hebert Wright, Alejandra Otero, Randell Cuellar and colleagues, with an educational una from [employer]. Thrive Questionnaire Date Thrive assessed: 11/21/24 I am a: Patient What is your living situation today?: I have a steady place to live Within the past 12 months, did the food you bought not last and you didn't have the money to get more?: Never true Within the past 12 months, did you worry whether your food would run out before you got money to buy more?: Never true Do you have trouble paying for medicines?: No Do you have trouble getting transportation to medical appointments?: No Do you have trouble paying your heating and electricity bill?: No Do you have trouble taking care of your child, family member or friend?: No Do you have trouble with day-to-day activities such as bathing, preparing meals, shopping, managing finances, etc.?: No Are you currently unemployed and looking for a job?: Yes Are you interested in more education?: Yes Please select the resources that you would like help with: None Currently or been in a relationship where the following occur: No concerns reported THRIVE Score: 0 AUDIT C Alcohol Use Questionnaire (AUDIT-C) 1. How often do you have a drink containing alcohol?: Never 3. How often do you have six or more drinks on one occasion?: Never Total Score: 0 Score Reviewed/Action Taken: No BASSEM-7 AMB Questionnaire BASSEM-7 Date BASSEM - 7 assessed: 11/21/24 Feeling nervous, anxious, or on edge: 0 = Not at all Not being able to stop or control worryin = Several days Worrying too much about different things: 1 = Several days Trouble relaxin = Several days Being so restless that it is hard to sit still: 1 = Several days Becoming easily annoyed or irritable: 0 = Not at all Feeling afraid as if something awful might happen: 0 = Not at all Total BASSEM-7 score (0-4 normal; 5-9 mild; 10-14 moderate; 15-21 severe): 4 Source: Developed by Drs. Hebert Wright, Alejandra Otero, Randell Cuellar and colleagues, with an educational una from [employer]. BASSEM-7 Assessment Billing BASSEM-7 Assessment Tool: BASSEM-7 Assessment 14677 Review of Systems Const All systems reviewed & are unremarkable except as noted in HPI and below Card Denies chest pain at rest, Denies chest pain with activity, Denies edema, Denies irregular heart rhythm, Denies claudication, Denies dyspnea, Denies dyspnea on exertion, Denies orthopnea, Denies paroxysmal nocturnal dyspnea and Denies slow heart rate Resp Denies cough, Denies dyspnea and Denies dyspnea on exertion Musc Denies abnormal gait, Denies atrophy, Denies deformity and Denies limited range of motion Skin/Breast Denies bleeding lesions, Denies changing lesions and Denies rash Neuro Denies abnormal gait and Denies lack of coordination Physical exam (Primary Care) Vital Signs: Last Vital Signs Pulse 70 04/24/25 10:38 BP 132/68 04/24/25 10:38 Pulse Ox 96 04/24/25 10:38 Oxygen Delivery Method Room Air 04/24/25 10:38 BMI result Body Mass Index 29.8 Tobacco/Smoking Status: Tobacco use Status Tobacco use date assessed 11/21/24 04/24/25 10:39 Patient Tobacco Use Status Never used Tobacco 04/24/25 10:39 Tobacco use type Cigarette 04/24/25 10:39 e-Cigarette/Vaping Use Never Used 04/24/25 10:39 PHQ-9: PHQ-9 Score PHQ-9: Total score 4 04/24/25 10:39 Depression Screening Interpretation: Positive Depression Screening Follow-up: Existing condition and Follow-up Visit Requested Thrive Assessment: Date of Thrive Assessment Date Thrive assessed 11/21/24 04/24/25 10:39 Currently or been in a relationship where the following occur: No concerns reported Resp Effort & Inspection: normal respiratory effort Auscultation: clear to auscultation bilaterally Cardio Jugular venous distension: no JVD Rate: regular rate Rhythm: regular rhythm Heart sounds: S1 normal heart sound present and S2 normal heart sound present Extrem General: Yes full ROM Results AMB Hemoglobin A1c AMB Hemoglobin A1c 5.6 % Last Edit by Sulma Montana CMA on 04/24/25 10:52 Coding Level of Care Code Est Pt Level 4 (52045) Complex EM visit Add On G2211 Diagnoses Essential hypertension I10 Cardiomyopathy I42.9 Anxiety F41.9 Type 2 diabetes mellitus without complication, without long-term current use of insulin E11.9 Diabetes mellitus type: type 2 Diabetes mellitus terminal worker insulin use: without terminal worker use Diabetes mellitus complication status: without complication Hyperlipidemia LDL goal <70 E78.5 Paroxysmal atrial fibrillation I48.0 Normochromic normocytic anemia D64.9 Lumbar degenerative disc disease M51.36 Additional Codes PHQ-9 - 11326 - PHQ-9 Billing: Yes ([id number]) BASSEM-7 Assessment Billing - BASSEM-7 Assessment Tool: BASSEM-7 Assessment 73239 ([id number]) Time Spent (min) 23 Assessment & Plan Assessment & Plan (1) Essential hypertension: Code(s): I10 - Essential (primary) hypertension Category: Medical (2) Cardiomyopathy: Comment: echo October 2018 showing LVEF of 45-50% Code(s): I42.9 - Cardiomyopathy, unspecified Category: Medical (3) Anxiety: Code(s): F41.9 - Anxiety disorder, unspecified Category: Medical (4) Diabetes mellitus: Code(s): E11.9 - Type 2 diabetes mellitus without complications Category: Medical Qualifiers: Diabetes mellitus type: type 2 Diabetes mellitus terminal worker insulin use: without halfway use Diabetes mellitus complication status: without complication Qualified Code(s): E11.9 - Type 2 diabetes mellitus without complications (5) Hyperlipidemia LDL goal <70: Code(s): E78.5 - Hyperlipidemia, unspecified Category: Medical (6) Paroxysmal atrial fibrillation: Code(s): I48.0 - Paroxysmal atrial fibrillation Category: Medical (7) Normochromic normocytic anemia: Code(s): D64.9 - Anemia, unspecified Category: Medical (8) Lumbar degenerative disc disease: Code(s): M51.36 - Other intervertebral disc degeneration, lumbar region Category: Medical Plan The patient's chronic conditions, including diabetes, hypertension, atrial fibrillation, and hyperlipidemia, are being managed with a comprehensive medication regimen. Regular follow-up and monitoring of blood pressure and blood glucose levels are advised to ensure continued control. For anemia, the patient is advised to continue iron supplementation, with follow-up labs scheduled in four months to monitor hemoglobin levels. Vitamin D supplementation may be considered to address the slight deficiency noted in recent labs. The patient is scheduled for a follow-up study next week to evaluate a potential issue described as a little ball causing pressure sensations. The necessity of surgical intervention will be assessed based on the study results. Patient was informed and verbally consented to the use of an ambient scribe for clinic note documentation during this visit. Orders: Orders AMB Hemoglobin A1c Today Z13.9 - Encounter for screening, unspecified
--- OUTSIDE RECORDS SUMMARY | 2025-04-24 11:51 | XMS_ITS | Patient Health Record ---
Author Organization [facility] Address [address] [place] [address] Care Team Providers Care Certified Hyperbaric Technician Name Role Phone Ana Morris Primary [...] Problem Status W/U Status Risk Notes Problem [id number] Colon cancer screening (Z12.11) Active confirmed Problem 181995894 Long-term use of aspirin therapy (Z79.82) Active confirmed Problem [id number] medical oncology physician (current) use of oral hypoglycemic drugs (Z79.84) Active confirmed Plan Of Treatment Future Test Test Name Order Date COLONOSCOPY 02/04/2022 COLONOSCOPY 08/26/2022 Insurance Providers Payer Name Payer Address Payer Phone Subscriber Number Group Number Insured Name Patient Relationship to Insured Coverage Start Date Coverage End Date MEDICARE OF [place] [address] [place] [id number] [phone] [id number] BRANDIE ROMAN Self - patient is the insured MEDICAID [facility] [address] [place] [phone] [id number] BRANDIE ROMAN Self - patient is the insured Medical (General) History Medical History History ICD Code cellulitis left lower leg insomnia diabetes SVT vertigo trifascicular block cardiac pacemaker in situ right hip pain hypertension cardiomyopathy constipation asthma Surgical History Surgery Date(Month/Year) pacemaker 2015
--- OUTSIDE RECORDS SUMMARY | 2025-04-24 11:51 | XMS_ITS | Clinical Summary ---
Author Organization [employer] Address [address] [facility] 7t [place] [address] Care Team Providers Care Labor Relations Representative Name Role Phone Unavailable Primary Care Provider [...] Date Diagnosed Date Colon cancer screening 11/21/2024 rn long term care (current) use of oral hypoglycemic ashley gs [...] Most Recently Relevant to Health Maintenance Insurance [facility] ST[facility]ULT
--- OUTSIDE RECORDS SUMMARY | 2025-04-24 11:51 | XMS_ITS | Clinical Summary ---
Author Organization [facility] Address [address] [facility] [address] [place] [address] Phone Care Team Providers Care Court Bailiff Or Sheriff Name Role Phone Ana Morris MD Primary Care Provider [phone] Allergies Active Allergy Reactions Criticality Noted Date [...] Office Visit [facility] [address] [place] [address] Tato Rocha MD Hypertension (Primary Dx) 02/22/2025 Office Communication [facility] [address] [place] [phone] Tato Rocha MD from Last 3 Months [...] Visit [facility] [address] [place] [address] Tato Rocha MD [address] [facility] [address] [place] [phone] Health Maintenance Due Date Last Done Comments Pneumococcal Vaccine: 50+ Ye ars (1 of 2 - PCV) 1969 Influenza Vaccine (#1) 2025 Hepatitis B Vaccine Aged Out No longe r eligible based on patient's age to complete this topic Insurance Medicare Medicaid [place] Medicare Medicaid [place] Care Teams Court Bailiff Or Sheriff Relationship Specialty Start Date End Date Ana Morris MD [address] [place], [place] PCP - General 09/16/20
== END 2025-04-24 10:59 | disposition home or self-care (01) ==
LOC: HO.HMCH 10:29
PROVIDERS: PCP Internal Medicine; Visit Provider Internal Medicine
DX: I10 Essential (primary) hypertension (principal); I42.9 Cardiomyopathy, unspecified; E11.69 Type 2 diabetes mellitus with other specified complication; I48.0 Paroxysmal atrial fibrillation; F41.9 Anxiety disorder, unspecified; E78.5 Hyperlipidemia, unspecified; D64.9 Anemia, unspecified; M51.369 Other intervertebral disc degeneration, lumbar region without mention of lumbar back pain or lower extremity pain

== ENCOUNTER → 2025-04-24 10:28 | Outpatient (BNVA) | payer MEDICARE, MEDICAID, SELFPAY | PROVIDERS: PCP Internal Medicine; Visit Provider Internal Medicine | DX: E11.9 Type 2 diabetes mellitus without complications (principal); I10 Essential (primary) hypertension; I42.9 Cardiomyopathy, unspecified; F41.9 Anxiety disorder, unspecified; E78.5 Hyperlipidemia, unspecified; I48.0 Paroxysmal atrial fibrillation; D64.9 Anemia, unspecified; M51.369 Other intervertebral disc degeneration, lumbar region without mention of lumbar back pain or lower extremity pain | CPT/HCPCS: 83036; 96127; 99212 ==

== ENCOUNTER 2025-05-31 06:12 | Outpatient (REF) | payer MEDICARE, MEDICAID, SELFPAY ==
--- OUTSIDE RECORDS SUMMARY | 2025-05-31 06:14 | XMS_ITS | Clinical Summary ---
Author Organization [employer] Address [address] [facility] 7t [place] [address] Care Team Providers Care Color Television Console Monitor Name Role Phone Unavailable Primary Care Provider [...] Date Diagnosed Date Colon cancer screening 11/21/2024 penitentiary (current) use of oral hypoglycemic ashley gs [...] of 2 - PCV) 07/19/2019 07/19/2018, 04/19/2012 Dental X-Ray: [facility] 12/29/2024 12/29/19 24, 12/01/2023, 08/25/2022 Dental Oral Exam 01/11/2025 07/13/2024, , 08/25/2022 Dental Prophylaxis 01/11/2025 07/13/2024, 0 12/01/2023, 08/25/2022 COVID-19 Vaccine ( season) 2025 05/29/2024, 09/11/2022, 08/14/2021, Additional history exists Influenza Vaccine (#1) 2025 , 07/01/2023, 08/06/2022, [...] Most Recently Relevant to Health Maintenance Insurance [facility]
--- OUTSIDE RECORDS SUMMARY | 2025-05-31 06:15 | XMS_ITS | Patient Health Record ---
Author Organization [facility] Address [address] [place] [address] Care Team Providers Care Product Management Specialist Name Role Phone Ana Morris Primary Care Provider Unavailab Prudencio Amaro Jr Unavailable [phone] Allergies Allergen (clinical drug ingredient) Drug/Non Drug [...] Problem Status W/U Status Risk Notes Problem [id number] Colon cancer screening (Z12.11) Active confirmed Problem 357839079 Long-term use of aspirin therapy (Z79.82) Active confirmed Problem [id number] skilled nursing (current) use of oral hypoglycemic drugs (Z79.84) Active confirmed Plan Of Treatment Future Test Test Name Order Date COLONOSCOPY 02/04/2022 COLONOSCOPY 08/26/2022 Insurance Providers Payer Name Payer Address Payer Phone Subscriber Number Group Number Insured Name Patient Relationship to Insured Coverage Start Date Coverage End Date MEDICARE OF [place] [address] [place] [id number] [phone] [id number] BRANDIE ROMAN Self - patient is the insured MEDICAID OF [facility] [address] [place] [phone] [id number] BRANDIE ROMAN Self - patient is the insured Medical (General) History Medical History History ICD Code cellulitis left lower leg insomnia diabetes SVT vertigo trifascicular block cardiac pacemaker in situ right hip pain hypertension cardiomyopathy constipation asthma Surgical History Surgery Date(Month/Year) pacemaker 2015
--- OUTSIDE RECORDS SUMMARY | 2025-05-31 06:15 | XMS_ITS | Clinical Summary ---
Author Organization [facility] Address [address] [facility] [address] [place] [address] Phone Care Team Providers Care Methods Examiner Name Role Phone Ana Morris MD Primary Care Provider [phone] Allergies Active Allergy Reactions Criticality Noted Date [...] Encounters Date Type Department Care Team Description 05/24/2025 1:15 PM EDT Office Visit [facility] [address] [place], [place] [address] Tato Rocha MD Hypertension (Primary Dx); Type 2 diabetes mellitus with diabetic chronic kidney disease (HCC) from Last 3 Months Family History Medical [...] Reading Time Taken Comments Blood Pressure 140/82 05/24/2025 1:09 PM EDT Pulse 66 05/24/2025 1:09 PM EDT Temperature - - Respiratory Rate - - Oxygen Saturation 96% 05/24/2025 1:09 PM EDT Inhaled Oxygen Concentration - - Weight 86.6 kg (191 lb) 05/24/2025 1:09 PM EDT Height 170.2 cm (5' 7 ) 03/16/2024 1:00 PM EDT Body Mass Index 29.91 03/16/2024 1:00 PM EDT Plan of Treatment Upcoming Encounters Date Type Department Care Team (Late st Contact Info) Description 09/20/2025 1:15 PM EST Office Visit [facility] [address] [place] [address] Tato Rocha MD [address] [facility] [address] [place] [address] Health Maintenance Due Date Last Done Comments Pneumococcal Vaccine: 50+ Ye ars (1 of 2 - PCV) 1969 Influenza Vaccine (#1) 2025 Diabetes: Hemoglobin A1C 05/24/2025 Diabetes: Ophthalmology Exam 05/24/2025 Diabetes: Pedal Pulse Checked 05/24/2025 Diabetes: Sensory Foot Exam 05/24/2025 Diabetes: Visual Foot Exam 05/24/2025 Hepatitis B Vaccine Aged Out No longe r eligible based on patient's age to complete this topic Insurance Medicare Medicaid [place] Medicare Medicaid [place] Care Teams Methods Examiner Relationship Specialty Start Date End Date Ana Morris MD [address] [place], [place] PCP - General 09/16/20
[2025-05-31 06:31] LABS: MANUAL DIFF FLAG NO
[2025-05-31 07:38] LABS: Hematocrit 35.3 % (42.0-52.0); Hemoglobin 12.2 g/dl (14.0-18.0); Imm Gran Abs Auto 0.02 X10*3/uL (0.00-0.03); Imm Gran Pct Auto 0.3 % (0.0-0.4); Lymphocytes Absolute Auto 1.7 X10*3/uL (1.2-4.9); Mean Corpuscular HGB Conc 34.6 g/dl (31.0-36.0); Mean Corpuscular Hemoglobin 33.8 pg (27.0-33.0); Mean Corpuscular Volume 97.8 fL (80.0-98.0); NRBC Abs Auto 0.000 X10*3/uL (0.0-0.012); NRBC Pct Auto 0.0 /100WBC (0.0-0.2); Platelet Count 232 X10*3/uL (160-400); Red Blood Count 3.61 X10*6/uL (4.60-5.80); White Blood Count 6.5 X10*3/uL (4.8-10.8)
[2025-05-31 08:17] LABS: Alanine Aminotransferase 31 U/L (0-40); Albumin Level 4.2 g/dL (3.5-5.0); Alkaline Phosphatase 69 U/L (39-117); Anion Gap 11 (12-20); Aspartate Amino Transferase 39 U/L (5-37); Blood Urea Nitrogen 13 mg/dL (9-16); Calcium 9.0 mg/dL (8.4-10.2); Carbon Dioxide 27 mmol/L (22-29); Chloride 106 mmol/L (96-108); Estimated Glomerular Filt Rate > 60; Iron 67 mcg/dL (45-160); Percent Iron Saturation 22 % (15-50); Potassium 4.3 mmol/L (3.3-5.1); Sodium 140 mmol/L (135-145); Total Iron Binding Capacity 305 mcg/dL (228-428); Total Protein 7.2 g/dL (6.5-8.0); Unsaturated Iron Binding 238 ug/dL
[2025-05-31 08:31] LABS: Prostate Specific Antigen 3.41 ng/mL (<0.05-4.0)
[2025-05-31 08:42] LABS: Microalbum/Creatinine Ratio Ur 62.8 ug/mg cr (<30)
[2025-05-31 08:43] LABS: Folate 13.8 ng/mL (> or = 4.0); Vitamin B12 431 pg/mL (200-900)
== END 2025-05-31 06:13 | disposition home or self-care (01) ==
LOC: HO.LAB 06:12
PROVIDERS: Nurse Practitioner Family; PCP Internal Medicine; Visit Provider Internal Medicine
DX: Z12.5 Encounter for screening for malignant neoplasm of prostate (principal); N40.1 Benign prostatic hyperplasia with lower urinary tract symptoms; R35.1 Nocturia; R97.20 Elevated prostate specific antigen [PSA]; D64.9 Anemia, unspecified; R80.9 Proteinuria, unspecified; E53.8 Deficiency of other specified B group vitamins; E55.9 Vitamin D deficiency, unspecified; I48.0 Paroxysmal atrial fibrillation
CPT/HCPCS: 36415; 80053; 82043; 82306; 82570; 82607; 82746; 83540; 84153; 85025

== ENCOUNTER 2025-06-01 08:09 | Outpatient (AMB) | payer MEDICARE, MEDICAID, SELFPAY ==
[2025-06-01 08:19] VITALS: BP 142/88; PULSE 74; TEMP 36.4; O2SAT 97; BMI 29.8
--- OUTSIDE RECORDS SUMMARY | 2025-06-01 08:19 | XMS_ITS | Clinical Summary ---
Author Organization [employer] Address [address] [facility] 7t [place] [address] Care Team Providers Care Mining Speculator Name Role Phone Unavailable Primary Care Provider [...] Date Diagnosed Date Colon cancer screening 11/21/2024 retirement (current) use of oral hypoglycemic ashley gs [...] Relevant to Health Maintenance Insurance [facility] STAND ADULT
--- OUTSIDE RECORDS SUMMARY | 2025-06-01 08:19 | XMS_ITS | Patient Health Record ---
Author Organization [facility] Address [address] [place] [address] Care Team Providers Care Extractor Plant Operator Name Role Phone Ana Morris Primary [...] Problem Status W/U Status Risk Notes Problem [id number] Colon cancer screening (Z12.11) Active confirmed Problem 576062961 Long-term use of aspirin therapy (Z79.82) Active confirmed Problem [id number] alf (current) use of oral hypoglycemic drugs (Z79.84) Active confirmed Plan Of Treatment Future Test Test Name Order Date COLONOSCOPY 02/04/2022 COLONOSCOPY 08/26/2022 Insurance Providers Payer Name Payer Address Payer Phone Subscriber Number Group Number Insured Name Patient Relationship to Insured Coverage Start Date Coverage End Date MEDICARE OF [place] [address] [id number] [phone] [id number] BRANDIE ROMAN Self - patient is the insured MEDICAID OF [id number] [address] [place] [phone] [id number] BRANDIE ROMAN Self - patient is the insured Medical (General) History Medical History History ICD Code cellulitis left lower leg insomnia diabetes SVT vertigo trifascicular block cardiac pacemaker in situ right hip pain hypertension cardiomyopathy constipation asthma Surgical History Surgery Date(Month/Year) pacemaker 2015
--- OUTSIDE RECORDS SUMMARY | 2025-06-01 08:20 | XMS_ITS | Clinical Summary ---
Author Organization [facility] Address [address] [facility] [address] [place] [address] Phone Care Team Providers Care Warehouse Laborer Name Role Phone Ana Morris MD Primary Care Provider [phone] Allergies Active Allergy Reactions Criticality Noted Date [...] Visit [facility] [address] [place], [place] [address] Tato Rocha [...] Visit [facility] [address] [place] [address] Tato Rocha MD [address] [facility] [address] [place] [address] Health Maintenance Due Date Last [...] Medicaid [place] Medicaid [place] Care Teams Warehouse Laborer Relationship Specialty Start Date End Date Ana Morris MD [address] [place], [place] PCP - General 09/16/20
--- NOTE | 2025-06-01 08:23 | MHC.PC.OV ---
Vital Signs 06/01/25 08:19 06/01/25 08:37 Height 5 ft 7 in Weight 190 lb 4 oz BMI 29.8 BP 142/88 H 138/80 Blood Pressure Location Lt brachial Lt brachial Position Sitting Sitting Pulse 74 Pulse Source Pulse Oximeter Temp 97.5 F Temp Source Temporal Artery Scan Pulse Oximetry (%) 97 Oxygen Delivery Method Room Air Intake Visit Reasons: AWV Configuration Management Advisor Required: No Accompanied by: Self / Same As Patient Allergies metoprolol (METOPROLOL) Allergy (Intermediate, Verified 06/01/25 08:31) Rash seafood Allergy (Intermediate, Verified 06/01/25 08:31) Swelling spironolactone (Spironolactone) Allergy (Intermediate, Verified 06/01/25 08:31) Gynecomastia,Swelling fentanyl Adverse Reaction (Intermediate, Verified 06/01/25 08:31) sleepiness Medication List - Last Reconciled 06/01/25 by Ana Vargas MD acetaminophen (Tylenol Extra Strength) 500 mg PO Q6H PRN albuterol sulfate 90 mcg/actuation 1 inh PO Q4H PRN amlodipine 10 mg PO DAILY 90 days carvedilol 25 mg PO BID cromolyn 4% 1 drp ophthalmic (eye) QID 5 days dronedarone (Multaq) 400 mg PO BID eplerenone 50 mg PO DAILY 90 days ferrous sulfate 325 mg PO finasteride 5 mg PO DAILY 90 days fluticasone propionate 50 mcg/actuation 1 spray intranasal DAILY hydralazine 50 mg PO TID 30 days hydrocortisone 1% (Anti-Itch (hydrocortisone)) 1 appl topical BID PRN 30 days lisinopril 20 mg PO BID 90 days lorazepam 0.5 mg PO BID PRN 30 days meclizine 25 mg PO DAILY PRN 90 days metformin 500 mg PO BID 90 days nebulizers Nebulizer Machine with Tubing and Accessories omeprazole 40 mg PO DAILY potassium chloride ER 40 mEq (2 x 20 mEq) PO DAILY 90 days rivaroxaban (Xarelto) 20 mg PO DAILY rosuvastatin 10 mg PO DAILY 90 days sennosides (senna) 17.2 mg (2 x 8.6 mg) PO BEDTIME PRN terazosin 5 mg PO BEDTIME 90 days tramadol 50 mg PO BID PRN 30 days zolpidem 10 mg PO BEDTIME PRN 30 days Tobacco use date assessed: 06/01/25 Fall risk assessment: No Falls in past year Last assessed Fall Risk: 06/01/25 Dental Screening Dental Screen Date: 11/21/24 HPI HPI Comments History of Present Illness Details Patient refused to fill out annual wellness visit papers. The patient is a 74-year-old male presenting for follow-up of diabetes, hypertension, hyperlipidemia, chronic back pain, and anxiety. The patient has a history of diabetes mellitus, which is currently being managed with metformin 500 mg twice daily. He also has hypertension, controlled with amlodipine 10 mg daily, carvedilol twice daily, hydralazine 50 mg three times a day, and lisinopril 20 mg twice daily. The patient reports chronic back pain due to lumbar degenerative disc disease, for which he takes tramadol. He also experiences anxiety, managed with lorazepam, although he is aware of its potential for addiction, sedation, and dementia. He has a history of mild recurrent major depression, which is not currently being treated with medication or therapy. The patient has a history of congestive heart failure and cardiomyopathy, with a recent echocardiogram showing an ejection fraction of 45-50%. He is advised to continue carvedilol as part of his management plan. He has anemia with a hemoglobin level of 12.2 g/dL and is advised to continue taking iron supplements. Preventative care measures include a colonoscopy performed in 2022 and a recommendation for a pneumonia vaccination today. [facility] Medical History Paroxysmal atrial fibrillation SVT (supraventricular tachycardia) Trifascicular block Cardiac pacemaker in situ Cardiomyopathy Right hip pain Eye exam, routine Screening for colon cancer Screening for prostate cancer Lumbar degenerative disc disease Insomnia Constipation by delayed colonic transit Vertigo SVT (supraventricular tachycardia) Trifascicular block Diabetes mellitus HTN (hypertension) Cardiomyopathy Cardiac pacemaker in situ Surgical History History of colonoscopy S/P cardiac catheterization History of pacemaker Status post excision of lipoma History of inguinal hernia repair Family History Mother Cancer Diabetes Hypertension Father Stroke Sister Cancer Maternal Uncle Myocardial infarction Paternal Aunt No problems noted. Paternal Uncle Hypertension CVD (cardiovascular disease) Brother Mental health disorder Social History Housing: House Alcohol intake: former Patient Tobacco Use Status: Never used Tobacco Tobacco use type: Cigarette e-Cigarette/Vaping Use: Never Used Second Hand Smoke Exposure: No service: No Current occupational status: disabled Cognitive needs: No Hearing needs: No Vision needs: Yes (glasses) Questionnaire PHQ-9 Over the last 2 weeks, how often have you been bothered by any of the following problems? 1. Little interest or pleasure in doing things: not at all 2. Feeling down, depressed, or hopeless: not at all 3. Trouble falling or staying asleep, or sleeping too much: more than half the days 4. Feeling tired or having little energy: not at all 5. Poor appetite or overeating: more than half the days 6. Feeling bad about yourself - or that you are a failure or have let yourself or your family down: not at all 7. Trouble concentrating on things, such as reading the newspaper or watching television: not at all 8. Moving or speaking so slowly that other people could have noticed. Or the opposite - being so fidgety or restless that you have been moving around a lot more than usual: not at all 9. Thoughts that you would be better off or of hurting yourself in some way: not at all Total score: 4 Depression Screening Interpretation: Positive Depression Screening Follow-up: Existing condition and Follow-up Visit Requested Depression Screening Done: Yes 10746 - PHQ-9 Billing: Yes Source: Developed by Drs. Hebert Wright, Alejandra Otero, Randell Cuellar and colleagues, with an educational una from [employer]. Thrive Questionnaire Date Thrive assessed: 04/24/25 I am a: Patient What is your living situation today?: I have a steady place to live Within the past 12 months, did the food you bought not last and you didn't have the money to get more?: Never true Within the past 12 months, did you worry whether your food would run out before you got money to buy more?: Never true Do you have trouble paying for medicines?: No Do you have trouble getting transportation to medical appointments?: No Do you have trouble paying your heating and electricity bill?: No Do you have trouble taking care of your child, family member or friend?: No Do you have trouble with day-to-day activities such as bathing, preparing meals, shopping, managing finances, etc.?: No Are you currently unemployed and looking for a job?: Yes Are you interested in more education?: Yes Please select the resources that you would like help with: None Currently or been in a relationship where the following occur: No concerns reported THRIVE Score: 0 AUDIT C Alcohol Use Questionnaire (AUDIT-C) 1. How often do you have a drink containing alcohol?: Never 3. How often do you have six or more drinks on one occasion?: Never Total Score: 0 Score Reviewed/Action Taken: No BASSEM-7 AMB Questionnaire BASSEM-7 Date BASSEM - 7 assessed: 11/21/24 Feeling nervous, anxious, or on edge: 0 = Not at all Not being able to stop or control worryin = Several days Worrying too much about different things: 1 = Several days Trouble relaxin = Several days Being so restless that it is hard to sit still: 1 = Several days Becoming easily annoyed or irritable: 0 = Not at all Feeling afraid as if something awful might happen: 0 = Not at all Total BASSEM-7 score (0-4 normal; 5-9 mild; 10-14 moderate; 15-21 severe): 4 Source: Developed by Drs. Hebert Wright, Alejandra Otero, Randell Cuellar and colleagues, with an educational una from [employer]. BASSEM-7 Assessment Billing BASSEM-7 Assessment Tool: BASSEM-7 Assessment 33676 Review of Systems Const All systems reviewed & are unremarkable except as noted in HPI and below Card Denies chest pain at rest, Denies chest pain with activity, Denies edema, Denies irregular heart rhythm, Denies claudication, Denies dyspnea, Denies dyspnea on exertion, Denies orthopnea, Denies paroxysmal nocturnal dyspnea and Denies slow heart rate Resp Denies cough, Denies dyspnea and Denies dyspnea on exertion GI Denies abdominal pain, Denies change in bowel habits, Denies excessive flatus, Denies nausea and Denies vomiting Physical exam (Primary Care) Vital Signs: Last Vital Signs Temp 97.5 F 06/01/25 08:19 Pulse 74 06/01/25 08:19 BP 138/80 06/01/25 08:37 Pulse Ox 97 06/01/25 08:19 Oxygen Delivery Method Room Air 06/01/25 08:19 BMI result Body Mass Index 29.8 Tobacco/Smoking Status: Tobacco use Status Tobacco use date assessed 06/01/25 06/01/25 08:24 Patient Tobacco Use Status Never used Tobacco 06/01/25 08:24 Tobacco use type Cigarette 06/01/25 08:24 e-Cigarette/Vaping Use Never Used 06/01/25 08:24 PHQ-9: PHQ-9 Score PHQ-9: Total score 4 06/01/25 08:49 Depression Screening Interpretation: Positive Depression Screening Follow-up: Existing condition and Follow-up Visit Requested Thrive Assessment: Date of Thrive Assessment Date Thrive assessed 04/24/25 06/01/25 08:24 Currently or been in a relationship where the following occur: No concerns reported Resp Effort & Inspection: normal respiratory effort Auscultation: clear to auscultation bilaterally Cardio Jugular venous distension: no JVD Rate: regular rate Rhythm: regular rhythm Heart sounds: S1 normal heart sound present and S2 normal heart sound present Extrem General: Yes full ROM Immunizations pneumoc 20-joseph conj-dip cr(PF) 0.5 mL IM syringe Performing Provider: Ana Vargas MD Performing Location: [facility] [place] [facility] Administered by: MAGALIS Gerber on 06/01/25 08:49 Dose Route Admin Location Dispensed Lot Number Expiration Date [facility] Perforator Operator 0.5 mL IM Right Deltoid 0.5 mL [id number] 05/07/26 [employer]sun/[employer] Total Dispensed Waste 0.5 mL 0 % VIS Given Date VIS Provided VIS Publication Date 06/01/25 Single Vaccine 25 Eligibility Eligibility Date Funding Source Not [facility] Eligible 06/01/25 Private Coding Level of Care Code Est Pt Level 4 (12384) Complex EM visit Add On G2211 Diagnoses Essential hypertension I10 Cardiomyopathy I42.9 Type 2 diabetes mellitus without complication, without long-term current use of insulin E11.9 Diabetes mellitus complication status: without complication Diabetes mellitus telecommunication lines repairer insulin use: without telecommunication lines repairer use Diabetes mellitus type: type 2 Paroxysmal atrial fibrillation I48.0 Normochromic normocytic anemia D64.9 BPH (benign prostatic hyperplasia) N40.0 Primary insomnia F51.01 Insomnia type: primary Anxiety F41.9 Additional Codes BASSEM-7 Assessment Billing - BASSEM-7 Assessment Tool: BASSEM-7 Assessment 78285 ([id number]) PHQ-9 - 60153 - PHQ-9 Billing: Yes ([id number]) Time Spent (min) 24 Assessment & Plan Assessment & Plan (1) Essential hypertension: Code(s): I10 - Essential (primary) hypertension Category: Medical (2) Cardiomyopathy: Comment: echo October 2018 showing LVEF of 45-50% Code(s): I42.9 - Cardiomyopathy, unspecified Category: Medical (3) Diabetes mellitus: Code(s): E11.9 - Type 2 diabetes mellitus without complications Category: Medical Qualifiers: Diabetes mellitus complication status: without complication Diabetes mellitus telecommunication lines repairer insulin use: without telecommunication lines repairer use Diabetes mellitus type: type 2 Qualified Code(s): E11.9 - Type 2 diabetes mellitus without complications (4) Paroxysmal atrial fibrillation: Code(s): I48.0 - Paroxysmal atrial fibrillation Category: Medical (5) Normochromic normocytic anemia: Code(s): D64.9 - Anemia, unspecified Category: Medical (6) BPH (benign prostatic hyperplasia): Code(s): N40.0 - Benign prostatic hyperplasia without lower urinary tract symptoms Category: Medical (7) Insomnia: Code(s): G47.00 - Insomnia, unspecified Category: Medical Qualifiers: Insomnia type: primary Qualified Code(s): F51.01 - Primary insomnia (8) Anxiety: Code(s): F41.9 - Anxiety disorder, unspecified Category: Medical Plan Plan Patient was informed and verbally consented to the use of an ambient scribe for clinic note documentation during this visit. 1. Diabetes Mellitus The patient's diabetes mellitus is managed with metformin 500 mg twice daily, with recent lab results indicating stable control. 2. Hypertension Hypertension is controlled with a regimen including amlodipine, carvedilol, hydralazine, and lisinopril. 3. Hyperlipidemia Hyperlipidemia is managed with rosuvastatin 10 mg daily. 4. Chronic Back Pain Chronic back pain due to lumbar degenerative disc disease is treated with tramadol as needed. 5. Anxiety Anxiety is managed with lorazepam, with caution advised regarding its potential side effects. 6. Mild Recurrent Major Depression The patient has mild recurrent major depression, currently not on medication or therapy. 7. Congestive Heart Failure/Cardiomyopathy Congestive heart failure is managed with carvedilol, with recent echocardiogram showing an ejection fraction of 45-50%. Cardiomyopathy is monitored with echocardiograms, and carvedilol is continued as part of the treatment plan. 8. Anemia Anemia is managed with iron supplementation, with hemoglobin levels at 12.2 g/dL. 10. Preventative Care: Pneumonia Vaccination The patient is advised to receive the PCV20 pneumonia vaccination today. . Orders: Orders Comprehensive Korbel. Panel Fast Today I10 - Essential (primary) hypertension Pneumococcal 20 Immunization Today Z23 - Encounter for immunization Lipid Panel Today E78.5 - Hyperlipidemia, unspecified Microalbumin, Random (w Creat) Today R80.9 - Proteinuria, unspecified
[2025-06-01 08:37] VITALS: BP 138/80
== END 2025-06-01 08:51 | disposition home or self-care (01) ==
PROVIDERS: PCP Internal Medicine; Visit Provider Internal Medicine
DX: I10 Essential (primary) hypertension (principal); I42.9 Cardiomyopathy, unspecified; E11.9 Type 2 diabetes mellitus without complications; I48.0 Paroxysmal atrial fibrillation; D64.9 Anemia, unspecified; N40.0 Benign prostatic hyperplasia without lower urinary tract symptoms; F51.01 Primary insomnia; F41.9 Anxiety disorder, unspecified; Z23 Encounter for immunization

== ENCOUNTER → 2025-06-01 08:09 | Outpatient (BNVA) | payer MEDICARE, MEDICAID, SELFPAY | PROVIDERS: PCP Internal Medicine; Visit Provider Internal Medicine | DX: E11.9 Type 2 diabetes mellitus without complications (principal); I10 Essential (primary) hypertension; E78.5 Hyperlipidemia, unspecified; M54.9 Dorsalgia, unspecified; G89.29 Other chronic pain; F41.9 Anxiety disorder, unspecified; I50.9 Heart failure, unspecified; I42.9 Cardiomyopathy, unspecified; D64.9 Anemia, unspecified; I48.0 Paroxysmal atrial fibrillation; N40.0 Benign prostatic hyperplasia without lower urinary tract symptoms; F51.01 Primary insomnia; F33.9 Major depressive disorder, recurrent, unspecified; R80.9 Proteinuria, unspecified; Z23 Encounter for immunization | CPT/HCPCS: 90471; 90677; 96127; 99212 ==

== ENCOUNTER 2025-08-08 08:37 | Outpatient (AMB) | payer MEDICARE, MEDICAID, SELFPAY ==
--- NOTE | 2025-08-08 08:42 | A.OFFVIS_ITS ---
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 Name: Toby Garcia Allergies metoprolol (METOPROLOL) Allergy (Intermediate, Verified 08/08/25 09:26) Rash seafood Allergy (Intermediate, Verified 08/08/25 09:26) Swelling spironolactone (Spironolactone) Allergy (Intermediate, Verified 08/08/25 09:26) Gynecomastia,Swelling fentanyl Adverse Reaction (Intermediate, Verified 08/08/25 09:26) sleepiness Medication List - Last Reconciled 08/08/25 by ALEXIS Stanton acetaminophen (Tylenol Extra Strength) 500 mg PO Q6H PRN albuterol sulfate 90 mcg/actuation 1 inh PO Q4H PRN amlodipine 10 mg PO DAILY 90 days carvedilol 25 mg PO BID cromolyn 4% 1 drp ophthalmic (eye) QID 5 days dronedarone (Multaq) 400 mg PO BID eplerenone 50 mg PO DAILY 90 days ferrous sulfate 325 mg PO finasteride 5 mg PO DAILY 90 days fluticasone propionate 50 mcg/actuation 1 spray intranasal DAILY hydralazine 50 mg PO TID 30 days hydrocortisone 1% (Anti-Itch (hydrocortisone)) 1 appl topical BID PRN 30 days lisinopril 20 mg PO BID 90 days lorazepam 0.5 mg PO BID PRN 30 days meclizine 25 mg PO DAILY PRN 90 days metformin 500 mg PO BID 90 days nebulizers Nebulizer Machine with Tubing and Accessories omeprazole 40 mg PO DAILY potassium chloride ER 40 mEq (2 x 20 mEq) PO DAILY 90 days rivaroxaban (Xarelto) 20 mg PO DAILY rosuvastatin 10 mg PO DAILY 90 days sennosides (senna) 17.2 mg (2 x 8.6 mg) PO BEDTIME PRN terazosin 5 mg PO BEDTIME 90 days tramadol 50 mg PO BID PRN 30 days zolpidem 10 mg PO BEDTIME PRN 30 days HPI Comments Details: Ganesh is a pleasant 75 year old pleasant Kittitian speaking patient of Dr. Jha. He has a past medical history of paroxysmal AFib, SVT, cardiac pacemaker, cardiomyo tex, lumbar degenerative disc disease, insomnia, constipation, vertigo, diabetes, and hypertension. He presents to the office today for follow-up of his elevated PSA and lower urinary tract symptoms. In discussion with the patient today he reports to be doing and feeling well. He denies having had any bothersome urinary issues or concerns since his last office visit. He reports compliance with finasteride and terazosin as prescribed. Recent PSA results reviewed with the patient today as noted and trended below: PSA: 07/28 4.5, 09/28 4.0, 06/28 4.4 percent free psa 16 %, 10/30 2.7, 06/29 3.2, 11/28 3.0, 05/31 3.4 Previous workup has included a retroperitoneal ultrasound 05/29 noting right kidney with no calculi or hydronephrosis. Benign-appearing renal cyst measuring 1.1 cm. No follow up imaging is recommended per radiology report. Left kidney with no calculi, and or hydronephrosis. Benign-appearing renal cysts measuring up to 1.4 cm. No follow-up imaging is recommended per radiology report. He reports feeling happy with his current voiding parameters. When asked patient denies urinary urgency, urinary frequency, incontinence, nocturia, hematuria, dysuria, foul smelling urine, changes to urinary stream, flank pain, fever, and or chills. In office urinalysis results reviewed with the patient today. PVR 0ml's. We did discussed potential causes of slight increase in PSA as well as further treatment options and risks and benefits of these treatment options. He discusses having recently followed up with Nephrology as well as vascular surgery in his due to have a procedure on his right leg due to circulation issues he has been having. All questions were answered. He otherwise offers no other issues or concerns at this time. [facility] Medical History Paroxysmal atrial fibrillation SVT (supraventricular tachycardia) Trifascicular block Cardiac pacemaker in situ Cardiomyopathy Right hip pain Eye exam, routine Screening for colon cancer Screening for prostate cancer Lumbar degenerative disc disease Insomnia Constipation by delayed colonic transit Vertigo SVT (supraventricular tachycardia) Trifascicular block Diabetes mellitus HTN (hypertension) Cardiomyopathy Cardiac pacemaker in situ Surgical History History of colonoscopy S/P cardiac catheterization History of pacemaker Status post excision of lipoma History of inguinal hernia repair Family History Mother Cancer Diabetes Hypertension Father Stroke Sister Cancer Maternal Uncle Myocardial infarction Paternal Aunt No problems noted. Paternal Uncle Hypertension CVD (cardiovascular disease) Brother Mental health disorder Social History Housing: House Alcohol intake: former Patient Tobacco Use Status: Never used Tobacco Tobacco use type: Cigarette e-Cigarette/Vaping Use: Never Used Second Hand Smoke Exposure: No service: No Current occupational status: disabled Cognitive needs: No Hearing needs: No Vision needs: Yes (glasses) Review of Systems Const All systems reviewed & are unremarkable except as noted in HPI and below Physical Exam Const General: cooperative, healthy appearing, comfortable, no acute distress, well developed, alert and awake Orientation/consciousness: patient oriented x3 Limitations: language barrier HEENT Head: Yes normal to inspection, Yes normocephalic and Yes atraumatic Eyes General: appearance normal, both eyes and all related structures Neck Neck: Yes normal visual inspection and Yes trachea midline Chest Chest palpation & inspection: normal inspection of the chest Cardio Rate: regular rate General: Yes no CVA tenderness Back/Spine/Pelvis Back: no CVA tenderness Cervical Spine: normal cervical lordosis Skin General skin exam: no rashes or lesions noted Neuro General: patient oriented x3 Extrem General: Yes normal to inspection Psych Appearance: grossly normal and well kempt Mental Status: mental status grossly normal Speech and movement: Normal speech and movement present and Clear speech present Affect: normal affect Attitude: cooperative Thought process: Normal thought process present Thought content: Normal thought content present Insight: Fair insight present (Psych) Judgement: Fair judgement present (Psych) Results AMB Urinalysis, Automated UA Leukoctes 0 Jett/uL Last Edit by KAMRAN Reyna on 08/08/25 08:56 UA Nitrite Negative Last Edit by KAMRAN Reyna on 08/08/25 08:56 UA Urobilinogen 0.2 mg/dL Last Edit by KAMRAN Reyna on 08/08/25 08:5 6 UA Protein 15 mg/dL Last Edit by KAMRAN Reyna on 08/08/25 08:56 UA pH 6.0 Last Edit by KAMRAN Reyna on 08/08/25 08:56 UA Blood 0 [place]/uL Last Edit by KAMRAN Reyna on 08/08/25 08:56 UA Specific [place] 1.015 Last Edit by KAMRAN Reyna on 08/08/25 08: 56 UA Ketone Negative Last Edit by KAMRAN Reyna on 08/08/25 08:56 UA Bilirubin 0 mg/dL Last Edit by KAMRAN Reyna on 08/08/25 08:56 UA Glucose 0 mg/dL Last Edit by KAMRAN Reyna on 08/08/25 08:56 Results Reviewed Results Reviewed: Laboratory Last Values Urine pH (Auto) 6.0 08/08/25 08:48 Specific [place] (Auto) 1.015 08/08/25 08:48 Urine Protein (Auto) 15 mg/dL 08/08/25 08:48 Glucose (UA)(Auto) 0 mg/dL 08/08/25 08:48 Urine Ketones (Auto) Negative 08/08/25 08:48 Urine Blood (Auto) 0 [place]/uL 08/08/25 08:48 Urine Nitrite (Auto) Negative 08/08/25 08:48 Urine Bilirubin (Auto) 0 mg/dL 08/08/25 08:48 Urine Urobilinogen (Auto) 0.2 mg/dL 08/08/25 08:48 Leukocyte Esterase (Auto) 0 Jett/uL 08/08/25 08:48 Assessment & Plan Assessment & Plan (1) PSA elevation: Code(s): R97.20 - Elevated prostate specific antigen [PSA] Category: Medical (2) Nocturia: Code(s): R35.1 - Nocturia Category: Medical (3) BPH (benign prostatic hyperplasia): Code(s): N40.0 - Benign prostatic hyperplasia without lower urinary tract symptoms Category: Medical (4) Enlarged prostate: Code(s): N40.0 - Benign prostatic hyperplasia without lower urinary tract symptoms Category: Medical (5) Renal cyst: Code(s): N28.1 - Cyst of kidney, acquired Category: Medical Plan In office urinalysis results reviewed with the patient today; as noted above. PVR 0 mL Recent PSA results reviewed with the patient today; as noted above. We did discuss potential causes of slight increase in PSA as well as further treatment options and risks and benefits of these treatment options. He currently denies any bothersome urinary issues or concerns. Reports be happy with current voiding parameters. We did discuss importance of limiting fluids 2-3 hours prior to bed to decrease episodes of nocturia. Continue finasteride and terazosin as discussed and prescribed. Follow-up in 4-6 months with PSA and PVR; or sooner with any issues, concerns, and or questions. 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 All questions were answered. Physical exam, labs, and imaging were discussed and reviewed in detail. As well as risks, benefits, and discussion of treatment choices. No major barriers to understanding were identified. The patient expressed understanding and agreement with the above treatment plan. The patient was made aware they should contact our office by phone for worsening of their current condition, the appearance of new symptoms, or with any questions or concerns. Compliance is encouraged with any medications and follow up testing that is ordered. It is a privilege to be allowed the opportunity to participate in? your urological care.? Again, if you have any questions or concerns If you have any questions or concerns please do not hesitate to contact me. The office is [phone]. This note is constructed using voice recognition software. While every effort has been made to ensure accuracy log yard derrick operator errors may have been included. Yours sincerely, ALEXIS Stanton Coding Level of Care Code Est Pt Level 3 (62762) Complex visit Add On G2211 Diagnoses PSA elevation R97.20 Nocturia R35.1 BPH (benign prostatic hyperplasia) N40.0 Enlarged prostate N40.0 Renal cyst N28.1
--- OUTSIDE RECORDS SUMMARY | 2025-08-08 08:53 | XMS_ITS | Clinical Summary ---
Author Organization [facility] Address [address] [place] [address] Phone Care Team Providers Care Armament Aircraft Mechanic Name Role Phone Ana Morris MD Primary Care Provider [phone] Allergies Active Allergy Reactions Criticality Noted Date [...] time each day 60 tablet 2 4 Active Active Problems Problem Noted Date Diagnosed Date Gynecomastia 08/26/2023 Hyperaldosteronism 08/26/2023 Hypokalemia 06/04/2014 08/26/2023 Stage 3 chronic kidney disease 05/31/2014 1 10/27/2022 Essential hypertension 05/31/2014 3 Encounters Date Type Department Care Team Description 05/24/2025 1:15 PM EDT Office Visit [facility] [address] [place], [place] [address] Tato Rocha [...] Visit [facility] [address] [place] [address] Tato Rocha MD [address] [facility] [address] [place] [address] Health Maintenance Due Date Last [...] Medicaid [place] Medicaid [place] Care Teams Armament Aircraft Mechanic Relationship Specialty Start Date End Date Ana Morris MD [address] [place], [place] PCP - General 09/16/20
--- OUTSIDE RECORDS SUMMARY | 2025-08-08 08:53 | XMS_ITS | Clinical Summary ---
Author Organization [email or web address] Address [address] [facility] [place] [address] Care Team Providers Care Production Machine Computer Operator Name Role Phone Unavailable Primary Care Provider [...] Date Diagnosed Date Colon cancer screening 11/21/2024 correction (current) use of oral hypoglycemic ashley gs 11/21/2024 Long-term use of aspirin therapy 11/21/2024 Hyperaldosteronism 08/26/2023 Hypokalemia 06/04/2014 Essential hypertension 05/31/2014 Stage 3 chronic kidney disease (CMS/HCC) 014 Gynecomastia 10/21/2010 Social History Tobacco Use Types [...] Most Recently Relevant to Health Maintenance Insurance [facility] MEDICAID STAND ADULT
== END 2025-08-08 09:29 | disposition home or self-care (01) ==
LOC: HO.HUSH 08:38
PROVIDERS: PCP Internal Medicine; Visit Provider Nurse Practitioner Family
DX: R97.20 Elevated prostate specific antigen [PSA] (principal); R35.1 Nocturia; N40.0 Benign prostatic hyperplasia without lower urinary tract symptoms; N28.1 Cyst of kidney, acquired; Z13.9 Encounter for screening, unspecified
CPT/HCPCS: 99213; G2211

== ENCOUNTER → 2025-08-08 08:37 | Outpatient (BNVA) | payer MEDICARE, MEDICAID, SELFPAY | PROVIDERS: PCP Internal Medicine; Visit Provider Nurse Practitioner Family | DX: R97.20 Elevated prostate specific antigen [PSA] (principal); N40.0 Benign prostatic hyperplasia without lower urinary tract symptoms; R35.1 Nocturia; N28.1 Cyst of kidney, acquired; Z13.9 Encounter for screening, unspecified | CPT/HCPCS: 81003; 99212 ==

== ENCOUNTER 2025-08-29 08:07 | Outpatient (REF) | payer MEDICARE, MEDICAID, SELFPAY ==
--- OUTSIDE RECORDS SUMMARY | 2025-08-29 08:09 | XMS_ITS | Clinical Summary ---
Author Organization [employer] Address [address] [facility] [address] [place] [address] Care Team Providers Care Commercial Engineer Name Role Phone Unavailable Primary Care Provider [...] Most Recently Relevant to Health Maintenance Insurance [facility] MEDICAID STAND ADULT
--- OUTSIDE RECORDS SUMMARY | 2025-08-29 08:09 | XMS_ITS | Patient Health Record ---
Author Organization [facility] Address [address] [place] [address] Care Team Providers Care Engineer/Conductor Name Role Phone Ana Morris Primary Care Provider UnavailPrudencio Marks Jr Unavailable Allergies Allergen (clinical drug ingredient) Drug/Non Drug Allergy documented on EMR Reaction Allergy Type Onset Date Status Seafood seafood (uncoded) Unknown Allergy Ac tive spironolactone Spironolactone Unknown Drug Allergy Active fentanyl Fentanyl Unknown Drug Allergy Active metoprolol Metoprolol Unknown Drug Allergy Activ e Reason For Referral No Information Medications Medication SIG (Take, Route, Frequency, Duration) Notes Start Date End Date Status Zolpidem Tartrate 10 MG Tablet 1 tablet at bedtime Orally Once a day Active Fluticasone Furoate 50 MCG/ACT Aerosol Powder Breath Activated 1 puff Inhalation Once a day Active LORazepam 0.5 MG Tablet 1 tablet at bedt gloria as needed Orally Once a day Active Doxycycline Hyclate 100 MG Capsule 1 capsule Orally Once a day; Duration: 10 day(s) Active Aspirin 81 81 MG Tablet Chewable 1 tablet Orally Once a day; Duration: 30 day(s) Active MiraLax (colon prep) 17 GM/SCOOP Powder mixed with Gatorade or Crystal Light Orally begin at 5:00 p.m. the day before the procedure; Duration: 1 day 02/04/2022 Active Carvedilol 25 MG Tablet 1 tablet with fo od Orally Twice a day; Duration: 30 day(s) Active Omeprazole 40 MG Capsule Delayed Release 1 capsule 30 minutes before morning meal Orally Once a day; Duration: 30 day(s) Active traMADol HCl 50 MG Tablet 1 tablet as ne eded Orally Once a day Active Potassium Chloride 20 MEQ Packet 1 packet with food Orally Once a day; Duration: 30 day(s) Active Acetaminophen 500 MG Capsule 1 capsule a s needed Orally every 6 hrs Active amLODIPine Besy-Benazepril HCl 2.5-10 MG Capsule as directed Orally Active Meclizine HCl 25 MG Tablet Chewable 1 tablet as needed Orally Once a day; Duration: 30 day(s) Active MiraLax (colon prep) 17 GM/SCOOP Powder mixed with Gatorade or Crystal Light Orally begin at 5:00 p.m. the day before the procedure; Duration: 1 day 08/26/2022 Active Eplerenone 50 MG Tablet 1 tablet Orally Once a day; Duration: 30 day(s) Active Cyclobenzaprine HCl 5 MG Tablet 1 tablet at bedtime as needed Orally Once a day; Duration: 30 day(s) Active metFORMIN HCl ER 500 MG Tablet Extended Release 24 Hour 1 tablet with evening meal Orally Once a day; Duration: 30 day(s) Active Fish Oil 1000 MG Capsule 1 capsule Orall y Once a day; Duration: 30 day(s) Active Sennosides 8.6 MG Tablet 2 tablets at be dtime as needed Orally Once a day; Duration: 30 day(s) Active Lisinopril 20 MG Tablet 1 tablet Orally Once a day; Duration: 30 day(s) Active Albuterol Sulfate HFA 108 (9 0 Base) MCG/ACT Aerosol Solution 1 puff as needed Inhalation every 4 hrs Active Immunizations Vaccine Route Administration Date Status Comme nts Influenza Unknown 07/22/2021 Administered Influenza Unknown 08/06/2022 Administered Social History Tobacco Use: Social History Observation Description Date Details (start date - stop date) Never Smoker NA - NA Social History Drugs/Alcohol: Social Info Question Answer Notes Alcohol Screen Did you have a drink containing alcohol in the past year? No Points 0 Interpretation Negative Tobacco Use: Social Info Question Answer Notes Tobacco Use/Smoking Patient is a nonsmoker Additional Details Category Social Info Options Details Miscellaneous: Marital status: Occupation: retired Problems Problem Type SNOMED Code ICD Code Onset Dates Problem Status W/U Status Risk Notes Problem Colon cancer screening (811518501) Colon cancer screening (Z12.11) Active confirmed Problem Long-term current use of antiplatelet drug (529036020660134 ) Long-term use of aspirin therapy (Z79.82) Active confirmed Problem Long-term current use of drug therapy (695759985) 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) use of oral hypoglycemic drugs (Z79.84) Active confirmed Plan Of Treatment Future Test Test Name Order Date COLONOSCOPY 02/04/2022 COLONOSCOPY 08/26/2022 Insurance Providers Payer Name Payer Address Payer Phone Subscriber Number Group Number Insured Name Patient Relationship to Insured Coverage Start Date Coverage End Date MEDICARE OF [place] [address] [place] [id number] BRANDIE ROMAN Self - patient is the insured MEDICAID OF [facility] [address] [place] [phone] [id number] BRANDIE ROMAN Self - patient is the insured Medical (General) History Medical History History ICD Code cellulitis left lower leg insomnia diabetes SVT vertigo trifascicular block cardiac pacemaker in situ right hip pain hypertension cardiomyopathy constipation asthma Surgical History Surgery Date(Month/Year) pacemaker 2015
[2025-08-29 08:23] LABS: MANUAL DIFF FLAG NO
[2025-08-29 09:01] LABS: Hematocrit 36.5 % (42.0-52.0); Hemoglobin 12.5 g/dl (14.0-18.0); Imm Gran Abs Auto 0.02 X10*3/uL (0.00-0.03); Imm Gran Pct Auto 0.3 % (0.0-0.4); Lymphocytes Absolute Auto 1.6 X10*3/uL (1.2-4.9); Mean Corpuscular HGB Conc 34.2 g/dl (31.0-36.0); Mean Corpuscular Hemoglobin 32.8 pg (27.0-33.0); Mean Corpuscular Volume 95.8 fL (80.0-98.0); NRBC Abs Auto 0.000 X10*3/uL (0.0-0.012); NRBC Pct Auto 0.0 /100WBC (0.0-0.2); Platelet Count 194 X10*3/uL (160-400); Red Blood Count 3.81 X10*6/uL (4.60-5.80); White Blood Count 6.5 X10*3/uL (4.8-10.8)
[2025-08-29 09:34] LABS: Microalbum/Creatinine Ratio Ur 288.4 ug/mg cr (<30)
[2025-08-29 09:36] LABS: Alanine Aminotransferase 27 U/L (0-40); Albumin Level 4.1 g/dL (3.5-5.0); Alkaline Phosphatase 77 U/L (39-117); Anion Gap 12 (12-20); Aspartate Amino Transferase 39 U/L (5-37); Blood Urea Nitrogen 13 mg/dL (9-16); Calcium 8.9 mg/dL (8.4-10.2); Carbon Dioxide 27 mmol/L (22-29); Chloride 105 mmol/L (96-108); Cholesterol 89 mg/dL (<200); Estimated Glomerular Filt Rate > 60; HDL Cholesterol 40 mg/dL (>40); Iron 54 mcg/dL (45-160); Percent Iron Saturation 16 % (15-50); Potassium 4.0 mmol/L (3.3-5.1); Sodium 140 mmol/L (135-145); Total Iron Binding Capacity 331 mcg/dL (228-428); Total Protein 7.0 g/dL (6.5-8.0); Triglycerides 56 mg/dL (<150); Unsaturated Iron Binding 277 ug/dL
[2025-08-29 10:00] LABS: Folate 12.5 ng/mL (> or = 4.0); Vitamin B12 330 pg/mL (200-900)
== END 2025-08-29 08:08 | disposition home or self-care (01) ==
LOC: HO.LAB 08:07
PROVIDERS: PCP Internal Medicine; Visit Provider Internal Medicine
DX: I10 Essential (primary) hypertension (principal); E55.9 Vitamin D deficiency, unspecified; E53.8 Deficiency of other specified B group vitamins; D64.9 Anemia, unspecified; E11.9 Type 2 diabetes mellitus without complications; I48.0 Paroxysmal atrial fibrillation; E78.5 Hyperlipidemia, unspecified; I42.9 Cardiomyopathy, unspecified; R80.9 Proteinuria, unspecified; Z79.01 Long term (current) use of anticoagulants; Z85.828 Personal history of other malignant neoplasm of skin
CPT/HCPCS: 36415; 80053; 80061; 82043; 82306; 82570; 82607; 82746; 83540; 85025; 99212

== ENCOUNTER 2025-08-29 09:25 | Outpatient (AMB) | payer MEDICARE, MEDICAID, SELFPAY ==
--- OUTSIDE RECORDS SUMMARY | 2025-08-29 09:30 | XMS_ITS | Clinical Summary ---
Author Organization [facility] Address [address] [facility] [address] [place] [address] Phone Care Team Providers Care Solid Fiber Paster Operator Name Role Phone Ana Morris MD Primary Care Provider [phone] Allergies Active Allergy Reactions Criticality Noted Date [...] 05/31/2014 1 10/27/2022 Essential hypertension 05/31/2014 3 Family History Medical History Relation Comments Stroke [...] Visit [facility] [address] [place] [address] Tato Rocha MD [address] [facility] [address] [place] [address] Health Maintenance Due Date Last [...] Medicaid [place] Care Teams Solid Fiber Paster Operator Relationship Specialty Start Date End Date Ana Morris MD [address] [place], [place] PCP - General 09/16/20
--- NOTE | 2025-08-29 09:44 | MHC.PC.OV ---
Vital Signs 08/29/25 09:45 08/29/25 09:46 08/29/25 10:07 Height 5 ft 7 in 5 ft 7 in Weight 201 lb BMI 31.5 BP 168/82 H 138/88 Blood Pressure Location Lt brachial Lt brachial Lt brachial Position Sitting Sitting Sitting Respiration 18 Pulse 75 Pulse Source Pulse Oximeter Pulse Oximeter Temp Source Temporal Artery Scan Temporal Artery Scan Pulse Oximetry (%) 96 Oxygen Delivery Method Room Air Room Air Intake Visit Reasons: 4 months dm Intake Note: Patient is here to follow up on HLD, Asthma, HTN, DM. Box Toe Cementer Required: No Lock Technician: Not Required per policy Accompanied by: Self / Same As Patient Allergies metoprolol (METOPROLOL) Allergy (Intermediate, Verified 08/29/25 10:02) Rash seafood Allergy (Intermediate, Verified 08/29/25 10:02) Swelling spironolactone (Spironolactone) Allergy (Intermediate, Verified 08/29/25 10:02) Gynecomastia,Swelling fentanyl Adverse Reaction (Intermediate, Verified 08/29/25 10:02) sleepiness Medication List - Last Reconciled 08/29/25 by Ana Vargas MD acetaminophen (Tylenol Extra Strength) 500 mg PO Q6H PRN albuterol sulfate 90 mcg/actuation 1 inh PO Q4H PRN amlodipine 10 mg PO DAILY 90 days carvedilol 25 mg PO BID cromolyn 4% 1 drp ophthalmic (eye) QID 5 days dronedarone (Multaq) 400 mg PO BID eplerenone 50 mg PO DAILY 90 days ferrous sulfate 325 mg PO finasteride 5 mg PO DAILY 90 days fluticasone propionate 50 mcg/actuation 1 spray intranasal DAILY hydralazine 50 mg PO TID 30 days hydrocortisone 1% (Anti-Itch (hydrocortisone)) 1 appl topical BID PRN 30 days lisinopril 20 mg PO BID 90 days lorazepam 0.5 mg PO BID PRN 30 days meclizine 25 mg PO DAILY PRN 90 days metformin 500 mg PO BID 90 days nebulizers Nebulizer Machine with Tubing and Accessories omeprazole 40 mg PO DAILY potassium chloride ER 40 mEq (2 x 20 mEq) PO DAILY 90 days rivaroxaban (Xarelto) 20 mg PO DAILY rosuvastatin 10 mg PO DAILY 90 days sennosides (senna) 17.2 mg (2 x 8.6 mg) PO BEDTIME PRN terazosin 5 mg PO BEDTIME 90 days tramadol 50 mg PO BID PRN 30 days zolpidem 10 mg PO BEDTIME PRN 30 days Tobacco use date assessed: 08/29/25 Fall risk assessment: No Falls in past year Last assessed Fall Risk: 08/29/25 Dental Screening Dental Screen Date: 08/29/25 Did you have a dental visit in the last 12 months?: No Did you have a dental problem in the last 6 months where you did not have access to dental care?: No Was dental information given to patient?: Patient has dentist HPI HPI Comments History of Present Illness Details This is a 75-year-old male with diabetes mellitus type 2, essential hypertension, paroxysmal atrial fibrillation on chronic anticoagulation, cardiomyopathy, and hyperlipidemia that comes for follow-up on his chronic conditions. A1c within goal being less than 7%. Blood pressure elevated today but at home it was around 130/80. Chronic anticoagulation for atrial fibrillation and this is follow by cardiology. He denies any shortness of breath or leg swelling. Also denies gaining 5 lb in a week. He does have cardiomyopathy with low ejection fraction of 45-50% which is similar than echocardiogram done 2019. Compliant with carvedilol. Follow by cardiology. LDL within goal being less than 70. He denies any active bleeding. Labs were discussed and microalbuminuria was noticed therefore I will refer him to Nephrology. He also has history of skin cancer and last checkup was over a year ago therefore I will refer him to Dermatology. PENDING SALE TO [facility] Medical History (Updated 08/29/25 @ 10:15 by Ana Vargas MD) Paroxysmal atrial fibrillation SVT (supraventricular tachycardia) Trifascicular block Cardiac pacemaker in situ Cardiomyopathy Right hip pain Eye exam, routine Screening for colon cancer Screening for prostate cancer Lumbar degenerative disc disease Insomnia Constipation by delayed colonic transit Vertigo SVT (supraventricular tachycardia) Trifascicular block Diabetes mellitus HTN (hypertension) Cardiomyopathy Cardiac pacemaker in situ Surgical History History of colonoscopy S/P cardiac catheterization History of pacemaker Status post excision of lipoma History of inguinal hernia repair Family History Mother Cancer Diabetes Hypertension Father Stroke Sister Cancer Maternal Uncle Myocardial infarction Paternal Aunt No problems noted. Paternal Uncle Hypertension CVD (cardiovascular disease) Brother Mental health disorder Social History Housing: House Alcohol intake: former Patient Tobacco Use Status: Never used Tobacco Tobacco use type: Cigarette e-Cigarette/Vaping Use: Never Used Second Hand Smoke Exposure: No service: No Current occupational status: disabled Cognitive needs: No Hearing needs: No Vision needs: Yes (glasses) Questionnaire Thrive Questionnaire Date Thrive assessed: 04/24/25 I am a: Patient What is your living situation today?: I have a steady place to live Within the past 12 months, did the food you bought not last and you didn't have the money to get more?: Never true Within the past 12 months, did you worry whether your food would run out before you got money to buy more?: Never true Do you have trouble paying for medicines?: No Do you have trouble getting transportation to medical appointments?: No Do you have trouble paying your heating and electricity bill?: No Do you have trouble taking care of your child, family member or friend?: No Do you have trouble with day-to-day activities such as bathing, preparing meals, shopping, managing finances, etc.?: No Are you currently unemployed and looking for a job?: Yes Are you interested in more education?: Yes Currently or been in a relationship where the following occur: No concerns reported THRIVE Score: 0 BASSEM-7 AMB Questionnaire BASSEM-7 Date BASSEM - 7 assessed: 11/21/24 Source: Developed by Drs. Hebert Wright, Alejandra Otero, Randell Cuellar and colleagues, with an educational una from [employer]. Review of Systems Const All systems reviewed & are unremarkable except as noted in HPI and below Card Denies chest pain at rest, Denies chest pain with activity, Denies edema, Denies irregular heart rhythm, Denies claudication, Denies dyspnea, Denies dyspnea on exertion, Denies orthopnea, Denies paroxysmal nocturnal dyspnea and Denies slow heart rate Resp Denies cough, Denies dyspnea and Denies dyspnea on exertion Physical exam (Primary Care) Vital Signs: Last Vital Signs Pulse 75 08/29/25 09:46 Resp 18 08/29/25 09:46 BP 168/82 H 08/29/25 09:46 Pulse Ox 96 08/29/25 09:46 Oxygen Delivery Method Room Air 08/29/25 09:46 BMI result Body Mass Index 31.5 BMI Assessment/Plan discussion: High BMI High, discussed plan: lifestyle, weight reduction, dietary and physical activity Tobacco/Smoking Status: Tobacco use Status Tobacco use date assessed 08/29/25 08/29/25 09:47 Patient Tobacco Use Status Never used Tobacco 08/29/25 09:47 Tobacco use type Cigarette 08/29/25 09:47 e-Cigarette/Vaping Use Never Used 08/29/25 09:47 Thrive Assessment: Date of Thrive Assessment Date Thrive assessed 04/24/25 08/29/25 09:47 Currently or been in a relationship where the following occur: No concerns reported Resp Effort & Inspection: normal respiratory effort Auscultation: clear to auscultation bilaterally Cardio Jugular venous distension: no JVD Rate: regular rate Rhythm: regular rhythm Heart sounds: S1 normal heart sound present and S2 normal heart sound present Extrem General: Yes full ROM Coding Level of Care Code Add On Preventative Visit Only Diagnoses Microalbuminuria R80.9 Type 2 diabetes mellitus without complication, without long-term current use of insulin E11.9 Diabetes mellitus type: type 2 Diabetes mellitus long term care phlebotomist insulin use: without long term care phlebotomist use Diabetes mellitus complication status: without complication Paroxysmal atrial fibrillation I48.0 Hyperlipidemia LDL goal <70 E78.5 Cardiomyopathy I42.9 Essential hypertension I10 History of skin cancer Z85.828 Time Spent (min) 23 Assessment & Plan Assessment & Plan (1) Microalbuminuria: Code(s): R80.9 - Proteinuria, unspecified Category: Medical (2) Diabetes mellitus: Code(s): E11.9 - Type 2 diabetes mellitus without complications Category: Medical Qualifiers: Diabetes mellitus type: type 2 Diabetes mellitus prison insulin use: without prison use Diabetes mellitus complication status: without complication Qualified Code(s): E11.9 - Type 2 diabetes mellitus without complications (3) Paroxysmal atrial fibrillation: Code(s): I48.0 - Paroxysmal atrial fibrillation Category: Medical (4) Hyperlipidemia LDL goal <70: Code(s): E78.5 - Hyperlipidemia, unspecified Category: Medical (5) Cardiomyopathy: Comment: echo October 2018 showing LVEF of 45-50% Code(s): I42.9 - Cardiomyopathy, unspecified Category: Medical (6) Essential hypertension: Code(s): I10 - Essential (primary) hypertension Category: Medical (7) History of skin cancer: Code(s): Z85.828 - Personal history of other malignant neoplasm of skin Category: Medical Plan Continue same medications. Follow-up with Cardiology regarding congestive heart failure. Referred to dermatology due to history of skin cancer. Referred to Nephrology due to microalbuminuria. Continue blood pressure monitoring. Blood pressure will be recheck in 3 weeks by nurse navigator. A1c goal is equal or less than 7%. Blood pressure goal is equal or less than 130/80. LDL goal is equal or less than 70. Orders: Orders [facility] [place]. Panel Fast 4 Months I42.9 - Cardiomyopathy, unspecified NT Pro B Type Natriuretic Pept 4 Months I42.9 - Cardiomyopathy, unspecified AMB Hemoglobin A1c Today E11.9 - Type 2 diabetes mellitus without complications Lipid Panel 4 Months E78.5 - Hyperlipidemia, unspecified Microalbumin, Random (w Creat) 4 Months R80.9 - Proteinuria, unspecified Complete Blood Count Auto Diff 4 Months D64.9 - Anemia, unspecified IRON PROFILE 4 Months D64.9 - Anemia, unspecified Referrals Dermatology Referral Z85.828 - Personal history of other malignant neoplasm of skin Nephrology Referral R80.9 - Proteinuria, unspecified
[2025-08-29 09:46] VITALS: BP 168/82; PULSE 75; RESP 18; O2SAT 96; BMI 31.5
[2025-08-29 10:07] VITALS: BP 138/88
== END 2025-08-29 10:16 | disposition home or self-care (01) ==
LOC: HO.HMCH 09:26
PROVIDERS: PCP Internal Medicine; Visit Provider Internal Medicine
DX: R80.9 Proteinuria, unspecified (principal); E11.9 Type 2 diabetes mellitus without complications; I48.0 Paroxysmal atrial fibrillation; E78.5 Hyperlipidemia, unspecified; I42.9 Cardiomyopathy, unspecified; I10 Essential (primary) hypertension; Z85.828 Personal history of other malignant neoplasm of skin